=== PATIENT | female | born 1960 | race Caucasian/White ===

== ENCOUNTER 2022-03-13 06:57 | Inpatient (IN) | payer BC, OTHER, SELFPAY ==
[2022-03-13] VITALS (8 sets, daily range): BP systolic 152–208; BP diastolic 69–106; PULSE 71–84; RESP 16–18; TEMP 36.3–37.1; O2SAT 96–99; BMI 39.4
--- NOTE | 2022-03-13 | ECG_ITS ---
Test Reason : MED CLEARANCE Blood Pressure : / mmHG Vent. Rate : 079 BPM Atrial Rate : 079 BPM P-R Int : 180 ms QRS Dur : 080 ms QT Int : 392 ms P-R-T Axes : 057 017 062 degrees QTc Int : 449 ms Normal sinus rhythm Normal ECG When compared with ECG of 20-JAN-2008 07:41, No significant change was found Referred By: Bebo Livingston Electronically Signed By:NAEEM WILBURN
--- NOTE | 2022-03-13 07:19 | ED.PSYCH ---
HPI - Psych General Chief Complaint: Psychiatric Symptoms Stated Complaint: SECT 12,MANIC EPISODE Time Seen by Provider: 03/13/22 07:18 Source: patient and EMS History of Present Illness HPI Narrative: . Patient with History of bipolar disorder was seen at [facility] last week brought by EMS for having a manic episode disorganized awake all night went to [facility] last night. Per daughter patient noncompliant to medication no suicidal ideation at this time no hallucinations or delusions also patient has swelling of the lower extremity for some time and was told secondary to side effect of amlodipine Related Data Home Medications Medication Instructions Recorded Confirmed amlodipine 10 mg tablet 1 tab PO DAILY 03/13/22 03/13/22 carbamazepine 100 mg 1 tab PO BID 03/13/22 03/13/22 tablet,extended release,12 hr duloxetine 30 mg capsule,delayed 1 cap PO DAILY 03/13/22 03/13/22 release ezetimibe 10 mg tablet 1 tab PO DAILY 03/13/22 03/13/22 fenofibrate nanocrystallized 145 1 tab PO DAILY 03/13/22 03/13/22 mg tablet lorazepam 1 mg tablet 1 tab PO DAILY PRN Anxiety 03/13/22 03/13/22 olanzapine 5 mg tablet 1 tab PO BEDTIME 03/13/22 03/13/22 pantoprazole 40 mg tablet,delayed 1 tab PO BEDTIME 03/13/22 03/13/22 release Allergies Allergy/AdvReac Type Severity Reaction Status Date / Time adhesive [Adhesive] Allergy Mild SKIN Unverified 04/20/20 15:52 IRRITATION WITH BLISTERS codeine [Codeine] Allergy Mild UNKNOWN Unverified 04/20/20 15:52 methylphenidate Allergy Mild UNKNOWN Unverified 04/20/20 15:52 [From CONCERTA] simvastatin [Simvastatin] Allergy Mild UNKNOWN Unverified 04/20/20 15:52 Review of Systems Review of Systems: Yes all other systems are reviewed and are negative PMFSH Social History Social History Advance Directives: No Advance Directives Information Provided: No Guardian: No Physical Exam Vital Signs: Vital Signs: Last Vital Signs Temp 97.7 F 03/13/22 08:48 Pulse 82 03/13/22 15:26 Resp 16 03/13/22 09:32 BP 208/97 H 03/13/22 15:26 Pulse Ox 97 03/13/22 15:26 O2 Del Method 03/13/22 15:26 BMI result Body Mass Index 39.4 Appearance: Alert. Oriented X3. No acute distress. Anxious Eyes: PERRLA, No Nystagmus ENT: Pharynx normal. Oral Mucosa moist Neck: Normal inspection. Neck supple. CVS: Normal heart rate and rhythm. Pulses normal. Respiratory: No respiratory distress. Equal air entry bilateral, no wheezing/rales/rhonchi Abdomen: Soft and nontender. Bowel sounds are present, no mass palpable, no CVA tenderness Skin: Skin warm and dry. Normal skin color. Normal skin turgor. Extremities: 2 +lower extremity edema. No calf tenderness Neuro: Oriented X 3. No motor deficit. MDM - Psych Lab Data Attestation: I reviewed the patient's lab results. Result diagrams: 03/13/22 16:28 03/13/22 16:28 Labs: Lab Results 03/13/22 03/13/22 03/13/22 Range/Units 07:41 07:41 16:28 WBC 7.5 (4.8-10.8) X10*3/uL RBC 4.59 (4.20-5.50) X10*6/uL Hgb 13.5 (12.0-16.0) g/dl Hct 39.4 (37.0-47.0) % MCV 85.8 (80.0-98.0) fL MCH 29.4 (27.0-33.0) pg MCHC 34.3 (31.0-35.0) g/dl RDW 13.3 (11.0-16.0) % Plt Count 306 (160-400) X10*3/uL MPV 9.1 L (9.4-12.3) fL Immature Gran % (Auto) 0.3 (0.0-0.4) % Neut % (Auto) 66.9 (45-73) % Lymph % (Auto) 21.3 (20-40) % Barber % (Auto) 8.1 (2-11) % Eos % (Auto) 2.7 (0-4) % Baso % (Auto) 0.7 (0-2) % Lymph # (Auto) 1.6 (1.2-4.9) X10*3/uL Barber # (Auto) 0.6 (0.1-1.2) X10*3/uL Eos # (Auto) 0.2 (0.0-0.4) X10*3/uL Baso # (Auto) 0.1 (0.0-0.2) X10*3/uL Abs Immat Gran (auto) 0.02 (0.00-0.03) X10*3/uL Absolute Neuts (auto) 5.0 (2.0-8.3) x10*3/uL Absolute Nucleated RBC 0.000 (0.0-0.012) X10*3/uL Nucleated RBC % (auto) 0.0 (0.0-0.2) /100WBC Urine Opiates Screen Not Detected (Not Detect) Urine Fentanyl Screen Not Detected (Not Detect) Ur Barbiturates Screen Not Detected (Not Detect) Ur Phencyclidine Scrn Not Detected (Not Detect) Ur Amphetamines Screen Not Detected (Not Detect) U Benzodiazepines Scrn Not Detected (Not Detect) Urine Cocaine Screen Not Detected (Not Detect) U Marijuana (THC) Screen Not Detected (Not Detect) COVID-19 (JOSE) Negative (Negative) COVID-19 Clin Com See Note Discharge Plan Discharge Clinical Impression: Bipolar disorder Patient Disposition: Still a Patient Prescriptions: No Action carbamazepine 100 mg tablet extended release 12 hr 1 tab PO BID olanzapine 5 mg tablet 1 tab PO BEDTIME amlodipine 10 mg tablet 1 tab PO DAILY lorazepam 1 mg tablet 1 tab PO DAILY PRN (Reason: Anxiety) ezetimibe 10 mg tablet 1 tab PO DAILY duloxetine 30 mg capsule,delayed release(DR/EC) 1 cap PO DAILY fenofibrate nanocrystallized 145 mg tablet 1 tab PO DAILY pantoprazole 40 mg tablet,delayed release (DR/EC) 1 tab PO BEDTIME
[2022-03-13 08:09] LABS: Amphetamine Screen Urine Not Detected (Not Detect); Barbiturates, Urine Not Detected (Not Detect); Benzodiazepines Screen Urine Not Detected (Not Detect); Cannabinoid Screen Urine Not Detected (Not Detect); Cocaine Screen Urine Not Detected (Not Detect); Fentanyl, urine Not Detected (Not Detect); Opiate Screen Urine Not Detected (Not Detect); Phencyclidine Screen Urine Not Detected (Not Detect)
[2022-03-13 08:16] LABS: COVID-19 Test Negative (Negative); IDNOW Serial# 16C4AD1C
--- NOTE | 2022-03-13 14:07 | PHA.MEDREC ---
Pharmacy Consult ? Medication Reconciliation Pharmacy has completed the medication reconciliation.
[2022-03-13] MEDS: carBAMazepine ER 100 MG TAB.ER.12H PO (16:06)
[2022-03-13] MEDS: DULoxetine HCl 30 MG CAPSULE.DR PO (16:06)
[2022-03-13] MEDS: amLODIPine Besylate 10 MG TABLET PO ×2 (16:06→19:37)
[2022-03-13 16:34] LABS: MANUAL DIFF FLAG NO
[2022-03-13 16:35] LABS: Basophils Absolute Auto 0.1 X10*3/uL (0.0-0.2); Basophils Percent Auto 0.7 % (0-2); Eosinophils Absolute Auto 0.2 X10*3/uL (0.0-0.4); Eosinophils Percent Auto 2.7 % (0-4); Hematocrit 39.4 % (37.0-47.0); Hemoglobin 13.5 g/dl (12.0-16.0); Imm Gran Abs Auto 0.02 X10*3/uL (0.00-0.03); Imm Gran Pct Auto 0.3 % (0.0-0.4); Lymphocytes Absolute Auto 1.6 X10*3/uL (1.2-4.9); Lymphocytes Percent Auto 21.3 % (20-40); Mean Corpuscular HGB Conc 34.3 g/dl (31.0-35.0); Mean Corpuscular Hemoglobin 29.4 pg (27.0-33.0); Mean Corpuscular Volume 85.8 fL (80.0-98.0); Mean Platelet Volume 9.1 fL (9.4-12.3); Monocytes Absolute Auto 0.6 X10*3/uL (0.1-1.2); Monocytes Percent Auto 8.1 % (2-11); Neutrophils Percent Auto 66.9 % (45-73); Platelet Count 306 X10*3/uL (160-400); Red Blood Count 4.59 X10*6/uL (4.20-5.50); Red Cell Distribution Width 13.3 % (11.0-16.0); White Blood Count 7.5 X10*3/uL (4.8-10.8)
[2022-03-13 17:00] LABS: B Type Natriuretic Peptide 52 pg/mL (<100)
[2022-03-13 18:40] LABS: Alanine Aminotransferase 32 U/L (0-31); Albumin Level 4.5 g/dL (3.5-5.0); Alkaline Phosphatase 115 U/L (39-117); Anion Gap 19 (12-20); Aspartate Amino Transferase 34 U/L (5-31); Bilirubin Total 0.5 mg/dL (0.0-1.0); Blood Urea Nitrogen 19 mg/dL (9-16); Calcium 9.6 mg/dL (8.4-10.2); Carbon Dioxide 19 mmol/L (22-29); Chloride 103 mmol/L (96-108); Creatinine Clr Calc Pharmacy 95.4; Estimated Glomerular Filt Rate > 60; Ethanol < 10 mg/dL; Glucose Random 133 mg/dL (60-115); Magnesium 1.9 mg/dL (1.6-2.6); Potassium 4.9 mmol/L (3.3-5.1); Sodium 136 mmol/L (135-145); Total Protein 8.1 g/dL (6.5-8.0)
[2022-03-13] MEDS: LORazepam 1 MG TABLET PO (19:37)
--- NOTE | 2022-03-13 20:18 | PC.NURSE ---
PATIENT REFUSED LABS. THE PATIENT STATED YOU CANNOT FORCE ME .
--- NOTE | 2022-03-13 21:09 | PC.NURSE ---
Patient refused Tegretol lab draw, Kiara on behalf this leader writer helped communicated with Michelle MCCLOUD who ordered Tegretol order, per Michelle it is OK if patient is refusing the lab order, doesn't need any coercive measure for lab draw, Maciej Brown made aware of the situation, MHT also made aware, will continue to monitor
--- NOTE | 2022-03-13 21:40 | PC.NURSE ---
Patient's Blood pressure @ 1526 (208/97), @ 1822 (202/106), and @ 2004 (197/101), appears in hypertensive crises, Amlodipine 10 mg and Ativan 1 mg administered as ordered @ 1937, Provider and Charge nurse made aware/awaiting their decision, M3 cannot admit the patient with that high blood pressure, will continue to monitor.
[2022-03-14] MEDS: Acetaminophen 325 MG TABLET 650 MG PO ×2 (00:23→10:09)
[2022-03-14 01:13] VITALS: BMI 40.4
--- NOTE | 2022-03-14 03:44 | PC.ADMIT ---
this is one of several [facility] [place] [facility] behavioral health admissions for this 61 year old female. legal CV. signed 3 day on arrival to unit. DX bipolar d/o. nurse to nurse and collateral information obtained prior to admission. patient. patient with no drug/alcohol use. on arrival presented as sarcastic and negative with a challenging edge but this presentation lifted slightly after orientation to unit and assessment complete. patient denies mental health issues stating ''I do not have bipolar d/o I have ADHD'' states ''I am here because of my '' ''he should be here, I think he is developing dementia'' refused to sign release to speak with or daughter but did sign for her out patient providers. medications were verified when in the emergency room but would like medications verified with her providers as she does not concur with them when reviewed. medical HX HTN, RA, hyperlipidemia, and is considered a high fall risk due to medical conditions as well as requiring a cane for mobility. pt is expansive and hyperverbal and can be difficult to disengage from. treatment plan initiated, safety tool completed, oriented to unit.
[2022-03-14 07:00] VITALS: BMI 40.4
[2022-03-14 09:45] VITALS: BP 154/82; PULSE 86; RESP 18; TEMP 36.8
[2022-03-14] MEDS: DULoxetine HCl 30 MG CAPSULE.DR PO (10:00)
[2022-03-14] MEDS: carBAMazepine ER 100 MG TAB.ER.12H PO ×2 (10:02→22:42)
--- NOTE | 2022-03-14 11:04 | PC.NURSE ---
Patient declined antihypertensive medication, and medications used to treat elevated cholesterol. MD notified.
[2022-03-14] MEDS: Ibuprofen 800 MG TABLET PO ×2 (15:28→22:42)
[2022-03-14 16:15] VITALS: BP 159/75; PULSE 106; RESP 20; O2SAT 97
--- NOTE | 2022-03-14 17:17 | HO.PSYADMNOT ---
HPI Date of Service: 03/14/22 Chief Complaint: Manic Episode Sources of Information: patient interviewed, chart reviewed and crisis/core team assessment reviewed HPI Subjective Notes: Malik Warning and Conditional Voluntary Healthcare Proxy: No Guardianship: No Medical Problems Affecting Mental Status: No Narrative: Samantha is a 61 y.o. Pt who carries a dx of bipolar DO. She presented to [facility] on 03/13/2022 due to a manic episode, pt called 911 and asked to have her arrested because he hurt her, police are familiar with her, noted her to be decompensated and sent her to the hospital. Recent discharge from [facility], however family reports pt is still manic. Pt?s daughter has reported med non-adherence but pt denies this, now refusing further lab work for tegretol level. She took amlodipine in the ED due to hypertension, however she is now refusing due stating an MD told her it can contribute to bilateral LE edema. BNP wnl. Per crisis eval, pt?s family report pt has not been sleeping, has impulsive behaviors, she is circumstantial in thoughts, grandiose (i.e. told CARE team clinician she has an IQ higher than [facility]), paranoid/ persecutory delusions (i.e. believes that computer chips in [employer] and electronics made in [employer] are listening/ tracking devices, wants to send her to care home), and engaging in shopping sprees. Pt denied that she has bipolar disorder, believes she has ADHD. She is a prison pt of Aixa Ahn APRN. I evaluated the pt this evening and upon interview she says she does not want to be on her psych medications, has been working with her OP provider to taper off them as she is worried about her kidneys and liver, despite reassuring lab work. Also says a ?doctor told me I dont have bipolar disorder? and that ?I have ADHD.? During interview, pt is highly circumstantial and difficult to redirect. Pt admits to hyposomnia, says she sleeps 2.5 hours at night. Reports her family thinks she is manic because ?every august and every february i go shopping,? says this is early loan shopping. She denies A/VH. Of note, pt is articulate, educated, and offers some insight into her sx, attempts at length to provide evidence that she is not bipolar.? Past Psychiatric History: -Hx of admission to July 2007 and January 2008. Hx of IPLOC at [facility], [place], and in [place]. -Psych provider is Naty Ahn NP -Per , pt has a manic episode every 2-3 years in late summer or near Loan despite med adherence. -Hx of suicidal gesture in 2006, put a cord around her neck while depressed, did seek help. 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 Supervisors were concerned about her instability and [employer] clearance. - for 42 years to her , they have one daughter Diagnostics Vital Signs (24Hr): Vital Signs - 24 hr 03/13/22 18:22 03/13/22 20:05 03/13/22 21:58 Temperature 98.7 F Pulse Rate 84 Respiratory Rate 16 18 Blood Pressure 202/106 H 197/101 H 171/69 H Pulse Oximetry 96 Oxygen Delivery Method Room Air 03/13/22 22:11 03/13/22 23:00 03/14/22 09:45 Temperature 97.3 F 98.3 F Pulse Rate 77 86 Respiratory Rate 18 Blood Pressure 152/81 H 169/74 H 154/82 H Pulse Oximetry 98 Oxygen Delivery Method Room Air 03/14/22 16:15 Temperature Pulse Rate 106 H Respiratory Rate 20 Blood Pressure 159/75 H Pulse Oximetry 97 Oxygen Delivery Method Room Air BMI result Body Mass Index 40.4 Labs Results: 03/13/22 16:28 03/13/22 16:28 Labs: Laboratory Results - last 48 hr 03/13/22 03/13/22 03/13/22 07:41 07:41 16:28 WBC 7.5 RBC 4.59 Hgb 13.5 Hct 39.4 MCV 85.8 MCH 29.4 MCHC 34.3 RDW 13.3 Plt Count 306 MPV 9.1 L Immature Gran % (Auto) 0.3 Neut % (Auto) 66.9 Lymph % (Auto) 21.3 Zapata % (Auto) 8.1 Eos % (Auto) 2.7 Baso % (Auto) 0.7 Lymph # (Auto) 1.6 [place]ata # (Auto) 0.6 Eos # (Auto) 0.2 Baso # (Auto) 0.1 Abs Immat Gran (auto) 0.02 Absolute Neuts (auto) 5.0 Absolute Nucleated RBC 0.000 Nucleated RBC % (auto) 0.0 Sodium Potassium Chloride Carbon Dioxide Anion Gap BUN Creatinine Estim Creat Clear Calc Estimated GFR Random Glucose Calcium Magnesium Total Bilirubin AST ALT Alkaline Phosphatase B-Natriuretic Peptide Total Protein Albumin Urine Opiates Screen Not Detected Urine Fentanyl Screen Not Detected Ur Barbiturates Screen Not Detected Ur Phencyclidine Scrn Not Detected Ur Amphetamines Screen Not Detected U Benzodiazepines Scrn Not Detected Urine Cocaine Screen Not Detected U Marijuana (THC) Screen Not Detected Ethyl Alcohol COVID-19 (JOSE) Negative COVID-[employer] See Note 03/13/22 03/13/22 16:28 16:28 WBC RBC Hgb Hct MCV MCH MCHC RDW Plt Count MPV Immature Gran % (Auto) Neut % (Auto) Lymph % (Auto) Zapata % (Auto) Eos % (Auto) Baso % (Auto) Lymph # (Auto) Zapata # (Auto) Eos # (Auto) Baso # (Auto) Abs Immat Gran (auto) Absolute Neuts (auto) Absolute Nucleated RBC Nucleated RBC % (auto) Sodium 136 Potassium 4.9 Chloride 103 Carbon Dioxide 19 L Anion Gap 19 BUN 19 H Creatinine 0.71 Estim Creat Clear Calc 95.4 Estimated GFR > 60 Random Glucose 133 H Calcium 9.6 Magnesium 1.9 Total Bilirubin 0.5 AST 34 H ALT 32 H Alkaline Phosphatase 115 B-Natriuretic Peptide 52 Total Protein 8.1 H Albumin 4.5 Urine Opiates Screen Urine Fentanyl Screen Ur Barbiturates Screen Ur Phencyclidine Scrn Ur Amphetamines Screen U Benzodiazepines Scrn Urine Cocaine Screen U Marijuana (THC) Screen Ethyl Alcohol < 10 COVID-19 (JOSE) COVID-[employer] Meds/Allergies Meds Home Medications Medication Instructions Recorded Confirmed Type amlodipine 10 mg tablet 1 tab PO DAILY 03/13/22 03/13/22 History carbamazepine 100 mg 1 tab PO BID 03/13/22 03/13/22 History tablet,extended release,12 hr duloxetine 30 mg capsule,delayed 1 cap PO DAILY 03/13/22 03/13/22 History release lorazepam 1 mg tablet 1 tab PO DAILY PRN Anxiety 03/13/22 03/13/22 History olanzapine 5 mg tablet 1 tab PO BEDTIME 03/13/22 03/13/22 History pantoprazole 40 mg tablet,delayed 1 tab PO BEDTIME 03/13/22 03/13/22 History release fluticasone propionate 50 1 spray intranasal DAILY 03/14/22 03/14/22 History mcg/actuation nasal spray,suspension Allergies Allergies Allergy/AdvReac Type Severity Reaction Status Date / Time adhesive [Adhesive] Allergy Mild SKIN Unverified 04/20/20 15:52 IRRITATION WITH BLISTERS codeine [Codeine] Allergy Mild UNKNOWN Unverified 04/20/20 15:52 methylphenidate Allergy Mild UNKNOWN Unverified 04/20/20 15:52 [From CONCERTA] simvastatin [Simvastatin] Allergy Mild UNKNOWN Unverified 04/20/20 15:52 Mental Status Exam Mental Status Exam Narrative: A&O. Overweight, Bilateral LE edema (not new), otherwise well groomed and good hygiene. Good eye contact, attentive. No Tics or Tremors. No abnormal involuntary movements. Calm, somewhat guarded but overall engaged. Non-pressured speech, spontaneous with regular rate and rhythm, normal volume and prosody. No prolonged speech latency or dysarthria. Mood is ?good,? affect is constricted. Denies SI/SIB/HI upon inquiry. Denies A/VH. Presents with persecutory thought content, some paranoia. Thoughts are circumstantial. No known cognitive or memory impairment. Insight/ Judgment limited. Assessment & Plan Assessment & Plan (1) Bipolar II disorder: Status: Acute Code(s): F31.81 - Bipolar II disorder Plan Samantha is a 61 y.o. Pt who carries a dx of bipolar DO. She presented to [facility] on 03/13/2022 due to a manic episode, pt called 911 and asked to have her arrested because he hurt her, police are familiar with her, noted her to be decompensated and sent her to the hospital. Recent discharge from [facility], however family reports pt is still manic. Pt refusing further lab work for tegretol level and refusing amlodpine. Says she has a goal to wean herself off her psych meds and does not believe she is bipolar, thinks she has ADHD. Remote hx of IPLOC at [facility] in 2006, 2007. Plan: Of note, pt takes cymbalta 30 mg daily, she acknowledges that it can exacerbate manic sx, says she takes it for RA. Pt says olanzapine causes her wt gain, swelling, does not want to take this medication. She also does not want to take amlodipine. I spoke with the hospitalist, will start lisinopril 10 mg daily for essential HTN. Pt is currently refusing to start any new medications and insists on collaboration with her OP provider Aixa Ahn prior to changes being made. Overall, pt says she intends to wean herself off medication in the next two years as Aixa is retiring. Will continue assessment and engagement.? Q15 min safety checks, CV Monitor response to medications. Monitor for safety in the milieu. Discharge on stabilization. Patient seen. Chart reviewed. Discussed with team. Obtain collateral contact info?as needed Patient educated on: diagnosis, medication risk/benefits and therapeutic strategies Reason for continued inpatient stay Substantial Risk for: rapid decompensation and med/psych decompensation
[2022-03-14 22:35] VITALS: BP 150/88; PULSE 84; RESP 18; TEMP 36.3; O2SAT 99
[2022-03-14] MEDS: cloNIDine HCL 0.1 MG TABLET PO (22:43)
[2022-03-14] MEDS: Baclofen 20 MG TABLET PO (22:43)
[2022-03-15] MEDS: carBAMazepine ER 100 MG TAB.ER.12H PO (08:31)
[2022-03-15] MEDS: DULoxetine HCl 30 MG CAPSULE.DR PO (08:31)
[2022-03-15] MEDS: cloNIDine HCL 0.1 MG TABLET PO (08:32)
[2022-03-15 09:49] VITALS: BP 156/67; PULSE 89; RESP 20; TEMP 36.1; O2SAT 96
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
--- NOTE | 2022-03-15 12:06 | PC.NURSE ---
Patient alert, oriented x3. Patient denies SI, denies HI You know why? I'm Adventist. Patient denies hallucinations. Patient reports she feels ready for discharge, denies any concerns, states she is eager to leave.
--- NOTE | 2022-03-15 12:19 | PC.NURSE ---
Reviewed belongings, patient discharge instructions. Patient verbalized understanding of instructions. Reviewed belongings with patient- patient reported all is accounted for, no concerns verbalized.
--- NOTE | 2022-03-15 12:41 | PC.NURSE ---
Patient discharged to care of family.
== END 2022-03-15 12:41 | disposition home or self-care (01) | DRG 753 ==
LOC: HO.ED 22:17 → HO.PADLT16 22:24
PROVIDERS: Admitting Provider Psychiatry & Neurology Psychiatry; Emergency Provider Internal Medicine; PCP Nurse Practitioner Family; Visit Provider Registered Nurse
DX: F31.81 Bipolar II disorder (principal); Z91.14 Patient's other noncompliance with medication regimen; Z20.822 Contact with and (suspected) exposure to COVID-19; Z88.5 Allergy status to narcotic agent; Z88.8 Allergy status to other drugs, medicaments and biological substances; Z79.51 Long term (current) use of inhaled steroids; Z79.899 Other long term (current) drug therapy
CPT/HCPCS: 36415; 80053; 80307; 82077; 83735; 83880; 85025; 87635; 93005; 99285

== ENCOUNTER 2022-03-15 21:57 | Inpatient (IN) | payer BC, SELFPAY ==
--- NOTE | ~2022-03-15 | XR_ITS ---
EXAMINATION: XR CHEST CLINICAL INFORMATION: Dyspnea, orthopnea and edema COMPARISON: None TECHNIQUE: Frontal view of the chest was obtained. FINDINGS: No significant abnormality is noted involving the heart, lungs, mediastinum, or soft tissues. There are degenerative changes of the spine. XR/XR chest 1V IMPRESSION: Unremarkable examination.
--- NOTE | ~2022-03-15 | XR_ITS ---
EXAMINATION: XR KNEE, LEFT CLINICAL INFORMATION: Pain from mechanical fall COMPARISON: None TECHNIQUE: Four views of the left knee. FINDINGS: No fracture or dislocation. No suprapatellar joint effusion. Mild to moderate narrowing of the medial joint space height. Tiny tricompartmental marginal osteophytes. No focal soft tissue swelling of the anterior knee. XR/XR knee LT 4V IMPRESSION: Mild degenerative changes of the knee.
--- NOTE | ~2022-03-15 | CT_ITS ---
EXAMINATION: CT HEAD WITHOUT CONTRAST CLINICAL INFORMATION: Fall from chair, hit head COMPARISON: Head CT 07/25/2007 TECHNIQUE: Imaging was performed from the skull base to vertex without intravenous administration of contrast. This CT examination was performed using dose optimization techniques as appropriate, variously including the following: *Automated exposure control *Adjustment of mA and/or kV according to patient size (this includes techniques or standardized protocols for targeted exams where dose is matched to indication/reason for exam; i.e. extremities or head) *Use of iterative reconstruction technique Total exam dose length product: 618 mGy-cm FINDINGS: No intra or extra-axial fluid collection, hemorrhage, or mass. No ventriculomegaly. No midline shift or herniation. Basal cisterns are patent. Lemon-white matter differentiation is maintained. No territorial encephalomalacia. No significant volume loss. Small low-density focus in the inferior left lentiform nucleus consistent with a dilated perivascular space, unchanged. No calvarial fracture or soft tissue abnormality. The mastoid air cells and visualized portions of the paranasal sinuses are well aerated. CT/CT head/brain wo con IMPRESSION: 1. No acute intracranial pathology.
--- NOTE | ~2022-03-15 | CT_ITS ---
EXAMINATION: CT LUMBAR SPINE WITHOUT CONTRAST CLINICAL INFORMATION: Pain. History of disc herniation. COMPARISON: None TECHNIQUE: Multidetector helical imaging acquired in the axial plane with generation of reformatted acquisitions. This CT examination was performed using dose optimization techniques as appropriate, variously including the following: *Automated exposure control. *Adjustment of mA and/or kV according to patient size (this includes techniques or standardized protocols for targeted exams where dose is matched to indication/reason for exam; i.e. extremities or head). *Use of iterative reconstruction technique. DLP: 904 mGy-cm FINDINGS: There are no compression fractures or subluxations. No suspicious bony lesions are seen. The S1 vertebra is transitional and partially lumbarized. The paraspinal soft tissues are unremarkable. Mild sigmoid colon diverticulosis noted. There are ajio-sw-[id number] degenerative changes of the SI joints. Mild disc bulge and posterior annular calcification at the L1-L2 level. No central canal stenosis or foraminal narrowing. At the L2-L3 level, there is a very mild disc bulge and mild facet arthropathy without central canal stenosis or foraminal narrowing. At the L3-L4 level, there is a left paracentral disc protrusion with annular calcification impressing upon the ventral thecal sac with facet arthropathy resulting in mild central canal stenosis. Endplate spurring contributes to apha-zw-dphutxmp left foraminal encroachment. At the L4-L5 level, there is a generalized disc bulge and moderate facet degeneration with [id number] central canal stenosis and mild left foraminal narrowing. At the L5-S1 level, there is severe facet arthropathy and a very mild disc bulge with mild central canal stenosis or significant foraminal narrowing. Please note that evaluation for disc protrusions is limited on this noncontrast CT examination. CT/CT lumbar spine wo con IMPRESSION: Multilevel lumbar spondylosis with [id number] central canal stenosis at the L4-L5 level. Mild central canal stenosis at the L3-L4 level with a small left paracentral disc protrusion and annular calcification. Exuberant facet arthropathy at the L5-S1 level with mild central canal stenosis.
--- NOTE | ~2022-03-15 | XR_ITS ---
EXAMINATION: 1. RADIOGRAPHS RIGHT KNEE 2. RADIOGRAPHS RIGHT ANKLE CLINICAL INFORMATION: Pain after fall COMPARISON: None TECHNIQUE: 4 views of the right knee and 3 views of the right ankle were obtained FINDINGS: Right knee: No fracture or dislocation. No suprapatellar joint effusion. Mild to moderate narrowing of the medial joint space height. Small tricompartmental marginal osteophytes. No focal soft tissue swelling of the anterior knee. Right ankle: Visualized portion of the distal tibia and fibula demonstrate no fracture. Ankle mortise is intact. No focal soft tissue swelling of the right ankle. No gross ankle joint effusion. Small posterior and plantar calcaneal enthesophytes. XR/XR ankle RT min 3V IMPRESSION: -Mild degenerative changes of the right knee, particularly involving the medial compartment. -Unremarkable radiographs of the right ankle.
--- NOTE | ~2022-03-15 | XR_ITS ---
EXAMINATION: 1. RADIOGRAPHS RIGHT KNEE 2. RADIOGRAPHS RIGHT ANKLE CLINICAL INFORMATION: Pain after fall COMPARISON: None TECHNIQUE: 4 views of the right knee and 3 views of the right ankle were obtained FINDINGS: Right knee: No fracture or dislocation. No suprapatellar joint effusion. Mild to moderate narrowing of the medial joint space height. Small tricompartmental marginal osteophytes. No focal soft tissue swelling of the anterior knee. Right ankle: Visualized portion of the distal tibia and fibula demonstrate no fracture. Ankle mortise is intact. No focal soft tissue swelling of the right ankle. No gross ankle joint effusion. Small posterior and plantar calcaneal enthesophytes. XR/XR knee RT 4V IMPRESSION: -Mild degenerative changes of the right knee, particularly involving the medial compartment. -Unremarkable radiographs of the right ankle.
--- NOTE | ~2022-03-15 | US_ITS ---
EXAMINATION: US VENOUS ULTRASOUND WITH DOPPLER LOWER EXTREMITY, BILATERAL CLINICAL INFORMATION: Bilateral lower extremity edema. COMPARISON: None TECHNIQUE: Ultrasound of the deep veins is performed from the hip to the calf with compression sonography and color and pulse Doppler assessment. Spectral analysis with color-flow imaging is performed. FINDINGS: RIGHT: There is normal venous compression and respiratory variation and augmented flow. The visualized common femoral vein, superficial femoral vein, profunda femoral vein, popliteal vein, and the visualized calf veins shows no evidence of deep venous thrombosis. There is no significant popliteal fossa cyst. LEFT: There is normal venous compression and respiratory variation and augmented flow. The visualized common femoral vein, superficial femoral vein, profunda femoral vein, popliteal vein, and the visualized calf veins show no evidence of deep venous thrombosis. There is a left-sided Key's cyst measuring 4.1 x 2 x 1.6 cm. If the patient's symptoms persist, followup ultrasound in 5 days 7 days might be of value to exclude proximal propagation from a non-visualized calf vein. US/US venous duplex LE BI IMPRESSION: No DVT demonstrated in the bilateral lower extremities. Left Key's cyst.
[2022-03-15 22:08] VITALS: BMI 37.9
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
[2022-03-15 22:39] LABS: Appearance Urine CLEAR; Color Urine YELLOW; Glucose Urine UA NEG (NEG); Leukocyte Esterase Urine NEG (NEG); Nitrite Urine NEG (NEG); PH 5.5 (5.0-8.0); Specific Gravity - Urine >= 1.030 (1.005-1.025); Urine Blood NEG (NEG); Urine Ketones NEG (NEG); Urine Protein NEG (NEG-TRACE)
[2022-03-15 22:53] LABS: COVID-19 Test Negative (Negative)
[2022-03-15 22:55] LABS: Amphetamine Screen Urine Not Detected (Not Detect); Barbiturates, Urine Not Detected (Not Detect); Benzodiazepines Screen Urine Not Detected (Not Detect); Cannabinoid Screen Urine Not Detected (Not Detect); Cocaine Screen Urine Not Detected (Not Detect); Fentanyl, urine Not Detected (Not Detect); Opiate Screen Urine Not Detected (Not Detect); Phencyclidine Screen Urine Not Detected (Not Detect)
[2022-03-15 23:02] VITALS: BP 139/81; PULSE 86
[2022-03-15 23:03] VITALS: RESP 18; TEMP 37.1; O2SAT 95
--- NOTE | 2022-03-15 23:55 | PC.NURSE ---
pod calling regarding a patient laying on the floor. This RN and MD Avila to the pod to assess situation. Pt found laying prone on the floor, stating that she fell. MD requesting to review the security footage, security allowing MD Avila to view footage. Per MD Avila, pt lowered herself onto the floor and did not fall. Denis, primary RN notified.
[2022-03-16] VITALS (13 sets, daily range): BP systolic 161–188; BP diastolic 74–88; PULSE 94–115; RESP 16–20; TEMP 36.5; O2SAT 97–99
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
[2022-03-16] MEDS: OLANZapine 10 MG VIAL 5 MG IM (02:10)
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
--- NOTE | 2022-03-16 03:31 | PC.NURSE ---
Patient was extremely agitated, refuse to go to room, unsteady on gait, confused and combative, risk for self harm, provider notified/ordered Olanzapine 5 mg IM/administered as ordered at 0210 + effect, will continue to monitor.
[2022-03-16] MEDS: Ibuprofen 800 MG TABLET PO (04:46)
--- NOTE | 2022-03-16 07:16 | PC.NURSE ---
patient appears to remain at rest at present chatting with peer in group area. respirations even and unlabored patient appears in no distress.
[2022-03-16] MEDS: DULoxetine HCl 30 MG CAPSULE.DR PO (08:35)
--- NOTE | 2022-03-16 17:44 | PC.NURSE ---
clients dtr spoke to me expressed significant concerns regarding rapid dc of last inpatient discharge
[2022-03-16] MEDS: Ibuprofen 400 MG TABLET PO (18:03)
[2022-03-16] MEDS: amLODIPine Besylate 10 MG TABLET PO (20:19)
[2022-03-16] MEDS: carBAMazepine ER 100 MG TAB.ER.12H PO (20:19)
[2022-03-16] MEDS: OLANZapine 10 MG VIAL IM (21:25)
[2022-03-16] MEDS: diphenhydrAMINE HCL 50 MG/ML VIAL IM (21:25)
[2022-03-16] MEDS: Omeprazole 20 MG CAPSULE.DR PO (21:28)
[2022-03-17] VITALS (8 sets, daily range): BP systolic 129–168; BP diastolic 64–98; PULSE 79–95; RESP 18–20; TEMP 36.7; O2SAT 94–97
--- NOTE | 2022-03-17 | ECG_ITS ---
Test Reason : MEDICAL CLEARANCE Blood Pressure : / mmHG Vent. Rate : 098 BPM Atrial Rate : 098 BPM P-R Int : 186 ms QRS Dur : 082 ms QT Int : 370 ms P-R-T Axes : 052 000 039 degrees QTc Int : 472 ms Normal sinus rhythm Normal ECG When compared with ECG of 13-MAR-2022 18:18, No significant change was found Referred By: Vijay Mckeon Electronically Signed By:NAEEM WILBURN
[2022-03-17] MEDS: Ibuprofen 400 MG TABLET PO ×3 (00:36→15:57)
[2022-03-17] MEDS: Midazolam HCl/PF 2 MG/2 ML VIAL 4 MG IM (01:05)
[2022-03-17] MEDS: Haloperidol Lactate 5 MG/ML VIAL IM (01:05)
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
--- NOTE | 2022-03-17 07:04 | PC.NURSE ---
patient appears to remain at rest at present respirations are even and unlabored patient eating breakfast in milieu patient appears in no distress
[2022-03-17] MEDS: carBAMazepine ER 100 MG TAB.ER.12H PO ×2 (08:33→20:11)
--- NOTE | 2022-03-17 12:00 | PC.NURSE ---
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
--- NOTE | 2022-03-17 12:08 | PC.NURSE ---
patient singing patriotic songs in milieu, asks for complaint form.
--- NOTE | 2022-03-17 12:37 | PC.NURSE ---
gave client pen and complaint form, instructed client to return pen and not give to other clients.
--- NOTE | 2022-03-17 16:28 | PC.NURSE ---
patient seems to engage every person who passes her, making remarks about their appearance, usually positive rermarks.
[2022-03-17] MEDS: Labetalol HCL 200 MG TABLET PO (20:07)
[2022-03-17] MEDS: Omeprazole 20 MG CAPSULE.DR PO (20:08)
[2022-03-17] MEDS: OLANZapine 5 MG TABLET PO (20:08)
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
[2022-03-18] MEDS: LORazepam 1 MG TABLET PO ×2 (00:55→09:25)
[2022-03-18] MEDS: Ibuprofen 400 MG TABLET PO ×3 (00:56→18:08)
--- NOTE | 2022-03-18 06:20 | PC.NURSE ---
Patient is sitting in chair appears sleeping, patient slept intermittently, showered at 2300, behavior in good control, intrusive and argumentative at time, medication compliant, PRN Ativan 1 mg po administered at 0055 per patient's request, VSS at baseline without any concerns, disposition per care team is section 12 inpatient bed search, appetite good, alert and oriented/ 4, will continue to monitor
[2022-03-18 08:05] VITALS: BP 166/88; PULSE 93; RESP 14; TEMP 36.9; O2SAT 98
[2022-03-18] MEDS: carBAMazepine ER 100 MG TAB.ER.12H PO ×2 (09:25→22:46)
[2022-03-18] MEDS: Labetalol HCL 200 MG TABLET PO ×2 (09:25→22:45)
[2022-03-18 11:43] LABS: MANUAL DIFF FLAG NO
[2022-03-18 11:46] LABS: Basophils Percent Auto 0.7 % (0-2); Eosinophils Absolute Auto 0.2 X10*3/uL (0.0-0.4); Eosinophils Percent Auto 3.3 % (0-4); Hemoglobin 12.8 g/dl (12.0-16.0); Imm Gran Abs Auto 0.02 X10*3/uL (0.00-0.03); Imm Gran Pct Auto 0.4 % (0.0-0.4); Lymphocytes Absolute Auto 1.2 X10*3/uL (1.2-4.9); Lymphocytes Percent Auto 22.3 % (20-40); Mean Corpuscular HGB Conc 33.7 g/dl (31.0-35.0); Mean Corpuscular Hemoglobin 29.6 pg (27.0-33.0); Mean Corpuscular Volume 87.8 fL (80.0-98.0); Monocytes Absolute Auto 0.5 X10*3/uL (0.1-1.2); Monocytes Percent Auto 9.1 % (2-11); Neutrophils Absolute Auto 3.5 x10*3/uL (2.0-8.3); Neutrophils Percent Auto 64.2 % (45-73); Platelet Count 303 X10*3/uL (160-400); Red Blood Count 4.33 X10*6/uL (4.20-5.50); Red Cell Distribution Width 13.2 % (11.0-16.0); White Blood Count 5.4 X10*3/uL (4.8-10.8)
[2022-03-18 12:05] LABS: Anion Gap 17 (12-20); Blood Urea Nitrogen 21 mg/dL (9-16); Calcium 9.5 mg/dL (8.4-10.2); Carbon Dioxide 24 mmol/L (22-29); Chloride 104 mmol/L (96-108); Creatinine Clr Calc Pharmacy 98.7; Estimated Glomerular Filt Rate > 60; Glucose Random 119 mg/dL (60-115); Potassium 4.1 mmol/L (3.3-5.1); Sodium 141 mmol/L (135-145)
[2022-03-18 12:12] LABS: COVID-19 Test Negative (Negative)
--- NOTE | 2022-03-18 13:29 | PC.NURSE ---
Throughout this RN's shift, patient has been overall cooperative and redirectable with staff. Pt is frequently intrusive. Pt aware of plan to admit to M5, Bed 508-1. Prior to receiving assigned room, patient was reluctant to have bloodwork drawn without thorough explanation by this RN and the higher ups on the psych floor . This RN explained CBC/BMP for medical clearance and what each of these labs test for. Eventually, pt agreed to blood draw. Labs within normal range. Pt is paranoid. Early during this RN's shift, pt stated that she had a telehealth appointment with her PCP and this RN explained that I have a regular phone available to use, but that there wasn't an iPad/phone available at the time of request. Pt was upset about this and stated I will let them know that it's your fault that I couldn't attend to my medical emergency! Then was calm within a few minutes after this statement, and was speaking with someone from the doctor's office . Accepted meds only after phone call was finished. Pt occasionally commenting towards staff, and asked this RN why doesn't your badge have a shooting star symbol on it? But I can tell you're a good nurse, and I appreciate you, even though you're just a nurse instead of a doctor . Pt complimented this RN's ID badge photo and stated a lot of people's photos are ugly, so far yours is the best one . Speaking with hospital yarn weight and strength tester (Francisco) at this time.
[2022-03-18 15:30] VITALS: BP 171/78; PULSE 97; RESP 18; TEMP 37.1; O2SAT 97
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
[2022-03-18 18:00] VITALS: BP 138/78; PULSE 97; RESP 14; TEMP 36.7; O2SAT 98
[2022-03-18] MEDS: cloNIDine HCL 0.1 MG TABLET PO (22:45)
[2022-03-18] MEDS: OLANZapine 5 MG TABLET PO (22:45)
[2022-03-18] MEDS: Omeprazole 20 MG CAPSULE.DR PO (22:45)
[2022-03-18] MEDS: Fluticasone Propionate 100 MCG BLST.W.DEV 2 PUFF INHALE (22:52)
[2022-03-18] MEDS: Magnesium Hydrox/Alum Hydrox 30 ML ORAL.SUSP PO (23:55)
[2022-03-19 08:33] VITALS: BP 131/72; PULSE 75; RESP 16; TEMP 36.6; O2SAT 97
[2022-03-19 09:40] LABS: Estimated Average Glucose 94 mg/dL; Hemoglobin A1c % 4.9 %
[2022-03-19 09:55] LABS: Cholesterol 245 mg/dL; HDL Cholesterol 57 mg/dL; LDL Cholesterol Calculated 158 mg/dl; Triglycerides 151 mg/dL
--- NOTE | 2022-03-19 09:55 | P.PNPSI_ITS ---
Subjective Subjective Date of Service: 03/19/22 Reason For Visit: Bipolar Disorder Diagnostics Vital Signs (24Hr): Vital Signs - 24 hr 03/18/22 15:30 03/18/22 18:00 03/19/22 08:33 Temperature 98.7 F 98.1 F 97.9 F Pulse Rate 97 97 75 Respiratory Rate 18 14 16 Blood Pressure 171/78 H 138/78 131/72 Pulse Oximetry 97 98 97 Oxygen Delivery Method Room Air Room Air Room Air BMI result Body Mass Index 37.9 Labs Results: 03/18/22 11:34 03/18/22 11:34 Labs: Laboratory Results - last 48 hr 03/18/22 03/18/22 03/18/22 11:34 11:34 11:34 WBC 5.4 RBC 4.33 Hgb 12.8 Hct 38.0 MCV 87.8 MCH 29.6 MCHC 33.7 RDW 13.2 Plt Count 303 MPV 9.0 L Immature Gran % (Auto) 0.4 Neut % (Auto) 64.2 Lymph % (Auto) 22.3 [place] % (Auto) 9.1 Eos % (Auto) 3.3 Baso % (Auto) 0.7 Lymph # (Auto) 1.2 [place] # (Auto) 0.5 Eos # (Auto) 0.2 Baso # (Auto) 0.0 Abs Immat Gran (auto) 0.02 Absolute Neuts (auto) 3.5 Absolute Nucleated RBC 0.000 Nucleated RBC % (auto) 0.0 Sodium 141 Potassium 4.1 Chloride 104 Carbon Dioxide 24 Anion Gap 17 BUN 21 H Creatinine 0.72 Estim Creat Clear Calc 98.7 Estimated GFR > 60 Random Glucose 119 H Estimat Average Glucose Hemoglobin A1c % Calcium 9.5 COVID-19 (JOSE) Negative COVID-19 Clin Com See Note 03/19/22 08:32 WBC RBC Hgb Hct MCV MCH MCHC RDW Plt Count MPV Immature Gran % (Auto) Neut % (Auto) Lymph % (Auto) [place] % (Auto) Eos % (Auto) Baso % (Auto) Lymph # (Auto) [place] # (Auto) Eos # (Auto) Baso # (Auto) Abs Immat Gran (auto) Absolute Neuts (auto) Absolute Nucleated RBC Nucleated RBC % (auto) Sodium Potassium Chloride Carbon Dioxide Anion Gap BUN Creatinine Estim Creat Clear Calc Estimated GFR Random Glucose Estimat Average Glucose 94 Hemoglobin A1c % 4.9 Calcium COVID-19 (JOSE) COVID-19 Clin Com Medications Medications Current Medications Acetaminophen (Acetaminophen 325 Mg Tablet) 650 mg PO Q6H PRN PRN Reason: Headache/Pain Mild Scale (1-3) Al Hydroxide/Mg Hydroxide (Magnesium Hydrox/Alum Hydrox 30 Ml Oral.Susp) 30 ml PO Q6H PRN PRN Reason: Heartburn/Nausea Last Admin: 03/18/22 23:55 Dose: 30 ml Albuterol Sulfate (Albuterol Sulfate 90 Mcg 8 Gm Inhaler) 2 puff INHALE RQ4H PRN PRN Reason: wheezing Carbamazepine (Carbamazepine Er 100 Mg Tab.Er.12h) 100 mg PO BID [facility] Last Admin: 03/18/22 22:46 Dose: 100 mg Clonidine HCl (Clonidine Hcl 0.1 Mg Tablet) 0.1 mg PO BID [facility]; Protocol Last Admin: 03/18/22 22:45 Dose: 0.1 mg Fluticasone Propionate (Fluticasone Propionate Nasal 16 Gm [place]) 1 spray NOSTRIL-B DAILY [facility] Last Admin: 03/18/22 08:33 Dose: Not Given Fluticasone Propionate (Fluticasone Propionate 100 Mcg Blst.W.Dev) 2 puff INHALE RBID [facility] Last Admin: 03/18/22 22:52 Dose: 2 puff Hydroxyzine HCl (Hydroxyzine Hcl 25 Mg Tablet) 25 mg PO Q6H PRN PRN Reason: Anxiety Ibuprofen (Ibuprofen 400 Mg Tablet) 400 mg PO Q6H PRN PRN Reason: Pain, Mild (Pain Scale 1-3) Last Admin: 03/18/22 09:15 Dose: 400 mg Ketoconazole (Ketoconazole 2 % Shampoo 120 Ml Btl) 1 appl TOPICAL BEDTIME [facility] Last Admin: 03/18/22 22:46 Dose: Not Given Labetalol HCl (Labetalol Hcl 200 Mg Tablet) 200 mg PO BID [facility]; Protocol Last Admin: 03/18/22 22:45 Dose: 200 mg Lorazepam (Lorazepam 1 Mg Tablet) 1 mg PO DAILY PRN PRN Reason: Anxiety Last Admin: 03/18/22 09:25 Dose: 1 mg Magnesium Hydroxide (Milk Of Magnesia 30 Ml Oral.Susp) 30 ml PO DAILY PRN PRN Reason: Constipation Olanzapine (Olanzapine 5 Mg Tablet) 5 mg PO BEDTIME [facility] Last Admin: 03/18/22 22:45 Dose: 5 mg Omeprazole (Omeprazole 20 Mg Capsule.) 20 mg PO BEDTIME [facility] Last Admin: 03/18/22 22:45 Dose: 20 mg Trazodone HCl (Trazodone Hcl 50 Mg Tablet) 50 mg PO BEDTIME PRN PRN Reason: Insomnia Allergies Allergies Allergy/AdvReac Type Severity Reaction Status Date / Time adhesive [Adhesive] Allergy Mild SKIN Verified 03/18/22 08:34 IRRITATION WITH BLISTERS codeine [Codeine] Allergy Mild UNKNOWN Verified 03/18/22 08:34 methylphenidate Allergy Mild UNKNOWN Verified 03/18/22 08:34 [From [facility]] simvastatin [Simvastatin] Allergy Mild UNKNOWN Verified 03/18/22 08:34 Assessment & Plan Assessment & Plan (1) Bipolar II disorder: Status: Acute Code(s): F31.81 - Bipolar II disorder Plan Samantha is a 61 y.o. Pt who carries a dx of bipolar DO. She presented to [facility] on 03/13/2022 due to a manic episode, pt called 911 and asked to have her arrested because he hurt her, police are familiar with her, noted her to be decompensated and sent her to the hospital. Recent discharge from [facility], however family reports pt is still manic. Pt refusing further lab work for tegretol level and refusing amlodpine. Says she has a goal to wean herself off her psych meds and does not believe she is bipolar, thinks she has ADHD. Remote hx of IPLOC at [facility] in 2006, 2007. Plan: Pt says she takes cymbalta 30 mg daily for RA, she acknowledges that it can exacerbate manic sx. Pt says olanzapine causes her wt gain, exacerbates LE swelling, does not want to take this medication. Pt has been refusing medications, i.e. tegretol ER, says she intends to wean herself off medication in the next two years. Will continue assessment and engagement.?Pt would benefit from mood stabilizer, however at this time she is not insightful into her manic sx. Will start clonidine 0.1 mg BID for anxiety, agitation. 3 day notice 03/18/2022 Q15 min safety checks, CV Monitor response to medications. Monitor for safety in the milieu. Discharge on stabilization. Patient seen. Chart reviewed. Discussed with team. Obtain collateral contact info?as needed I spent minutes with the patient and/or on the patient floor today, greater than?50% of which was spent counseling/coordinating care.
[2022-03-19 10:22] LABS: Free T4 (Free Thyroxine) 0.93 ng/dL (0.71-1.85); Thyroid Stimulating Hormone 2.66 uIU/mL (0.32-4.0)
[2022-03-19] MEDS: cloNIDine HCL 0.1 MG TABLET PO ×2 (10:48→18:13)
[2022-03-19] MEDS: Labetalol HCL 200 MG TABLET PO ×2 (10:48→20:32)
[2022-03-19] MEDS: Fluticasone Propionate 100 MCG BLST.W.DEV 2 PUFF INHALE ×2 (10:49→22:16)
[2022-03-19] MEDS: carBAMazepine ER 100 MG TAB.ER.12H PO (10:49)
[2022-03-19 11:02] LABS: Folate 18.8 ng/mL (> or = 4.0); Vitamin B12 548 pg/mL (200-900)
--- NOTE | 2022-03-19 17:16 | P.PNPSI_ITS ---
Subjective Subjective Date of Service: 03/19/22 Reason For Visit: Bipolar Disorder Subjective Notes: Malik Warning, Conditional Voluntary and 3 Day Healthcare Proxy: No Interim History: I spoke with pt?s team, pt continues to present as grandiose, intrusive, difficult to redirect i.e. going into patient?s rooms. I evaluated the pt this evening, she reports poor sleep, high energy, she is giggling excessively during interview. Pt presents as labile, tearful at times.? Says she saved someone?s life on the unit, in actuality she just talked to a peer in the milieu. Mental Status Exam Mental Status Exam Narrative: A&O. Overweight, Bilateral LE edema (not new), otherwise well groomed and good hygiene. Good eye contact, attentive. No Tics or Tremors. No abnormal involuntary movements. Activated, defensive but overall engaged. Pressured speech, spontaneous with regular rate and rhythm, normal volume and prosody. No prolonged speech latency or dysarthria. Mood is [did not state], affect is labile, giggling and then tearful. Denies SI/SIB/HI upon inquiry. Denies A/VH. Presents with persecutory thought content, some paranoia, grandiose ideations. Thoughts are tangential. No known cognitive or memory impairment. Insight/ Judgment limited. Diagnostics Vital Signs (24Hr): Vital Signs - 24 hr 03/18/22 18:00 03/19/22 08:33 Temperature 98.1 F 97.9 F Pulse Rate 97 75 Respiratory Rate 14 16 Blood Pressure 138/78 131/72 Pulse Oximetry 98 97 Oxygen Delivery Method Room Air Room Air BMI result Body Mass Index 37.9 Labs Results: 03/18/22 11:34 03/18/22 11:34 Labs: Laboratory Results - last 48 hr 03/18/22 03/18/22 03/18/22 11:34 11:34 11:34 WBC 5.4 RBC 4.33 Hgb 12.8 Hct 38.0 MCV 87.8 MCH 29.6 MCHC 33.7 RDW 13.2 Plt Count 303 MPV 9.0 L Immature Gran % (Auto) 0.4 Neut % (Auto) 64.2 Lymph % (Auto) 22.3 [place] % (Auto) 9.1 Eos % (Auto) 3.3 Baso % (Auto) 0.7 Lymph # (Auto) 1.2 [place] # (Auto) 0.5 Eos # (Auto) 0.2 Baso # (Auto) 0.0 Abs Immat Gran (auto) 0.02 Absolute Neuts (auto) 3.5 Absolute Nucleated RBC 0.000 Nucleated RBC % (auto) 0.0 Sodium 141 Potassium 4.1 Chloride 104 Carbon Dioxide 24 Anion Gap 17 BUN 21 H Creatinine 0.72 Estim Creat Clear Calc 98.7 Estimated GFR > 60 Random Glucose 119 H Estimat Average Glucose Hemoglobin A1c % Calcium 9.5 Magnesium Triglycerides Cholesterol LDL Cholesterol, Calc HDL Cholesterol Vitamin B12 Folate TSH Free T4 COVID-19 (JOSE) Negative COVID-19 Clin Com See Note 03/19/22 03/19/22 03/19/22 08:32 08:32 08:32 WBC RBC Hgb Hct MCV MCH MCHC RDW Plt Count MPV Immature Gran % (Auto) Neut % (Auto) Lymph % (Auto) [place] % (Auto) Eos % (Auto) Baso % (Auto) Lymph # (Auto) [place] # (Auto) Eos # (Auto) Baso # (Auto) Abs Immat Gran (auto) Absolute Neuts (auto) Absolute Nucleated RBC Nucleated RBC % (auto) Sodium Potassium Chloride Carbon Dioxide Anion Gap BUN Creatinine Estim Creat Clear Calc Estimated GFR Random Glucose Estimat Average Glucose 94 Hemoglobin A1c % 4.9 Calcium Magnesium 2.0 Triglycerides 151 Cholesterol 245 LDL Cholesterol, Calc 158 HDL Cholesterol 57 Vitamin B12 548 Folate 18.8 TSH 2.66 Free T4 0.93 COVID-19 (JOSE) COVID-19 Clin Com Medications Medications Current Medications Acetaminophen (Acetaminophen 325 Mg Tablet) 650 mg PO Q6H PRN PRN Reason: Headache/Pain Mild Scale (1-3) Al Hydroxide/Mg Hydroxide (Magnesium Hydrox/Alum Hydrox 30 Ml Oral.Susp) 30 ml PO Q6H PRN PRN Reason: Heartburn/Nausea Last Admin: 03/18/22 23:55 Dose: 30 ml Albuterol Sulfate (Albuterol Sulfate 90 Mcg 8 Gm Inhaler) 2 puff INHALE RQ4H PRN PRN Reason: wheezing Carbamazepine (Carbamazepine Er 100 Mg Tab.Er.12h) 100 mg PO BID [facility] Last Admin: 03/19/22 10:49 Dose: 100 mg Clonidine HCl (Clonidine Hcl 0.1 Mg Tablet) 0.1 mg PO BID [facility]; Protocol Last Admin: 03/19/22 10:48 Dose: 0.1 mg Fluticasone Propionate (Fluticasone Propionate Nasal 16 Gm [place]) 1 spray NOSTRIL-B DAILY [facility] Last Admin: 03/19/22 10:49 Dose: Not Given Fluticasone Propionate (Fluticasone Propionate 100 Mcg Blst.W.Dev) 2 puff INHALE RBID [facility] Last Admin: 03/19/22 10:49 Dose: 2 puff Hydroxyzine HCl (Hydroxyzine Hcl 25 Mg Tablet) 25 mg PO Q6H PRN PRN Reason: Anxiety Ibuprofen (Ibuprofen 400 Mg Tablet) 400 mg PO Q6H PRN PRN Reason: Pain, Mild (Pain Scale 1-3) Last Admin: 03/18/22 09:15 Dose: 400 mg Ketoconazole (Ketoconazole 2 % Shampoo 120 Ml Btl) 1 appl TOPICAL BEDTIME [facility] Last Admin: 03/18/22 22:46 Dose: Not Given Labetalol HCl (Labetalol Hcl 200 Mg Tablet) 200 mg PO BID [facility]; Protocol Last Admin: 03/19/22 10:48 Dose: 200 mg Lorazepam (Lorazepam 1 Mg Tablet) 1 mg PO DAILY PRN PRN Reason: Anxiety Last Admin: 03/18/22 09:25 Dose: 1 mg Magnesium Hydroxide (Milk Of Magnesia 30 Ml Oral.Susp) 30 ml PO DAILY PRN PRN Reason: Constipation Olanzapine (Olanzapine 5 Mg Tablet) 5 mg PO BEDTIME [facility] Last Admin: 03/18/22 22:45 Dose: 5 mg Omeprazole (Omeprazole 20 Mg Capsule.Dr) 20 mg PO BEDTIME [facility] Last Admin: 03/18/22 22:45 Dose: 20 mg Trazodone HCl (Trazodone Hcl 50 Mg Tablet) 50 mg PO BEDTIME PRN PRN Reason: Insomnia Allergies Allergies Allergy/AdvReac Type Severity Reaction Status Date / Time adhesive [Adhesive] Allergy Mild SKIN Verified 03/18/22 08:34 IRRITATION WITH BLISTERS codeine [Codeine] Allergy Mild UNKNOWN Verified 03/18/22 08:34 methylphenidate Allergy Mild UNKNOWN Verified 03/18/22 08:34 [From [facility]] simvastatin [Simvastatin] Allergy Mild UNKNOWN Verified 03/18/22 08:34 Assessment & Plan Assessment & Plan (1) Bipolar II disorder: Status: Acute Code(s): F31.81 - Bipolar II disorder Plan Samantha is a 61 y.o. Pt who carries a dx of bipolar DO. She presented to [facility] on 03/13/2022 due to a manic episode, pt called 911 and asked to have her arrested because he hurt her, police are familiar with her, noted her to be decompensated and sent her to the hospital. Recent discharge from [facility], however family reports pt is still manic. Pt refusing further lab work for tegretol level and refusing amlodpine. Says she has a goal to wean herself off her psych meds and does not believe she is bipolar, thinks she has ADHD. Remote hx of IPLOC at [facility] M5 in 2006, 2007. Plan: Pt says she takes cymbalta 30 mg daily for RA, she acknowledges that it can exacerbate manic sx and this was d/c'd. Pt says olanzapine causes her wt gain, exacerbates LE swelling, does not want to take this medication. Pt has been refusing medications, i.e. tegretol ER, says she intends to wean herself off medication in the next two years. Will continue assessment and engagement.?Pt would benefit from mood stabilizer, however at this time she is not insightful into her manic sx. Will start clonidine 0.1 mg BID for anxiety, agitation. 03/19: Will discontinue tegretol and start trileptal 300 mg BID, as pt does not like lab work. Will discontinue olanzapine, as pt is concerned abt wt gain. 3 day notice 03/18/2022 Q15 min safety checks, CV Monitor response to medications. Monitor for safety in the milieu. Discharge on stabilization. Patient seen. Chart reviewed. Discussed with team. Obtain collateral contact info?as needed I spent minutes with the patient and/or on the patient floor today, greater than?50% of which was spent counseling/coordinating care. Patient educated on: diagnosis, medication risk/benefits and therapeutic strategies Reason for contiued inpatient stay Substantial Risk for: rapid decompensation and med/psych decompensation
[2022-03-19 18:00] VITALS: BP 126/78; PULSE 78; RESP 16; TEMP 36.6; O2SAT 99
[2022-03-19] MEDS: Ibuprofen 400 MG TABLET PO ×2 (18:13→23:15)
[2022-03-19] MEDS: Omeprazole 20 MG CAPSULE.DR PO (20:33)
[2022-03-19] MEDS: OXcarbazepine 300 MG TABLET PO (20:33)
[2022-03-19] MEDS: LORazepam 1 MG TABLET PO (23:15)
--- NOTE | 2022-03-20 | ECG_ITS ---
Test Reason : chest pain Blood Pressure : / mmHG Vent. Rate : 094 BPM Atrial Rate : 094 BPM P-R Int : 192 ms QRS Dur : 082 ms QT Int : 364 ms P-R-T Axes : 064 020 058 degrees QTc Int : 455 ms Normal sinus rhythm Normal ECG When compared with ECG of 17-MAR-2022 01:30, No significant change was found Referred By: Michelle Herndon Electronically Signed By:HARVINDER DOMINIQUE
[2022-03-20 06:00] VITALS: BP 137/64; PULSE 95; RESP 16; O2SAT 97
[2022-03-20] MEDS: Ibuprofen 400 MG TABLET PO ×2 (06:01→12:15)
[2022-03-20] MEDS: cloNIDine HCL 0.1 MG TABLET PO (09:56)
[2022-03-20] MEDS: Labetalol HCL 200 MG TABLET PO ×2 (09:56→22:58)
[2022-03-20] MEDS: OXcarbazepine 300 MG TABLET PO (09:56)
[2022-03-20 10:00] VITALS: BP 173/72; PULSE 89
--- NOTE | 2022-03-20 10:32 | HO.PSYCHPN ---
Subjective Subjective Date of Service: 03/20/22 Reason For Visit: Bipolar Disorder Interim History: Patient remains manic and disorganized. Met with patient and social work assistant and patient hyperverbal, going from 1 irrelevant topic to the next...difficult to interrupt. Finance Assistant tried to engage with patient about the reason she was at the hospital and treatment however patient said she does not have bipolar disorder and went on to ramble about various things saying do know you know why you are on the 5th floor? [employer]! do know what happens in buildings where there is a morgue?... Do you know the nurse Denis while in the emergency room [pt explained how he upset her...]... He is going to retirement for 10 years and has to pay a 250,000 dollar fine because I made one Phone call... She says she asked God for wisdom and he gave her a photographic memory. Talked about how this advertising writer is going to [facility] but most doctors are going to [facility]. Patient is grandiose; mostly smiling but would also get tearful. She is not willing to change her medications. Mental Status Exam Mental Status Exam Narrative: Pt is alert and oriented; behavior is manic; friendly but to hyperverbal to cooperate; Overweight, Bilateral LE edema (not new), adequately well groomed and dressed in casual attire;mood is described as good and affect expansive and labile; eye contact appropriate; Speech pressured and hyperverbal; normal volume and prosody; no psychomotor agitation/retardation present; thought process tangential and disorganized and only momentarily able to stay goal directed; Thought content is on various random unrelated topics; delusional content, paranoid ideations and grandiosity; denies any SI/HI. Patients insight and judgment are impaired Diagnostics Vital Signs (24Hr): Vital Signs - 24 hr 03/19/22 18:00 03/20/22 06:00 03/20/22 10:00 Temperature 98 F Pulse Rate 78 95 89 Respiratory Rate 16 16 Blood Pressure 126/78 137/64 173/72 H Pulse Oximetry 99 97 Oxygen Delivery Method Room Air Room Air BMI result Body Mass Index 37.9 Labs Results: 03/18/22 11:34 03/18/22 11:34 Labs: Laboratory Results - last 48 hr 03/18/22 03/18/22 03/18/22 11:34 11:34 11:34 WBC 5.4 RBC 4.33 Hgb 12.8 Hct 38.0 MCV 87.8 MCH 29.6 MCHC 33.7 RDW 13.2 Plt Count 303 MPV 9.0 L Immature Gran % (Auto) 0.4 Neut % (Auto) 64.2 Lymph % (Auto) 22.3 [place] % (Auto) 9.1 Eos % (Auto) 3.3 Baso % (Auto) 0.7 Lymph # (Auto) 1.2 [place] # (Auto) 0.5 Eos # (Auto) 0.2 Baso # (Auto) 0.0 Abs Immat Gran (auto) 0.02 Absolute Neuts (auto) 3.5 Absolute Nucleated RBC 0.000 Nucleated RBC % (auto) 0.0 Sodium 141 Potassium 4.1 Chloride 104 Carbon Dioxide 24 Anion Gap 17 BUN 21 H Creatinine 0.72 Estim Creat Clear Calc 98.7 Estimated GFR > 60 Random Glucose 119 H Estimat Average Glucose Hemoglobin A1c % Calcium 9.5 Magnesium Triglycerides Cholesterol LDL Cholesterol, Calc HDL Cholesterol Vitamin B12 Folate TSH Free T4 COVID-19 (JOSE) Negative COVID-19 Clin Com See Note 03/19/22 03/19/22 03/19/22 08:32 08:32 08:32 WBC RBC Hgb Hct MCV MCH MCHC RDW Plt Count MPV Immature Gran % (Auto) Neut % (Auto) Lymph % (Auto) [place] % (Auto) Eos % (Auto) Baso % (Auto) Lymph # (Auto) [place] # (Auto) Eos # (Auto) Baso # (Auto) Abs Immat Gran (auto) Absolute Neuts (auto) Absolute Nucleated RBC Nucleated RBC % (auto) Sodium Potassium Chloride Carbon Dioxide Anion Gap BUN Creatinine Estim Creat Clear Calc Estimated GFR Random Glucose Estimat Average Glucose 94 Hemoglobin A1c % 4.9 Calcium Magnesium 2.0 Triglycerides 151 Cholesterol 245 LDL Cholesterol, Calc 158 HDL Cholesterol 57 Vitamin B12 548 Folate 18.8 TSH 2.66 Free T4 0.93 COVID-19 (JOSE) COVID-19 Clin Com Medications Medications Current Medications Acetaminophen (Acetaminophen 325 Mg Tablet) 650 mg PO Q6H PRN PRN Reason: Headache/Pain Mild Scale (1-3) Al Hydroxide/Mg Hydroxide (Magnesium Hydrox/Alum Hydrox 30 Ml Oral.Susp) 30 ml PO Q6H PRN PRN Reason: Heartburn/Nausea Last Admin: 03/18/22 23:55 Dose: 30 ml Albuterol Sulfate (Albuterol Sulfate 90 Mcg 8 Gm Inhaler) 2 puff INHALE RQ4H PRN PRN Reason: wheezing Clonidine HCl (Clonidine Hcl 0.1 Mg Tablet) 0.1 mg PO BID [facility]; Protocol Last Admin: 03/20/22 09:56 Dose: 0.1 mg Fluticasone Propionate (Fluticasone Propionate Nasal 16 Gm [place]) 1 spray NOSTRIL-B DAILY [facility] Last Admin: 03/19/22 10:49 Dose: Not Given Fluticasone Propionate (Fluticasone Propionate 100 Mcg Blst.W.Dev) 2 puff INHALE RBID [facility] Last Admin: 03/19/22 22:16 Dose: 2 puff Hydroxyzine HCl (Hydroxyzine Hcl 25 Mg Tablet) 25 mg PO Q6H PRN PRN Reason: Anxiety Ibuprofen (Ibuprofen 400 Mg Tablet) 400 mg PO Q6H PRN PRN Reason: Pain, Mild (Pain Scale 1-3) Last Admin: 03/20/22 06:01 Dose: 400 mg Ketoconazole (Ketoconazole 2 % Shampoo 120 Ml Btl) 1 appl TOPICAL BEDTIME [facility] Last Admin: 03/19/22 22:16 Dose: Not Given Labetalol HCl (Labetalol Hcl 200 Mg Tablet) 200 mg PO BID [facility]; Protocol Last Admin: 03/20/22 09:56 Dose: 200 mg Lorazepam (Lorazepam 1 Mg Tablet) 1 mg PO DAILY PRN PRN Reason: Anxiety Last Admin: 03/19/22 23:15 Dose: 1 mg Magnesium Hydroxide (Milk Of Magnesia 30 Ml Oral.Susp) 30 ml PO DAILY PRN PRN Reason: Constipation Olanzapine (Olanzapine 5 Mg Tablet) 5 mg PO Q4H PRN PRN Reason: agitation Omeprazole (Omeprazole 20 Mg Capsule.Dr) 20 mg PO BEDTIME [facility] Last Admin: 03/19/22 20:33 Dose: 20 mg Oxcarbazepine (Oxcarbazepine 300 Mg Tablet) 300 mg PO BID [facility] Last Admin: 03/20/22 09:56 Dose: 300 mg Trazodone HCl (Trazodone Hcl 50 Mg Tablet) 50 mg PO BEDTIME PRN PRN Reason: Insomnia Allergies Allergies Allergy/AdvReac Type Severity Reaction Status Date / Time adhesive [Adhesive] Allergy Mild SKIN Verified 03/18/22 08:34 IRRITATION WITH BLISTERS codeine [Codeine] Allergy Mild UNKNOWN Verified 03/18/22 08:34 methylphenidate Allergy Mild UNKNOWN Verified 03/18/22 08:34 [From [facility]] simvastatin [Simvastatin] Allergy Mild UNKNOWN Verified 03/18/22 08:34 Assessment & Plan Assessment & Plan (1) Bipolar II disorder: Status: Acute Code(s): F31.81 - Bipolar II disorder Plan Samantha is a 61 y.o. Pt who carries a dx of bipolar DO. She presented to [facility] on 03/13/2022 due to a manic episode, pt called 911 and asked to have her arrested because he hurt her, police are familiar with her, noted her to be decompensated and sent her to the hospital. Recent discharge from [facility], however family reports pt is still manic. Pt refusing further lab work for tegretol level and refusing amlodpine. Says she has a goal to wean herself off her psych meds and does not believe she is bipolar, thinks she has ADHD. Remote hx of IPLOC at [facility] M[facility] in 2006, 2007. Plan: Pt says she takes cymbalta 30 mg daily for RA, she acknowledges that it can exacerbate manic sx and this was d/c'd. Pt says olanzapine causes her wt gain, exacerbates LE swelling, does not want to take this medication. Pt has been refusing medications, i.e. tegretol ER, says she intends to wean herself off medication in the next two years. Will continue assessment and engagement.?Pt would benefit from mood stabilizer, however at this time she is not insightful into her manic sx. Will start clonidine 0.1 mg BID for anxiety, agitation. 03/19: Will discontinue tegretol and start trileptal 300 mg BID, as pt does not like lab work. Will discontinue olanzapine, as pt is concerned abt wt gain. 03/20 disorganized; manic and difficult to interrupt, unable to engage or talk about treatment. No insight into psychiatric disorder or her behavioral disorganization or paranoid delusions. Over the past 2 weeks, the police have [place] to patient to the hospital 4 times. Patient's 3 day notice is coming due. Team discussed case and is concerned about patient's safety in the community. Plan: 3 day notice due 03/21/2022 Q15 min safety checks, Monitor response to medications. Monitor for safety in the milieu. Discharge on stabilization. Patient seen. Chart reviewed. Discussed with team. Obtain collateral contact info?as needed I spent minutes with the patient and/or on the patient floor today, greater than?50% of which was spent counseling/coordinating care. Patient educated on: diagnosis and medication risk/benefits Informed Consent: does not understand Reason for contiued inpatient stay Substantial Risk for: inability to function
[2022-03-20] MEDS: Fluticasone Propionate 100 MCG BLST.W.DEV 2 PUFF INHALE (12:14)
[2022-03-20 22:55] VITALS: BP 146/87; PULSE 88; RESP 16; TEMP 36.9; O2SAT 99
[2022-03-20] MEDS: OXcarbazepine 300 MG TABLET 600 MG PO (22:58)
[2022-03-20] MEDS: cloNIDine HCL 0.2 MG TABLET PO (22:58)
[2022-03-20] MEDS: Omeprazole 20 MG CAPSULE.DR PO (22:59)
--- NOTE | 2022-03-20 23:46 | PC.NURSE ---
Addendum entered by Nani Bui RN 03/21/22 03:26: Pt refused to get up off floor despite 2 male staff members trying to help her to do so. Security called for support. Pt finally got up with assist from security staff. Up and walking on her own. Original Note: 03/20/22 @ [id number]:Pt was placed in a wheelchair on the 3-11 shift per pt request. Pt does not have any difficulty walking. Pt requesting for staff and other patients to wheel her around.Assisted out of wheelchair by staff and patient lowered herself to floor, refusing to stand and walk.
[2022-03-21] MEDS: LORazepam 1 MG TABLET PO (01:57)
[2022-03-21] MEDS: Ibuprofen 400 MG TABLET PO ×2 (02:01→20:39)
[2022-03-21 06:00] VITALS: BP 183/70; PULSE 87; RESP 16; TEMP 37.1; O2SAT 100
[2022-03-21] MEDS: Labetalol HCL 200 MG TABLET PO ×2 (08:53→20:32)
[2022-03-21] MEDS: cloNIDine HCL 0.1 MG TABLET PO (08:53)
[2022-03-21] MEDS: OXcarbazepine 300 MG TABLET PO ×2 (08:53→20:30)
[2022-03-21] MEDS: Fluticasone Propionate Nasal 16 GM SPRAY 1 SPRAY NOSTRIL-B (08:56)
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
[2022-03-21] MEDS: cloNIDine HCL 0.2 MG TABLET PO (20:30)
[2022-03-21] MEDS: OLANZapine 5 MG TABLET PO (20:31)
[2022-03-21] MEDS: Omeprazole 20 MG CAPSULE.DR PO (20:33)
[2022-03-21] MEDS: clonazePAM 1 MG TABLET PO (20:33)
[2022-03-21] MEDS: Fluticasone Propionate 100 MCG BLST.W.DEV 2 PUFF INHALE (20:42)
[2022-03-21 20:54] VITALS: BP 145/67; PULSE 99; RESP 16; TEMP 36.6; O2SAT 98
[2022-03-22 06:00] VITALS: BP 147/65; PULSE 78; RESP 16; TEMP 36.4; O2SAT 100
[2022-03-22] MEDS: clonazePAM 1 MG TABLET PO ×2 (09:29→19:52)
[2022-03-22] MEDS: Labetalol HCL 200 MG TABLET PO ×2 (09:29→19:52)
[2022-03-22] MEDS: OXcarbazepine 300 MG TABLET PO ×2 (09:29→19:53)
[2022-03-22] MEDS: Fluticasone Propionate Nasal 16 GM SPRAY 1 SPRAY NOSTRIL-B (09:29)
[2022-03-22] MEDS: cloNIDine HCL 0.1 MG TABLET PO (09:29)
[2022-03-22] MEDS: Fluticasone Propionate 100 MCG BLST.W.DEV 2 PUFF INHALE (09:30)
[2022-03-22] MEDS: OLANZapine 5 MG TABLET PO (10:49)
[2022-03-22 18:00] VITALS: BP 122/78; PULSE 69; RESP 16; TEMP 36.6; O2SAT 99
--- NOTE | 2022-03-22 18:00 | PC.NURSE ---
Pt was walking down the hallway and heard the doctor ask another patient if they wanted to sign a 3 day notice. This patient interrupted and told the other patient to sign the 3 day notice and the Doctor redirected her to stay out of other patients care.
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
[2022-03-22] MEDS: cloNIDine HCL 0.2 MG TABLET PO (19:52)
[2022-03-22] MEDS: Omeprazole 20 MG CAPSULE.DR PO (19:52)
--- NOTE | 2022-03-23 | ECG_ITS ---
Test Reason : cp Blood Pressure : / mmHG Vent. Rate : 076 BPM Atrial Rate : 076 BPM P-R Int : 202 ms QRS Dur : 082 ms QT Int : 402 ms P-R-T Axes : 056 008 066 degrees QTc Int : 452 ms Normal sinus rhythm Normal ECG When compared with ECG of 20-MAR-2022 22:07, No significant change was found Referred By: John Gonzales Electronically Signed By:HARVINDER DOMINIQUE
[2022-03-23 03:00] VITALS: BP 157/81; PULSE 80; RESP 16; TEMP 36.3; O2SAT 99
[2022-03-23] MEDS: LORazepam 1 MG TABLET PO (03:26)
[2022-03-23] MEDS: Ibuprofen 400 MG TABLET PO (03:26)
--- NOTE | 2022-03-23 03:58 | ECG_ITS ---
Test Reason : Chest pain Blood Pressure : / mmHG Vent. Rate : 079 BPM Atrial Rate : 079 BPM P-R Int : 202 ms QRS Dur : 078 ms QT Int : 382 ms P-R-T Axes : 057 006 075 degrees QTc Int : 438 ms Normal sinus rhythm Nonspecific ST abnormality Abnormal ECG When compared with ECG of 20-MAR-2022 22:07, Nonspecific ST abnormality is now Present Referred By: John Gonzales Electronically Signed By:HARVINDER DOMINIQUE
[2022-03-23 04:09] VITALS: BP 129/59; PULSE 71; RESP 16; TEMP 36.5; O2SAT 99
--- NOTE | 2022-03-23 04:10 | PC.NURSE ---
0300 1. pt presented to the nurses station asking what the signs of a heart attack in woman are 2. when questioned further pt states that she has left sided chest pain 3. pt is anxious and offers other compliants r/t her RA stating that every joint in her body is effected 4. her skin is warm and dry 5. left anterior chest pain is reproducible with palpation of the chest wall 6. t 97.7 p 80 rr 16 sao2 99% b/p 157/71 7. pt medicated with ibuprofen 400 mg po and ativan 1 mg po 8. gram crackers and h2o given 9. midlevel chuck hanks notified of the previous documentation-plan stat 12 lead ecg
[2022-03-23 06:00] VITALS: BP 141/71; PULSE 85; RESP 18; TEMP 36.6; O2SAT 98
[2022-03-23] MEDS: OXcarbazepine 300 MG TABLET PO (08:39)
[2022-03-23] MEDS: clonazePAM 1 MG TABLET PO ×2 (08:39→22:31)
[2022-03-23] MEDS: Labetalol HCL 200 MG TABLET PO ×2 (08:39→22:31)
[2022-03-23] MEDS: Fluticasone Propionate Nasal 16 GM SPRAY 1 SPRAY NOSTRIL-B (08:40)
[2022-03-23] MEDS: cloNIDine HCL 0.1 MG TABLET PO (08:40)
[2022-03-23] MEDS: Fluticasone Propionate 100 MCG BLST.W.DEV 2 PUFF INHALE ×2 (08:40→22:44)
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
[2022-03-23] MEDS: Ibuprofen 800 MG TABLET PO ×2 (12:57→22:45)
[2022-03-23] MEDS: OLANZapine 5 MG TABLET PO ×2 (12:58→22:31)
[2022-03-23 15:36] LABS: Alanine Aminotransferase 25 U/L (0-31); Albumin Level 4.3 g/dL (3.5-5.0); Alkaline Phosphatase 116 U/L (39-117); Aspartate Amino Transferase 20 U/L (5-31); Bilirubin Direct < 0.2 mg/dL (0.0-0.5); Bilirubin Total 0.3 mg/dL (0.0-1.0); Blood Urea Nitrogen 26 mg/dL (9-16); Creatinine Clr Calc Pharmacy 98.7; Estimated Glomerular Filt Rate > 60; Total Protein 7.3 g/dL (6.5-8.0)
[2022-03-23 15:42] LABS: Troponin-I High Sensitivity 13.4 ng/L (<3.5-17.0)
[2022-03-23 16:15] VITALS: BP 146/64; PULSE 82; RESP 18; TEMP 36.9; O2SAT 100
[2022-03-23] MEDS: cloNIDine HCL 0.2 MG TABLET PO (22:30)
[2022-03-23] MEDS: Omeprazole 20 MG CAPSULE.DR PO (22:31)
[2022-03-24 06:00] VITALS: BP 132/70; PULSE 81; RESP 19; TEMP 36.9; O2SAT 99
[2022-03-24] MEDS: OLANZapine 5 MG TABLET PO ×2 (08:23→22:26)
[2022-03-24] MEDS: clonazePAM 1 MG TABLET PO ×2 (08:23→22:26)
[2022-03-24] MEDS: Fluticasone Propionate Nasal 16 GM SPRAY 1 SPRAY NOSTRIL-B (08:23)
[2022-03-24] MEDS: Fluticasone Propionate 100 MCG BLST.W.DEV 2 PUFF INHALE ×2 (08:23→22:27)
[2022-03-24] MEDS: cloNIDine HCL 0.1 MG TABLET PO (08:23)
[2022-03-24] MEDS: Labetalol HCL 200 MG TABLET PO ×2 (08:23→22:27)
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
[2022-03-24 17:40] VITALS: BP 137/82; PULSE 80; RESP 18; TEMP 36.2; O2SAT 100
[2022-03-24] MEDS: Ibuprofen 800 MG TABLET PO (17:49)
[2022-03-24 22:20] VITALS: BP 136/74; PULSE 86
[2022-03-24] MEDS: cloNIDine HCL 0.2 MG TABLET PO (22:26)
[2022-03-24] MEDS: Omeprazole 20 MG CAPSULE.DR PO (22:27)
[2022-03-25 06:00] VITALS: BP 138/78; PULSE 85; RESP 16; TEMP 36.9; O2SAT 99
[2022-03-25] MEDS: Labetalol HCL 200 MG TABLET PO ×2 (08:16→22:05)
[2022-03-25] MEDS: cloNIDine HCL 0.1 MG TABLET PO (08:16)
[2022-03-25] MEDS: OLANZapine 5 MG TABLET PO ×3 (08:17→22:07)
[2022-03-25] MEDS: clonazePAM 1 MG TABLET PO ×2 (08:17→22:05)
[2022-03-25] MEDS: Fluticasone Propionate 100 MCG BLST.W.DEV 2 PUFF INHALE ×2 (08:19→22:14)
[2022-03-25] MEDS: Fluticasone Propionate Nasal 16 GM SPRAY 1 SPRAY NOSTRIL-B (08:19)
[2022-03-25] MEDS: Ibuprofen 800 MG TABLET PO ×2 (09:23→20:29)
--- NOTE | 2022-03-25 13:17 | HO.PSYCHPN ---
Subjective Subjective Date of Service: 03/25/22 Reason For Visit: Bipolar Disorder Interim History: Remains disorganized in speech and behavior; patient not finishing sentences are thoughts, jumping from 1 idea to the next. Affect labile and transitions from happy to sad to intense/angry. Manufacturing Finance Manager discussed medication management and asked if patient would be willing to start a mood stabilizer. Patient refused and said that she does not have bipolar disorder but ADHD. Patient irritable with senior copywriter for not calling security to see the recorded video of her incident and the hallway where she lay on the floor unwilling to stand up. Mental Status Exam Mental Status Exam Narrative: Pt is alert and oriented; behavior is manic; friendly, trying to cooperate; Overweight, Bilateral LE edema (not new), adequately well groomed and dressed in casual attire;mood is described as good and affect expansive and labile; eye contact appropriate; Speech pressured and hyperverbal; normal volume and prosody; no psychomotor agitation/retardation present; thought process tangential and disorganized and only momentarily able to stay goal directed; Thought content is on various random unrelated topics; delusional content, paranoid ideations and grandiosity; denies any SI/HI. Patients insight and judgment are impaired Diagnostics Vital Signs (24Hr): Vital Signs - 24 hr 03/24/22 17:40 03/24/22 22:20 03/25/22 06:00 Temperature 97.2 F 98.4 F Pulse Rate 80 86 85 Respiratory Rate 18 16 Blood Pressure 137/82 136/74 138/78 Pulse Oximetry 100 99 Oxygen Delivery Method Room Air Room Air BMI result Body Mass Index 37.9 Labs Results: 03/18/22 11:34 03/23/22 15:09 Labs: Laboratory Results - last 48 hr 03/23/22 03/23/22 15:09 15:09 BUN 26 H Creatinine 0.72 Estim Creat Clear Calc 98.7 Estimated GFR > 60 Total Bilirubin 0.3 Direct Bilirubin < 0.2 AST 20 D ALT 25 Alkaline Phosphatase 116 Troponin I High Sens 13.4 Total Protein 7.3 Albumin 4.3 Medications Medications Current Medications Al Hydroxide/Mg Hydroxide (Magnesium Hydrox/Alum Hydrox 30 Ml Oral.Susp) 30 ml PO Q6H PRN PRN Reason: Heartburn/Nausea Last Admin: 03/18/22 23:55 Dose: 30 ml Albuterol Sulfate (Albuterol Sulfate 90 Mcg 8 Gm Inhaler) 2 puff INHALE RQ4H PRN PRN Reason: wheezing Clonazepam (Clonazepam 1 Mg Tablet) 1 mg PO BID [facility] Last Admin: 03/25/22 08:17 Dose: 1 mg Clonidine HCl (Clonidine Hcl 0.2 Mg Tablet) 0.2 mg PO BEDTIME [facility]; Protocol Last Admin: 03/24/22 22:26 Dose: 0.2 mg Clonidine HCl (Clonidine Hcl 0.1 Mg Tablet) 0.1 mg PO DAILY [facility]; Protocol Last Admin: 03/25/22 08:16 Dose: 0.1 mg Fluticasone Propionate (Fluticasone Propionate Nasal 16 Gm [place]) 1 spray NOSTRIL-B DAILY [facility] Last Admin: 03/25/22 08:19 Dose: 1 spray Fluticasone Propionate (Fluticasone Propionate 100 Mcg Blst.W.Dev) 2 puff INHALE RBID [facility] Last Admin: 03/25/22 08:19 Dose: 2 puff Hydroxyzine HCl (Hydroxyzine Hcl 25 Mg Tablet) 25 mg PO Q6H PRN PRN Reason: Anxiety Ibuprofen (Ibuprofen 800 Mg Tablet) 800 mg PO Q6H PRN PRN Reason: Pain, Mild (Pain Scale 1-3) Last Admin: 03/25/22 09:23 Dose: 800 mg Ketoconazole (Ketoconazole 2 % Shampoo 120 Ml Btl) 1 appl TOPICAL BEDTIME [facility] Last Admin: 03/24/22 22:27 Dose: Not Given Labetalol HCl (Labetalol Hcl 200 Mg Tablet) 200 mg PO BID [facility]; Protocol Last Admin: 03/25/22 08:16 Dose: 200 mg Lorazepam (Lorazepam 1 Mg Tablet) 1 mg PO TID PRN PRN Reason: Anxiety Last Admin: 03/23/22 03:26 Dose: 1 mg Magnesium Hydroxide (Milk Of Magnesia 30 Ml Oral.Susp) 30 ml PO DAILY PRN PRN Reason: Constipation Olanzapine (Olanzapine 5 Mg Tablet) 5 mg PO BEDTIME [facility] Last Admin: 03/24/22 22:26 Dose: 5 mg Olanzapine (Olanzapine 5 Mg Tablet) 5 mg PO Q4H PRN PRN Reason: agitation/manic behaviors Last Admin: 03/25/22 08:17 Dose: 5 mg Omeprazole (Omeprazole 20 Mg Capsule.Dr) 20 mg PO BEDTIME [facility] Last Admin: 03/24/22 22:27 Dose: 20 mg Oxybutynin Chloride (Oxybutynin Chloride Er 5 Mg Tab.Er.24) 10 mg PO DAILY [facility] Last Admin: 03/25/22 08:16 Dose: 10 mg Trazodone HCl (Trazodone Hcl 50 Mg Tablet) 50 mg PO BEDTIME PRN PRN Reason: Insomnia Allergies Allergies Allergy/AdvReac Type Severity Reaction Status Date / Time adhesive [Adhesive] Allergy Mild SKIN Verified 03/18/22 08:34 IRRITATION WITH BLISTERS codeine [Codeine] Allergy Mild UNKNOWN Verified 03/18/22 08:34 methylphenidate Allergy Mild UNKNOWN Verified 03/18/22 08:34 [From [facility]] simvastatin [Simvastatin] Allergy Mild UNKNOWN Verified 03/18/22 08:34 Assessment & Plan Assessment & Plan (1) Bipolar 1 disorder: Status: Acute Code(s): F31.9 - Bipolar disorder, unspecified Plan Samantha is a 61 y.o. Pt who carries a dx of bipolar DO. She presented to [facility] on 03/13/2022 due to a manic episode, pt called 911 and asked to have her arrested because he hurt her, police are familiar with her, noted her to be decompensated and sent her to the hospital. Recent discharge from [facility], however family reports pt is still manic. Pt refusing further lab work for tegretol level and refusing amlodpine. Says she has a goal to wean herself off her psych meds and does not believe she is bipolar, thinks she has ADHD. Remote hx of IPLOC at [facility] M5 in 2006, 2007. Plan: Pt says she takes cymbalta 30 mg daily for RA, she acknowledges that it can exacerbate manic sx and this was d/c'd. Pt says olanzapine causes her wt gain, exacerbates LE swelling, does not want to take this medication. Pt has been refusing medications, i.e. tegretol ER, says she intends to wean herself off medication in the next two years. Will continue assessment and engagement.?Pt would benefit from mood stabilizer, however at this time she is not insightful into her manic sx. Will start clonidine 0.1 mg BID for anxiety, agitation. 03/19: Will discontinue tegretol and start trileptal 300 mg BID, as pt does not like lab work. Will discontinue olanzapine, as pt is concerned abt wt gain. 03/20 disorganized; manic and difficult to interrupt, unable to engage or talk about treatment.? No insight into psychiatric disorder or her behavioral disorganization or paranoid delusions.? Over the past 2 weeks, the police have Section 12'd patient to the hospital 4 times. Patient's 3 day notice is coming due.? Team discussed case and is concerned about patient's safety in the community.? 03/21 patient remains disorganized in speech and behavior; she does not have insight and refuses any medication adjustments; she also denies as she has high blood pressure despite evidence to the contrary.? Patient's presentation, her self reported recent history as well as collateral indicates the patient is not currently safe to be in the community and requires inpatient admission and treatment with medications.? Team agrees and will petition the court for involuntary commitment/substituted judgment.? This was explained to patient who understood but disagreed that this was necessary.? Team has discussed this with patient's family who also agree she requires involuntary admission and treatment with medication 03/22 remains without any insight, disorganized speech behavior; senior copywriter got information from family that patient will get severely manic every few years and that Zyprexa 5 mg and Ativan 5 mg daily will help; senior copywriter added these and patient did take Zyprexa last night.? Using clonazepam instead of Ativan since it lasts longer 03/23 met with patient and then patient and her ; patient still has no insight about manic behaviors, however is more willing to take Zyprexa and Klonopin which is scheduled; discontinue Trileptal which is unhelpful Plan: Petitioned court Q15 min safety checks, Continue Zyprexa 5mg qhs Continue Clonazepam 1mg BID Added Zyprexa 5mg prn DC Trileptal Monitor response to medications. Monitor for safety in the milieu. Discharge on stabilization. Patient seen. Chart reviewed. Discussed with team. Obtain collateral contact info?as needed Obtain collateral contact info?as needed I spent minutes with the patient and/or on the patient floor today, greater than?50% of which was spent counseling/coordinating care. Patient educated on: diagnosis and medication risk/benefits Informed Consent: does not understand and further education needed Reason for contiued inpatient stay Substantial Risk for: inability to function and rapid decompensation
[2022-03-25 21:55] VITALS: BP 138/66; PULSE 97; TEMP 36.4; O2SAT 96
[2022-03-25] MEDS: Omeprazole 20 MG CAPSULE.DR PO (22:05)
[2022-03-25] MEDS: cloNIDine HCL 0.2 MG TABLET PO (22:07)
[2022-03-26 09:20] VITALS: BP 144/67; PULSE 82; RESP 18; O2SAT 100
[2022-03-26] MEDS: cloNIDine HCL 0.1 MG TABLET PO (09:46)
[2022-03-26] MEDS: clonazePAM 1 MG TABLET PO ×2 (09:46→20:03)
[2022-03-26] MEDS: Labetalol HCL 200 MG TABLET PO ×2 (09:47→20:03)
[2022-03-26] MEDS: Ibuprofen 800 MG TABLET PO (10:01)
[2022-03-26 18:00] VITALS: BP 122/78; PULSE 89; RESP 16; TEMP 36.6; O2SAT 98
--- NOTE | 2022-03-26 18:08 | HO.PSYCHPN ---
Subjective Subjective Date of Service: 03/26/22 Reason For Visit: Bipolar Disorder Interim History: Patient upset today, calling nurses to help wipe her buttocks after a bowel movement. Forester Silviculture informed that it was explained to patient that she has been wiping her own buttocks thus far and she is able to do so now. Patient then walked out of her room, naked, into the hallway, threatening to hit staff if they did not wipe her. Patient was eventually redirected Forester Silviculture met with patient and explained that security informed this magnetic tape typewriter operator that there is no videos in the hallway and that nothing is recorded. Patient said that that is not true, security is not telling magnetic tape typewriter operator the truth and that she knows there are 25 cameras hidden. Patient continued to move from topic to topic, not finishing her sentences. She says I know for a fact that I am leaving today at 13:00; she then looked at the clock and realized it was after 1pm and said that she will believing it 2:30. Forester Silviculture discussed again petition for court the need to remain on the unit for treatment. Forester Silviculture again discussed bipolar/manic behavior and the need for mood stabilizer. Patient said that she does not want to take Tegretol that it gave her a headache. She refuses to consider other mood stabilizers. Patient again brought up that she is upset she is not given a wheelchair (patient does use a walker on the unit; she has a cane at home but she has been able to ambulate without a wheelchair). She hinted that she would consider taking Tegretol since this magnetic tape typewriter operator asked her nicely and explained the reasons why; however she would not commit. Mental Status Exam Mental Status Exam Narrative: Pt is alert and oriented; behavior is manic; friendly, trying to cooperate; Overweight, Bilateral LE edema (not new), adequately well groomed and dressed in casual attire;mood is described as good and affect expansive and labile; eye contact appropriate; Speech pressured and hyperverbal; normal volume and prosody; no psychomotor agitation/retardation present; thought process tangential and disorganized and only momentarily able to stay goal directed; Thought content is on various random unrelated topics; delusional content, paranoid ideations and grandiosity; denies any SI/HI. Patients insight and judgment are impaired Diagnostics Vital Signs (24Hr): Vital Signs - 24 hr 03/25/22 21:55 03/26/22 09:20 Temperature 97.5 F Pulse Rate 97 82 Respiratory Rate 18 Blood Pressure 138/66 144/67 H Pulse Oximetry 96 100 Oxygen Delivery Method Room Air Room Air BMI result Body Mass Index 37.9 Labs Results: 03/18/22 11:34 03/23/22 15:09 Medications Medications Current Medications Al Hydroxide/Mg Hydroxide (Magnesium Hydrox/Alum Hydrox 30 Ml Oral.Susp) 30 ml PO Q6H PRN PRN Reason: Heartburn/Nausea Last Admin: 03/18/22 23:55 Dose: 30 ml Albuterol Sulfate (Albuterol Sulfate 90 Mcg 8 Gm Inhaler) 2 puff INHALE RQ4H PRN PRN Reason: wheezing Carbamazepine (Carbamazepine Er 100 Mg Tab.Er.12h) 100 mg PO BID [facility] Clonazepam (Clonazepam 1 Mg Tablet) 1 mg PO BID [facility] Last Admin: 03/26/22 09:46 Dose: 1 mg Clonidine HCl (Clonidine Hcl 0.2 Mg Tablet) 0.2 mg PO BEDTIME [facility]; Protocol Last Admin: 03/25/22 22:07 Dose: 0.2 mg Clonidine HCl (Clonidine Hcl 0.1 Mg Tablet) 0.1 mg PO DAILY [facility]; Protocol Last Admin: 03/26/22 09:46 Dose: 0.1 mg Fluticasone Propionate (Fluticasone Propionate Nasal 16 Gm [place]) 1 spray NOSTRIL-B DAILY [facility] Last Admin: 03/26/22 10:08 Dose: Not Given Fluticasone Propionate (Fluticasone Propionate 100 Mcg Blst.W.Dev) 2 puff INHALE RBID [facility] Last Admin: 03/26/22 10:08 Dose: Not Given Hydroxyzine HCl (Hydroxyzine Hcl 25 Mg Tablet) 25 mg PO Q6H PRN PRN Reason: Anxiety Ibuprofen (Ibuprofen 800 Mg Tablet) 800 mg PO Q6H PRN PRN Reason: Pain, Mild (Pain Scale 1-3) Last Admin: 03/26/22 10:01 Dose: 800 mg Ketoconazole (Ketoconazole 2 % Shampoo 120 Ml Btl) 1 appl TOPICAL BEDTIME [facility] Last Admin: 03/25/22 22:08 Dose: Not Given Labetalol HCl (Labetalol Hcl 200 Mg Tablet) 200 mg PO BID [facility]; Protocol Last Admin: 03/26/22 09:47 Dose: 200 mg Lorazepam (Lorazepam 1 Mg Tablet) 1 mg PO TID PRN PRN Reason: Anxiety Last Admin: 03/23/22 03:26 Dose: 1 mg Magnesium Hydroxide (Milk Of Magnesia 30 Ml Oral.Susp) 30 ml PO DAILY PRN PRN Reason: Constipation Olanzapine (Olanzapine 5 Mg Tablet) 5 mg PO BEDTIME [facility] Last Admin: 03/25/22 22:07 Dose: 5 mg Olanzapine (Olanzapine 5 Mg Tablet) 5 mg PO Q4H PRN PRN Reason: agitation/manic behaviors Last Admin: 03/25/22 08:17 Dose: 5 mg Omeprazole (Omeprazole 20 Mg Capsule.Dr) 20 mg PO BEDTIME [facility] Last Admin: 03/25/22 22:05 Dose: 20 mg Oxybutynin Chloride (Oxybutynin Chloride Er 5 Mg Tab.Er.24) 10 mg PO DAILY [facility] Last Admin: 03/26/22 09:46 Dose: 10 mg Trazodone HCl (Trazodone Hcl 50 Mg Tablet) 50 mg PO BEDTIME PRN PRN Reason: Insomnia Allergies Allergies Allergy/AdvReac Type Severity Reaction Status Date / Time adhesive [Adhesive] Allergy Mild SKIN Verified 03/18/22 08:34 IRRITATION WITH BLISTERS codeine [Codeine] Allergy Mild UNKNOWN Verified 03/18/22 08:34 methylphenidate Allergy Mild UNKNOWN Verified 03/18/22 08:34 [From [facility]] simvastatin [Simvastatin] Allergy Mild UNKNOWN Verified 03/18/22 08:34 Assessment & Plan Assessment & Plan (1) Bipolar 1 disorder: Status: Acute Code(s): F31.9 - Bipolar disorder, unspecified Plan Samantha is a 61 y.o. Pt who carries a dx of bipolar DO. She presented to [facility] on 03/13/2022 due to a manic episode, pt called 911 and asked to have her arrested because he hurt her, police are familiar with her, noted her to be decompensated and sent her to the hospital. Recent discharge from [facility], however family reports pt is still manic. Pt refusing further lab work for tegretol level and refusing amlodpine. Says she has a goal to wean herself off her psych meds and does not believe she is bipolar, thinks she has ADHD. Remote hx of IPL at [facility] M5 in 2006, 2007. Plan: Pt says she takes cymbalta 30 mg daily for RA, she acknowledges that it can exacerbate manic sx and this was d/c'd. Pt says olanzapine causes her wt gain, exacerbates LE swelling, does not want to take this medication. Pt has been refusing medications, i.e. tegretol ER, says she intends to wean herself off medication in the next two years. Will continue assessment and engagement.?Pt would benefit from mood stabilizer, however at this time she is not insightful into her manic sx. Will start clonidine 0.1 mg BID for anxiety, agitation. 03/19: Will discontinue tegretol and start trileptal 300 mg BID, as pt does not like lab work. Will discontinue olanzapine, as pt is concerned abt wt gain. 03/20 disorganized; manic and difficult to interrupt, unable to engage or talk about treatment.? No insight into psychiatric disorder or her behavioral disorganization or paranoid delusions.? Over the past 2 weeks, the police have Section 12'd patient to the hospital 4 times. Patient's 3 day notice is coming due.? Team discussed case and is concerned about patient's safety in the community.? 03/21 patient remains disorganized in speech and behavior; she does not have insight and refuses any medication adjustments; she also denies as she has high blood pressure despite evidence to the contrary.? Patient's presentation, her self reported recent history as well as collateral indicates the patient is not currently safe to be in the community and requires inpatient admission and treatment with medications.? Team agrees and will petition the court for involuntary commitment/substituted judgment.? This was explained to patient who understood but disagreed that this was necessary.? Team has discussed this with patient's family who also agree she requires involuntary admission and treatment with medication 03/22 remains without any insight, disorganized speech behavior; magnetic tape typewriter operator got information from family that patient will get severely manic every few years and that Zyprexa 5 mg and Ativan 5 mg daily will help; magnetic tape typewriter operator added these and patient did take Zyprexa last night.? Using clonazepam instead of Ativan since it lasts longer 03/23 met with patient and then patient and her ; patient still has no insight about manic behaviors, however is more willing to take Zyprexa and Klonopin which is scheduled; discontinue Trileptal which is unhelpful 03/26 patient remains disorganized in speech and behavior; patient also frequently asks for help in situations where she is capable. Continues with no insight into her disorganized speech and behavior. She hinted she might be willing to take Tegretol but would not commit. Forester Silviculture explained that it is still her right to refuse it but that magnetic tape typewriter operator was going to order it and hopes that she will reconsider. Plan: Petitioned court; continuance until following week Q15 min safety checks, START Tegretol ER 100mg BID (home medication on which pt was stable) Hospitalist Consult placed to asses b/l lower limb edema Continue Zyprexa 5mg qhs Continue Clonazepam 1mg BID Added Zyprexa 5mg prn DC Trileptal Otherwise: Monitor response to medications. Monitor for safety in the milieu. Discharge on stabilization. Patient seen. Chart reviewed. Discussed with team. Obtain collateral contact info?as needed I spent minutes with the patient and/or on the patient floor today, greater than?50% of which was spent counseling/coordinating care. Patient educated on: diagnosis, medication risk/benefits and medical condition Informed Consent: does not understand Reason for contiued inpatient stay Substantial Risk for: inability to function
[2022-03-26] MEDS: cloNIDine HCL 0.2 MG TABLET PO (20:03)
[2022-03-26] MEDS: Omeprazole 20 MG CAPSULE.DR PO (20:04)
[2022-03-26] MEDS: OLANZapine 5 MG TABLET PO (20:04)
[2022-03-27 04:00] VITALS: BP 147/65; PULSE 78; RESP 18; TEMP 36.4; O2SAT 100
[2022-03-27] MEDS: Ibuprofen 800 MG TABLET PO ×3 (04:03→17:46)
[2022-03-27] MEDS: LORazepam 1 MG TABLET PO (04:05)
[2022-03-27] MEDS: Labetalol HCL 200 MG TABLET PO ×2 (09:27→21:45)
[2022-03-27] MEDS: Fluticasone Propionate 100 MCG BLST.W.DEV 2 PUFF INHALE ×2 (09:27→21:48)
[2022-03-27] MEDS: cloNIDine HCL 0.1 MG TABLET PO (09:27)
[2022-03-27] MEDS: Fluticasone Propionate Nasal 16 GM SPRAY 1 SPRAY NOSTRIL-B (09:27)
[2022-03-27] MEDS: carBAMazepine ER 100 MG TAB.ER.12H PO (09:28)
[2022-03-27] MEDS: OLANZapine 5 MG TABLET PO ×2 (09:28→21:45)
[2022-03-27] MEDS: clonazePAM 1 MG TABLET PO (09:28)
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
[2022-03-27 18:00] VITALS: BP 147/64; PULSE 91; TEMP 36.8; O2SAT 97
[2022-03-27] MEDS: Omeprazole 20 MG CAPSULE.DR PO (21:44)
[2022-03-27] MEDS: cloNIDine HCL 0.2 MG TABLET PO (21:44)
[2022-03-27] MEDS: OXcarbazepine 300 MG TABLET 600 MG PO (21:45)
[2022-03-28 06:00] VITALS: BP 145/66; PULSE 80; RESP 18; TEMP 36.4; O2SAT 99
[2022-03-28 07:00] VITALS: BMI 41.5
[2022-03-28] MEDS: cloNIDine HCL 0.1 MG TABLET PO (08:36)
[2022-03-28] MEDS: OXcarbazepine 300 MG TABLET 600 MG PO ×2 (08:36→21:42)
[2022-03-28] MEDS: Labetalol HCL 200 MG TABLET PO ×2 (08:36→21:43)
[2022-03-28] MEDS: Fluticasone Propionate 100 MCG BLST.W.DEV 2 PUFF INHALE ×2 (09:11→21:39)
[2022-03-28] MEDS: Fluticasone Propionate Nasal 16 GM SPRAY 1 SPRAY NOSTRIL-B (09:11)
[2022-03-28] MEDS: Ibuprofen 800 MG TABLET PO ×2 (09:11→18:18)
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
[2022-03-28 15:46] LABS: D Dimer High Sensitivity 303 NG/ML
[2022-03-28 15:52] LABS: B Type Natriuretic Peptide 93 pg/mL (<100)
--- NOTE | 2022-03-28 17:43 | P.PNPSI_ITS ---
Subjective Subjective Date of Service: 03/28/22 Reason For Visit: Bipolar Disorder Subjective Notes: Malik Warning, Section 7 and Conditional Voluntary Interim History: I spoke with pt's team and evaluated the pt, she reports she has been on abilify in the past with SE of wt gain, also feels zyprexa has been wt gaining and has SE of headache. I spoke with pt's who visits with her daily, says she has been a lot more alert, she's good today. Pt agrees, seems to be responding well to trileptal. Reviewed lab work BNP wnl, D dimer wnl, head CT and knee XR not concerning for injury. Pt willing to trial vraylar for mood stability, paranoia, and disorganized thoughts. Medication Compliance: Yes Side effects from medications: Yes Attending Groups: Intermittent Review of Systems Acute medical concerns: No Medical Review of Systems: unchanged Mental Status Exam Mental Status Exam Narrative: Pt is alert and oriented; behavior is manic; friendly, trying to cooperate; Overweight, Bilateral LE edema (not new), adequately well groomed and dressed in casual attire;mood is described as good and affect expansive and labile; eye contact appropriate; Speech pressured and hyperverbal; normal volume and prosody; no psychomotor agitation/retardation present; thought process tangential and disorganized and only momentarily able to stay goal directed; Thought content is on various random unrelated topics; delusional content, paranoid ideations and grandiosity; denies any SI/HI. ?Patients insight and judgment are impaired Diagnostics Vital Signs (24Hr): Vital Signs - 24 hr 03/27/22 18:00 03/28/22 06:00 Temperature 98.2 F 97.6 F Pulse Rate 91 80 Respiratory Rate 18 Blood Pressure 147/64 H 145/66 H Pulse Oximetry 97 99 Oxygen Delivery Method Room Air BMI result Body Mass Index 41.5 Labs Results: 03/18/22 11:34 03/23/22 15:09 Labs: Laboratory Results - last 48 hr 03/28/22 03/28/22 15:24 15:25 D-Dimer High Sensitivty 303 B-Natriuretic Peptide 93 Imaging Radiology Impressions: ITS Impressions Knee X-Ray 03/27/22 21:34 IMPRESSION: Mild degenerative changes of the knee. Head CT 03/27/22 21:45 IMPRESSION: 1. No acute intracranial pathology. Chest X-Ray 03/28/22 14:46 IMPRESSION: Unremarkable examination. Medications Medications Current Medications Al Hydroxide/Mg Hydroxide (Magnesium Hydrox/Alum Hydrox 30 Ml Oral.Susp) 30 ml PO Q6H PRN PRN Reason: Heartburn/Nausea Last Admin: 03/18/22 23:55 Dose: 30 ml Albuterol Sulfate (Albuterol Sulfate 90 Mcg 8 Gm Inhaler) 2 puff INHALE RQ4H PRN PRN Reason: wheezing Clonidine HCl (Clonidine Hcl 0.2 Mg Tablet) 0.2 mg PO BEDTIME [facility]; Protocol Last Admin: 03/27/22 21:44 Dose: 0.2 mg Clonidine HCl (Clonidine Hcl 0.1 Mg Tablet) 0.1 mg PO DAILY [facility]; Protocol Last Admin: 03/28/22 08:36 Dose: 0.1 mg Fluticasone Propionate (Fluticasone Propionate Nasal 16 Gm [place]) 1 spray NOSTR IL-B DAILY [facility] Last Admin: 03/28/22 09:11 Dose: 1 spray Fluticasone Propionate (Fluticasone Propionate 100 Mcg Blst.W.Dev) 2 puff INHALE RBID [facility] Last Admin: 03/28/22 09:11 Dose: 2 puff Hydroxyzine HCl (Hydroxyzine Hcl 25 Mg Tablet) 25 mg PO Q6H PRN PRN Reason: Anxiety Ibuprofen (Ibuprofen 800 Mg Tablet) 800 mg PO Q6H PRN PRN Reason: Pain, Mild (Pain Scale 1-3) Last Admin: 03/28/22 09:11 Dose: 800 mg Ketoconazole (Ketoconazole 2 % Shampoo 120 Ml Btl) 1 appl TOPICAL BEDTIME [facility] Last Admin: 03/27/22 23:47 Dose: Not Given Labetalol HCl (Labetalol Hcl 200 Mg Tablet) 200 mg PO BID [facility]; Protocol Last Admin: 03/28/22 08:36 Dose: 200 mg Lorazepam (Lorazepam 1 Mg Tablet) 1 mg PO TID PRN PRN Reason: Anxiety Last Admin: 03/27/22 04:05 Dose: 1 mg Magnesium Hydroxide (Milk Of Magnesia 30 Ml Oral.Susp) 30 ml PO DAILY PRN PRN Reason: Constipation Olanzapine (Olanzapine 5 Mg Tablet) 5 mg PO BEDTIME [facility] Last Admin: 03/27/22 21:45 Dose: 5 mg Olanzapine (Olanzapine 5 Mg Tablet) 5 mg PO Q4H PRN PRN Reason: agitation/manic behaviors Last Admin: 03/27/22 09:28 Dose: 5 mg Omeprazole (Omeprazole 20 Mg Capsule.) 20 mg PO BEDTIME [facility] Last Admin: 03/27/22 21:44 Dose: 20 mg Oxcarbazepine (Oxcarbazepine 300 Mg Tablet) 600 mg PO BID [facility] Last Admin: 03/28/22 08:36 Dose: 600 mg Oxybutynin Chloride (Oxybutynin Chloride Er 5 Mg Tab.Er.24) 10 mg PO DAILY [facility] Last Admin: 03/28/22 08:34 Dose: 10 mg Trazodone HCl (Trazodone Hcl 50 Mg Tablet) 50 mg PO BEDTIME PRN PRN Reason: Insomnia Allergies Allergies Allergy/AdvReac Type Severity Reaction Status Date / Time adhesive [Adhesive] Allergy Mild SKIN Verified 03/18/22 08:34 IRRITATION WITH BLISTERS codeine [Codeine] Allergy Mild UNKNOWN Verified 03/18/22 08:34 methylphenidate Allergy Mild UNKNOWN Verified 03/18/22 08:34 [From [facility]] simvastatin [Simvastatin] Allergy Mild UNKNOWN Verified 03/18/22 08:34 Assessment & Plan Assessment & Plan (1) Bipolar 1 disorder: Status: Acute Code(s): F31.9 - Bipolar disorder, unspecified Plan Samantha is a 61 y.o. Pt who carries a dx of bipolar DO. She presented to [facility] on 03/13/2022 due to a manic episode, pt called 911 and asked to have her arrested because he hurt her, police are familiar with her, noted her to be decompensated and sent her to the hospital. Recent discharge from [facility], however family reports pt is still manic. Pt refusing further lab work for tegretol level and refusing amlodpine. Says she has a goal to wean herself off her psych meds and does not believe she is bipolar, thinks she has ADHD. Remote hx of IPLOC at [facility] M5 in 2006, 2007. Plan: Pt says she takes cymbalta 30 mg daily for RA, she acknowledges that it can exacerbate manic sx and this was d/c'd. Pt says olanzapine causes her wt gain, exacerbates LE swelling, does not want to take this medication. Pt has been refusing medications, i.e. tegretol ER, says she intends to wean herself off medication in the next two years. Will continue assessment and engagement.?Pt would benefit from mood stabilizer, however at this time she is not insightful into her manic sx. Will start clonidine 0.1 mg BID for anxiety, agitation. 03/19: Will discontinue tegretol and start trileptal 300 mg BID, as pt does not like lab work. Will discontinue olanzapine, as pt is concerned abt wt gain. 03/20 disorganized; manic and difficult to interrupt, unable to engage or talk about treatment.? No insight into psychiatric disorder or her behavioral disorganization or paranoid delusions.? Over the past 2 weeks, the police have Section 12'd patient to the hospital 4 times. Patient's 3 day notice is coming due.? Team discussed case and is concerned about patient's safety in the community.? 03/21 patient remains disorganized in speech and behavior; she does not have insight and refuses any medication adjustments; she also denies as she has high blood pressure despite evidence to the contrary.? Patient's presentation, her self reported recent history as well as collateral indicates the patient is not currently safe to be in the community and requires inpatient admission and treatment with medications.? Team agrees and will petition the court for involuntary commitment/substituted judgment.? This was explained to patient who understood but disagreed that this was necessary.? Team has discussed this with patient's family who also agree she requires involuntary admission and treatment with medication 03/22 remains without any insight, disorganized speech behavior; telegraphic typewriter installer got information from family that patient will get severely manic every few years and that Zyprexa 5 mg and Ativan 5 mg daily will help; telegraphic typewriter installer added these and p atient did take Zyprexa last night.? Using clonazepam instead of Ativan since it lasts longer 03/23 met with patient and then patient and her ; patient still has no insight about manic behaviors, however is more willing to take Zyprexa and Klonopin which is scheduled; discontinue Trileptal which is unhelpful 03/26 patient remains disorganized in speech and behavior; patient also frequently asks for help in situations where she is capable.? Continues with no insight into her disorganized speech and behavior.? She hinted she might be willing to take Tegretol but would not commit.? Executive Personal Assistant explained that it is still her right to refuse it but that telegraphic typewriter installer was going to order it and hopes that she will reconsider. 03/27 Pt has BNP, D dimer ordered, willing to retrial trileptal at 600 mg BID, d/c tegretol, and provided education on vraylar and invega to replace olanzapine as an antipsychotic for paranoia 03/28 Hospitalist consult appreciated, will order compression stockings. Will D/C olanzapine and start vraylar 1.5 mg QHS for paranoia, disorganization, and mood stability Plan: Petitioned court; continuance until following week Q15 min safety checks, START Tegretol ER 100mg BID (home medication on which pt was stable) Hospitalist Consult placed to asses b/l lower limb edema Continue Zyprexa 5mg qhs Continue Clonazepam 1mg BID Added Zyprexa 5mg prn DC Trileptal Otherwise: Monitor response to medications. Monitor for safety in the milieu. Discharge on stabilization. Patient seen. Chart reviewed. Discussed with team. Obtain collateral contact info?as needed I spent minutes with the patient and/or on the patient floor today, greater than?50% of which was spent counseling/coordinating care. Patient educated on: diagnosis, medication risk/benefits and therapeutic strategies Reason for contiued inpatient stay Substantial Risk for: inability to function, rapid decompensation and med/psych decompensation
[2022-03-28 18:00] VITALS: BP 139/64; PULSE 87; RESP 18; TEMP 37.2; O2SAT 97
[2022-03-28] MEDS: Cariprazine HCl 1.5 MG CAPSULE PO (21:41)
[2022-03-28] MEDS: Omeprazole 20 MG CAPSULE.DR PO (21:41)
[2022-03-28] MEDS: cloNIDine HCL 0.2 MG TABLET PO (21:45)
[2022-03-29] MEDS: hydrOXYzine HCL 25 MG TABLET PO (03:44)
[2022-03-29] MEDS: Ibuprofen 800 MG TABLET PO ×4 (03:45→22:33)
[2022-03-29 06:00] VITALS: BP 147/67; PULSE 84; RESP 16; TEMP 36.6; O2SAT 99
[2022-03-29] MEDS: OXcarbazepine 300 MG TABLET 600 MG PO ×2 (08:28→22:32)
[2022-03-29] MEDS: cloNIDine HCL 0.1 MG TABLET PO (08:28)
[2022-03-29] MEDS: Labetalol HCL 200 MG TABLET PO ×2 (08:28→22:32)
[2022-03-29] MEDS: Fluticasone Propionate Nasal 16 GM SPRAY 1 SPRAY NOSTRIL-B (08:29)
[2022-03-29] MEDS: Fluticasone Propionate 100 MCG BLST.W.DEV 2 PUFF INHALE ×2 (08:29→22:33)
[2022-03-29 18:00] VITALS: BP 130/76; PULSE 78; RESP 14; TEMP 37.1
[2022-03-29 22:31] VITALS: BP 130/76; PULSE 78
[2022-03-29] MEDS: cloNIDine HCL 0.2 MG TABLET PO (22:31)
[2022-03-29] MEDS: Omeprazole 20 MG CAPSULE.DR PO (22:32)
[2022-03-29] MEDS: Cariprazine HCl 1.5 MG CAPSULE PO (22:32)
--- NOTE | 2022-03-29 23:02 | P.PNPSI_ITS ---
Subjective Subjective Date of Service: 03/29/22 Reason For Visit: Bipolar Disorder Subjective Notes: Malik Warning Interim History: I spoke with pt's team and evaluated pt this evening. She reports she is doing okay, feeling some withdrawal from med changes i.e. GI distress and some constipation, asks for colace PRN. Pt continues to complain of back pain s/p mec hanical fall, will order lidocaine patch, hx of degenerative disc disease. Pt is now asking for R ankle and R knee XR, as she is now reporting she feels pain in these areas s/p mechanical fall on 03/28/22. Wants to be able to soak feet in epsom salt, says her will bring this in. Ordered compression socks per hospitalist consult, however pt says she is waiting for the XL size to be provided and these are not in stock. Medication Compliance: Yes Side effects from medications: No Attending Groups: Intermittent Review of Systems Acute medical concerns: No Medical Review of Systems: unchanged Mental Status Exam Mental Status Exam Narrative: Pt is alert and oriented; behavior is manic; friendly, trying to cooperate; Overweight, Bilateral LE edema (not new), adequately well groomed and dressed in casual attire;mood is described as good and affect is calmer, more in control; eye contact appropriate; Speech is less pressured; normal volume and prosody; no psychomotor agitation/retardation present; thought process more goal directed; Thought content is on treatment; denies delusional content; denies any SI/HI. ?Patients insight and judgment are impaired but improving. Diagnostics Vital Signs (24Hr): Vital Signs - 24 hr 03/29/22 06:00 03/29/22 18:00 03/29/22 22:31 Temperature 98 F 98.7 F Pulse Rate 84 78 78 Respiratory Rate 16 14 Blood Pressure 147/67 H 130/76 130/76 Pulse Oximetry 99 Oxygen Delivery Method Room Air BMI result Body Mass Index 41.5 Labs Results: 03/18/22 11:34 03/23/22 15:09 Labs: Laboratory Results - last 48 hr 03/28/22 03/28/22 15:24 15:25 D-Dimer High Sensitivty 303 B-Natriuretic Peptide 93 Imaging Radiology Impressions: ITS Impressions Knee X-Ray 03/27/22 21:34 IMPRESSION: Mild degenerative changes of the knee. Head CT 03/27/22 21:45 IMPRESSION: 1. No acute intracranial pathology. Chest X-Ray 03/28/22 14:46 IMPRESSION: Unremarkable examination. Venous Duplex 03/28/22 17:29 IMPRESSION: No DVT demonstrated in the bilateral lower extremities. Left Key's cyst. Medications Medications Current Medications Al Hydroxide/Mg Hydroxide (Magnesium Hydrox/Alum Hydrox 30 Ml Oral.Susp) 30 ml PO Q6H PRN PRN Reason: Heartburn/Nausea Last Admin: 03/18/22 23:55 Dose: 30 ml Albuterol Sulfate (Albuterol Sulfate 90 Mcg 8 Gm Inhaler) 2 puff INHALE RQ4H PRN PRN Reason: wheezing Cariprazine (Cariprazine Hcl 1.5 Mg Capsule) 1.5 mg PO BEDTIME [facility] Last Admin: 03/29/22 22:32 Dose: 1.5 mg Clonidine HCl (Clonidine Hcl 0.2 Mg Tablet) 0.2 mg PO BEDTIME [facility]; Protocol Last Admin: 03/29/22 22:31 Dose: 0.2 mg Clonidine HCl (Clonidine Hcl 0.1 Mg Tablet) 0.1 mg PO DAILY [facility]; Protocol Last Admin: 03/29/22 08:28 Dose: 0.1 mg Docusate Sodium (Docusate Sodium 100 Mg Capsule) 100 mg PO BID PRN PRN Reason: constipation Fluticasone Propionate (Fluticasone Propionate Nasal 16 Gm [place]) 1 spray NOSTRIL-B DAILY [facility] Last Admin: 03/29/22 08:29 Dose: 1 spray Fluticasone Propionate (Fluticasone Propionate 100 Mcg Blst.W.Dev) 2 puff INHALE RBID [facility] Last Admin: 03/29/22 22:33 Dose: 2 puff Hydroxyzine HCl (Hydroxyzine Hcl 25 Mg Tablet) 25 mg PO Q6H PRN PRN Reason: Anxiety Last Admin: 03/29/22 03:44 Dose: 25 mg Ibuprofen (Ibuprofen 800 Mg Tablet) 800 mg PO Q6H PRN PRN Reason: Pain, Mild (Pain Scale 1-3) Last Admin: 03/29/22 22:33 Dose: 800 mg Ketoconazole (Ketoconazole 2 % Shampoo 120 Ml Btl) 1 appl TOPICAL BEDTIME [facility] Last Admin: 03/29/22 22:34 Dose: Not Given Labetalol HCl (Labetalol Hcl 200 Mg Tablet) 200 mg PO BID [facility]; Protocol Last Admin: 03/29/22 22:32 Dose: 200 mg Lidocaine (Lidocaine 4 % Patch Adh..Patch) 2 patch TRANSDERMA DAILY [facility] Lorazepam (Lorazepam 1 Mg Tablet) 1 mg PO TID PRN PRN Reason: Anxiety Last Admin: 03/27/22 04:05 Dose: 1 mg Magnesium Hydroxide (Milk Of Magnesia 30 Ml Oral.Susp) 30 ml PO DAILY PRN PRN Reason: Constipation Multi-Ingred Cream/Lotion/Oil/Oint (Mineral Oil/Petrolatum,White 106 Gm Tube) 1 appl TOPICAL BID [facility]; Protocol Last Admin: 03/29/22 22:34 Dose: Not Given Olanzapine (Olanzapine 5 Mg Tablet) 5 mg PO Q4H PRN PRN Reason: agitation/manic behaviors Last Admin: 03/27/22 09:28 Dose: 5 mg Omeprazole (Omeprazole 20 Mg Capsule.Dr) 20 mg PO BEDTIME [facility] Last Admin: 03/29/22 22:32 Dose: 20 mg Oxcarbazepine (Oxcarbazepine 300 Mg Tablet) 600 mg PO BID [facility] Last Admin: 03/29/22 22:32 Dose: 600 mg Oxybutynin Chloride (Oxybutynin Chloride Er 5 Mg Tab.Er.24) 10 mg PO DAILY [facility] Last Admin: 03/29/22 08:28 Dose: 10 mg Trazodone HCl (Trazodone Hcl 50 Mg Tablet) 50 mg PO BEDTIME PRN PRN Reason: Insomnia Allergies Allergies Allergy/AdvReac Type Severity Reaction Status Date / Time adhesive [Adhesive] Allergy Mild SKIN Verified 03/18/22 08:34 IRRITATION WITH BLISTERS codeine [Codeine] Allergy Mild UNKNOWN Verified 03/18/22 08:34 methylphenidate Allergy Mild UNKNOWN Verified 03/18/22 08:34 [From [facility]] simvastatin [Simvastatin] Allergy Mild UNKNOWN Verified 03/18/22 08:34 Assessment & Plan Assessment & Plan (1) Bipolar 1 disorder: Status: Acute Code(s): F31.9 - Bipolar disorder, unspecified Plan Samantha is a 61 y.o. Pt who carries a dx of bipolar DO. She presented to [facility] on 03/13/2022 due to a manic episode, pt called 911 and asked to have her arrested because he hurt her, police are familiar with her, noted her to be decompensated and sent her to the hospital. Recent discharge from [facility], however family reports pt is still manic. Pt refusing further lab work for tegretol level and refusing amlodpine. Says she has a goal to wean herself off her psych meds and does not believe she is bipolar, thinks she has ADHD. Remote hx of IPLOC at [facility] M5 in 2006, 2007. Plan: Pt says she takes cymbalta 30 mg daily for RA, she acknowledges that it can exacerbate manic sx and this was d/c'd. Pt says olanzapine causes her wt gain, exacerbates LE swelling, does not want to take this medication. Pt has been refusing medications, i.e. tegretol ER, says she intends to wean herself off medication in the next two years. Will continue assessment and engagement.?P t would benefit from mood stabilizer, however at this time she is not insightful into her manic sx. Will start clonidine 0.1 mg BID for anxiety, agitation. 03/19: Will discontinue tegretol and start trileptal 300 mg BID, as pt does not like lab work. Will discontinue olanzapine, as pt is concerned abt wt gain. 03/20 disorganized; manic and difficult to interrupt, unable to engage or talk about treatment.? No insight into psychiatric disorder or her behavioral disorganization or paranoid delusions.? Over the past 2 weeks, the police have Section 12'd patient to the hospital 4 times. Patient's 3 day notice is coming due.? Team discussed case and is concerned about patient's safety in the [facility].? 03/21 patient remains disorganized in speech and behavior; she does not have insight and refuses any medication adjustments; she also denies as she has high blood pressure despite evidence to the contrary.? Patient's presentation, her self reported recent history as well as collateral indicates the patient is not currently safe to be in the community and requires inpatient admission and treatment with medications.? Team agrees and will petition the court for involuntary commitment/substituted judgment.? This was explained to patient who understood but disagreed that this was necessary.? Team has discussed this with patient's family who also agree she requires involuntary admission and treatment with medication 03/22 remains without any insight, disorganized speech behavior; software writer got i nformation from family that patient will get severely manic every few years and that Zyprexa 5 mg and Ativan 5 mg daily will help; software writer added these and patient did take Zyprexa last night.? Using clonazepam instead of Ativan since it lasts longer 03/23 met with patient and then patient and her ; patient still has no insight about manic behaviors, however is more willing to take Zyprexa and Klonopin which is scheduled; discontinue Trileptal which is unhelpful 03/26 patient remains disorganized in speech and behavior; patient also frequently asks for help in situations where she is capable.? Continues with no insight into her disorganized speech and behavior.? She hinted she might be wi lling to take Tegretol but would not commit.? Gluing Machine Feeder explained that it is still her right to refuse it but that software writer was going to order it and hopes that she will reconsider. 03/27 Pt has BNP, D dimer ordered, willing to retrial trileptal at 600 mg BID, d/c tegretol, and provided education on vraylar and invega to replace olanzapine as an antipsychotic for paranoia 03/28 Hospitalist consult appreciated, will order compression stockings. Will D/C olanzapine and start vraylar 1.5 mg QHS for paranoia, disorganization, and mood stability 03/29 Will continue vraylar trial, trileptal 600 mg BID, pt appears to be progressing back to baseline. Plan: Petitioned court; continuance until following week Q15 min safety checks, START Tegretol ER 100mg BID (home medication on which pt was stable) Hospitalist Consult placed to asses b/l lower limb edema Continue Zyprexa 5mg qhs Continue Clonazepam 1mg BID Added Zyprexa 5mg prn DC Trileptal Otherwise: Monitor response to medications. Monitor for safety in the milieu. Discharge on stabilization. Patient seen. Chart reviewed. Discussed with team. Obtain collateral contact info?as needed I spent minutes with the patient and/or on the patient floor today, greater than?50% of which was spent counseling/coordinating care. Patient educated on: diagnosis, medication risk/benefits and therapeutic strategies Reason for contiued inpatient stay Substantial Risk for: rapid decompensation and med/psych decompensation
[2022-03-30] MEDS: Ibuprofen 800 MG TABLET PO ×3 (04:37→21:42)
[2022-03-30 08:05] VITALS: BP 135/58; PULSE 85; TEMP 36.1
[2022-03-30] MEDS: Fluticasone Propionate Nasal 16 GM SPRAY 1 SPRAY NOSTRIL-B (08:42)
[2022-03-30] MEDS: Mineral Oil/Petrolatum,White 106 GM Tube 1 APPL TOPICAL ×2 (08:43→21:26)
[2022-03-30] MEDS: Fluticasone Propionate 100 MCG BLST.W.DEV 2 PUFF INHALE ×2 (08:44→21:28)
[2022-03-30] MEDS: OXcarbazepine 300 MG TABLET 600 MG PO ×2 (08:48→21:19)
[2022-03-30] MEDS: cloNIDine HCL 0.1 MG TABLET PO (08:49)
[2022-03-30] MEDS: Labetalol HCL 200 MG TABLET PO ×2 (08:50→21:19)
[2022-03-30] MEDS: Lidocaine 4 % Patch ADH..PATCH 2 PATCH TRANSDERMA (10:04)
[2022-03-30] MEDS: Furosemide 20 MG TABLET PO (16:38)
[2022-03-30 18:00] VITALS: BP 119/78; PULSE 101; RESP 16; TEMP 36.6; O2SAT 99
--- NOTE | 2022-03-30 20:31 | P.PNPSI_ITS ---
Subjective Subjective Date of Service: 03/30/22 Reason For Visit: Bipolar Disorder Interim History: Met with pt who reviewed her concerns-BLE edema-we have incorrect sized TEDS. Pt working on elevating her legs. Decided to begin a diuretic-discussed with Dr. Fenton who suggested lasix 20 mg daily which was started. Pt would like to discharge on 04/01. will visit on 03/31. Pt expressed several concerns about her ability to receive medical care in psychiatry. Medication Compliance: Yes Side effects from medications: No Attending Groups: Yes Review of Systems Acute medical concerns: No Medical Review of Systems: unchanged Mental Status Exam Mental Status Exam Narrative: Pt is alert and oriented; behavior is manic; friendly, trying to cooperate; Overweight, Bilateral LE edema (not new), adequately well groomed and dressed in casual attire;mood is described as good and affect is calmer, more in control; eye contact appropriate; Speech is less pressured; normal volume and prosody; no psychomotor agitation/retardation present; thought process more goal directed; Thought content is on treatment; denies delusional content; denies any SI/HI. ?Patients insight and judgment are impaired but improving. Diagnostics Vital Signs (24Hr): Vital Signs - 24 hr 03/29/22 22:31 03/30/22 08:05 Temperature 97 F Pulse Rate 78 85 Blood Pressure 130/76 135/58 L BMI result Body Mass Index 41.5 Labs Results: 03/18/22 11:34 03/23/22 15:09 Imaging Radiology Impressions: ITS Impressions Knee X-Ray 03/27/22 21:34 IMPRESSION: Mild degenerative changes of the knee. Head CT 03/27/22 21:45 IMPRESSION: 1. No acute intracranial pathology. Chest X-Ray 03/28/22 14:46 IMPRESSION: Unremarkable examination. Venous Duplex 03/28/22 17:29 IMPRESSION: No DVT demonstrated in the bilateral lower extremities. Left Key's cyst. Ankle X-Ray 03/29/22 21:20 IMPRESSION: -Mild degenerative changes of the right knee, particularly involving the medial compartment. -Unremarkable radiographs of the right ankle. Knee X-Ray 03/29/22 21:20 IMPRESSION: -Mild degenerative changes of the right knee, particularly involving the medial compartment. -Unremarkable radiographs of the right ankle. Medications Medications Current Medications Al Hydroxide/Mg Hydroxide (Magnesium Hydrox/Alum Hydrox 30 Ml Oral.Susp) 30 ml PO Q6H PRN PRN Reason: Heartburn/Nausea Last Admin: 03/18/22 23:55 Dose: 30 ml Albuterol Sulfate (Albuterol Sulfate 90 Mcg 8 Gm Inhaler) 2 puff INHALE RQ4H PRN PRN Reason: wheezing Cariprazine (Cariprazine Hcl 1.5 Mg Capsule) 1.5 mg PO BEDTIME [facility] Last Admin: 03/29/22 22:32 Dose: 1.5 mg Clonidine HCl (Clonidine Hcl 0.2 Mg Tablet) 0.2 mg PO BEDTIME [facility]; Protocol Last Admin: 03/29/22 22:31 Dose: 0.2 mg Clonidine HCl (Clonidine Hcl 0.1 Mg Tablet) 0.1 mg PO DAILY [facility]; Protocol Last Admin: 03/30/22 08:49 Dose: 0.1 mg Docusate Sodium (Docusate Sodium 100 Mg Capsule) 100 mg PO BID PRN PRN Reason: constipation Fluticasone Propionate (Fluticasone Propionate Nasal 16 Gm [place]) 1 spray NOSTRIL-B DAILY [facility] Last Admin: 03/30/22 08:42 Dose: 1 spray Fluticasone Propionate (Fluticasone Propionate 100 Mcg Blst.W.Dev) 2 puff INHALE RBID [facility] Last Admin: 03/30/22 08:44 Dose: 2 puff Furosemide (Furosemide 20 Mg Tablet) 20 mg PO DAILY [facility]; Protocol Last Admin: 03/30/22 16:38 Dose: 20 mg Hydroxyzine HCl (Hydroxyzine Hcl 25 Mg Tablet) 25 mg PO Q6H PRN PRN Reason: Anxiety Last Admin: 03/29/22 03:44 Dose: 25 mg Ibuprofen (Ibuprofen 800 Mg Tablet) 800 mg PO Q6H PRN PRN Reason: Pain, Mild (Pain Scale 1-3) Last Admin: 03/30/22 16:17 Dose: 800 mg Ketoconazole (Ketoconazole 2 % Shampoo 120 Ml Btl) 1 appl TOPICAL BEDTIME [facility] Last Admin: 03/29/22 22:34 Dose: Not Given Labetalol HCl (Labetalol Hcl 200 Mg Tablet) 200 mg PO BID [facility]; Protocol Last Admin: 03/30/22 08:50 Dose: 200 mg Lidocaine (Lidocaine 4 % Patch Adh..Patch) 2 patch TRANSDERMA DAILY [facility] Last Admin: 03/30/22 10:04 Dose: 2 patch Lorazepam (Lorazepam 1 Mg Tablet) 1 mg PO TID PRN PRN Reason: Anxiety Last Admin: 03/27/22 04:05 Dose: 1 mg Magnesium Hydroxide (Milk Of Magnesia 30 Ml Oral.Susp) 30 ml PO DAILY PRN PRN Reason: Constipation Multi-Ingred Cream/Lotion/Oil/Oint (Mineral Oil/Petrolatum,White 106 Gm Tube) 1 appl TOPICAL BID [facility]; Protocol Last Admin: 03/30/22 08:43 Dose: 1 appl Olanzapine (Olanzapine 5 Mg Tablet) 5 mg PO Q4H PRN PRN Reason: agitation/manic behaviors Last Admin: 03/27/22 09:28 Dose: 5 mg Omeprazole (Omeprazole 20 Mg Capsule.Dr) 20 mg PO BEDTIME [facility] Last Admin: 03/29/22 22:32 Dose: 20 mg Oxcarbazepine (Oxcarbazepine 300 Mg Tablet) 600 mg PO BID [facility] Last Admin: 03/30/22 08:48 Dose: 600 mg Oxybutynin Chloride (Oxybutynin Chloride Er 5 Mg Tab.Er.24) 10 mg PO DAILY [facility] Last Admin: 03/30/22 08:49 Dose: 10 mg Trazodone HCl (Trazodone Hcl 50 Mg Tablet) 50 mg PO BEDTIME PRN PRN Reason: Insomnia Allergies Allergies Allergy/AdvReac Type Severity Reaction Status Date / Time adhesive [Adhesive] Allergy Mild SKIN Verified 03/18/22 08:34 IRRITATION WITH BLISTERS codeine [Codeine] Allergy Mild UNKNOWN Verified 03/18/22 08:34 methylphenidate Allergy Mild UNKNOWN Verified 03/18/22 08:34 [From [facility]] simvastatin [Simvastatin] Allergy Mild UNKNOWN Verified 03/18/22 08:34 Assessment & Plan Assessment & Plan (1) Bipolar 1 disorder: Status: Acute Code(s): F31.9 - Bipolar disorder, unspecified Plan Samantha is a 61 y.o. Pt who carries a dx of bipolar DO. She presented to [facility] on 03/13/2022 due to a manic episode, pt called 911 and asked to have her arrested because he hurt her, police are familiar with her, noted her to be decompensated and sent her to the hospital. Recent discharge [facility], however family reports pt is still manic. Pt refusing further lab work for tegretol level and refusing amlodpine. Says she has a goal to wean herself off her psych meds and does not believe she is bipolar, thinks she has ADHD. Remote hx of IPLOC at [facility] in 2006, 2007. Plan: Pt says she takes cymbalta 30 mg daily for RA, she acknowledges that it can exacerbate manic sx and this was d/c'd. Pt says olanzapine causes her wt gain, exacerbates LE swelling, does not want to take this medication. Pt has been refusing medications, i.e. tegretol ER, says she intends to wean herself off medication in the next two years. Will continue assessment and engagement.?Pt would benefit from mood stabilizer, however at this time she is not insightful into her manic sx. Will start clonidine 0.1 mg BID for anxiety, agitation. 03/19: Will discontinue tegretol and start trileptal 300 mg BID, as pt does not like lab work. Will discontinue olanzapine, as pt is concerned abt wt gain. 03/20 disorganized; manic and difficult to interrupt, unable to engage or talk about treatment.? No insight into psychiatric disorder or her behavioral disorganization or paranoid delusions.? Over the past 2 weeks, the police have Section 12'd patient to the hospital 4 times. Patient's 3 day notice is coming due.? Team discussed case and is concerned about patient's safety in the community.? 03/21 patient remains disorganized in speech and behavior; she does not have insight and refuses any medication adjustments; she also denies as she has high blood pressure despite evidence to the contrary.? Patient's presentation, her self reported recent history as well as collateral indicates the patient is not currently safe to be in the community and requires inpatient admission and treatment with medications.? Team agrees and will petition the court for involuntary commitment/substituted judgment.? This was explained to patient who understood but disagreed that this was necessary.? Team has discussed this with patient's family who also agree she requires involuntary admission and treatment with medication 03/22 remains without any insight, disorganized speech behavior; writer technical publications got information from family that patient will get severely manic every few years and that Zyprexa 5 mg and Ativan 5 mg daily will help; writer technical publications added these and patient did take Zyprexa last night.? Using clonazepam instead of Ativan since it lasts longer 03/23 met with patient and then patient and her ; patient still has no insight about manic behaviors, however is more willing to take Zyprexa and Klonopin which is scheduled; discontinue Trileptal which is unhelpful 03/26 patient remains disorganized in speech and behavior; patient also frequently asks for help in situations where she is capable.? Continues with no insight into her disorganized speech and behavior.? She hinted she might be willing to take Tegretol but would not commit.? Cloth Printer explained that it is still her right to refuse it but that writer technical publications was going to order it and hopes that she will reconsider. 03/27 Pt has BNP, D dimer ordered, willing to retrial trileptal at 600 mg BID, d/c tegretol, and provided education on vraylar and invega to replace olanzapine as an antipsychotic for paranoia 03/28 Hospitalist consult appreciated, will order compression stockings. Will D/C olanzapine and start vraylar 1.5 mg QHS for paranoia, disorganization, and mood stability 03/30/22: Continue plan of care Plan: Petitioned court; continuance until following week Q15 min safety checks, START Tegretol ER 100mg BID (home medication on which pt was stable) Hospitalist Consult placed to asses b/l lower limb edema Continue Zyprexa 5mg qhs Continue Clonazepam 1mg BID Added Zyprexa 5mg prn DC Trileptal Otherwise: Monitor response to medications. Monitor for safety in the milieu. Discharge on stabilization. Patient seen. Chart reviewed. Discussed with team. Obtain collateral contact info?as needed I spent minutes with the patient and/or on the patient floor today, greater than?50% of which was spent counseling/coordinating care. Patient educated on: therapeutic strategies Informed Consent: further education needed Reason for contiued inpatient stay Substantial Risk for: med/psych decompensation
[2022-03-30] MEDS: cloNIDine HCL 0.2 MG TABLET PO (21:19)
[2022-03-30] MEDS: Omeprazole 20 MG CAPSULE.DR PO (21:19)
[2022-03-30] MEDS: Cariprazine HCl 1.5 MG CAPSULE PO (21:19)
[2022-03-30] MEDS: Ketoconazole 2 % Shampoo 120 ML BTL 1 APPL TOPICAL (21:26)
[2022-03-31] MEDS: Ibuprofen 800 MG TABLET PO ×4 (03:12→21:53)
[2022-03-31 08:13] VITALS: BP 146/64; PULSE 80; TEMP 36.3
[2022-03-31] MEDS: Fluticasone Propionate Nasal 16 GM SPRAY 1 SPRAY NOSTRIL-B (09:02)
[2022-03-31] MEDS: Mineral Oil/Petrolatum,White 106 GM Tube 1 APPL TOPICAL ×2 (09:02→21:56)
[2022-03-31] MEDS: cloNIDine HCL 0.1 MG TABLET PO (09:03)
[2022-03-31] MEDS: Labetalol HCL 200 MG TABLET PO ×2 (09:04→19:45)
[2022-03-31] MEDS: OXcarbazepine 300 MG TABLET 600 MG PO ×2 (09:05→19:44)
[2022-03-31] MEDS: Furosemide 20 MG TABLET PO (09:05)
[2022-03-31 18:00] VITALS: BP 122/79; PULSE 101; RESP 18; TEMP 36.6; O2SAT 99
[2022-03-31] MEDS: Cariprazine HCl 1.5 MG CAPSULE PO (19:44)
[2022-03-31] MEDS: cloNIDine HCL 0.2 MG TABLET PO (19:45)
[2022-03-31] MEDS: Omeprazole 20 MG CAPSULE.DR PO (19:45)
--- NOTE | 2022-03-31 19:56 | HO.PSYCHPN ---
Subjective Subjective Date of Service: 03/31/22 Reason For Visit: Bipolar Disorder Interim History: Pt asking for CAT of lumbar area-hx of disc herniations with pain. Ordered and completed today. Family is visiting. Pt is wanting to discharge 04/01. BLE with some redness-?developing cellulitis-will continue to monitor. Medication Compliance: Yes Side effects from medications: No Attending Groups: No Review of Systems Acute medical concerns: No Medical Review of Systems: unchanged Mental Status Exam Mental Status Exam Narrative: Pt is alert and oriented; behavior is manic; friendly, trying to cooperate; Overweight, Bilateral LE edema (not new), adequately well groomed and dressed in casual attire;mood is described as good and affect is calmer, more in control; eye contact appropriate; Speech is less pressured; normal volume and prosody; no psychomotor agitation/retardation present; thought process more goal directed; Thought content is on treatment; denies delusional content; denies any SI/HI. ?Patients insight and judgment are impaired but improving. Diagnostics Vital Signs (24Hr): Vital Signs - 24 hr 03/31/22 08:13 Temperature 97.3 F Pulse Rate 80 Blood Pressure 146/64 H BMI result Body Mass Index 41.5 Labs Results: 03/18/22 11:34 03/23/22 15:09 Imaging Radiology Impressions: ITS Impressions Knee X-Ray 03/27/22 21:34 IMPRESSION: Mild degenerative changes of the knee. Head CT 03/27/22 21:45 IMPRESSION: 1. No acute intracranial pathology. Chest X-Ray 03/28/22 14:46 IMPRESSION: Unremarkable examination. Venous Duplex 03/28/22 17:29 IMPRESSION: No DVT demonstrated in the bilateral lower extremities. Left Key's cyst. Ankle X-Ray 03/29/22 21:20 IMPRESSION: -Mild degenerative changes of the right knee, particularly involving the medial compartment. -Unremarkable radiographs of the right ankle. Knee X-Ray 03/29/22 21:20 IMPRESSION: -Mild degenerative changes of the right knee, particularly involving the medial compartment. -Unremarkable radiographs of the right ankle. Lumbar Spine CT 03/31/22 14:56 IMPRESSION: Multilevel lumbar spondylosis with [id number] central canal stenosis at the L4-L5 level. Mild central canal stenosis at the L3-L4 level with a small left paracentral disc protrusion and annular calcification. Exuberant facet arthropathy at the L5-S1 level with mild central canal stenosis. Medications Medications Current Medications Al Hydroxide/Mg Hydroxide (Magnesium Hydrox/Alum Hydrox 30 Ml Oral.Susp) 30 ml PO Q6H PRN PRN Reason: Heartburn/Nausea Last Admin: 03/18/22 23:55 Dose: 30 ml Albuterol Sulfate (Albuterol Sulfate 90 Mcg 8 Gm Inhaler) 2 puff INHALE RQ4H PRN PRN Reason: wheezing Cariprazine (Cariprazine Hcl 1.5 Mg Capsule) 1.5 mg PO BEDTIME [facility] Last Admin: 03/31/22 19:44 Dose: 1.5 mg Clonidine HCl (Clonidine Hcl 0.2 Mg Tablet) 0.2 mg PO BEDTIME [facility]; Protocol Last Admin: 03/31/22 19:45 Dose: 0.2 mg Clonidine HCl (Clonidine Hcl 0.1 Mg Tablet) 0.1 mg PO DAILY [facility]; Protocol Last Admin: 03/31/22 09:03 Dose: 0.1 mg Docusate Sodium (Docusate Sodium 100 Mg Capsule) 100 mg PO BID PRN PRN Reason: constipation Fluticasone Propionate (Fluticasone Propionate Nasal 16 Gm [place]) 1 spray NOSTRIL-B DAILY [facility] Last Admin: 03/31/22 09:02 Dose: 1 spray Fluticasone Propionate (Fluticasone Propionate 100 Mcg Blst.W.Dev) 2 puff INHALE RBID PRN PRN Reason: wheeze Furosemide (Furosemide 20 Mg Tablet) 20 mg PO DAILY [facility]; Protocol Last Admin: 03/31/22 09:05 Dose: 20 mg Hydroxyzine HCl (Hydroxyzine Hcl 25 Mg Tablet) 25 mg PO Q6H PRN PRN Reason: Anxiety Last Admin: 03/29/22 03:44 Dose: 25 mg Ibuprofen (Ibuprofen 800 Mg Tablet) 800 mg PO Q6H PRN PRN Reason: Pain, Mild (Pain Scale 1-3) Last Admin: 03/31/22 16:48 Dose: 800 mg Ketoconazole (Ketoconazole 2 % Shampoo 120 Ml Btl) 1 appl TOPICAL BEDTIME [facility] Last Admin: 03/30/22 21:26 Dose: 1 appl Labetalol HCl (Labetalol Hcl 200 Mg Tablet) 200 mg PO BID [facility]; Protocol Last Admin: 03/31/22 19:45 Dose: 200 mg Lidocaine (Lidocaine 4 % Patch Adh..Patch) 2 patch TRANSDERMA DAILY [facility] Last Admin: 03/31/22 09:40 Dose: Not Given Magnesium Hydroxide (Milk Of Magnesia 30 Ml Oral.Susp) 30 ml PO DAILY PRN PRN Reason: Constipation Multi-Ingred Cream/Lotion/Oil/Oint (Mineral Oil/Petrolatum,White 106 Gm Tube) 1 appl TOPICAL BID [facility]; Protocol Last Admin: 03/31/22 09:02 Dose: 1 appl Olanzapine (Olanzapine 5 Mg Tablet) 5 mg PO Q4H PRN PRN Reason: agitation/manic behaviors Last Admin: 03/27/22 09:28 Dose: 5 mg Omeprazole (Omeprazole 20 Mg Capsule.Dr) 20 mg PO BEDTIME [facility] Last Admin: 03/31/22 19:45 Dose: 20 mg Oxcarbazepine (Oxcarbazepine 300 Mg Tablet) 600 mg PO BID [facility] Last Admin: 03/31/22 19:44 Dose: 600 mg Oxybutynin Chloride (Oxybutynin Chloride Er 5 Mg Tab.Er.24) 10 mg PO DAILY [facility] Last Admin: 03/31/22 09:04 Dose: 10 mg Trazodone HCl (Trazodone Hcl 50 Mg Tablet) 50 mg PO BEDTIME PRN PRN Reason: Insomnia Allergies Allergies Allergy/AdvReac Type Severity Reaction Status Date / Time adhesive [Adhesive] Allergy Mild SKIN Verified 03/18/22 08:34 IRRITATION WITH BLISTERS codeine [Codeine] Allergy Mild UNKNOWN Verified 03/18/22 08:34 methylphenidate Allergy Mild UNKNOWN Verified 03/18/22 08:34 [From [facility]] simvastatin [Simvastatin] Allergy Mild UNKNOWN Verified 03/18/22 08:34 Assessment & Plan Assessment & Plan (1) Bipolar 1 disorder: Status: Acute Code(s): F31.9 - Bipolar disorder, unspecified Plan Samantha is a 61 y.o. Pt who carries a dx of bipolar DO. She presented to [facility] on 03/13/2022 due to a manic episode, pt called 911 and asked to have her arrested because he hurt her, police are familiar with her, noted her to be decompensated and sent her to the hospital. Recent discharge from [facility], however family reports pt is still manic. Pt refusing further lab work for tegretol level and refusing amlodpine. Says she has a goal to wean herself off her psych meds and does not believe she is bipolar, thinks she has ADHD. Remote hx of IPLOC at [facility] M5 in 2006, 2007. Plan: Pt says she takes cymbalta 30 mg daily for RA, she acknowledges that it can exacerbate manic sx and this was d/c'd. Pt says olanzapine causes her wt gain, exacerbates LE swelling, does not want to take this medication. Pt has been refusing medications, i.e. tegretol ER, says she intends to wean herself off medication in the next two years. Will continue assessment and engagement.?Pt would benefit from mood stabilizer, however at this time she is not insightful into her manic sx. Will start clonidine 0.1 mg BID for anxiety, agitation. 03/19: Will discontinue tegretol and start trileptal 300 mg BID, as pt does not like lab work. Will discontinue olanzapine, as pt is concerned abt wt gain. 03/20 disorganized; manic and difficult to interrupt, unable to engage or talk about treatment.? No insight into psychiatric disorder or her behavioral disorganization or paranoid delusions.? Over the past 2 weeks, the police have Section 12'd patient to the hospital 4 times. Patient's 3 day notice is coming due.? Team discussed case and is concerned about patient's safety in the community.? 03/21 patient remains disorganized in speech and behavior; she does not have insight and refuses any medication adjustments; she also denies as she has high blood pressure despite evidence to the contrary.? Patient's presentation, her self reported recent history as well as collateral indicates the patient is not currently safe to be in the community and requires inpatient admission and treatment with medications.? Team agrees and will petition the court for involuntary commitment/substituted judgment.? This was explained to patient who understood but disagreed that this was necessary.? Team has discussed this with patient's family who also agree she requires involuntary admission and treatment with medication 03/22 remains without any insight, disorganized speech behavior; press writer got information from family that patient will get severely manic every few years and that Zyprexa 5 mg and Ativan 5 mg daily will help; press writer added these and patient did take Zyprexa last night.? Using clonazepam instead of Ativan since it lasts longer 03/23 met with patient and then patient and her ; patient still has no insight about manic behaviors, however is more willing to take Zyprexa and Klonopin which is scheduled; discontinue Trileptal which is unhelpful 03/26 patient remains disorganized in speech and behavior; patient also frequently asks for help in situations where she is capable.? Continues with no insight into her disorganized speech and behavior.? She hinted she might be willing to take Tegretol but would not commit.? Sap Payroll Consultant explained that it is still her right to refuse it but that press writer was going to order it and hopes that she will reconsider. 03/27 Pt has BNP, D dimer ordered, willing to retrial trileptal at 600 mg BID, d/c tegretol, and provided education on vraylar and invega to replace olanzapine as an antipsychotic for paranoia 03/28 Hospitalist consult appreciated, will order compression stockings. Will D/C olanzapine and start vraylar 1.5 mg QHS for paranoia, disorganization, and mood stability 03/31/22- CAT Lumbar area, continue plan of care. Plan: Petitioned court; continuance until following week Q15 min safety checks, START Tegretol ER 100mg BID (home medication on which pt was stable) Hospitalist Consult placed to asses b/l lower limb edema Continue Zyprexa 5mg qhs Continue Clonazepam 1mg BID Added Zyprexa 5mg prn DC Trileptal Otherwise: Monitor response to medications. Monitor for safety in the milieu. Discharge on stabilization. Patient seen. Chart reviewed. Discussed with team. Obtain collateral contact info?as needed I spent minutes with the patient and/or on the patient floor today, greater than?50% of which was spent counseling/coordinating care. Patient educated on: therapeutic strategies Informed Consent: further education needed Reason for contiued inpatient stay Substantial Risk for: med/psych decompensation
[2022-03-31] MEDS: Ketoconazole 2 % Shampoo 120 ML BTL 1 APPL TOPICAL (21:56)
[2022-03-31] MEDS: Fluticasone Propionate 100 MCG BLST.W.DEV 2 PUFF INHALE (21:56)
[2022-04-01 06:00] VITALS: BP 144/65; PULSE 87; RESP 18; TEMP 36.7; O2SAT 96
[2022-04-01] MEDS: Furosemide 20 MG TABLET PO (08:25)
[2022-04-01] MEDS: Labetalol HCL 200 MG TABLET PO ×2 (08:26→21:36)
[2022-04-01] MEDS: Fluticasone Propionate Nasal 16 GM SPRAY 1 SPRAY NOSTRIL-B (08:26)
[2022-04-01] MEDS: cloNIDine HCL 0.1 MG TABLET PO (08:26)
[2022-04-01] MEDS: OXcarbazepine 300 MG TABLET 600 MG PO (08:26)
[2022-04-01 08:58] LABS: Anion Gap 17 (12-20); Blood Urea Nitrogen 31 mg/dL (9-16); Calcium 9.2 mg/dL (8.4-10.2); Carbon Dioxide 23 mmol/L (22-29); Chloride 101 mmol/L (96-108); Creatinine Clr Calc Pharmacy 94.6; Estimated Glomerular Filt Rate > 60; Glucose Random 99 mg/dL (60-115); Potassium 4.4 mmol/L (3.3-5.1); Sodium 137 mmol/L (135-145)
[2022-04-01] MEDS: Mineral Oil/Petrolatum,White 106 GM Tube 1 APPL TOPICAL ×2 (08:58→21:41)
[2022-04-01] MEDS: Ibuprofen 800 MG TABLET PO ×3 (08:59→23:38)
[2022-04-01] MEDS: Lidocaine 4 % Patch ADH..PATCH 2 PATCH TRANSDERMA (08:59)
--- NOTE | 2022-04-01 10:37 | HO.PSYCHPN ---
Subjective Subjective Date of Service: 04/01/22 Reason For Visit: Bipolar Disorder Interim History: Met with patient and mental health social worker. Staff reports that patient did not sleep overnight and that she was talking nonsensically. Over the weekend covering provider reported patient was manic and her main disorganized. On meeting with patient she remains with mildly pressured speech though she is easier to interrupt. She does not think she has bipolar disorder and continues to assert that she only has ADD. She also perseverates on her irritation with her outpt provider Aixa Ahn who will no longer be working whom she reports told patient she would be tapered off Tegretol. Patient also told television writer that the last psychiatrist that diagnosed her with bipolar disorder no longer owns anything. Patient also again referred to PTSD from the upsetting experiences she had on the unit and in emergency room. The other day, patient referred to 1 of the nurses as part of the Mafia; television writer asked why she thought the nurse was a part of the Mafia to which she replied why not? She eventually said that this nurse was mean to her so she thinks she might be part of the Mafia. User Interface Developer again discussed medications with patient and that family and staff thought patient was doing better last week when she was on the Zyprexa and that having come off it, that she seems to have regressed. Patient again does not think she has bipolar disorder, however did agree to go back on the Tegretol and back on the Zyprexa. Also will ask coming for family meeting on Friday User Interface Developer discussed case with covering providers. Michelle Herndon who saw patient last week agrees it is possible that patient was doing better since she had been consistently taking Zyprexa and 1 dose of Tegretol which possibly had built up enough for her to have improved; and that after discontinuing both it makes sense that over the weekend she started again to decompensate (medications were changed at patient's insistence). Nursing indicates that patient was sleeping through the night on 03/24, 03/25, 03/26 but then starting on 03/27 started having more trouble sleeping. Mental Status Exam Mental Status Exam Narrative: Pt is alert and oriented; behavior is manic; friendly, trying to cooperate; Overweight, Bilateral LE edema (not new), adequately well groomed and dressed in casual attire;mood is described as good and affect is calmer, more in control but still prone to lability; eye contact appropriate; Speech is pressured; normal volume and prosody; no psychomotor agitation/retardation present; thought process more goal directed but still tangential; Thought content is on treatment; continues to perseverate on other unrelated topics; denies delusional content; denies any SI/HI. ?Patients insight and judgment are impaired but improving. Diagnostics Vital Signs (24Hr): Vital Signs - 24 hr 03/31/22 18:00 04/01/22 06:00 Temperature 97.8 F 98.1 F Pulse Rate 101 H 87 Respiratory Rate 18 18 Blood Pressure 122/79 144/65 H Pulse Oximetry 99 96 Oxygen Delivery Method Room Air Room Air BMI result Body Mass Index 41.5 Labs Results: 03/18/22 11:34 04/01/22 08:17 Labs: Laboratory Results - last 48 hr 04/01/22 08:17 Sodium 137 Potassium 4.4 Chloride 101 Carbon Dioxide 23 Anion Gap 17 BUN 31 H Creatinine 0.79 Estim Creat Clear Calc 94.6 Estimated GFR > 60 Random Glucose 99 Calcium 9.2 Imaging Radiology Impressions: ITS Impressions Knee X-Ray 03/27/22 21:34 IMPRESSION: Mild degenerative changes of the knee. Head CT 03/27/22 21:45 IMPRESSION: 1. No acute intracranial pathology. Chest X-Ray 03/28/22 14:46 IMPRESSION: Unremarkable examination. Venous Duplex 03/28/22 17:29 IMPRESSION: No DVT demonstrated in the bilateral lower extremities. Left Key's cyst. Ankle X-Ray 03/29/22 21:20 IMPRESSION: -Mild degenerative changes of the right knee, particularly involving the medial compartment. -Unremarkable radiographs of the right ankle. Knee X-Ray 03/29/22 21:20 IMPRESSION: -Mild degenerative changes of the right knee, particularly involving the medial compartment. -Unremarkable radiographs of the right ankle. Lumbar Spine CT 03/31/22 14:56 IMPRESSION: Multilevel lumbar spondylosis with [id number] central canal stenosis at the L4-L5 level. Mild central canal stenosis at the L3-L4 level with a small left paracentral disc protrusion and annular calcification. Exuberant facet arthropathy at the L5-S1 level with mild central canal stenosis. Medications Medications Current Medications Al Hydroxide/Mg Hydroxide (Magnesium Hydrox/Alum Hydrox 30 Ml Oral.Susp) 30 ml PO Q6H PRN PRN Reason: Heartburn/Nausea Last Admin: 03/18/22 23:55 Dose: 30 ml Albuterol Sulfate (Albuterol Sulfate 90 Mcg 8 Gm Inhaler) 2 puff INHALE RQ4H PRN PRN Reason: wheezing Cariprazine (Cariprazine Hcl 1.5 Mg Capsule) 1.5 mg PO BEDTIME [facility] Last Admin: 03/31/22 19:44 Dose: 1.5 mg Clonidine HCl (Clonidine Hcl 0.2 Mg Tablet) 0.2 mg PO BEDTIME [facility]; Protocol Last Admin: 03/31/22 19:45 Dose: 0.2 mg Clonidine HCl (Clonidine Hcl 0.1 Mg Tablet) 0.1 mg PO DAILY [facility]; Protocol Last Admin: 04/01/22 08:26 Dose: 0.1 mg Docusate Sodium (Docusate Sodium 100 Mg Capsule) 100 mg PO BID PRN PRN Reason: constipation Fluticasone Propionate (Fluticasone Propionate Nasal 16 Gm [place]) 1 spray NOSTRIL-B DAILY [facility] Last Admin: 04/01/22 08:26 Dose: 1 spray Fluticasone Propionate (Fluticasone Propionate 100 Mcg Blst.W.Dev) 2 puff INHALE RBID PRN PRN Reason: wheeze Last Admin: 03/31/22 21:56 Dose: 2 puff Furosemide (Furosemide 20 Mg Tablet) 20 mg PO DAILY [facility]; Protocol Last Admin: 04/01/22 08:25 Dose: 20 mg Hydroxyzine HCl (Hydroxyzine Hcl 25 Mg Tablet) 25 mg PO Q6H PRN PRN Reason: Anxiety Last Admin: 03/29/22 03:44 Dose: 25 mg Ibuprofen (Ibuprofen 800 Mg Tablet) 800 mg PO Q6H PRN PRN Reason: Pain, Mild (Pain Scale 1-3) Last Admin: 04/01/22 08:59 Dose: 800 mg Ketoconazole (Ketoconazole 2 % Shampoo 120 Ml Btl) 1 appl TOPICAL BEDTIME [facility] Last Admin: 03/31/22 21:56 Dose: 1 appl Labetalol HCl (Labetalol Hcl 200 Mg Tablet) 200 mg PO BID [facility]; Protocol Last Admin: 04/01/22 08:26 Dose: 200 mg Lidocaine (Lidocaine 4 % Patch Adh..Patch) 2 patch TRANSDERMA DAILY [facility] Last Admin: 08/29/22 08:59 Dose: 2 patch Magnesium Hydroxide (Milk Of Magnesia 30 Ml Oral.Susp) 30 ml PO DAILY PRN PRN Reason: Constipation Multi-Ingred Cream/Lotion/Oil/Oint (Mineral Oil/Petrolatum,White 106 Gm Tube) 1 appl TOPICAL BID [facility]; Protocol Last Admin: 04/01/22 08:58 Dose: 1 appl Olanzapine (Olanzapine 5 Mg Tablet) 5 mg PO Q4H PRN PRN Reason: agitation/manic behaviors Last Admin: 03/27/22 09:28 Dose: 5 mg Omeprazole (Omeprazole 20 Mg Capsule.Dr) 20 mg PO BEDTIME [facility] Last Admin: 03/31/22 19:45 Dose: 20 mg Oxcarbazepine (Oxcarbazepine 300 Mg Tablet) 600 mg PO BID [facility] Last Admin: 04/01/22 08:26 Dose: 600 mg Oxybutynin Chloride (Oxybutynin Chloride Er 5 Mg Tab.Er.24) 10 mg PO DAILY [facility] Last Admin: 04/01/22 08:25 Dose: 10 mg Trazodone HCl (Trazodone Hcl 50 Mg Tablet) 50 mg PO BEDTIME PRN PRN Reason: Insomnia Allergies Allergies Allergy/AdvReac Type Severity Reaction Status Date / Time adhesive [Adhesive] Allergy Mild SKIN Verified 03/18/22 08:34 IRRITATION WITH BLISTERS codeine [Codeine] Allergy Mild UNKNOWN Verified 03/18/22 08:34 methylphenidate Allergy Mild UNKNOWN Verified 03/18/22 08:34 [From [facility]] simvastatin [Simvastatin] Allergy Mild UNKNOWN Verified 03/18/22 08:34 Assessment & Plan Assessment & Plan (1) Bipolar 1 disorder: Status: Acute Code(s): F31.9 - Bipolar disorder, unspecified Plan Samantha is a 61 y.o. Pt who carries a dx of bipolar DO. She presented to [facility] on 03/13/2022 due to a manic episode, pt called 911 and asked to have her arrested because he hurt her, police are familiar with her, noted her to be decompensated and sent her to the hospital. Recent discharge [place] [facility], however family reports pt is still manic. Pt refusing further lab work for tegretol level and refusing amlodpine. Says she has a goal to wean herself off her psych meds and does not believe she is bipolar, thinks she has ADHD. Remote hx of IPLOC at [facility] in 2006, 2007. Plan: Pt says she takes cymbalta 30 mg daily for RA, she acknowledges that it can exacerbate manic sx and this was d/c'd. Pt says olanzapine causes her wt gain, exacerbates LE swelling, does not want to take this medication. Pt has been refusing medications, i.e. tegretol ER, says she intends to wean herself off medication in the next two years. Will continue assessment and engagement.?Pt would benefit from mood stabilizer, however at this time she is not insightful into her manic sx. Will start clonidine 0.1 mg BID for anxiety, agitation. 03/19: Will discontinue tegretol and start trileptal 300 mg BID, as pt does not like lab work. Will discontinue olanzapine, as pt is concerned abt wt gain. 03/20 disorganized; manic and difficult to interrupt, unable to engage or talk about treatment.? No insight into psychiatric disorder or her behavioral disorganization or paranoid delusions.? Over the past 2 weeks, the police have Section 12'd patient to the hospital 4 times. Patient's 3 day notice is coming due.? Team discussed case and is concerned about patient's safety in the community.? 03/21 patient remains disorganized in speech and behavior; she does not have insight and refuses any medication adjustments; she also denies as she has high blood pressure despite evidence to the contrary.? Patient's presentation, her self reported recent history as well as collateral indicates the patient is not currently safe to be in the community and requires inpatient admission and treatment with medications.? Team agrees and will petition the court for involuntary commitment/substituted judgment.? This was explained to patient who understood but disagreed that this was necessary.? Team has discussed this with patient's family who also agree she requires involuntary admission and treatment with medication 03/22 remains without any insight, disorganized speech behavior; television writer got information from family that patient will get severely manic every few years and that Zyprexa 5 mg and Ativan 5 mg daily will help; television writer added these and patient did take Zyprexa last night.? Using clonazepam instead of Ativan since it lasts longer 03/23 met with patient and then patient and her ; patient still has no insight about manic behaviors, however is more willing to take Zyprexa and Klonopin which is scheduled; discontinue Trileptal which is unhelpful 03/26 patient remains disorganized in speech and behavior; patient also frequently asks for help in situations where she is capable.? Continues with no insight into her disorganized speech and behavior.? She hinted she might be willing to take Tegretol but would not commit.? User Interface Developer explained that it is still her right to refuse it but that television writer was going to order it and hopes that she will reconsider. 03/27 Pt has BNP, D dimer ordered, willing to retrial trileptal at 600 mg BID, d/c tegretol, and provided education on vraylar and invega to replace olanzapine as an antipsychotic for paranoia 03/28 Hospitalist consult appreciated, will order compression stockings. Will D/C olanzapine and start vraylar 1.5 mg QHS for paranoia, disorganization, and mood stability 03/31/22- CAT Lumbar area, continue plan of care. 04/01 -Staff reports that patient did not sleep overnight and that she was talking nonsensically. Over the weekend covering provider reported patient was manic and her main disorganized. Patient's daughter thought patient was doing better last week but over the weekend again decompensated -User Interface Developer again discussed medications with patient and that family and staff thought patient was doing better last week when she was on the Zyprexa and that having come off it, that she seems to have regressed. Patient again does not think she has bipolar disorder, however did agree to go back on the Tegretol and back on the Zyprexa. Also will ask coming for family meeting on Friday User Interface Developer discussed case with covering providers. Michelle Herndon who saw patient last week agrees it is possible that patient was doing better since she had been consistently taking Zyprexa and 1 dose of Tegretol which possibly had built up enough for her to have improved; and that after discontinuing both it makes sense that over the weekend she started again to decompensate (medications were changed at patient's insistence). Nursing indicates that patient was sleeping through the night on 03/24, 03/25, 03/26 but then starting on 03/27 started having more trouble sleeping. -Extra-large compression stockings were found -scheduling family meeting with Plan: Petitioned court; continuance until following week Q15 min safety checks, Restart Tegretol ER 100mg BID (home medication on which pt was stable) Restart Zyprexa 5mg qhs DC [facility] Hospitalist started patient on Lasix for bilateral lower limb edema Extra-large compression stockings to be applied Patient has been off clonazepam; currently does not want it (patient normally takes Ativan 2.5 mg at home) Zyprexa 5mg prn Otherwise: Monitor response to medications. Monitor for safety in the milieu. Discharge on stabilization. Patient seen. Chart reviewed. Discussed with team. Obtain collateral contact info?as needed I spent minutes with the patient and/or on the patient floor today, greater than?50% of which was spent counseling/coordinating care. Patient educated on: diagnosis and medication risk/benefits Informed Consent: understands Reason for contiued inpatient stay Substantial Risk for: rapid decompensation
[2022-04-01] MEDS: carBAMazepine ER 100 MG TAB.ER.12H PO ×2 (17:05→21:35)
[2022-04-01 21:15] VITALS: BP 141/63; PULSE 99; TEMP 36.3
[2022-04-01] MEDS: Omeprazole 20 MG CAPSULE.DR PO (21:35)
[2022-04-01] MEDS: OLANZapine 5 MG TABLET PO (21:35)
[2022-04-01] MEDS: cloNIDine HCL 0.2 MG TABLET PO (21:36)
[2022-04-02] MEDS: Ibuprofen 800 MG TABLET PO ×3 (05:50→21:42)
[2022-04-02 08:17] VITALS: BP 138/65; PULSE 77; TEMP 36.4; O2SAT 99
[2022-04-02] MEDS: Fluticasone Propionate Nasal 16 GM SPRAY 1 SPRAY NOSTRIL-B (08:56)
[2022-04-02] MEDS: Labetalol HCL 200 MG TABLET PO ×2 (08:59→20:04)
[2022-04-02] MEDS: carBAMazepine ER 100 MG TAB.ER.12H PO ×2 (09:00→20:04)
[2022-04-02] MEDS: cloNIDine HCL 0.1 MG TABLET PO (09:00)
[2022-04-02] MEDS: Furosemide 20 MG TABLET PO (09:01)
[2022-04-02] MEDS: Lidocaine 4 % Patch ADH..PATCH 2 PATCH TRANSDERMA (09:01)
--- NOTE | 2022-04-02 09:28 | P.PNPSI_ITS ---
Subjective Subjective Date of Service: 04/02/22 Reason For Visit: Bipolar Disorder Interim History: pt slept much better last night Patient is still a little hypomanic, but little more calm. She tried the for XL compression stockings last night and said she would try that again today. Patient taking both Zyprexa and Tegretol Mental Status Exam Mental Status Exam Narrative: Pt is alert and oriented; behavior is Hypomanic; friendly, trying to cooperate; less intrusive to others; Overweight, Bilateral LE edema (not new), adequately well groomed and dressed in casual attire;mood is described as good and affect is calmer, more in control but still prone to lability; eye contact appropriate; Speech is mild to moderately pressured but patient is more interruptable; normal volume and prosody; no psychomotor agitation/retardation present; thought process more goal directed but still tangential; Thought content is on treatment; continues to perseverate on other unrelated topics; denies delusional content; denies any SI/HI. ?Patients insight and judgment are impaired but improving. Diagnostics Vital Signs (24Hr): Vital Signs - 24 hr 04/01/22 21:15 04/02/22 08:17 Temperature 97.4 F 97.6 F Pulse Rate 99 77 Blood Pressure 141/63 H 138/65 Pulse Oximetry 99 Oxygen Delivery Method Room Air BMI result Body Mass Index 41.5 Labs Results: 03/18/22 11:34 04/01/22 08:17 Labs: Laboratory Results - last 48 hr 04/01/22 08:17 Sodium 137 Potassium 4.4 Chloride 101 Carbon Dioxide 23 Anion Gap 17 BUN 31 H Creatinine 0.79 Estim Creat Clear Calc 94.6 Estimated GFR > 60 Random Glucose 99 Calcium 9.2 Imaging Radiology Impressions: ITS Impressions Knee X-Ray 03/27/22 21:34 IMPRESSION: Mild degenerative changes of the knee. Head CT 03/27/22 21:45 IMPRESSION: 1. No acute intracranial pathology. Chest X-Ray 03/28/22 14:46 IMPRESSION: Unremarkable examination. Venous Duplex 03/28/22 17:29 IMPRESSION: No DVT demonstrated in the bilateral lower extremities. Left Key's cyst. Ankle X-Ray 03/29/22 21:20 IMPRESSION: -Mild degenerative changes of the right knee, particularly involving the medial compartment. -Unremarkable radiographs of the right ankle. Knee X-Ray 03/29/22 21:20 IMPRESSION: -Mild degenerative changes of the right knee, particularly involving the medial compartment. -Unremarkable radiographs of the right ankle. Lumbar Spine CT 03/31/22 14:56 IMPRESSION: Multilevel lumbar spondylosis with [id number] central canal stenosis at the L4-L5 level. Mild central canal stenosis at the L3-L4 level with a small left paracentral disc protrusion and annular calcification. Exuberant facet arthropathy at the L5-S1 level with mild central canal stenosis. Medications Medications Current Medications Al Hydroxide/Mg Hydroxide (Magnesium Hydrox/Alum Hydrox 30 Ml Oral.Susp) 30 ml PO Q6H PRN PRN Reason: Heartburn/Nausea Last Admin: 03/18/22 23:55 Dose: 30 ml Albuterol Sulfate (Albuterol Sulfate 90 Mcg 8 Gm Inhaler) 2 puff INHALE RQ4H PRN PRN Reason: wheezing Carbamazepine (Carbamazepine Er 100 Mg Tab.Er.12h) 100 mg PO BID VALENTÍN Last Admin: 04/02/22 09:00 Dose: 100 mg Clonidine HCl (Clonidine Hcl 0.2 Mg Tablet) 0.2 mg PO BEDTIME VALENTÍN; Protocol Last Admin: 04/01/22 21:36 Dose: 0.2 mg Clonidine HCl (Clonidine Hcl 0.1 Mg Tablet) 0.1 mg PO DAILY VALENTÍN; Protocol Last Admin: 04/02/22 09:00 Dose: 0.1 mg Docusate Sodium (Docusate Sodium 100 Mg Capsule) 100 mg PO BID PRN PRN Reason: constipation Fluticasone Propionate (Fluticasone Propionate Nasal 16 Gm [place]) 1 spray NOSTRIL-B DAILY VALENTÍN Last Admin: 04/02/22 08:56 Dose: 1 spray Fluticasone Propionate (Fluticasone Propionate 100 Mcg Blst.W.Dev) 2 puff INHALE RBID PRN PRN Reason: wheeze Last Admin: 03/31/22 21:56 Dose: 2 puff Furosemide (Furosemide 20 Mg Tablet) 20 mg PO DAILY VALENTÍN; Protocol Last Admin: 04/02/22 09:01 Dose: 20 mg Hydroxyzine HCl (Hydroxyzine Hcl 25 Mg Tablet) 25 mg PO Q6H PRN PRN Reason: Anxiety Last Admin: 03/29/22 03:44 Dose: 25 mg Ibuprofen (Ibuprofen 800 Mg Tablet) 800 mg PO Q6H PRN PRN Reason: Pain, Mild (Pain Scale 1-3) Last Admin: 04/02/22 05:50 Dose: 800 mg Ketoconazole (Ketoconazole 2 % Shampoo 120 Ml Btl) 1 appl TOPICAL BEDTIME VALENTÍN Last Admin: 04/01/22 23:38 Dose: Not Given Labetalol HCl (Labetalol Hcl 200 Mg Tablet) 200 mg PO BID VALENTÍN; Protocol Last Admin: 04/02/22 08:59 Dose: 200 mg Lidocaine (Lidocaine 4 % Patch Adh..Patch) 2 patch TRANSDERMA DAILY VALENTÍN Last Admin: 04/02/22 09:01 Dose: 2 patch Magnesium Hydroxide (Milk Of Magnesia 30 Ml Oral.Susp) 30 ml PO DAILY PRN PRN Reason: Constipation Multi-Ingred Cream/Lotion/Oil/Oint (Mineral Oil/Petrolatum,White 106 Gm Tube) 1 appl TOPICAL BID VALENTÍN; Protocol Last Admin: 04/01/22 21:41 Dose: 1 appl Olanzapine (Olanzapine 5 Mg Tablet) 5 mg PO Q4H PRN PRN Reason: agitation/manic behaviors Last Admin: 03/27/22 09:28 Dose: 5 mg Olanzapine (Olanzapine 5 Mg Tablet) 5 mg PO BEDTIME VALENT[facility]N Last Admin: 04/01/22 21:35 Dose: 5 mg Omeprazole (Omeprazole 20 Mg Capsule.Dr) 20 mg PO BEDTIME VALENTÍN Last Admin: 04/01/22 21:35 Dose: 20 mg Oxybutynin Chloride (Oxybutynin Chloride Er 5 Mg Tab.Er.24) 10 mg PO DAILY [facility] Last Admin: 04/02/22 08:59 Dose: 10 mg Trazodone HCl (Trazodone Hcl 50 Mg Tablet) 50 mg PO BEDTIME PRN PRN Reason: Insomnia Allergies Allergies Allergy/AdvReac Type Severity Reaction Status Date / Time adhesive [Adhesive] Allergy Mild SKIN Verified 03/18/22 08:34 IRRITATION WITH BLISTERS codeine [Codeine] Allergy Mild UNKNOWN Verified 03/18/22 08:34 methylphenidate Allergy Mild UNKNOWN Verified 03/18/22 08:34 [From CONCERTA] simvastatin [Simvastatin] Allergy Mild UNKNOWN Verified 03/18/22 08:34 Assessment & Plan Assessment & Plan (1) Bipolar 1 disorder: Status: Acute Code(s): F31.9 - Bipolar disorder, unspecified Plan Samantha is a 61 y.o. Pt who carries a dx of bipolar DO. She presented to [facility] on 03/13/2022 due to a manic episode, pt called 911 and asked to have her arrested because he hurt her, police are familiar with her, noted her to be decompensated and sent her to the hospital. Recent discharge from [facility], however family reports pt is still manic. Pt refusing further lab work for tegretol level and refusing amlodpine. Says she has a goal to wean herself off her psych meds and does not believe she is bipolar, thinks she has ADHD. Remote hx of IPLOC at [facility] M[facility] in 2006, 2007. Plan: Pt says she takes cymbalta 30 mg daily for RA, she acknowledges that it can exacerbate manic sx and this was d/c'd. Pt says olanzapine causes her wt gain, exacerbates LE swelling, does not want to take this medication. Pt has been refusing medications, i.e. tegretol ER, says she intends to wean herself off medication in the next two years. Will continue assessment and engagement.?Pt would benefit from mood stabilizer, however at this time she is not insightful into her manic sx. Will start clonidine 0.1 mg BID for anxiety, agitation. 03/19: Will discontinue tegretol and start trileptal 300 mg BID, as pt does not like lab work. Will discontinue olanzapine, as pt is concerned abt wt gain. 03/20 disorganized; manic and difficult to interrupt, unable to engage or talk about treatment.? No insight into psychiatric disorder or her behavioral disorganization or paranoid delusions.? Over the past 2 weeks, the police have Section 12'd patient to the hospital 4 times. Patient's 3 day notice is coming due.? Team discussed case and is concerned about patient's safety in the community.? 03/21 patient remains disorganized in speech and behavior; she does not have insight and refuses any medication adjustments; she also denies as she has high blood pressure despite evidence to the contrary.? Patient's presentation, her self reported recent history as well as collateral indicates the patient is not currently safe to be in the community and requires inpatient admission and treatment with medications.? Team agrees and will petition the court for involuntary commitment/substituted judgment.? This was explained to patient who understood but disagreed that this was necessary.? Team has discussed this with patient's family who also agree she requires involuntary admission and treatment with medication 03/22 remains without any insight, disorganized speech behavior; bond underwriter got information from family that patient will get severely manic every few years and that Zyprexa 5 mg and Ativan 5 mg daily will help; bond underwriter added these and patient did take Zyprexa last night.? Using clonazepam instead of Ativan since it lasts longer 03/23 met with patient and then patient and her ; patient still has no insight about manic behaviors, however is more willing to take Zyprexa and Klonopin which is scheduled; discontinue Trileptal which is unhelpful 03/26 patient remains disorganized in speech and behavior; patient also frequently asks for help in situations where she is capable.? Continues with no insight into her disorganized speech and behavior.? She hinted she might be willing to take Tegretol but would not commit.? Horticultural Farmworker explained that it is still her right to refuse it but that bond underwriter was going to order it and hopes t hat she will reconsider. 03/27 Pt has BNP, D dimer ordered, willing to retrial trileptal at 600 mg BID, d/c tegretol, and provided education on vraylar and invega to replace olanzapine as an antipsychotic for paranoia 03/28 Hospitalist consult appreciated, will order compression stockings. Will D/C olanzapine and start vraylar 1.5 mg QHS for paranoia, disorganization, and mood stability 03/31/22- CAT Lumbar area, continue plan of care. 04/01 -Staff reports that patient did not sleep overnight and that she was talking nonsensically. Over the weekend covering provider reported patient was manic a nd her main disorganized. Patient's daughter thought patient was doing better last week but over the weekend again decompensated -Horticultural Farmworker again discussed medications with patient and that family and staff thought patient was doing better last week when she was on the Zyprexa and that having come off it, that she seems to have regressed. Patient again does not think she has bipolar disorder, however did agree to go back on the Tegretol and back on the Zyprexa. Also will ask coming for family meeting on Friday Horticultural Farmworker discussed case with covering providers. Michelle Herndon who saw patient last week agrees it is possible that patient was doing better since she had been consistently taking Zyprexa and 1 dose of Tegretol which possibly had built up enough for her to have improved; and that after discontinuing both it makes sense that over the weekend she started again to decompensate (medications were changed at patient's insistence). Nursing indicates that patient was sleeping t hrough the night on 03/24, 03/25, 03/26 but then starting on 03/27 started having more trouble sleeping. -Extra-large compression stockings were found -scheduling family meeting with 04/02 slept much better last night; still hypomanic but behaviors less intrusive, more appropriate; still lacks insight; Taking both Zyprexa and Tegretol Plan: Petitioned court; again continuance until following week Q15 min safety checks, Restart Tegretol ER 100mg BID (home medication on which pt was stable) Restart Zyprexa 5mg qhs (used in past when patient became manic) HILARIA [facility] started patient on Lasix 20mg daily for bilateral lower limb edema Extra-large compression stockings daily Patient has been off clonazepam; currently does not want it (patient normally takes Ativan 2.5 mg at home) Zyprexa 5mg prn START Lantaprost 0.005% both eyes at bedtime (home medication) START Ezetimbie 10 mg q.h.s. for high cholesterol (home medication) START Fenofibrate 154 mg daily for high cholesterol (home medication 145 mg, Currently not available in this dose) Otherwise: Monitor response to medications. Monitor for safety in the milieu. Discharge on stabilization. Patient seen. Chart reviewed. Discussed with team. Obtain collateral contact info?as needed I spent minutes with the patient and/or on the patient floor today, greater than?50% of which was spent counseling/coordinating care. Patient educated on: medication risk/benefits and medical condition Informed Consent: understands Reason for contiued inpatient stay Substantial Risk for: rapid decompensation
[2022-04-02 18:00] VITALS: BP 150/96; PULSE 99; TEMP 37.2; O2SAT 95
[2022-04-02] MEDS: cloNIDine HCL 0.2 MG TABLET PO (20:03)
[2022-04-02] MEDS: OLANZapine 5 MG TABLET PO (20:04)
[2022-04-02] MEDS: Ezetimibe 10 MG TABLET PO (20:04)
[2022-04-02] MEDS: Omeprazole 20 MG CAPSULE.DR PO (20:04)
[2022-04-02] MEDS: Mineral Oil/Petrolatum,White 106 GM Tube 1 APPL TOPICAL (20:06)
[2022-04-02] MEDS: Ketoconazole 2 % Shampoo 120 ML BTL 1 APPL TOPICAL (20:07)
[2022-04-02] MEDS: Fluticasone Propionate 100 MCG BLST.W.DEV 2 PUFF INHALE (20:07)
[2022-04-02] MEDS: Latanoprost 0.005 % Ophth Sol 2.5 ML DROPS 1 DROP EYE-BOTH (20:09)
[2022-04-03] MEDS: hydrOXYzine HCL 25 MG TABLET PO (03:26)
[2022-04-03 06:00] VITALS: BP 146/77; PULSE 84; RESP 18
[2022-04-03] MEDS: cloNIDine HCL 0.1 MG TABLET PO ×2 (09:19→22:35)
[2022-04-03] MEDS: Labetalol HCL 200 MG TABLET PO ×2 (09:19→20:49)
[2022-04-03] MEDS: Furosemide 20 MG TABLET PO ×2 (09:19→13:13)
[2022-04-03] MEDS: carBAMazepine ER 100 MG TAB.ER.12H PO ×3 (09:19→21:51)
[2022-04-03] MEDS: Fenofibrate 160 MG TABLET PO (09:20)
[2022-04-03] MEDS: Fluticasone Propionate Nasal 16 GM SPRAY 1 SPRAY NOSTRIL-B (09:23)
[2022-04-03] MEDS: Lidocaine 4 % Patch ADH..PATCH 2 PATCH TRANSDERMA (09:24)
[2022-04-03] MEDS: Ibuprofen 800 MG TABLET PO ×2 (09:47→22:35)
--- NOTE | 2022-04-03 10:50 | HO.PSYCHPN ---
Subjective Subjective Date of Service: 04/03/22 Reason For Visit: Bipolar Disorder Interim History: family meeting with Gatito, daughter Domi, SW Both thought that patient was doing a little better towards the end of last week (after she had been on both Tegretol and Zyprexa) but that decompensated over the weekend (after she was taking off Tegretol and Zyprexa), confirming advertising copy writer's perspective that patient needs to remain on Tegretol and Zyprexa to his achieve stability Pt remains disorganized in speech, tangential and excessively talking about irrelvant topics. Patient continues to bring up topics and questions that have been discussed many times, but patient not remember. She said however she would increase Tegretol to 3 times a day which was her outpatient schedule. She is on the fence about benzodiazepines which she normally takes at home. Patient remains without insight, saying she does not have bipolar disorder. Patient's family says that at baseline, patient know she has bipolar disorder. Patient's daughter Domi reminded her mother that she is on disability from the government specifically due to bipolar disorder and that she had to have an early [place] Patient however not dissuaded. Family shared more information. Last hospitalization was 2017. At home she normally takes Tegretol t.i.d., Zyprexa and Ativan. Although mostly stable, family explains that patient has intermittent hypomanic episodes and some mild depressive episodes each lasting for a few weeks but resolving on their own. They also say that money is a trigger and that whenever she comes into money, she gets manic and goes on a spending spree. Both and daughter agree that patient needs to remain in the hospital and continue treatment; they agree if she comes home now she will quickly decompensate. Regarding lower leg edema, family said that this started at the end of February after she was briefly at [facility] and they took her off Ativan and put her on to something else. They said her legs typically only swell when she is hospitalized. Patient asks if Lasix can be increased to which advertising copy writer agrees as patient's legs remain edematous Mental Status Exam Mental Status Exam Narrative: Pt is alert and oriented; behavior is Hypomanic; friendly, trying to cooperate but talking excessively about unrelated things, sometimes very intense and angry; less intrusive to others; Overweight, Bilateral LE edema (not new), adequately well groomed and dressed in casual attire;mood is described as good and affect is labile and during almost every interaction patient will have tears, laughter and anger; eye contact appropriate, though sometimes glaring; Speech is mild to moderately pressured but patient is more interruptable; normal volume and prosody; no psychomotor agitation/retardation present; thought process more goal directed but still tangential and disorganized; Thought content is on discharge, anger at being in hospital, past wrongs experienced in hospital, treatment; continues to perseverate on other unrelated topics; denies delusional content; denies any SI/HI. ?Patients insight and judgment are impaired but improved some. Diagnostics Vital Signs (24Hr): Vital Signs - 24 hr 04/02/22 18:00 04/03/22 06:00 Temperature 98.9 F Pulse Rate 99 84 Respiratory Rate 18 Blood Pressure 150/96 H 146/77 H Pulse Oximetry 95 BMI result Body Mass Index 41.5 Labs Results: 03/18/22 11:34 04/01/22 08:17 Imaging Radiology Impressions: ITS Impressions Knee X-Ray 03/27/22 21:34 IMPRESSION: Mild degenerative changes of the knee. Head CT 03/27/22 21:45 IMPRESSION: 1. No acute intracranial pathology. Chest X-Ray 03/28/22 14:46 IMPRESSION: Unremarkable examination. Venous Duplex 03/28/22 17:29 IMPRESSION: No DVT demonstrated in the bilateral lower extremities. Left Key's cyst. Ankle X-Ray 03/29/22 21:20 IMPRESSION: -Mild degenerative changes of the right knee, particularly involving the medial compartment. -Unremarkable radiographs of the right ankle. Knee X-Ray 03/29/22 21:20 IMPRESSION: -Mild degenerative changes of the right knee, particularly involving the medial compartment. -Unremarkable radiographs of the right ankle. Lumbar Spine CT 03/31/22 14:56 IMPRESSION: Multilevel lumbar spondylosis with [id number] central canal stenosis at the L4-L5 level. Mild central canal stenosis at the L3-L4 level with a small left paracentral disc protrusion and annular calcification. Exuberant facet arthropathy at the L5-S1 level with mild central canal stenosis. Medications Medications Current Medications Al Hydroxide/Mg Hydroxide (Magnesium Hydrox/Alum Hydrox 30 Ml Oral.Susp) 30 ml PO Q6H PRN PRN Reason: Heartburn/Nausea Last Admin: 03/18/22 23:55 Dose: 30 ml Albuterol Sulfate (Albuterol Sulfate 90 Mcg 8 Gm Inhaler) 2 puff INHALE RQ4H PRN PRN Reason: wheezing Carbamazepine (Carbamazepine Er 100 Mg Tab.Er.12h) 100 mg PO BID [facility]ENT[facility]N Last Admin: 04/03/22 09:19 Dose: 100 mg Clonidine HCl (Clonidine Hcl 0.2 Mg Tablet) 0.2 mg PO BEDTIME VALENT[facility]N; Protocol Last Admin: 04/02/22 20:03 Dose: 0.2 mg Clonidine HCl (Clonidine Hcl 0.1 Mg Tablet) 0.1 mg PO DAILY VALENT[facility]N; Protocol Last Admin: 04/03/22 09:19 Dose: 0.1 mg Docusate Sodium (Docusate Sodium 100 Mg Capsule) 100 mg PO BID PRN PRN Reason: constipation Ezetimibe (Ezetimibe 10 Mg Tablet) 10 mg PO BEDTIME VALENT[facility]N Last Admin: 04/02/22 20:04 Dose: 10 mg Fenofibrate (Fenofibrate 160 Mg Tablet) 160 mg PO DAILY [facility]ENT[facility]N Last Admin: 04/03/22 09:20 Dose: 160 mg Fluticasone Propionate (Fluticasone Propionate Nasal 16 Gm [place]) 1 spray NOSTRIL-B DAILY [facility]N Last Admin: 04/03/22 09:23 Dose: 1 spray Fluticasone Propionate (Fluticasone Propionate 100 Mcg Blst.W.Dev) 2 puff INHALE RBID PRN PRN Reason: wheeze Last Admin: 04/02/22 20:07 Dose: 2 puff Furosemide (Furosemide 20 Mg Tablet) 20 mg PO DAILY VAL[facility]N; Protocol Last Admin: 04/03/22 09:19 Dose: 20 mg Hydroxyzine HCl (Hydroxyzine Hcl 25 Mg Tablet) 25 mg PO Q6H PRN PRN Reason: Anxiety Last Admin: 04/03/22 03:26 Dose: 25 mg Ibuprofen (Ibuprofen 800 Mg Tablet) 800 mg PO Q6H PRN PRN Reason: Pain, Mild (Pain Scale 1-3) Last Admin: 04/03/22 09:47 Dose: 800 mg Ketoconazole (Ketoconazole 2 % Shampoo 120 Ml Btl) 1 appl TOPICAL BEDTIME [facility]N Last Admin: 04/02/22 20:07 Dose: 1 appl Labetalol HCl (Labetalol Hcl 200 Mg Tablet) 200 mg PO BID [facility]; Protocol Last Admin: 04/03/22 09:19 Dose: 200 mg Latanoprost (Latanoprost 0.005 % Ophth Noni 2.5 Ml Drops) 1 drop EYE-BOTH BEDTIME [facility]N Last Admin: 04/02/22 20:09 Dose: 1 drop Lidocaine (Lidocaine 4 % Patch Adh..Patch) 2 patch TRANSDERMA DAILY [facility] Last Admin: 04/03/22 09:24 Dose: 2 patch Magnesium Hydroxide (Milk Of Magnesia 30 Ml Oral.Susp) 30 ml PO DAILY PRN PRN Reason: Constipation Multi-Ingred Cream/Lotion/Oil/Oint (Mineral Oil/Petrolatum,White 106 Gm Tube) 1 appl TOPICAL BID [facility]; Protocol Last Admin: 04/03/22 09:26 Dose: Not Given Olanzapine (Olanzapine 5 Mg Tablet) 5 mg PO Q4H PRN PRN Reason: agitation/manic behaviors Last Admin: 03/27/22 09:28 Dose: 5 mg Olanzapine (Olanzapine 5 Mg Tablet) 5 mg PO BEDTIME [facility] Last Admin: 04/02/22 20:04 Dose: 5 mg Omeprazole (Omeprazole 20 Mg Capsule.Dr) 20 mg PO BEDTIME [facility]N Last Admin: 04/02/22 20:04 Dose: 20 mg Oxybutynin Chloride (Oxybutynin Chloride Er 5 Mg Tab.Er.24) 10 mg PO DAILY [facility] Last Admin: 04/03/22 09:20 Dose: 10 mg Saliva Substitute (Dry Mouth [place] 60 Ml [place]) 1 spray MUCOUS MEM Q2H PRN PRN Reason: dry mouth Trazodone HCl (Trazodone Hcl 50 Mg Tablet) 50 mg PO BEDTIME PRN PRN Reason: Insomnia Allergies Allergies Allergy/AdvReac Type Severity Reaction Status Date / Time adhesive [Adhesive] Allergy Mild SKIN Verified 03/18/22 08:34 IRRITATION WITH BLISTERS codeine [Codeine] Allergy Mild UNKNOWN Verified 03/18/22 08:34 methylphenidate Allergy Mild UNKNOWN Verified 03/18/22 08:34 [From [facility]] simvastatin [Simvastatin] Allergy Mild UNKNOWN Verified 03/18/22 08:34 Assessment & Plan Assessment & Plan (1) Bipolar 1 disorder: Status: Acute Code(s): F31.9 - Bipolar disorder, unspecified Plan Samantha is a 61 y.o. Pt who carries a dx of bipolar DO. She presented to [facility] on 03/13/2022 due to a manic episode, pt called 911 and asked to have her arrested because he hurt her, police are familiar with her, noted her to be decompensated and sent her to the hospital. Recent discharge from [facility], however family reports pt is still manic. Pt refusing further lab work for tegretol level and refusing amlodpine. Says she has a goal to wean herself off her psych meds and does not believe she is bipolar, thinks she has ADHD. Remote hx of IPLOC at [facility] in 2006, 2007. Plan: Pt says she takes cymbalta 30 mg daily for RA, she acknowledges that it can exacerbate manic sx and this was d/c'd. Pt says olanzapine causes her wt gain, exacerbates LE swelling, does not want to take this medication. Pt has been refusing medications, i.e. tegretol ER, says she intends to wean herself off medication in the next two years. Will continue assessment and engagement.?Pt would benefit from mood stabilizer, however at this time she is not insightful into her manic sx. Will start clonidine 0.1 mg BID for anxiety, agitation. 03/19: Will discontinue tegretol and start trileptal 300 mg BID, as pt does not like lab work. Will discontinue olanzapine, as pt is concerned abt wt gain. 03/20 disorganized; manic and difficult to interrupt, unable to engage or talk about treatment.? No insight into psychiatric disorder or her behavioral disorganization or paranoid delusions.? Over the past 2 weeks, the police have Section 12'd patient to the hospital 4 times. Patient's 3 day notice is coming due.? Team discussed case and is concerned about patient's safety in the community.? 03/21 patient remains disorganized in speech and behavior; she does not have insight and refuses any medication adjustments; she also denies as she has high blood pressure despite evidence to the contrary.? Patient's presentation, her self reported recent history as well as collateral indicates the patient is not currently safe to be in the community and requires inpatient admission and treatment with medications.? Team agrees and will petition the court for involuntary commitment/substituted judgment.? This was explained to patient who understood but disagreed that this was necessary.? Team has discussed this with patient's family who also agree she requires involuntary admission and treatment with medication 03/22 remains without any insight, disorganized speech behavior; advertising copy writer got information from family that patient will get severely manic every few years and that Zyprexa 5 mg and Ativan 5 mg daily will help; advertising copy writer added these and patient did take Zyprexa last night.? Using clonazepam instead of Ativan since it lasts longer 03/23 met with patient and then patient and her ; patient still has no insight about manic behaviors, however is more willing to take Zyprexa and Klonopin which is scheduled; discontinue Trileptal which is unhelpful 03/26 patient remains disorganized in speech and behavior; patient also frequently asks for help in situations where she is capable.? Continues with no insight into her disorganized speech and behavior.? She hinted she might be willing to take Tegretol but would not commit.? Canvas Marker explained that it is still her right to refuse it but that advertising copy writer was going to order it and hopes that she will reconsider. 03/27 Pt has BNP, D dimer ordered, willing to retrial trileptal at 600 mg BID, d/c tegretol, and provided education on vraylar and invega to replace olanzapine as an antipsychotic for paranoia 03/28 Hospitalist consult appreciated, will order compression stockings. Will D/C olanzapine and start vraylar 1.5 mg QHS for paranoia, disorganization, and mood stability 03/31/22- CAT Lumbar area, continue plan of care. 04/01 -Staff reports that patient did not sleep overnight and that she was talking nonsensically. Over the weekend covering provider reported patient was manic and her main disorganized. Patient's daughter thought patient was doing better last week but over the weekend again decompensated -Canvas Marker again discussed medications with patient and that family and staff thought patient was doing better last week when she was on the Zyprexa and that having come off it, that she seems to have regressed. Patient again does not think she has bipolar disorder, however did agree to go back on the Tegretol and back on the Zyprexa. Also will ask coming for family meeting on Friday Canvas Marker discussed case with covering providers. Michelle Herndon who saw patient last week agrees it is possible that patient was doing better since she had been consistently taking Zyprexa and 1 dose of Tegretol which possibly had built up enough for her to have improved; and that after discontinuing both it makes sense that over the weekend she started again to decompensate (medications were changed at patient's insistence). Nursing indicates that patient was sleeping through the night on 03/24, 03/25, 03/26 but then starting on 03/27 started having more trouble sleeping. -Extra-large compression stockings were found -scheduling family meeting with 04/02 slept much better last night; still hypomanic but behaviors less intrusive, more appropriate; still lacks insight; Taking both Zyprexa and Tegretol 04/03 family meeting; patient remains hypomanic, disorganized. and daughter both think patient would quickly decompensate if she were to come home now and should remain for treatment. Patient agrees to increasing Tegretol to t.i.d. which is outpatient regimen Plan: Petitioned court; again continuance until following week Q15 min safety checks, Increased to Tegretol ER 100mg t.i.d. (outpatient regimen) Continue Zyprexa 5mg qhs (outpatient regimen) Zyprexa 5mg prn Increased to Lasix 40mg daily for bilateral lower limb edema Continue Lantaprost 0.005% both eyes at bedtime (home medication) Continue Ezetimbie 10 mg q.h.s. for high cholesterol (home medication) Continue Fenofibrate 154 mg daily for high cholesterol (home medication 145 mg, Currently not available in this dose) Extra-large compression stockings daily (they fit and are tolerable but patient often refuses) Patient has been off clonazepam; currently does not want it (patient normally takes Ativan 2.5 mg at home) DC Trileptal (not effective) DC Vralar (could be effective but too short trial; patient decompensated and thus put back on Zyprexa) Otherwise: Monitor response to medications. Monitor for safety in the milieu. Discharge on stabilization. Patient seen. Chart reviewed. Discussed with team. Obtain collateral contact info?as needed I spent minutes with the patient and/or on the patient floor today, greater than?50% of which was spent counseling/coordinating care. Patient educated on: diagnosis, medication risk/benefits and medical condition Informed Consent: understands, does not understand and further education needed Reason for contiued inpatient stay Substantial Risk for: inability to function and rapid decompensation
[2022-04-03 18:00] VITALS: BP 152/86; PULSE 76; RESP 16; TEMP 36.6; O2SAT 99
[2022-04-03] MEDS: Ezetimibe 10 MG TABLET PO (20:49)
[2022-04-03] MEDS: Omeprazole 20 MG CAPSULE.DR PO (20:49)
[2022-04-03] MEDS: OLANZapine 5 MG TABLET PO (20:49)
[2022-04-03] MEDS: Ketoconazole 2 % Shampoo 120 ML BTL 1 APPL TOPICAL (21:55)
[2022-04-03] MEDS: Latanoprost 0.005 % Ophth Sol 2.5 ML DROPS 1 DROP EYE-BOTH (21:55)
[2022-04-04] MEDS: hydrOXYzine HCL 25 MG TABLET PO (01:32)
[2022-04-04] MEDS: traZODone HCL 50 MG TABLET PO ×2 (01:32→19:28)
[2022-04-04 06:00] VITALS: BP 214/80; PULSE 88; RESP 16; TEMP 36.9; O2SAT 96
[2022-04-04] MEDS: Fenofibrate 160 MG TABLET PO (08:52)
[2022-04-04] MEDS: Furosemide 40 MG TABLET PO (08:52)
[2022-04-04] MEDS: Albuterol Sulfate 90 MCG 8 GM INHALER 2 PUFF INHALE (08:53)
[2022-04-04] MEDS: Labetalol HCL 200 MG TABLET PO ×2 (08:53→19:29)
[2022-04-04] MEDS: Lidocaine 4 % Patch ADH..PATCH 2 PATCH TRANSDERMA (10:08)
[2022-04-04] MEDS: carBAMazepine ER 100 MG TAB.ER.12H PO ×3 (10:08→19:32)
[2022-04-04] MEDS: Fluticasone Propionate Nasal 16 GM SPRAY 1 SPRAY NOSTRIL-B (10:08)
[2022-04-04 17:27] VITALS: BP 145/84; PULSE 84; RESP 16; TEMP 37.1; O2SAT 99
--- NOTE | 2022-04-04 17:45 | P.PNPSI_ITS ---
Subjective Subjective Date of Service: 04/04/22 Reason For Visit: Bipolar Disorder Interim History: Patient very angry today. She said she thought she was going home today although this was never said and it was clearly explained she is going to remain on the unit. Again denies she has bipolar disorder and that her symptoms are only ADHD. Patient emotional and says she has a family event this weekend that she is going to miss and that the following weekend there is a dinner that is going to be given in her on her that she does not want to miss. Patient continues to bring up irrelevant topics, is hyperverbal and labile. Staff reports that she was up most of the night again, accusing other patients of stealing from her and labile. Insomnia was discussed and patient agrees to re-consider clonidine at bedtime (wanted off it scheduled the day before). Regarding lower limb edema, patient's legs do look better. Patient also said there much better and showed business writer that she is wearing her shoes which she said she could not fit into until today. Agrees to continue Lasix 40 mg Mental Status Exam Mental Status Exam Narrative: Pt is alert and oriented; behavior is Hypomanic; friendly, trying to cooperate but talking excessively about unrelated things, sometimes very intense and angry; less intrusive to others; Overweight, Bilateral LE edema (not new), adequately well groomed and dressed in casual attire;mood is described as good and affect is labile and during almost every interaction patient will have tears, laughter and anger; eye contact appropriate, though sometimes glaring; Speech is mild to moderately pressured but patient is more interruptable; normal volume and prosody; no psychomotor agitation/retardation present; thought process more goal directed but still tangential and disorganized; Thought content is on discharge, anger at being in hospital, past wrongs experienced in hospital, treatment; continues to perseverate on other unrelated topics; denies delusional content; denies any SI/HI. ?Patients insight and judgment are impaired but improved some. Diagnostics Vital Signs (24Hr): Vital Signs - 24 hr 04/03/22 18:00 04/04/22 06:00 04/04/22 17:27 Temperature 97.8 F 98.4 F 98.7 F Pulse Rate 76 88 84 Respiratory Rate 16 16 16 Blood Pressure 152/86 H 214/80 H 145/84 H Pulse Oximetry 99 96 99 Oxygen Delivery Method Room Air Room Air Room Air BMI result Body Mass Index 41.5 Labs Results: 03/18/22 11:34 04/01/22 08:17 Imaging Radiology Impressions: ITS Impressions Knee X-Ray 03/27/22 21:34 IMPRESSION: Mild degenerative changes of the knee. Head CT 03/27/22 21:45 IMPRESSION: 1. No acute intracranial pathology. Chest X-Ray 03/28/22 14:46 IMPRESSION: Unremarkable examination. Venous Duplex 03/28/22 17:29 IMPRESSION: No DVT demonstrated in the bilateral lower extremities. Left Key's cyst. Ankle X-Ray 03/29/22 21:20 IMPRESSION: -Mild degenerative changes of the right knee, particularly involving the medial compartment. -Unremarkable radiographs of the right ankle. Knee X-Ray 03/29/22 21:20 IMPRESSION: -Mild degenerative changes of the right knee, particularly involving the medial compartment. -Unremarkable radiographs of the right ankle. Lumbar Spine CT 03/31/22 14:56 IMPRESSION: Multilevel lumbar spondylosis with [id number] central canal stenosis at the L4-L5 level. Mild central canal stenosis at the L3-L4 level with a small left paracentral disc protrusion and annular calcification. Exuberant facet arthropathy at the L5-S1 level with mild central canal stenosis. Medications Medications Current Medications Al Hydroxide/Mg Hydroxide (Magnesium Hydrox/Alum Hydrox 30 Ml Oral.Susp) 30 ml PO Q6H PRN PRN Reason: Heartburn/Nausea Last Admin: 03/18/22 23:55 Dose: 30 ml Albuterol Sulfate (Albuterol Sulfate 90 Mcg 8 Gm Inhaler) 2 puff INHALE RQ4H PRN PRN Reason: wheezing Last Admin: 04/04/22 08:53 Dose: 2 puff Carbamazepine (Carbamazepine Er 100 Mg Tab.Er.12h) 100 mg PO TID@0900,1400,2100 VALENTÍN Last Admin: 04/04/22 14:11 Dose: 100 mg Clonidine HCl (Clonidine Hcl 0.1 Mg Tablet) 0.1 mg PO BEDTIME PRN; Protocol PRN Reason: insomnia Last Admin: 04/03/22 22:35 Dose: 0.1 mg Clonidine HCl (Clonidine Hcl 0.1 Mg Tablet) 0.1 mg PO DAILY PRN; Protocol PRN Reason: anxiety Docusate Sodium (Docusate Sodium 100 Mg Capsule) 100 mg PO BID PRN PRN Reason: constipation Ezetimibe (Ezetimibe 10 Mg Tablet) 10 mg PO BEDTIME VALENTÍN Last Admin: 04/03/22 20:49 Dose: 10 mg Fenofibrate (Fenofibrate 160 Mg Tablet) 160 mg PO DAILY VALENTÍN Last Admin: 04/04/22 08:52 Dose: 160 mg Fluticasone Propionate (Fluticasone Propionate Nasal 16 Gm Mcleod) 1 spray NOSTRIL-B DAILY VALENTÍN Last Admin: 04/04/22 10:08 Dose: 1 spray Fluticasone Propionate (Fluticasone Propionate 100 Mcg Blst.W.Dev) 2 puff INHALE RBID PRN PRN Reason: wheeze Last Admin: 04/02/22 20:07 Dose: 2 puff Furosemide (Furosemide 40 Mg Tablet) 40 mg PO DAILY [facility]; Protocol Last Admin: 04/04/22 08:52 Dose: 40 mg Hydroxyzine HCl (Hydroxyzine Hcl 25 Mg Tablet) 25 mg PO Q6H PRN PRN Reason: Anxiety Last Admin: 04/04/22 01:32 Dose: 25 mg Ibuprofen (Ibuprofen 800 Mg Tablet) 800 mg PO Q6H PRN PRN Reason: Pain, Mild (Pain Scale 1-3) Last Admin: 04/03/22 22:35 Dose: 800 mg Ketoconazole (Ketoconazole 2 % Shampoo 120 Ml Btl) 1 appl TOPICAL BEDTIME [facility] Last Admin: 04/03/22 21:55 Dose: 1 appl Labetalol HCl (Labetalol Hcl 200 Mg Tablet) 200 mg PO BID [facility]; Protocol Last Admin: 04/04/22 08:53 Dose: 200 mg Latanoprost (Latanoprost 0.005 % Ophth Noni 2.5 Ml Drops) 1 drop EYE-BOTH BED TIME VALENTÍN Last Admin: 04/03/22 21:55 Dose: 1 drop Lidocaine (Lidocaine 4 % Patch Adh..Patch) 2 patch TRANSDERMA DAILY [facility] Last Admin: 04/04/22 10:08 Dose: 2 patch Magnesium Hydroxide (Milk Of Magnesia 30 Ml Oral.Susp) 30 ml PO DAILY PRN PRN Reason: Constipation Multi-Ingred Cream/Lotion/Oil/Oint (Mineral Oil/Petrolatum,White 106 Gm Tube) 1 appl TOPICAL BID [facility]; Protocol Last Admin: 04/04/22 10:09 Dose: Not Given Olanzapine (Olanzapine 5 Mg Tablet) 5 mg PO Q4H PRN PRN Reason: agitation/manic behaviors Last Admin: 03/27/22 09:28 Dose: 5 mg Olanzapine (Olanzapine 5 Mg Tablet) 5 mg PO BEDTIME VALENTÍN Last Admin: 04/03/22 20:49 Dose: 5 mg Omeprazole (Omeprazole 20 Mg Capsule.Dr) 20 mg PO BEDTIME VALENTÍN Last Admin: 04/03/22 20:49 Dose: 20 mg Oxybutynin Chloride (Oxybutynin Chloride Er 5 Mg Tab.Er.24) 10 mg PO DAILY VALENTÍN Last Admin: 04/04/22 08:52 Dose: 10 mg Saliva Substitute (Dry Mouth Mcleod 60 Ml Mcleod) 1 spray MUCOUS MEM Q2H PRN PRN Reason: dry mouth Trazodone HCl (Trazodone Hcl 50 Mg Tablet) 50 mg PO BEDTIME PRN PRN Reason: Insomnia Last Admin: 04/04/22 01:32 Dose: 50 mg Trazodone HCl (Trazodone Hcl 50 Mg Tablet) 50 mg PO BEDTIME VALENTÍN Allergies Allergies Allergy/AdvReac Type Severity Reaction Status Date / Time adhesive [Adhesive] Allergy Mild SKIN Verified 03/18/22 08:34 IRRITATION WITH BLISTERS codeine [Codeine] Allergy Mild UNKNOWN Verified 03/18/22 08:34 methylphenidate Allergy Mild UNKNOWN Verified 03/18/22 08:34 [From [facility]] simvastatin [Simvastatin] Allergy Mild UNKNOWN Verified 03/18/22 08:34 Assessment & Plan Assessment & Plan (1) Bipolar 1 disorder: Status: Acute Code(s): F31.9 - Bipolar disorder, unspecified Plan Samantha is a 61 y.o. Pt who carries a dx of bipolar DO. She presented to [facility] ED on 03/13/2022 due to a manic episode, pt called 911 and asked to have her arrested because he hurt her, police are familiar with her, noted her to be decompensated and sent her to the hospital. Recent discharge from [facility], however family reports pt is still manic. Pt refusing further lab work for tegretol level and refusing amlodpine. Says she has a goal to wean herself off her psych meds and does not believe she is bipolar, thinks she has ADHD. Remote hx of [facility] at [facility] M5 in 2006, 2007. Plan: Pt says she takes cymbalta 30 mg daily for RA, she acknowledges that it can exacerbate manic sx and this was d/c'd. Pt says olanzapine causes her wt gain, exacerbates LE swelling, does not want to take this medication. Pt has been refusing medications, i.e. tegretol ER, says she intends to wean herself off medication in the next two years. Will continue assessment and engagement.?Pt would benefit from mood stabilizer, however at this time she is not insightful into her manic sx. Will start clonidine 0.1 mg BID for anxiety, agitation. 03/19: Will discontinue tegretol and start trileptal 300 mg BID, as pt does not l adam lab work. Will discontinue olanzapine, as pt is concerned abt wt gain. 03/20 disorganized; manic and difficult to interrupt, unable to engage or talk about treatment.? No insight into psychiatric disorder or her behavioral disorganization or paranoid delusions.? Over the past 2 weeks, the police have Section 12'd patient to the hospital 4 times. Patient's 3 day notice is coming due.? Team discussed case and is concerned about patient's safety in the community.? 03/21 patient remains disorganized in speech and behavior; she does not have insight and refuses any medication adjustments; she also denies as she has high blood pressure despite evidence to the contrary.? Patient's presentation, her self reported recent history as well as collateral indicates the patient is not currently safe to be in the community and requires inpatient admission and treatment with medications.? Team agrees and will petition the court for involuntary commitment/substituted judgment.? This was explained to patient who understood but disagreed that this was necessary.? Team has discussed this with patient's family who also agree she requires involuntary admission and treatment with medication 03/22 remains without any insight, disorganized speech behavior; business writer got information from family that patient will get severely manic every few years and that Zyprexa 5 mg and Ativan 5 mg daily will help; business writer added these and patient did take Zyprexa last night.? Using clonazepam instead of Ativan since it lasts longer 03/23 met with patient and then patient and her ; patient still has no insight about manic behaviors, however is more willing to take Zyprexa and Klonopin which is scheduled; discontinue Trileptal which is unhelpful 03/26 patient remains disorganized in speech and behavior; patient also frequently asks for help in situations where she is capable.? Continues with no insight into her disorganized speech and behavior.? She hinted she might be willing to take Tegretol but would not commit.? Commissary Officer explained that it is still her right to refuse it but that business writer was going to order it and hopes that she will reconsider. 03/27 Pt has BNP, D dimer ordered, willing to retrial trileptal at 600 mg BID, d/c tegretol, and provided education on vraylar and invega to replace olanzapine as an antipsychotic for paranoia 03/28 Hospitalist consult appreciated, will order compression stockings. Will D/C olanzapine and start vraylar 1.5 mg QHS for paranoia, disorganization, and mood stability 03/31/22- CAT Lumbar area, continue plan of care. 04/01 -Staff reports that patient did not sleep overnight and that she was talking nonsensically. Over the weekend covering provider reported patient was manic and her main disorganized. Patient's daughter thought patient was doing better last week but over the weekend again decompensated -Commissary Officer again discussed medications with patient and that family and staff thought patient was doing better last week when she was on the Zyprexa and that having come off it, that she seems to have regressed. Patient again does not think she has bipolar disorder, however did agree to go back on the Tegretol and back on the Zyprexa. Also will ask coming for family meeting on Friday Commissary Officer discussed case with covering providers. Michelle Herndon who saw patient last week agrees it is possible that patient was doing better since she had been consistently taking Zyprexa and 1 dose of Tegretol which possibly had built up enough for her to have improved; and that after discontinuing both it makes sense that over the weekend she started again to decompensate (medications were changed at patient's insistence). Nursing indicates that patient was sleeping through the night on 03/24, 03/25, 03/26 but then starting on 03/27 started having more trouble sleeping. -Extra-large compression stockings were found -scheduling family meeting with 04/02 slept much better last night; still hypomanic but behaviors less intrusive, more appropriate; still lacks insight; Taking both Zyprexa and Tegretol 04/03 family meeting; patient remains hypomanic, disorganized. and daughter both think patient would quickly decompensate if she were to come home now and should remain for treatment. Patient agrees to increasing Tegretol to t.i.d. which is outpatient regimen Plan: Petitioned court; again continuance until following week Q15 min safety checks, Increased to Tegretol ER 100mg t.i.d. (outpatient regimen) Continue Zyprexa 5mg qhs (outpatient regimen) Zyprexa 5mg prn clonidine prn at bedtime Increased to Lasix 40mg daily for bilateral lower limb edema Continue Lantaprost 0.005% both eyes at bedtime (home medication) Continue Ezetimbie 10 mg q.h.s. for high cholesterol (home medication) Continue Fenofibrate 154 mg daily for high cholesterol (home medication 145 mg, Currently not available in this dose) Extra-large compression stockings daily (they fit and are tolerable but patient often refuses) Patient has been off clonazepam; currently does not want it (patient normally takes Ativan 2.5 mg at home) DC Trileptal (not effective) DC Vralar (could be effective but too short trial; patient decompensated and thus put back on Zyprexa) Otherwise: Monitor response to medications. Monitor for safety in the milieu. Discharge on stabilization. Patient seen. Chart reviewed. Discussed with team. Obtain collateral contact info?as needed I spent minutes with the patient and/or on the patient floor today, greater than?50% of which was spent counseling/coordinating care. Patient educated on: diagnosis, medication risk/benefits and medical condition Informed Consent: understands, does not understand and further education needed Reason for contiued inpatient stay Substantial Risk for: inability to function and rapid decompensation
[2022-04-04] MEDS: Omeprazole 20 MG CAPSULE.DR PO (19:29)
[2022-04-04] MEDS: Ezetimibe 10 MG TABLET PO (19:29)
[2022-04-04] MEDS: OLANZapine 5 MG TABLET PO (19:29)
[2022-04-04] MEDS: Ibuprofen 800 MG TABLET PO (20:24)
[2022-04-04] MEDS: Mineral Oil/Petrolatum,White 106 GM Tube 1 APPL TOPICAL (20:56)
[2022-04-04] MEDS: Latanoprost 0.005 % Ophth Sol 2.5 ML DROPS 1 DROP EYE-BOTH (20:56)
[2022-04-04] MEDS: Hydrocortisone 1 % Cream 28.35 GM TUBE 1 APPL TOPICAL (23:21)
[2022-04-05] MEDS: Gabapentin 100 MG CAPSULE PO (00:08)
[2022-04-05] MEDS: Ibuprofen 800 MG TABLET PO ×2 (06:14→17:04)
[2022-04-05 06:22] VITALS: BP 149/72; PULSE 97; RESP 17; TEMP 36.7; O2SAT 95
[2022-04-05] MEDS: Labetalol HCL 200 MG TABLET PO ×2 (09:19→22:16)
[2022-04-05] MEDS: Fenofibrate 160 MG TABLET PO (09:19)
[2022-04-05] MEDS: Lidocaine 4 % Patch ADH..PATCH 2 PATCH TRANSDERMA (09:20)
[2022-04-05] MEDS: Furosemide 40 MG TABLET PO (09:20)
[2022-04-05] MEDS: Fluticasone Propionate Nasal 16 GM SPRAY 1 SPRAY NOSTRIL-B (09:21)
--- NOTE | 2022-04-05 15:51 | HO.PSYCHPN ---
Subjective Subjective Date of Service: 04/05/22 Reason For Visit: Bipolar Disorder Interim History: Patient remains disorganized, does not think she has bipolar disorder and is upset about various things. Earlier in the morning, patient threatened to kick someone in the balls over some irritation. When junior underwriter 1st saw patient's he said she did not Wanna talk to this junior underwriter and wanted a different doctor. Later however she was amenable to talking though still angry at junior underwriter and says that she is now getting a divorce and that it is this junior underwriter's fault. She is not really willing to discuss the details of why. Patient was able however to share some more for history and how she felt intimidated by her mother, sometimes controlled by her 's demands, intimidated by commanding officers and that for most of her life she has had to do what she has been told intake on the bulk of responsibilities. This history is part of the reason why she feels resistant now to treatment. She also was able to understand that resentment and anxiety towards the psychiatrist who diagnosed her with bipolar disorder, 14 years ago has made her leery in general of psychiatrists and though she says she mostly trusts this junior underwriter, cannot help being influenced by her past anxieties. Patient continues to lack insight however into her illness. Client Consultant mentioned that her daughter said she is on disability from the , with forced early half-way due to her diagnosis of bipolar disorder. Patient says this is not true but does not give details. That said, patient does agree to continue taking medications including Tegretol and even increasing Zyprexa to 10 mg at bedtime. She also said she would be willing to consider restarting benzodiazepines the junior underwriter understands or hesitancy as this is addicting and she is finally off them. Mental Status Exam Mental Status Exam Narrative: Pt is alert and oriented; behavior is Hypomanic; friendly, trying to cooperate but talking excessively about unrelated things, sometimes very intense and angry; less intrusive to others; Overweight, Bilateral LE edema (not new), adequately well groomed and dressed in casual attire;mood is described as good and affect is labile and during almost every interaction patient will have tears, laughter and anger; eye contact appropriate, though sometimes glaring; Speech is mild to moderately pressured but patient is more interruptable; normal volume and prosody; no psychomotor agitation/retardation present; thought process more goal directed but still tangential and disorganized; Thought content is on discharge, anger at being in hospital, past wrongs experienced in hospital, treatment; continues to perseverate on other unrelated topics; denies delusional content; denies any SI/HI. ?Patients insight and judgment are impaired but improved some. Diagnostics Vital Signs (24Hr): Vital Signs - 24 hr 04/04/22 17:27 04/05/22 06:22 Temperature 98.7 F 98.1 F Pulse Rate 84 97 Respiratory Rate 16 17 Blood Pressure 145/84 H 149/72 H Pulse Oximetry 99 95 Oxygen Delivery Method Room Air Room Air BMI result Body Mass Index 41.5 Labs Results: 03/18/22 11:34 04/01/22 08:17 Imaging Radiology Impressions: ITS Impressions Knee X-Ray 03/27/22 21:34 IMPRESSION: Mild degenerative changes of the knee. Head CT 03/27/22 21:45 IMPRESSION: 1. No acute intracranial pathology. Chest X-Ray 03/28/22 14:46 IMPRESSION: Unremarkable examination. Venous Duplex 03/28/22 17:29 IMPRESSION: No DVT demonstrated in the bilateral lower extremities. Left Key's cyst. Ankle X-Ray 03/29/22 21:20 IMPRESSION: -Mild degenerative changes of the right knee, particularly involving the medial compartment. -Unremarkable radiographs of the right ankle. Knee X-Ray 03/29/22 21:20 IMPRESSION: -Mild degenerative changes of the right knee, particularly involving the medial compartment. -Unremarkable radiographs of the right ankle. Lumbar Spine CT 03/31/22 14:56 IMPRESSION: Multilevel lumbar spondylosis with [id number] central canal stenosis at the L4-L5 level. Mild central canal stenosis at the L3-L4 level with a small left paracentral disc protrusion and annular calcification. Exuberant facet arthropathy at the L5-S1 level with mild central canal stenosis. Medications Medications Current Medications Al Hydroxide/Mg Hydroxide (Magnesium Hydrox/Alum Hydrox 30 Ml Oral.Susp) 30 ml PO Q6H PRN PRN Reason: Heartburn/Nausea Last Admin: 03/18/22 23:55 Dose: 30 ml Albuterol Sulfate (Albuterol Sulfate 90 Mcg 8 Gm Inhaler) 2 puff INHALE RQ4H PRN PRN Reason: wheezing Last Admin: 04/04/22 08:53 Dose: 2 puff Carbamazepine (Carbamazepine Er 100 Mg Tab.Er.12h) 100 mg PO TID@0900,1399,1999 [facility] Clonidine HCl (Clonidine Hcl 0.1 Mg Tablet) 0.1 mg PO BEDTIME PRN; Protocol PRN Reason: insomnia Last Admin: 04/03/22 22:35 Dose: 0.1 mg Clonidine HCl (Clonidine Hcl 0.1 Mg Tablet) 0.1 mg PO DAILY PRN; Protocol PRN Reason: anxiety Docusate Sodium (Docusate Sodium 100 Mg Capsule) 100 mg PO BID PRN PRN Reason: constipation Ezetimibe (Ezetimibe 10 Mg Tablet) 10 mg PO BEDTIME@1999 [facility] Fenofibrate (Fenofibrate 160 Mg Tablet) 160 mg PO DAILY [facility] Last Admin: 04/05/22 09:19 Dose: 160 mg Fluticasone Propionate (Fluticasone Propionate Nasal 16 Gm Brunson) 1 spray NOSTRIL-B DAILY [facility] Last Admin: 04/05/22 09:21 Dose: 1 spray Fluticasone Propionate (Fluticasone Propionate 100 Mcg Blst.W.Dev) 2 puff INHALE RBID PRN PRN Reason: wheeze Last Admin: 04/02/22 20:07 Dose: 2 puff Furosemide (Furosemide 40 Mg Tablet) 40 mg PO DAILY [facility]; Protocol Last Admin: 04/05/22 09:20 Dose: 40 mg Gabapentin (Gabapentin 100 Mg Capsule) 100 mg PO DAILY PRN PRN Reason: nerve pain Last Admin: 04/05/22 00:08 Dose: 100 mg Hydrocortisone (Hydrocortisone 1 % Cream 28.35 Gm Tube) 1 appl TOPICAL BID PRN PRN Reason: pruritis Last Admin: 04/04/22 23:21 Dose: 1 appl Hydroxyzine HCl (Hydroxyzine Hcl 25 Mg Tablet) 25 mg PO Q6H PRN PRN Reason: Anxiety Last Admin: 04/04/22 01:32 Dose: 25 mg Ibuprofen (Ibuprofen 800 Mg Tablet) 800 mg PO Q6H PRN PRN Reason: Pain, Mild (Pain Scale 1-3) Last Admin: 04/05/22 06:14 Dose: 800 mg Ketoconazole (Ketoconazole 2 % Shampoo 120 Ml Btl) 1 appl TOPICAL BEDTIME@1999 [facility] Labetalol HCl (Labetalol Hcl 200 Mg Tablet) 200 mg PO BID@ [facility]; Protocol Latanoprost (Latanoprost 0.005 % Ophth Noni 2.5 Ml Drops) 1 drop EYE-BOTH BEDTIME@1999 [facility] Lidocaine (Lidocaine 4 % Patch Adh..Patch) 2 patch TRANSDERMA DAILY [facility] Last Admin: 04/05/22 09:20 Dose: 2 patch Magnesium Hydroxide (Milk Of Magnesia 30 Ml Oral.Susp) 30 ml PO DAILY PRN PRN Reason: Constipation Multi-Ingred Cream/Lotion/Oil/Oint (Mineral Oil/Petrolatum,White 106 Gm Tube) 1 appl TOPICAL BID [facility]; Protocol Last Admin: 04/04/22 20:56 Dose: 1 appl Olanzapine (Olanzapine 5 Mg Tablet) 5 mg PO Q4H PRN PRN Reason: agitation/manic behaviors Last Admin: 03/27/22 09:28 Dose: 5 mg Olanzapine (Olanzapine 10 Mg Tablet) 10 mg PO BEDTIME@1999 [facility] Omeprazole (Omeprazole 20 Mg Capsule.Dr) 20 mg PO BEDTIME@1999 [facility] Oxybutynin Chloride (Oxybutynin Chloride Er 5 Mg Tab.Er.24) 10 mg PO DAILY [facility] Last Admin: 04/05/22 09:19 Dose: 10 mg Saliva Substitute (Dry Mouth Brunson 60 Ml Brunson) 1 spray MUCOUS MEM Q2H PRN PRN Reason: dry mouth Trazodone HCl (Trazodone Hcl 50 Mg Tablet) 50 mg PO BEDTIME PRN PRN Reason: Insomnia Last Admin: 04/04/22 01:32 Dose: 50 mg Trazodone HCl (Trazodone Hcl 100 Mg Tablet) 100 mg PO BEDTIME@1999 [facility] Trolamine Salicylate (Trolamine Salicylate 10 % Cream 85 Gm Tube) 1 appl TOPICAL BID PRN PRN Reason: sciatic pain Allergies Allergies Allergy/AdvReac Type Severity Reaction Status Date / Time adhesive [Adhesive] Allergy Mild SKIN Verified 03/18/22 08:34 IRRITATION WITH BLISTERS codeine [Codeine] Allergy Mild UNKNOWN Verified 03/18/22 08:34 methylphenidate Allergy Mild UNKNOWN Verified 03/18/22 08:34 [From [facility]] simvastatin [Simvastatin] Allergy Mild UNKNOWN Verified 03/18/22 08:34 Assessment & Plan Assessment & Plan (1) Bipolar 1 disorder: Status: Acute Code(s): F31.9 - Bipolar disorder, unspecified Plan Samantha is a 61 y.o. Pt who carries a dx of bipolar DO. She presented to [facility] on 03/13/2022 due to a manic episode, pt called 911 and asked to have her arrested because he hurt her, police are familiar with her, noted her to be decompensated and sent her to the hospital. Recent discharge from [facility], however family reports pt is still manic. Pt refusing further lab work for tegretol level and refusing amlodpine. Says she has a goal to wean herself off her psych meds and does not believe she is bipolar, thinks she has ADHD. Remote hx of IPLOC at [facility] in 2006, 2007. Plan: Pt says she takes cymbalta 30 mg daily for RA, she acknowledges that it can exacerbate manic sx and this was d/c'd. Pt says olanzapine causes her wt gain, exacerbates LE swelling, does not want to take this medication. Pt has been refusing medications, i.e. tegretol ER, says she intends to wean herself off medication in the next two years. Will continue assessment and engagement.?Pt would benefit from mood stabilizer, however at this time she is not insightful into her manic sx. Will start clonidine 0.1 mg BID for anxiety, agitation. 03/19: Will discontinue tegretol and start trileptal 300 mg BID, as pt does not like lab work. Will discontinue olanzapine, as pt is concerned abt wt gain. 03/20 disorganized; manic and difficult to interrupt, unable to engage or talk about treatment.? No insight into psychiatric disorder or her behavioral disorganization or paranoid delusions.? Over the past 2 weeks, the police have Section 12'd patient to the hospital 4 times. Patient's 3 day notice is coming due.? Team discussed case and is concerned about patient's safety in the community.? 03/21 patient remains disorganized in speech and behavior; she does not have insight and refuses any medication adjustments; she also denies as she has high blood pressure despite evidence to the contrary.? Patient's presentation, her self reported recent history as well as collateral indicates the patient is not currently safe to be in the community and requires inpatient admission and treatment with medications.? Team agrees and will petition the court for involuntary commitment/substituted judgment.? This was explained to patient who understood but disagreed that this was necessary.? Team has discussed this with patient's family who also agree she requires involuntary admission and treatment with medication 03/22 remains without any insight, disorganized speech behavior; junior underwriter got information from family that patient will get severely manic every few years and that Zyprexa 5 mg and Ativan 5 mg daily will help; junior underwriter added these and patient did take Zyprexa last night.? Using clonazepam instead of Ativan since it lasts longer 03/23 met with patient and then patient and her ; patient still has no insight about manic behaviors, however is more willing to take Zyprexa and Klonopin which is scheduled; discontinue Trileptal which is unhelpful 03/26 patient remains disorganized in speech and behavior; patient also frequently asks for help in situations where she is capable.? Continues with no insight into her disorganized speech and behavior.? She hinted she might be willing to take Tegretol but would not commit.? Client Consultant explained that it is still her right to refuse it but that junior underwriter was going to order it and hopes that she will reconsider. 03/27 Pt has BNP, D dimer ordered, willing to retrial trileptal at 600 mg BID, d/c tegretol, and provided education on vraylar and invega to replace olanzapine as an antipsychotic for paranoia 03/28 Hospitalist consult appreciated, will order compression stockings. Will D/C olanzapine and start vraylar 1.5 mg QHS for paranoia, disorganization, and mood stability 03/31/22- CAT Lumbar area, continue plan of care. 04/01 -Staff reports that patient did not sleep overnight and that she was talking nonsensically. Over the weekend covering provider reported patient was manic and her main disorganized. Patient's daughter thought patient was doing better last week but over the weekend again decompensated -Client Consultant again discussed medications with patient and that family and staff thought patient was doing better last week when she was on the Zyprexa and that having come off it, that she seems to have regressed. Patient again does not think she has bipolar disorder, however did agree to go back on the Tegretol and back on the Zyprexa. Also will ask coming for family meeting on Friday Client Consultant discussed case with covering providers. Michelle Herndon who saw patient last week agrees it is possible that patient was doing better since she had been consistently taking Zyprexa and 1 dose of Tegretol which possibly had built up enough for her to have improved; and that after discontinuing both it makes sense that over the weekend she started again to decompensate (medications were changed at patient's insistence). Nursing indicates that patient was sleeping through the night on 03/24, 03/25, 03/26 but then starting on 03/27 started having more trouble sleeping. -Extra-large compression stockings were found -scheduling family meeting with 04/02 slept much better last night; still hypomanic but behaviors less intrusive, more appropriate; still lacks insight; Taking both Zyprexa and Tegretol 04/03 family meeting; patient remains hypomanic, disorganized. and daughter both think patient would quickly decompensate if she were to come home now and should remain for treatment. Patient agrees to increasing Tegretol to t.i.d. which is outpatient regimen 04/05 still do insight, still disorganized, rambling in speech, difficult to interrupt, however also able to make some past connections to feeling controlled over her life time and how that makes her want to resist treatment now. Patient does agree to increasing Zyprexa at bedtime to continue Tegretol Plan: Petitioned court; again continuance until following week Q15 min safety checks, Increased to Tegretol ER 100mg t.i.d. (outpatient regimen) INCREASED to Zyprexa 10mg qhs (outpatient regimen) Zyprexa 5mg prn clonidine prn at bedtime Increased to Lasix 40mg daily for bilateral lower limb edema Continue Lantaprost 0.005% both eyes at bedtime (home medication) Continue Ezetimbie 10 mg q.h.s. for high cholesterol (home medication) Continue Fenofibrate 154 mg daily for high cholesterol (home medication 145 mg, Currently not available in this dose) Extra-large compression stockings daily (they fit and are tolerable but patient often refuses) Patient has been off clonazepam; currently does not want it (patient normally takes Ativan 2.5 mg at home) DC Trileptal (not effective) DC Vralar (could be effective but too short trial; patient decompensated and thus put back on Zyprexa) Otherwise: Monitor response to medications. Monitor for safety in the milieu. Discharge on stabilization. Patient seen. Chart reviewed. Discussed with team. Obtain collateral contact info?as needed I spent minutes with the patient and/or on the patient floor today, greater than?50% of which was spent counseling/coordinating care. Patient educated on: diagnosis, medication risk/benefits and therapeutic strategies Informed Consent: understands, does not understand and further education needed Reason for contiued inpatient stay Substantial Risk for: inability to function and rapid decompensation
[2022-04-05 16:34] VITALS: BP 124/67; PULSE 88; RESP 18; TEMP 37.1; O2SAT 98
[2022-04-05] MEDS: Ezetimibe 10 MG TABLET PO (22:02)
[2022-04-05] MEDS: traZODone HCL 100 MG TABLET PO (22:02)
[2022-04-05] MEDS: OLANZapine 10 MG TABLET PO (22:03)
[2022-04-05] MEDS: Omeprazole 20 MG CAPSULE.DR PO (22:04)
[2022-04-05] MEDS: Mineral Oil/Petrolatum,White 106 GM Tube 1 APPL TOPICAL (22:06)
[2022-04-05] MEDS: carBAMazepine ER 100 MG TAB.ER.12H PO (22:15)
[2022-04-05] MEDS: Latanoprost 0.005 % Ophth Sol 2.5 ML DROPS 1 DROP EYE-BOTH (22:19)
[2022-04-06] MEDS: Ibuprofen 800 MG TABLET PO ×3 (03:09→21:37)
[2022-04-06] MEDS: traZODone HCL 50 MG TABLET PO (03:11)
[2022-04-06 06:00] VITALS: BP 146/68; PULSE 93; RESP 16; TEMP 36.1; O2SAT 97
[2022-04-06] MEDS: Fenofibrate 160 MG TABLET PO (09:11)
[2022-04-06] MEDS: Butalb/Acetamin/Caff 50/325/40 TABLET 1 TAB PO (09:11)
[2022-04-06] MEDS: Furosemide 40 MG TABLET PO (09:11)
[2022-04-06] MEDS: Fluticasone Propionate Nasal 16 GM SPRAY 1 SPRAY NOSTRIL-B (09:12)
[2022-04-06] MEDS: Lidocaine 4 % Patch ADH..PATCH 2 PATCH TRANSDERMA (09:12)
[2022-04-06] MEDS: Nystatin Cream 15 GM TUBE 1 APPL TOPICAL ×2 (10:13→23:04)
[2022-04-06] MEDS: Labetalol HCL 200 MG TABLET PO ×2 (11:03→23:03)
[2022-04-06] MEDS: Trolamine Salicylate 10 % Cream 85 GM TUBE 1 APPL TOPICAL (15:06)
[2022-04-06 16:24] VITALS: BP 153/69; PULSE 80; TEMP 36.8; O2SAT 97
[2022-04-06] MEDS: Gabapentin 100 MG CAPSULE PO (17:15)
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
[2022-04-06] MEDS: Ezetimibe 10 MG TABLET PO (23:02)
[2022-04-06] MEDS: traZODone HCL 100 MG TABLET PO (23:03)
[2022-04-06] MEDS: OLANZapine 10 MG TABLET PO (23:03)
[2022-04-06] MEDS: Omeprazole 20 MG CAPSULE.DR PO (23:03)
[2022-04-06] MEDS: Latanoprost 0.005 % Ophth Sol 2.5 ML DROPS 1 DROP EYE-BOTH (23:04)
[2022-04-07 06:00] VITALS: BP 143/67; PULSE 90; RESP 18; TEMP 36.6; O2SAT 96
[2022-04-07] MEDS: Ibuprofen 800 MG TABLET PO ×2 (09:07→17:51)
[2022-04-07] MEDS: Furosemide 40 MG TABLET PO (09:08)
[2022-04-07] MEDS: Butalb/Acetamin/Caff 50/325/40 TABLET 1 TAB PO (09:08)
[2022-04-07] MEDS: Fluticasone Propionate Nasal 16 GM SPRAY 1 SPRAY NOSTRIL-B (09:18)
[2022-04-07] MEDS: Labetalol HCL 200 MG TABLET PO ×2 (10:53→23:20)
--- NOTE | 2022-04-07 16:44 | P.PNPSI_ITS ---
Subjective Subjective Date of Service: 04/07/22 Reason For Visit: Bipolar Disorder Interim History: hyperverbal. talk for 45 minutes trying to convince her of her Dx and to get her to try another mood stabilizer. c/o pedal edema, itching, erythema. refusing lithium or VPA. per staff, irritable, labile. slept well. Mental Status Exam Mental Status Exam Narrative: Pt is alert and oriented; behavior is Hypomanic; friendly, trying to cooperate but talking excessively about unrelated things, sometimes very intense and angry; less intrusive to others; Overweight, Bilateral LE edema (not new), adequately well groomed and dressed in casual attire;mood is described as good and affect is labile and during almost every interaction patient will have tears, laughter and anger; eye contact appropriate, though sometimes glaring; Speech is moderately pressured; normal volume and prosody; no psychomotor agitation/retardation present; thought process more goal directed but still tangential and disorganized; Thought content is on discharge, anger at being in hospital, past wrongs experienced in hospital, treatment; continues to perseverate on other unrelated topics; denies delusional content; denies any SI/HI. ?Patients insight and judgment are impaired but improved some. Diagnostics Vital Signs (24Hr): Vital Signs - 24 hr 04/07/22 06:00 Temperature 97.9 F Pulse Rate 90 Respiratory Rate 18 Blood Pressure 143/67 H Pulse Oximetry 96 Oxygen Delivery Method Room Air BMI result Body Mass Index 41.5 Labs Results: 03/18/22 11:34 04/01/22 08:17 Imaging Radiology Impressions: ITS Impressions Knee X-Ray 03/27/22 21:34 IMPRESSION: Mild degenerative changes of the knee. Head CT 03/27/22 21:45 IMPRESSION: 1. No acute intracranial pathology. Chest X-Ray 03/28/22 14:46 IMPRESSION: Unremarkable examination. Venous Duplex 03/28/22 17:29 IMPRESSION: No DVT demonstrated in the bilateral lower extremities. Left Key's cyst. Ankle X-Ray 03/29/22 21:20 IMPRESSION: -Mild degenerative changes of the right knee, particularly involving the medial compartment. -Unremarkable radiographs of the right ankle. Knee X-Ray 03/29/22 21:20 IMPRESSION: -Mild degenerative changes of the right knee, particularly involving the medial compartment. -Unremarkable radiographs of the right ankle. Lumbar Spine CT 03/31/22 14:56 IMPRESSION: Multilevel lumbar spondylosis with [id number] central canal stenosis at the L4-L5 level. Mild central canal stenosis at the L3-L4 level with a small left paracentral disc protrusion and annular calcification. Exuberant facet arthropathy at the L5-S1 level with mild central canal stenosis. Medications Medications Current Medications Acetaminophen/Butalbital/Caffeine (Butalb/Acetamin/Caff 50/325/40 Tablet) 1 tab PO Q4H PRN PRN Reason: Migraine Headache Last Admin: 04/07/22 09:08 Dose: 1 tab Al Hydroxide/Mg Hydroxide (Magnesium Hydrox/Alum Hydrox 30 Ml Oral.Susp) 30 ml PO Q6H PRN PRN Reason: Heartburn/Nausea Last Admin: 03/18/22 23:55 Dose: 30 ml Albuterol Sulfate (Albuterol Sulfate 90 Mcg 8 Gm Inhaler) 2 puff INHALE RQ4H PRN PRN Reason: wheezing Last Admin: 04/04/22 08:53 Dose: 2 puff Clonidine HCl (Clonidine Hcl 0.1 Mg Tablet) 0.1 mg PO BEDTIME PRN; Protocol PRN Reason: insomnia Last Admin: 04/03/22 22:35 Dose: 0.1 mg Clonidine HCl (Clonidine Hcl 0.1 Mg Tablet) 0.1 mg PO DAILY PRN; Protocol PRN Reason: anxiety Docusate Sodium (Docusate Sodium 100 Mg Capsule) 100 mg PO BID PRN PRN Reason: constipation Ezetimibe (Ezetimibe 10 Mg Tablet) 10 mg PO BEDTIME@1999 [facility] Last Admin: 04/06/22 23:02 Dose: 10 mg Fenofibrate (Fenofibrate 160 Mg Tablet) 160 mg PO DAILY [facility] Last Admin: 04/07/22 09:10 Dose: Not Given Fluticasone Propionate (Fluticasone Propionate 100 Mcg Blst.W.Dev) 2 puff INHALE RBID PRN PRN Reason: wheeze Last Admin: 04/02/22 20:07 Dose: 2 puff Fluticasone Propionate (Fluticasone Propionate Nasal 16 Gm Alfred) 1 spray NOSTRIL-B BID [facility] Furosemide (Furosemide 40 Mg Tablet) 40 mg PO DAILY [facility]; Protocol Last Admin: 04/07/22 09:08 Dose: 40 mg Gabapentin (Gabapentin 100 Mg Capsule) 100 mg PO DAILY PRN PRN Reason: nerve pain Last Admin: 04/06/22 17:15 Dose: 100 mg Hydrocortisone (Hydrocortisone 1 % Cream 28.35 Gm Tube) 1 appl TOPICAL BID PRN PRN Reason: pruritis Last Admin: 04/04/22 23:21 Dose: 1 appl Hydroxyzine HCl (Hydroxyzine Hcl 50 Mg Tablet) 50 mg PO Q6H PRN PRN Reason: Anxiety or itch Ibuprofen (Ibuprofen 800 Mg Tablet) 800 mg PO Q6H PRN PRN Reason: Pain, Mild (Pain Scale 1-3) Last Admin: 04/07/22 09:07 Dose: 800 mg Ketoconazole (Ketoconazole 2 % Shampoo 120 Ml Btl) 1 appl TOPICAL BEDTIME@1999 [facility] Last Admin: 04/06/22 21:11 Dose: Not Given Labetalol HCl (Labetalol Hcl 200 Mg Tablet) 200 mg PO BID@ [facility]; Protocol Last Admin: 04/07/22 10:53 Dose: 200 mg Latanoprost (Latanoprost 0.005 % Ophth Noni 2.5 Ml Drops) 1 drop EYE-BOTH BEDTIME@1999 [facility] Last Admin: 04/06/22 23:04 Dose: 1 drop Lidocaine (Lidocaine 4 % Patch Adh..Patch) 2 patch TRANSDERMA DAILY [facility] Last Admin: 04/07/22 09:19 Dose: Not Given Magnesium Hydroxide (Milk Of Magnesia 30 Ml Oral.Susp) 30 ml PO DAILY PRN PRN Reason: Constipation Multi-Ingred Cream/Lotion/Oil/Oint (Mineral Oil/Petrolatum,White 106 Gm Tube) 1 appl TOPICAL BID [facility]; Protocol Last Admin: 04/07/22 09:19 Dose: Not Given Nystatin (Nystatin Cream 15 Gm Tube) 1 appl TOPICAL BID [facility] Last Admin: 04/07/22 09:19 Dose: Not Given Olanzapine (Olanzapine 5 Mg Tablet) 5 mg PO Q4H PRN PRN Reason: agitation/manic behaviors Last Admin: 03/27/22 09:28 Dose: 5 mg Olanzapine (Olanzapine 10 Mg Tablet) 10 mg PO BEDTIME@1999 [facility] Last Admin: 04/06/22 23:03 Dose: 10 mg Omeprazole (Omeprazole 20 Mg Capsule.Dr) 20 mg PO BEDTIME@1999 [facility] Last Admin: 04/06/22 23:03 Dose: 20 mg Oxybutynin Chloride (Oxybutynin Chloride Er 5 Mg Tab.Er.24) 10 mg PO DAILY [facility] Last Admin: 04/07/22 09:08 Dose: 10 mg Saliva Substitute (Dry Mouth Alfred 60 Ml Alfred) 1 spray MUCOUS MEM Q2H PRN PRN Reason: dry mouth Trazodone HCl (Trazodone Hcl 50 Mg Tablet) 50 mg PO BEDTIME PRN PRN Reason: Insomnia Last Admin: 04/06/22 03:11 Dose: 50 mg Trazodone HCl (Trazodone Hcl 100 Mg Tablet) 100 mg PO BEDTIME@1999 [facility] Last Admin: 04/06/22 23:03 Dose: 100 mg Trolamine Salicylate (Trolamine Salicylate 10 % Cream 85 Gm Tube) 1 appl TOPICAL BID PRN PRN Reason: sciatic pain Last Admin: 04/06/22 15:06 Dose: 1 appl Allergies Allergies Allergy/AdvReac Type Severity Reaction Status Date / Time adhesive [Adhesive] Allergy Mild SKIN Verified 03/18/22 08:34 IRRITATION WITH BLISTERS codeine [Codeine] Allergy Mild UNKNOWN Verified 03/18/22 08:34 methylphenidate Allergy Mild UNKNOWN Verified 03/18/22 08:34 [From [facility]] simvastatin [Simvastatin] Allergy Mild UNKNOWN Verified 03/18/22 08:34 Assessment & Plan Assessment & Plan (1) Bipolar 1 disorder: Status: Acute Code(s): F31.9 - Bipolar disorder, unspecified Plan Samantha is a 61 y.o. Pt who carries a dx of bipolar DO. She presented to [facility] on 03/13/2022 due to a manic episode, pt called 911 and asked to have her arrested because he hurt her, police are familiar with her, noted her to be decompensated and sent her to the hospital. Recent discharge from [facility], however family reports pt is still manic. Pt refusing further lab work for tegretol level and refusing amlodpine. Says she has a goal to wean herself off her psych meds and does not believe she is bipolar, thinks she has ADHD. Remote hx of IPLOC at [facility] in 2006, 2007. Plan: Pt says she takes cymbalta 30 mg daily for RA, she acknowledges that it can exacerbate manic sx and this was d/c'd. Pt says olanzapine causes her wt gain, exacerbates LE swelling, does not want to take this medication. Pt has been refusing medications, i.e. tegretol ER, says she intends to wean herself off medication in the next two years. Will continue assessment and engagement.?Pt would benefit from mood stabilizer, however at this time she is not insightful into her manic sx. Will start clonidine 0.1 mg BID for anxiety, agitation. 03/19: Will discontinue tegretol and start trileptal 300 mg BID, as pt does not like lab work. Will discontinue olanzapine, as pt is concerned abt wt gain. 03/20 disorganized; manic and difficult to interrupt, unable to engage or talk about treatment.? No insight into psychiatric disorder or her behavioral disorganization or paranoid delusions.? Over the past 2 weeks, the police have Section 12'd patient to the hospital 4 times. Patient's 3 day notice is coming due.? Team discussed case and is concerned about patient's safety in the community.? 03/21 patient remains disorganized in speech and behavior; she does not have insight and refuses any medication adjustments; she also denies as she has high blood pressure despite evidence to the contrary.? Patient's presentation, her self reported recent history as well as collateral indicates the patient is not currently safe to be in the community and requires inpatient admission and treatment with medications.? Team agrees and will petition the court for involuntary commitment/substituted judgment.? This was explained to patient who understood but disagreed that this was necessary.? Team has discussed this with patient's family who also agree she requires involuntary admission and treatment with medication 03/22 remains without any insight, disorganized speech behavior; inspector automatic typewriter got information from family that patient will get severely manic every few years and that Zyprexa 5 mg and Ativan 5 mg daily will help; inspector automatic typewriter added these and patient did take Zyprexa last night.? Using clonazepam instead of Ativan since it lasts longer 03/23 met with patient and then patient and her ; patient still has no insight about manic behaviors, however is more willing to take Zyprexa and Klonopin which is scheduled; discontinue Trileptal which is unhelpful 03/26 patient remains disorganized in speech and behavior; patient also frequently asks for help in situations where she is capable.? Continues with no insight into her disorganized speech and behavior.? She hinted she might be willing to take Tegretol but would not commit.? Machine Splitter explained that it is still her right to refuse it but that inspector automatic typewriter was going to order it and hopes that she will reconsider. 03/27 Pt has BNP, D dimer ordered, willing to retrial trileptal at 600 mg BID, d/c tegretol, and provided education on vraylar and invega to replace olanzapine as an antipsychotic for paranoia 03/28 Hospitalist consult appreciated, will order compression stockings. Will D/C olanzapine and start vraylar 1.5 mg QHS for paranoia, disorganization, and mood stability 03/31/22- CAT Lumbar area, continue plan of care. 04/01 -Staff reports that patient did not sleep overnight and that she was talking nonsensically. Over the weekend covering provider reported patient was manic and her main disorganized. Patient's daughter thought patient was doing better last week but over the weekend again decompensated -Machine Splitter again discussed medications with patient and that family and staff thought patient was doing better last week when she was on the Zyprexa and that having come off it, that she seems to have regressed. Patient again does not think she has bipolar disorder, however did agree to go back on the Tegretol and back on the Zyprexa. Also will ask coming for family meeting on Friday Machine Splitter discussed case with covering providers. Michelle Herndon who saw patient last week agrees it is possible that patient was doing better since she had been consistently taking Zyprexa and 1 dose of Tegretol which possibly had built up enough for her to have improved; and that after discontinuing both it makes sense that over the weekend she started again to decompensate (medications were changed at patient's insistence). Nursing indicates that patient was sleeping through the night on 03/24, 03/25, 03/26 but then starting on 03/27 started having more trouble sleeping. -Extra-large compression stockings were found -scheduling family meeting with 04/02 slept much better last night; still hypomanic but behaviors less intrusive, more appropriate; still lacks insight; Taking both Zyprexa and Tegretol 04/03 family meeting; patient remains hypomanic, disorganized. and daughter both think patient would quickly decompensate if she were to come home now and should remain for treatment. Patient agrees to increasing Tegretol to t.i.d. which is outpatient regimen 04/06: awaiting hospitalist consult for cellulitis R/O. DC tegretol as pt is refusing it anyway. plan to try alternate mood stabilizer GILBERTO. 04/07: hospitalist contacted for eval/Tx of LE edema/erythema. pt not wiling to try VPA or lithium. will get med ed on lithium to pt. Plan: Petitioned court; again continuance until following week Q15 min safety checks, Increased to Tegretol ER 100mg t.i.d. (outpatient regimen) Continue Zyprexa 5mg qhs (outpatient regimen) Zyprexa 5mg prn clonidine prn at bedtime Increased to Lasix 40mg daily for bilateral lower limb edema Continue Lantaprost 0.005% both eyes at bedtime (home medication) Continue Ezetimbie 10 mg q.h.s. for high cholesterol (home medication) Continue Fenofibrate 154 mg daily for high cholesterol (home medication 145 mg, Currently not available in this dose) Extra-large compression stockings daily (they fit and are tolerable but patient often refuses) Patient has been off clonazepam; currently does not want it (patient normally takes Ativan 2.5 mg at home) DC Trileptal (not effective) DC Vralar (could be effective but too short trial; patient decompensated and thus put back on Zyprexa) Otherwise: Monitor response to medications. Monitor for safety in the milieu. Discharge on stabilization. Patient seen. Chart reviewed. Discussed with team. Obtain collateral contact info?as needed I spent __45____ minutes with the patient and/or on the patient floor today, greater than?50% of which was spent counseling/coordinating care. Reason for contiued inpatient stay Substantial Risk for: harm to others, inability to function and rapid decompensation
[2022-04-07] MEDS: Gabapentin 100 MG CAPSULE PO (21:03)
--- NOTE | 2022-04-07 22:07 | PC.NURSE ---
Gave pt med ed handout on [place]. PT says she refuses to take that, she does not have bipolar disorder nor betty despite an extensive conversation about her symptoms.
--- NOTE | 2022-04-07 22:09 | PC.NURSE ---
Photo of bilateral LE sent to hospitalist Adan Lomeli per his request. Recommended compression stockings and elevation of feet when able. PT states compression stocking do not fit but has been elevating feed when able.
[2022-04-07] MEDS: traZODone HCL 100 MG TABLET PO (23:12)
[2022-04-07] MEDS: Omeprazole 20 MG CAPSULE.DR PO (23:12)
[2022-04-07 23:20] VITALS: BP 146/77; RESP 16
[2022-04-07] MEDS: Mineral Oil/Petrolatum,White 106 GM Tube 1 APPL TOPICAL (23:24)
[2022-04-07] MEDS: Nystatin Cream 15 GM TUBE 1 APPL TOPICAL (23:24)
[2022-04-07] MEDS: Latanoprost 0.005 % Ophth Sol 2.5 ML DROPS 1 DROP EYE-BOTH (23:26)
[2022-04-08] MEDS: Ibuprofen 800 MG TABLET PO ×3 (04:30→22:21)
[2022-04-08 06:00] VITALS: BP 132/59; PULSE 87; RESP 18; TEMP 36.3; O2SAT 98
[2022-04-08] MEDS: Furosemide 40 MG TABLET PO (09:47)
[2022-04-08] MEDS: Lidocaine 4 % Patch ADH..PATCH 2 PATCH TRANSDERMA (09:48)
[2022-04-08] MEDS: Fluticasone Propionate Nasal 16 GM SPRAY 1 SPRAY NOSTRIL-B ×2 (09:48→22:24)
[2022-04-08] MEDS: Labetalol HCL 200 MG TABLET PO ×2 (09:49→22:22)
--- NOTE | 2022-04-08 15:02 | HO.PSYCHPN ---
Subjective Subjective Date of Service: 04/08/22 Reason For Visit: Bipolar Disorder Interim History: hyperverbal, tangential, irritable. states she reviewed lithium med ed and was not happy with side effects and so will not take it. suggests VPA, she says go ahead and prescribe it, but she doesn't need a mood stabilizer and does not have bipolar disorder. organizing her things to send some home with her today. per staff refusing to wear TEDs. more agreeable than earlier in her stay. asking for help with a great many tasks. Mental Status Exam Mental Status Exam Narrative: Pt is alert and oriented; behavior is Hypomanic; friendly, trying to cooperate but talking excessively about unrelated things, sometimes very intense and angry; less intrusive to others; Overweight, Bilateral LE edema (not new), adequately well groomed and dressed in casual attire;mood is described as good and affect is labile and during almost every interaction patient will have tears, laughter and anger; eye contact appropriate, though sometimes glaring; Speech is moderately pressured; normal volume and prosody; no psychomotor agitation/retardation present; thought process more goal directed but still tangential and disorganized; Thought content is on discharge, anger at being in hospital, past wrongs experienced in hospital, treatment; continues to perseverate on other unrelated topics; denies delusional content; denies any SI/HI. ?Patients insight and judgment are impaired but improved some. Diagnostics Vital Signs (24Hr): Vital Signs - 24 hr 04/07/22 23:20 04/08/22 06:00 Temperature 97.4 F Pulse Rate 87 Respiratory Rate 16 18 Blood Pressure 146/77 H 132/59 L Pulse Oximetry 98 BMI result Body Mass Index 41.5 Labs Results: 03/18/22 11:34 04/01/22 08:17 Imaging Radiology Impressions: ITS Impressions Knee X-Ray 03/27/22 21:34 IMPRESSION: Mild degenerative changes of the knee. Head CT 03/27/22 21:45 IMPRESSION: 1. No acute intracranial pathology. Chest X-Ray 03/28/22 14:46 IMPRESSION: Unremarkable examination. Venous Duplex 03/28/22 17:29 IMPRESSION: No DVT demonstrated in the bilateral lower extremities. Left Key's cyst. Ankle X-Ray 03/29/22 21:20 IMPRESSION: -Mild degenerative changes of the right knee, particularly involving the medial compartment. -Unremarkable radiographs of the right ankle. Knee X-Ray 03/29/22 21:20 IMPRESSION: -Mild degenerative changes of the right knee, particularly involving the medial compartment. -Unremarkable radiographs of the right ankle. Lumbar Spine CT 03/31/22 14:56 IMPRESSION: Multilevel lumbar spondylosis with [id number] central canal stenosis at the L4-L5 level. Mild central canal stenosis at the L3-L4 level with a small left paracentral disc protrusion and annular calcification. Exuberant facet arthropathy at the L5-S1 level with mild central canal stenosis. Medications Medications Current Medications Acetaminophen/Butalbital/Caffeine (Butalb/Acetamin/Caff 50/325/40 Tablet) 1 tab PO Q4H PRN PRN Reason: Migraine Headache Last Admin: 04/07/22 09:08 Dose: 1 tab Al Hydroxide/Mg Hydroxide (Magnesium Hydrox/Alum Hydrox 30 Ml Oral.Susp) 30 ml PO Q6H PRN PRN Reason: Heartburn/Nausea Last Admin: 03/18/22 23:55 Dose: 30 ml Albuterol Sulfate (Albuterol Sulfate 90 Mcg 8 Gm Inhaler) 2 puff INHALE RQ4H PRN PRN Reason: wheezing Last Admin: 04/04/22 08:53 Dose: 2 puff Clonidine HCl (Clonidine Hcl 0.1 Mg Tablet) 0.1 mg PO BEDTIME PRN; Protocol PRN Reason: insomnia Last Admin: 04/03/22 22:35 Dose: 0.1 mg Clonidine HCl (Clonidine Hcl 0.1 Mg Tablet) 0.1 mg PO DAILY PRN; Protocol PRN Reason: anxiety Docusate Sodium (Docusate Sodium 100 Mg Capsule) 100 mg PO BID PRN PRN Reason: constipation Ezetimibe (Ezetimibe 10 Mg Tablet) 10 mg PO BEDTIME@1999 [facility] Last Admin: 04/07/22 23:20 Dose: Not Given Fenofibrate (Fenofibrate 160 Mg Tablet) 160 mg PO DAILY [facility] Last Admin: 04/08/22 09:57 Dose: Not Given Fluticasone Propionate (Fluticasone Propionate 100 Mcg Blst.W.Dev) 2 puff INHALE RBID PRN PRN Reason: wheeze Last Admin: 04/02/22 20:07 Dose: 2 puff Fluticasone Propionate (Fluticasone Propionate Nasal 16 Gm [place]) 1 spray NOSTRIL-B BID [facility] Last Admin: 04/08/22 09:48 Dose: 1 spray Furosemide (Furosemide 40 Mg Tablet) 40 mg PO DAILY [facility]; Protocol Last Admin: 04/08/22 09:47 Dose: 40 mg Gabapentin (Gabapentin 100 Mg Capsule) 100 mg PO DAILY PRN PRN Reason: nerve pain Last Admin: 04/07/22 21:03 Dose: 100 mg Hydrocortisone (Hydrocortisone 1 % Cream 28.35 Gm Tube) 1 appl TOPICAL BID PRN PRN Reason: pruritis Last Admin: 04/04/22 23:21 Dose: 1 appl Hydroxyzine HCl (Hydroxyzine Hcl 50 Mg Tablet) 50 mg PO Q6H PRN PRN Reason: Anxiety or itch Ibuprofen (Ibuprofen 800 Mg Tablet) 800 mg PO Q6H PRN PRN Reason: Pain, Mild (Pain Scale 1-3) Last Admin: 04/08/22 12:57 Dose: 800 mg Ketoconazole (Ketoconazole 2 % Shampoo 120 Ml Btl) 1 appl TOPICAL BEDTIME@1999 [facility] Last Admin: 04/07/22 23:11 Dose: Not Given Labetalol HCl (Labetalol Hcl 200 Mg Tablet) 200 mg PO BID@ [facility]; Protocol Last Admin: 04/08/22 09:49 Dose: 200 mg Latanoprost (Latanoprost 0.005 % Ophth Noni 2.5 Ml Drops) 1 drop EYE-BOTH BEDTIME@1999 [facility] Last Admin: 04/07/22 23:26 Dose: 1 drop Lidocaine (Lidocaine 4 % Patch Adh..Patch) 2 patch TRANSDERMA DAILY [facility] Last Admin: 04/08/22 09:48 Dose: 2 patch Magnesium Hydroxide (Milk Of Magnesia 30 Ml Oral.Susp) 30 ml PO DAILY PRN PRN Reason: Constipation Multi-Ingred Cream/Lotion/Oil/Oint (Mineral Oil/Petrolatum,White 106 Gm Tube) 1 appl TOPICAL BID [facility]; Protocol Last Admin: 04/08/22 09:49 Dose: Not Given Nystatin (Nystatin Cream 15 Gm Tube) 1 appl TOPICAL BID [facility] Last Admin: 04/08/22 09:49 Dose: Not Given Olanzapine (Olanzapine 5 Mg Tablet) 5 mg PO Q4H PRN PRN Reason: agitation/manic behaviors Last Admin: 03/27/22 09:28 Dose: 5 mg Olanzapine (Olanzapine 10 Mg Tablet) 10 mg PO BEDTIME@1999 [facility] Last Admin: 04/07/22 23:21 Dose: Not Given Omeprazole (Omeprazole 20 Mg Capsule.) 20 mg PO BEDTIME@1999 [facility] Last Admin: 04/07/22 23:12 Dose: 20 mg Oxybutynin Chloride (Oxybutynin Chloride Er 5 Mg Tab.Er.24) 10 mg PO DAILY [facility] Last Admin: 04/08/22 09:47 Dose: 10 mg Saliva Substitute (Dry Mouth [place] 60 Ml [place]) 1 spray MUCOUS MEM Q2H PRN PRN Reason: dry mouth Trazodone HCl (Trazodone Hcl 50 Mg Tablet) 50 mg PO BEDTIME PRN PRN Reason: Insomnia Last Admin: 04/06/22 03:11 Dose: 50 mg Trazodone HCl (Trazodone Hcl 100 Mg Tablet) 100 mg PO BEDTIME@1999 [facility] Last Admin: 04/07/22 23:12 Dose: 100 mg Trolamine Salicylate (Trolamine Salicylate 10 % Cream 85 Gm Tube) 1 appl TOPICAL BID PRN PRN Reason: sciatic pain Last Admin: 04/06/22 15:06 Dose: 1 appl Allergies Allergies Allergy/AdvReac Type Severity Reaction Status Date / Time adhesive [Adhesive] Allergy Mild SKIN Verified 03/18/22 08:34 IRRITATION WITH BLISTERS codeine [Codeine] Allergy Mild UNKNOWN Verified 03/18/22 08:34 methylphenidate Allergy Mild UNKNOWN Verified 03/18/22 08:34 [From [facility]] simvastatin [Simvastatin] Allergy Mild UNKNOWN Verified 03/18/22 08:34 Assessment & Plan Assessment & Plan (1) Bipolar 1 disorder: Status: Acute Code(s): F31.9 - Bipolar disorder, unspecified Plan Samantha is a 61 y.o. Pt who carries a dx of bipolar DO. She presented to [facility] on 03/13/2022 due to a manic episode, pt called 911 and asked to have her arrested because he hurt her, police are familiar with her, noted her to be decompensated and sent her to the hospital. Recent discharge from [facility], however family reports pt is still manic. Pt refusing further lab work for tegretol level and refusing amlodpine. Says she has a goal to wean herself off her psych meds and does not believe she is bipolar, thinks she has ADHD. Remote hx of IPLOC at [facility] in 2006, 2007. Plan: Pt says she takes cymbalta 30 mg daily for RA, she acknowledges that it can exacerbate manic sx and this was d/c'd. Pt says olanzapine causes her wt gain, exacerbates LE swelling, does not want to take this medication. Pt has been refusing medications, i.e. tegretol ER, says she intends to wean herself off medication in the next two years. Will continue assessment and engagement.?Pt would benefit from mood stabilizer, however at this time she is not insightful into her manic sx. Will start clonidine 0.1 mg BID for anxiety, agitation. 03/19: Will discontinue tegretol and start trileptal 300 mg BID, as pt does not like lab work. Will discontinue olanzapine, as pt is concerned abt wt gain. 03/20 disorganized; manic and difficult to interrupt, unable to engage or talk about treatment.? No insight into psychiatric disorder or her behavioral disorganization or paranoid delusions.? Over the past 2 weeks, the police have Section 12'd patient to the hospital 4 times. Patient's 3 day notice is coming due.? Team discussed case and is concerned about patient's safety in the community.? 03/21 patient remains disorganized in speech and behavior; she does not have insight and refuses any medication adjustments; she also denies as she has high blood pressure despite evidence to the contrary.? Patient's presentation, her self reported recent history as well as collateral indicates the patient is not currently safe to be in the community and requires inpatient admission and treatment with medications.? Team agrees and will petition the court for involuntary commitment/substituted judgment.? This was explained to patient who understood but disagreed that this was necessary.? Team has discussed this with patient's family who also agree she requires involuntary admission and treatment with medication 03/22 remains without any insight, disorganized speech behavior; commercial loan underwriter got information from family that patient will get severely manic every few years and that Zyprexa 5 mg and Ativan 5 mg daily will help; commercial loan underwriter added these and patient did take Zyprexa last night.? Using clonazepam instead of Ativan since it lasts longer 03/23 met with patient and then patient and her ; patient still has no insight about manic behaviors, however is more willing to take Zyprexa and Klonopin which is scheduled; discontinue Trileptal which is unhelpful 03/26 patient remains disorganized in speech and behavior; patient also frequently asks for help in situations where she is capable.? Continues with no insight into her disorganized speech and behavior.? She hinted she might be willing to take Tegretol but would not commit.? Agricultural Extension Educator explained that it is still her right to refuse it but that commercial loan underwriter was going to order it and hopes that she will reconsider. 03/27 Pt has BNP, D dimer ordered, willing to retrial trileptal at 600 mg BID, d/c tegretol, and provided education on vraylar and invega to replace olanzapine as an antipsychotic for paranoia 03/28 Hospitalist consult appreciated, will order compression stockings. Will D/C olanzapine and start vraylar 1.5 mg QHS for paranoia, disorganization, and mood stability 03/31/22- CAT Lumbar area, continue plan of care. 04/01 -Staff reports that patient did not sleep overnight and that she was talking nonsensically. Over the weekend covering provider reported patient was manic and her main disorganized. Patient's daughter thought patient was doing better last week but over the weekend again decompensated -Agricultural Extension Educator again discussed medications with patient and that family and staff thought patient was doing better last week when she was on the Zyprexa and that having come off it, that she seems to have regressed. Patient again does not think she has bipolar disorder, however did agree to go back on the Tegretol and back on the Zyprexa. Also will ask coming for family meeting on Friday Agricultural Extension Educator discussed case with covering providers. Michelle Herndon who saw patient last week agrees it is possible that patient was doing better since she had been consistently taking Zyprexa and 1 dose of Tegretol which possibly had built up enough for her to have improved; and that after discontinuing both it makes sense that over the weekend she started again to decompensate (medications were changed at patient's insistence). Nursing indicates that patient was sleeping through the night on 03/24, 03/25, 03/26 but then starting on 03/27 started having more trouble sleeping. -Extra-large compression stockings were found -scheduling family meeting with 04/02 slept much better last night; still hypomanic but behaviors less intrusive, more appropriate; still lacks insight; Taking both Zyprexa and Tegretol 04/03 family meeting; patient remains hypomanic, disorganized. and daughter both think patient would quickly decompensate if she were to come home now and should remain for treatment. Patient agrees to increasing Tegretol to t.i.d. which is outpatient regimen 04/06: awaiting hospitalist consult for cellulitis R/O. DC tegretol as pt is refusing it anyway. plan to try alternate mood stabilizer GILBERTO. 04/07: hospitalist contacted for eval/Tx of LE edema/erythema. pt not wiling to try VPA or lithium. will get med ed on lithium to pt. 04/08: added VPA to regimen today, although pt is not likely to take it. denies bipolar Dx or need for mood stabilizer. remains tangential, grandiose, disorganized, irritable/labile. won't take lithium due to side effects she read about in med ed. Plan: Petitioned court; again continuance until following week Q15 min safety checks, Increased to Tegretol ER 100mg t.i.d. (outpatient regimen) Continue Zyprexa 5mg qhs (outpatient regimen) Zyprexa 5mg prn clonidine prn at bedtime Increased to Lasix 40mg daily for bilateral lower limb edema Continue Lantaprost 0.005% both eyes at bedtime (home medication) Continue Ezetimbie 10 mg q.h.s. for high cholesterol (home medication) Continue Fenofibrate 154 mg daily for high cholesterol (home medication 145 mg, Currently not available in this dose) Extra-large compression stockings daily (they fit and are tolerable but patient often refuses) Patient has been off clonazepam; currently does not want it (patient normally takes Ativan 2.5 mg at home) DC Trileptal (not effective) DC Vralar (could be effective but too short trial; patient decompensated and thus put back on Zyprexa) Otherwise: Monitor response to medications. Monitor for safety in the milieu. Discharge on stabilization. Patient seen. Chart reviewed. Discussed with team. Obtain collateral contact info?as needed I spent __35____ minutes with the patient and/or on the patient floor today, greater than?50% of which was spent counseling/coordinating care. Reason for contiued inpatient stay Substantial Risk for: harm to self, harm to others, inability to function and rapid decompensation
[2022-04-08] MEDS: Nystatin Cream 15 GM TUBE 1 APPL TOPICAL (20:59)
[2022-04-08] MEDS: Mineral Oil/Petrolatum,White 106 GM Tube 1 APPL TOPICAL (20:59)
[2022-04-08 21:20] VITALS: BP 154/65; PULSE 94; TEMP 36.6
[2022-04-08] MEDS: Omeprazole 20 MG CAPSULE.DR PO (22:03)
[2022-04-08] MEDS: traZODone HCL 100 MG TABLET PO (22:04)
[2022-04-08] MEDS: Latanoprost 0.005 % Ophth Sol 2.5 ML DROPS 1 DROP EYE-BOTH (22:07)
[2022-04-08] MEDS: Trolamine Salicylate 10 % Cream 85 GM TUBE 1 APPL TOPICAL (22:23)
[2022-04-09] MEDS: Dry Mouth Spray 60 ML SPRAY 1 SPRAY MUCOUS MEM (00:57)
[2022-04-09] MEDS: cloNIDine HCL 0.1 MG TABLET PO (01:05)
[2022-04-09 01:08] VITALS: BP 142/67
[2022-04-09] MEDS: Ibuprofen 800 MG TABLET PO ×2 (05:25→12:04)
[2022-04-09 09:30] VITALS: BP 141/63; PULSE 87; RESP 16; TEMP 36.6; O2SAT 99
[2022-04-09] MEDS: Furosemide 40 MG TABLET PO (09:38)
[2022-04-09] MEDS: Labetalol HCL 200 MG TABLET PO ×2 (09:38→20:26)
[2022-04-09] MEDS: Fluticasone Propionate Nasal 16 GM SPRAY 1 SPRAY NOSTRIL-B ×2 (09:38→21:47)
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
[2022-04-09 18:00] VITALS: BP 174/74; PULSE 80; RESP 20; TEMP 36.3; O2SAT 100
[2022-04-09] MEDS: Omeprazole 20 MG CAPSULE.DR PO (20:26)
[2022-04-09] MEDS: traZODone HCL 100 MG TABLET PO (20:31)
[2022-04-09] MEDS: Nystatin Cream 15 GM TUBE 1 APPL TOPICAL ×2 (21:47→22:09)
[2022-04-09] MEDS: Latanoprost 0.005 % Ophth Sol 2.5 ML DROPS 1 DROP EYE-BOTH (21:47)
[2022-04-09] MEDS: Mineral Oil/Petrolatum,White 106 GM Tube 1 APPL TOPICAL (21:47)
[2022-04-10] MEDS: Ibuprofen 800 MG TABLET PO ×2 (05:06→20:54)
[2022-04-10] MEDS: Gabapentin 100 MG CAPSULE PO (05:10)
[2022-04-10 09:00] VITALS: BP 186/90; PULSE 79; RESP 18; TEMP 36.8; O2SAT 98
[2022-04-10] MEDS: Furosemide 40 MG TABLET PO (09:10)
[2022-04-10] MEDS: Labetalol HCL 200 MG TABLET PO ×2 (09:11→20:28)
[2022-04-10] MEDS: Nystatin Cream 15 GM TUBE 1 APPL TOPICAL ×2 (09:25→21:01)
--- NOTE | 2022-04-10 17:19 | PC.NURSE ---
This morning pt was talking with another pt about taking a shower and tried to force the patient to ask for a shower in that moment. A staff member overheard that conversation and told pt that the other pt stated she did not want to take a shower until later. Pt rolled her eyes and said Well then.
--- NOTE | 2022-04-10 17:20 | PC.NURSE ---
Pt was walking in front of the nursing station and saw a man who was unfamiliar and asked if he was here to visit someone. Then, pt asked the visitor who they were here to see. Staff redirected the patient to leave the visitor alone and pt stated that she did not say anything and that she was walking by.
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
--- NOTE | 2022-04-10 17:34 | PC.NURSE ---
This afternoon, patient approached a staff member asking personal questions about another staff member's job title and education level. Pt continued to make assumptions about their personal life. Pt then started to compare two staff member's badges and continued to ask personal questions regarding education and role of jobs.
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
[2022-04-10 20:20] VITALS: BP 187/77; PULSE 92; TEMP 36.6; O2SAT 92
[2022-04-10] MEDS: traZODone HCL 100 MG TABLET PO (20:30)
[2022-04-10] MEDS: Omeprazole 20 MG CAPSULE.DR PO (20:31)
[2022-04-10] MEDS: Latanoprost 0.005 % Ophth Sol 2.5 ML DROPS 1 DROP EYE-BOTH (20:56)
[2022-04-10] MEDS: Fluticasone Propionate Nasal 16 GM SPRAY 1 SPRAY NOSTRIL-B (20:58)
[2022-04-11] MEDS: Gabapentin 100 MG CAPSULE PO (00:44)
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
[2022-04-11 08:32] VITALS: BP 137/99; PULSE 94; TEMP 36.9
[2022-04-11] MEDS: Lidocaine 4 % Patch ADH..PATCH 2 PATCH TRANSDERMA (09:05)
[2022-04-11] MEDS: Furosemide 40 MG TABLET PO (09:05)
[2022-04-11] MEDS: Labetalol HCL 200 MG TABLET PO ×2 (09:06→21:31)
[2022-04-11] MEDS: Ibuprofen 800 MG TABLET PO ×2 (11:40→18:29)
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
[2022-04-11 21:20] VITALS: BP 187/81; PULSE 97; TEMP 36.6
[2022-04-11] MEDS: Omeprazole 20 MG CAPSULE.DR PO (21:30)
[2022-04-11] MEDS: Latanoprost 0.005 % Ophth Sol 2.5 ML DROPS 1 DROP EYE-BOTH (21:33)
[2022-04-12] MEDS: Ibuprofen 800 MG TABLET PO (01:55)
[2022-04-12] MEDS: Gabapentin 100 MG CAPSULE PO (01:55)
[2022-04-12] MEDS: Labetalol HCL 200 MG TABLET PO (09:20)
[2022-04-12] MEDS: Fluticasone Propionate Nasal 16 GM SPRAY 1 SPRAY NOSTRIL-B (09:21)
[2022-04-12] MEDS: Mineral Oil/Petrolatum,White 106 GM Tube 1 APPL TOPICAL (10:31)
[2022-04-12] MEDS: Nystatin Cream 15 GM TUBE 1 APPL TOPICAL (10:31)
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
--- NOTE | 2022-04-29 01:59 | PC.NURSE ---
During change of shift report at approximately 2315, MHA came to report room stating patient had spiked a temp of 102.9. On assessment, patient was lethargic and diaphoretic; she stated she was experiencing chest pain. O2 saturation was down to 90%. A rapid response was called at 2325. At ER doctor's request, this RN called Dr Sol to discharge patient GILBERTO to facilitate medical floor admission. Patient was transported to ER CT scan and transferred to [facility] from there.
== END 2022-04-12 15:58 | disposition home or self-care (01) | DRG 753 ==
LOC: HO.ED 22:52 → HO.PM5 03-18 14:40
PROVIDERS: Clinical Nurse Specialist Psychiatric/Mental Health, Adult; Emergency Medicine; Physician Assistant; Admitting Provider Psychiatry & Neurology Psychiatry; Emergency Provider Emergency Medicine; Visit Provider Psychiatry & Neurology Psychiatry
DX: F31.10 Bipolar disorder, current episode manic without psychotic features, unspecified (principal); I10 Essential (primary) hypertension; M06.9 Rheumatoid arthritis, unspecified; Z20.822 Contact with and (suspected) exposure to COVID-19; Z88.5 Allergy status to narcotic agent; Z88.8 Allergy status to other drugs, medicaments and biological substances; Z79.51 Long term (current) use of inhaled steroids; Z79.899 Other long term (current) drug therapy
CPT/HCPCS: 36415; 70450; 71045; 72131; 73564; 73610; 80048; 80061; 80076; 80307; 81003; 82565; 82607; 82746; 83036; 83735; 83880; 84439; 84443; 84484; 84520; 85025; 85379; 87635; 93005; 93970; 99285; J1200; J2250

== ENCOUNTER 2022-04-12 21:59 | Inpatient (IN) | payer BC, OTHER, SELFPAY ==
--- NOTE | ~2022-04-12 | CT_ITS ---
EXAMINATION: CT ABDOMEN AND PELVIS WITHOUT CONTRAST CLINICAL INFORMATION: Flank pain COMPARISON: None TECHNIQUE: Multidetector volumetric imaging was performed from the superior aspect of the liver through the pubic symphysis. Sagittal and coronal reformatted images were obtained on the technologist's workstation. This CT examination was performed using dose optimization techniques as appropriate, variously including the following: *Automated exposure control *Adjustment of mA and/or kV according to patient size (this includes techniques or standardized protocols for targeted exams where dose is matched to indication/reason for exam; i.e. extremities or head) *Use of iterative reconstruction technique DLP: 1352 mGy-cm FINDINGS: LUNG BASES: The visualized lung bases are unremarkable. LIVER, GALLBLADDER, AND BILIARY TREE: The liver is normal in size, shape, and attenuation. No focal hepatic lesion or biliary ductal dilatation is present. The gallbladder is unremarkable with no evidence of radiopaque gallstones, gallbladder wall thickening, or obvious pericholecystic inflammatory changes. PANCREAS: Unremarkable. SPLEEN: Unremarkable. ADRENAL GLANDS: Unremarkable. KIDNEYS AND URETERS: The kidneys are normal in size, shape, and attenuation. No hydronephrosis, hydroureter, or calculi seen. There is left greater than right perinephric stranding.. BLADDER: Unremarkable. GASTROINTESTINAL TRACT: The stomach is unremarkable. Normal caliber small bowel. No obstruction. Scattered colonic diverticulosis without diverticulitis. No wall thickening or adjacent inflammation. ABDOMINAL WALL: No significant hernia is appreciated. LYMPH NODES: Normal. VASCULAR: Normal caliber aorta with mild atherosclerotic calcification. PELVIC VISCERA: Uterus not seen. No adnexal mass. OSSEOUS STRUCTURES: No acute or suspicious osseous abnormality. Vacuum disc phenomenon at L5-S1. Mild degenerative changes in the hips. CT/CT abdomen pelvis wo IV con IMPRESSION: There is left greater than right perinephric stranding. No hydronephrosis or nephrolithiasis. This could be associated with infection. Recently passed stone is also possible. Fleischner guidelines were followed.
[2022-04-12 22:02] VITALS: BP 202/106; PULSE 100; RESP 18; TEMP 36.6; O2SAT 98; BMI 37.8
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
[2022-04-12 22:25] LABS: Appearance Urine Clear; Color Urine Yellow; Glucose Urine UA Negative (Negative); Leukocyte Esterase Urine Negative (Negative); Nitrite Urine Negative (Negative); PH 6.5 (5.0-9.0); Specific Gravity - Urine <= 1.005 (1.005-1.025); Urine Blood Negative (Negative); Urine Ketones Negative (Negative); Urine Protein Negative (Neg-Trace)
[2022-04-12 22:44] LABS: COVID-19 Test Negative (Negative)
[2022-04-12 22:54] LABS: Amphetamine Screen Urine Not Detected (Not Detect); Barbiturates, Urine Not Detected (Not Detect); Benzodiazepines Screen Urine Not Detected (Not Detect); Cannabinoid Screen Urine Not Detected (Not Detect); Cocaine Screen Urine Not Detected (Not Detect); Fentanyl, urine Not Detected (Not Detect); Opiate Screen Urine Not Detected (Not Detect); Phencyclidine Screen Urine Not Detected (Not Detect)
--- NOTE | 2022-04-13 00:20 | MHC.CARE ---
Pt was evaluated by the CARE Team and is a bedsearch at this time.
[2022-04-13 00:46] VITALS: BP 150/64; PULSE 95; RESP 17; TEMP 36.3; O2SAT 95
[2022-04-13] MEDS: diphenhydrAMINE HCL 25 MG TABLET 50 MG PO (00:46)
--- NOTE | 2022-04-13 06:06 | PC.NURSE ---
Patient slept intermittently, requested Benadryl/administered Benadryl 50 mg as ordered with little effect, patient was assessed by care team, disposition is section 12 inpatient bed search, med rec completed/pending provider's approval, VSS, will continue to monitor.
--- NOTE | 2022-04-13 07:01 | PC.NURSE ---
patient periodically resting, at present chastising other nurse about his speed at which he is obtaining her tea. maintains safe behavior but ordering staff around verbally with disrespectful tone.
--- NOTE | 2022-04-13 11:23 | PC.NURSE ---
patient often appears hyper-aware of behavior of persons she interacts with and makes comments on their behavior, drawing unusual correlations, you write with your left hand, do you know what that means? it means youre using more of the right hand side of your brain, and are artistic... .
[2022-04-13 12:10] VITALS: BP 165/80; PULSE 86; RESP 18; O2SAT 100
--- NOTE | 2022-04-13 12:10 | PHA.MEDREC ---
Pharmacy Consult ? Medication Reconciliation Pharmacy has completed the medication reconciliation. Spoke with patient about extensive medical history. Some medications were ordered before med red completed by pharmacy. Patient stated that she was allergic to olanzapine and not taking anymore and Dr Amezcua notified. Olanzapine 6xd and once at bedtime was ordered and Dr lozoya continued based on benefit. PAtient said they arent taking fenofibrate, amlodipine, lorazepam anymore.
[2022-04-13] MEDS: Labetalol HCL 200 MG TABLET PO (12:55)
[2022-04-13] MEDS: carBAMazepine ER 100 MG TAB.ER.12H PO (12:55)
[2022-04-13] MEDS: Furosemide 40 MG TABLET PO (12:55)
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
[2022-04-13] MEDS: hydrOXYzine HCL 25 MG TABLET PO (16:25)
[2022-04-13] MEDS: Fluticasone Propionate Nasal 16 GM SPRAY 1 SPRAY NOSTRIL-B (16:26)
[2022-04-13] MEDS: Ibuprofen 800 MG TABLET PO (17:18)
[2022-04-13 21:05] VITALS: BP 126/59; PULSE 85; RESP 16; TEMP 36.3; O2SAT 98
--- NOTE | 2022-04-13 21:55 | PC.NURSE ---
Addendum entered by Silvana Castillo RN 04/14/22 02:49: Pt c/o anxiety r-t readmission to unit and rejection of CV. Verbalized frustration and anger. Labile, at times laughing then belligerent and perseverative over CV, demanded to see providers who were not on duty, wanted nurses to agree with her incorrect interpretation of the form stating reason for rejection of the CV. Pt refused her medication numerous times throughout the night, then requested them after midnight. At that time she refused her olanzapine reporting she is allergic to it, saying it causes migraines ?immediately after taking it.? Pt is verbally demanding, no verbal threats. Original Note: Pt c/o anxiety r-t readmission to unit and rejection of CV. Verbal expression of frustration and anger, demanding to see provider who is not on duty today. No verbal threats. Labile, at times laughing then belligerent and perseverative over CV.
--- NOTE | 2022-04-14 00:20 | PC.NURSE ---
Pt submitted a 3 day notice today, 3 day up on 04/18/22. MD Notified.
[2022-04-14] MEDS: carBAMazepine ER 100 MG TAB.ER.12H PO (00:24)
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
[2022-04-14] MEDS: Labetalol HCL 200 MG TABLET PO ×2 (00:25→21:16)
[2022-04-14] MEDS: Omeprazole 20 MG CAPSULE.DR PO ×2 (00:25→21:16)
[2022-04-14] MEDS: Ibuprofen 800 MG TABLET PO ×2 (06:50→18:52)
[2022-04-14] MEDS: Acetaminophen 325 MG TABLET 650 MG PO ×2 (06:56→18:53)
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
[2022-04-14] MEDS: Fluticasone Propionate Nasal 16 GM SPRAY 1 SPRAY NOSTRIL-B (09:34)
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
[2022-04-14 19:11] VITALS: BP 161/101; PULSE 103; RESP 18; TEMP 36.7; O2SAT 98
[2022-04-14 21:00] VITALS: BP 145/86; PULSE 73; RESP 18
[2022-04-15] MEDS: Ibuprofen 800 MG TABLET PO ×2 (01:27→15:27)
[2022-04-15] MEDS: Latanoprost 0.005 % Ophth Sol 2.5 ML DROPS 1 DROP EYE-BOTH (01:27)
[2022-04-15] MEDS: Acetaminophen 325 MG TABLET 650 MG PO ×2 (01:28→09:10)
[2022-04-15] MEDS: Labetalol HCL 200 MG TABLET PO (08:53)
[2022-04-15 09:00] VITALS: BP 168/78; PULSE 90
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
[2022-04-15] MEDS: Albuterol Sulfate 90 MCG 8 GM INHALER 2 PUFF INHALE (09:10)
[2022-04-15] MEDS: Fluticasone Propionate Nasal 16 GM SPRAY 1 SPRAY NOSTRIL-B (09:10)
[2022-04-15 18:00] VITALS: BP 158/90; PULSE 88; RESP 16
[2022-04-16] MEDS: Acetaminophen 325 MG TABLET 650 MG PO ×2 (03:39→20:27)
[2022-04-16] MEDS: Ibuprofen 800 MG TABLET PO ×2 (03:40→16:33)
[2022-04-16 08:00] VITALS: BP 145/78; PULSE 89; RESP 16; TEMP 36.9; O2SAT 97
[2022-04-16] MEDS: Labetalol HCL 200 MG TABLET PO ×2 (08:44→20:28)
[2022-04-16] MEDS: Fluticasone Propionate Nasal 16 GM SPRAY 1 SPRAY NOSTRIL-B (08:44)
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
[2022-04-16] MEDS: hydrOXYzine HCL 25 MG TABLET PO (16:34)
[2022-04-16 20:25] VITALS: BP 156/69; PULSE 81; TEMP 35.9
[2022-04-16] MEDS: Omeprazole 20 MG CAPSULE.DR PO (20:29)
[2022-04-16] MEDS: OLANZapine 5 MG TABLET PO (20:29)
[2022-04-16] MEDS: traZODone HCL 50 MG TABLET PO (20:30)
[2022-04-16] MEDS: Latanoprost 0.005 % Ophth Sol 2.5 ML DROPS 1 DROP EYE-BOTH (20:32)
[2022-04-17 06:00] VITALS: BP 138/70; PULSE 80; RESP 20; TEMP 36.6; O2SAT 98
[2022-04-17] MEDS: Acetaminophen 325 MG TABLET 650 MG PO ×2 (06:02→16:40)
[2022-04-17] MEDS: Ibuprofen 800 MG TABLET PO ×2 (06:04→16:41)
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
[2022-04-17] MEDS: Labetalol HCL 200 MG TABLET PO ×2 (09:15→21:56)
[2022-04-17] MEDS: Furosemide 40 MG TABLET PO (09:16)
[2022-04-17] MEDS: carBAMazepine ER 100 MG TAB.ER.12H PO ×2 (09:17→21:56)
[2022-04-17] MEDS: Albuterol Sulfate 90 MCG 8 GM INHALER 2 PUFF INHALE (09:18)
[2022-04-17 18:00] VITALS: BP 189/70; PULSE 85; RESP 20; TEMP 36.8; O2SAT 98
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
[2022-04-17] MEDS: Omeprazole 20 MG CAPSULE.DR PO (21:56)
[2022-04-17] MEDS: hydrOXYzine HCL 25 MG TABLET PO (21:56)
[2022-04-17] MEDS: traZODone HCL 50 MG TABLET PO (21:56)
[2022-04-18] MEDS: OLANZapine ODT 10 MG TAB.RAPDIS 5 MG TRANSLINGU (05:41)
[2022-04-18] MEDS: hydrOXYzine HCL 25 MG TABLET PO (05:41)
[2022-04-18] MEDS: Acetaminophen 325 MG TABLET 650 MG PO ×2 (05:43→13:36)
[2022-04-18] MEDS: Ibuprofen 800 MG TABLET PO ×2 (05:43→13:36)
[2022-04-18 06:00] VITALS: RESP 20
[2022-04-18 07:00] VITALS: BMI 41.9
[2022-04-18] MEDS: Furosemide 40 MG TABLET PO (09:47)
[2022-04-18] MEDS: carBAMazepine ER 100 MG TAB.ER.12H PO ×2 (09:48→22:49)
[2022-04-18] MEDS: Labetalol HCL 200 MG TABLET PO ×2 (09:48→22:50)
[2022-04-18] MEDS: Fluticasone Propionate Nasal 16 GM SPRAY 1 SPRAY NOSTRIL-B (09:57)
[2022-04-18] MEDS: Albuterol Sulfate 90 MCG 8 GM INHALER 2 PUFF INHALE (09:57)
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
[2022-04-18] MEDS: OLANZapine 10 MG VIAL IM (17:10)
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
[2022-04-18] MEDS: Omeprazole 20 MG CAPSULE.DR PO (22:49)
[2022-04-18] MEDS: Latanoprost 0.005 % Ophth Sol 2.5 ML DROPS 1 DROP EYE-BOTH (22:50)
[2022-04-18] MEDS: Ezetimibe 10 MG TABLET PO (22:50)
[2022-04-18 23:15] VITALS: BP 138/60; PULSE 85; RESP 16; TEMP 36.5; O2SAT 99
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
--- NOTE | 2022-04-19 | ECG_ITS ---
Test Reason : check qtc Blood Pressure : / mmHG Vent. Rate : 076 BPM Atrial Rate : 076 BPM P-R Int : 180 ms QRS Dur : 080 ms QT Int : 370 ms P-R-T Axes : 059 012 070 degrees QTc Int : 416 ms Normal sinus rhythm Normal ECG When compared with ECG of 23-MAR-2022 16:06, Nonspecific ST abnormality is no longer Present QT has shortened Referred By: John Gonzales Electronically Signed By:HARVINDER DOMINIQUE
[2022-04-19 06:00] VITALS: BP 146/67; PULSE 76; RESP 16; TEMP 36.6; O2SAT 96
[2022-04-19] MEDS: Labetalol HCL 200 MG TABLET PO ×2 (09:21→19:56)
[2022-04-19] MEDS: carBAMazepine ER 100 MG TAB.ER.12H PO ×2 (09:21→19:56)
[2022-04-19] MEDS: Furosemide 40 MG TABLET PO (09:22)
[2022-04-19] MEDS: Fluticasone Propionate Nasal 16 GM SPRAY 1 SPRAY NOSTRIL-B (09:23)
[2022-04-19] MEDS: Ibuprofen 800 MG TABLET PO ×2 (09:43→20:22)
[2022-04-19] MEDS: OLANZapine ODT 10 MG TAB.RAPDIS 5 MG TRANSLINGU ×2 (09:43→12:39)
[2022-04-19] MEDS: Acetaminophen 325 MG TABLET 650 MG PO (09:43)
[2022-04-19] MEDS: hydrOXYzine HCL 25 MG TABLET PO (12:30)
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
[2022-04-19] MEDS: Ziprasidone 20 MG CAPSULE PO (16:06)
[2022-04-19 17:03] VITALS: BP 156/74; PULSE 79; RESP 16; TEMP 36.7; O2SAT 98
[2022-04-19] MEDS: Omeprazole 20 MG CAPSULE.DR PO (19:55)
[2022-04-19] MEDS: Ezetimibe 10 MG TABLET PO (19:55)
[2022-04-19] MEDS: OLANZapine 5 MG TABLET PO (19:56)
[2022-04-19] MEDS: Latanoprost 0.005 % Ophth Sol 2.5 ML DROPS 1 DROP EYE-BOTH (19:57)
[2022-04-19] MEDS: Albuterol Sulfate 90 MCG 8 GM INHALER 2 PUFF INHALE (20:23)
[2022-04-20] MEDS: Ibuprofen 800 MG TABLET PO ×3 (04:47→22:12)
[2022-04-20] MEDS: traZODone HCL 50 MG TABLET PO (04:47)
[2022-04-20] MEDS: OLANZapine ODT 10 MG TAB.RAPDIS TRANSLINGU ×2 (04:47→14:17)
[2022-04-20] MEDS: Albuterol Sulfate 90 MCG 8 GM INHALER 2 PUFF INHALE (04:48)
[2022-04-20 06:00] VITALS: BP 129/60; PULSE 65; RESP 16; TEMP 36.1; O2SAT 98
[2022-04-20] MEDS: Ziprasidone 20 MG CAPSULE PO ×2 (08:25→18:02)
[2022-04-20] MEDS: Fluticasone Propionate Nasal 16 GM SPRAY 1 SPRAY NOSTRIL-B (08:25)
[2022-04-20] MEDS: carBAMazepine ER 100 MG TAB.ER.12H PO ×2 (08:26→22:16)
[2022-04-20] MEDS: Furosemide 40 MG TABLET PO (08:26)
[2022-04-20] MEDS: Labetalol HCL 200 MG TABLET PO ×2 (08:26→22:09)
--- NOTE | 2022-04-20 14:25 | PC.NURSE ---
while pt was at [facility] room door, pt was writing down numbers to staff offices and extensions. she was told she could not do that and she stated tell me where it says i cant do that . she quickly stopped. numbers were moved from area where patients can read them.
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
[2022-04-20 22:00] VITALS: BP 164/94; PULSE 79; TEMP 36.1
[2022-04-20] MEDS: Ezetimibe 10 MG TABLET PO (22:14)
[2022-04-20] MEDS: OLANZapine 5 MG TABLET PO (22:15)
[2022-04-20] MEDS: Omeprazole 20 MG CAPSULE.DR PO (22:16)
[2022-04-20] MEDS: Latanoprost 0.005 % Ophth Sol 2.5 ML DROPS 1 DROP EYE-BOTH (22:17)
[2022-04-21] MEDS: Acetaminophen 325 MG TABLET 650 MG PO ×2 (04:07→21:52)
[2022-04-21] MEDS: hydrOXYzine HCL 25 MG TABLET PO (04:08)
[2022-04-21] MEDS: Ibuprofen 800 MG TABLET PO ×2 (04:08→17:12)
[2022-04-21] MEDS: OLANZapine ODT 10 MG TAB.RAPDIS TRANSLINGU (04:08)
[2022-04-21 06:00] VITALS: BP 143/66; PULSE 88; RESP 16; TEMP 36.3; O2SAT 96
[2022-04-21] MEDS: Labetalol HCL 200 MG TABLET PO ×2 (10:11→21:56)
[2022-04-21] MEDS: Furosemide 40 MG TABLET PO (10:12)
[2022-04-21] MEDS: Ziprasidone 20 MG CAPSULE PO ×2 (10:12→16:56)
[2022-04-21] MEDS: Fluticasone Propionate Nasal 16 GM SPRAY 1 SPRAY NOSTRIL-B (10:13)
[2022-04-21] MEDS: Albuterol Sulfate 90 MCG 8 GM INHALER 2 PUFF INHALE (10:14)
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
[2022-04-21] MEDS: Cholecalciferol (Vitamin D3) 25 MCG TABLET PO (16:58)
[2022-04-21 18:00] VITALS: BP 168/72; PULSE 80; TEMP 35.9
[2022-04-21] MEDS: Latanoprost 0.005 % Ophth Sol 2.5 ML DROPS 1 DROP EYE-BOTH (21:52)
[2022-04-21] MEDS: Melatonin 3 MG TABLET 6 MG PO (21:54)
[2022-04-21] MEDS: OLANZapine 5 MG TABLET PO (21:54)
[2022-04-21] MEDS: carBAMazepine ER 100 MG TAB.ER.12H PO (21:55)
[2022-04-21] MEDS: Ezetimibe 10 MG TABLET PO (21:56)
[2022-04-21] MEDS: Omeprazole 20 MG CAPSULE.DR PO (22:45)
[2022-04-22] MEDS: OLANZapine ODT 10 MG TAB.RAPDIS TRANSLINGU (02:42)
[2022-04-22] MEDS: hydrOXYzine HCL 25 MG TABLET PO (02:42)
[2022-04-22] MEDS: traZODone HCL 50 MG TABLET PO (02:42)
[2022-04-22] MEDS: Ibuprofen 800 MG TABLET PO ×3 (02:44→21:09)
[2022-04-22] MEDS: Albuterol Sulfate 90 MCG 8 GM INHALER 2 PUFF INHALE (02:52)
[2022-04-22 06:00] VITALS: BP 134/63; PULSE 74; RESP 18; TEMP 36.3; O2SAT 97
[2022-04-22] MEDS: Furosemide 40 MG TABLET PO (09:15)
[2022-04-22] MEDS: Cholecalciferol (Vitamin D3) 25 MCG TABLET PO (09:16)
[2022-04-22] MEDS: carBAMazepine ER 100 MG TAB.ER.12H PO (09:16)
[2022-04-22] MEDS: Ziprasidone 20 MG CAPSULE PO ×3 (09:17→18:00)
[2022-04-22] MEDS: Fluticasone Propionate Nasal 16 GM SPRAY 1 SPRAY NOSTRIL-B (09:22)
[2022-04-22] MEDS: Labetalol HCL 200 MG TABLET PO ×2 (09:56→21:11)
[2022-04-22] MEDS: Acetaminophen 325 MG TABLET 650 MG PO ×2 (14:32→21:08)
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
[2022-04-22 21:05] VITALS: BP 142/67; PULSE 83; TEMP 35.9
[2022-04-22] MEDS: Melatonin 3 MG TABLET 6 MG PO (21:10)
[2022-04-22] MEDS: Omeprazole 20 MG CAPSULE.DR PO (21:10)
[2022-04-22] MEDS: OLANZapine 5 MG TABLET PO (21:13)
[2022-04-22] MEDS: Latanoprost 0.005 % Ophth Sol 2.5 ML DROPS 1 DROP EYE-BOTH (21:14)
[2022-04-22] MEDS: Nystatin Powder 15 GM BOTTLE 1 APPL TOPICAL (21:14)
[2022-04-23] MEDS: Ibuprofen 800 MG TABLET PO ×2 (05:35→22:42)
[2022-04-23 05:49] VITALS: BP 148/66; PULSE 76; RESP 16; TEMP 35.8; O2SAT 100
[2022-04-23] MEDS: Ziprasidone 40 MG CAPSULE PO ×2 (07:26→16:20)
[2022-04-23] MEDS: Fluticasone Propionate Nasal 16 GM SPRAY 1 SPRAY NOSTRIL-B (09:00)
[2022-04-23] MEDS: Albuterol Sulfate 90 MCG 8 GM INHALER 2 PUFF INHALE (09:01)
[2022-04-23] MEDS: Cholecalciferol (Vitamin D3) 25 MCG TABLET PO (09:01)
[2022-04-23] MEDS: Labetalol HCL 200 MG TABLET PO ×2 (09:01→22:40)
[2022-04-23] MEDS: Furosemide 40 MG TABLET PO (09:01)
[2022-04-23] MEDS: Acetaminophen 325 MG TABLET 650 MG PO (16:20)
[2022-04-23 16:29] VITALS: BP 157/76; PULSE 89; RESP 20; TEMP 36.6; O2SAT 97
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
[2022-04-23] MEDS: Ondansetron ODT 4 MG TAB.RAPDIS TRANSLINGU (22:37)
[2022-04-23] MEDS: Ezetimibe 10 MG TABLET PO (22:39)
[2022-04-23] MEDS: carBAMazepine ER 100 MG TAB.ER.12H PO (22:39)
[2022-04-23] MEDS: Melatonin 3 MG TABLET 6 MG PO (22:40)
[2022-04-23] MEDS: traZODone HCL 50 MG TABLET PO (22:40)
[2022-04-23] MEDS: Omeprazole 20 MG CAPSULE.DR PO (22:43)
[2022-04-23] MEDS: Latanoprost 0.005 % Ophth Sol 2.5 ML DROPS 1 DROP EYE-BOTH (22:47)
[2022-04-23] MEDS: Milk of Magnesia 30 ML ORAL.SUSP PO (22:48)
[2022-04-24] MEDS: Acetaminophen 325 MG TABLET 650 MG PO ×3 (05:19→23:05)
[2022-04-24] MEDS: Ibuprofen 800 MG TABLET PO ×3 (05:19→20:51)
[2022-04-24] MEDS: Ziprasidone 40 MG CAPSULE PO ×2 (08:37→16:36)
[2022-04-24] MEDS: Labetalol HCL 200 MG TABLET PO ×2 (08:37→23:02)
[2022-04-24] MEDS: carBAMazepine ER 100 MG TAB.ER.12H PO ×2 (08:38→23:02)
[2022-04-24] MEDS: Cholecalciferol (Vitamin D3) 25 MCG TABLET PO (08:38)
[2022-04-24] MEDS: Furosemide 40 MG TABLET PO (08:38)
[2022-04-24] MEDS: Nystatin Powder 15 GM BOTTLE 1 APPL TOPICAL (08:43)
[2022-04-24] MEDS: Fluticasone Propionate Nasal 16 GM SPRAY 1 SPRAY NOSTRIL-B (08:43)
[2022-04-24] MEDS: Albuterol Sulfate 90 MCG 8 GM INHALER 2 PUFF INHALE (08:43)
[2022-04-24 09:33] VITALS: BP 126/60; PULSE 81; TEMP 36.1; O2SAT 97
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
[2022-04-24 18:00] VITALS: BP 163/70; PULSE 77; RESP 20; TEMP 36; O2SAT 97
[2022-04-24] MEDS: Ezetimibe 10 MG TABLET PO (23:02)
[2022-04-24] MEDS: traZODone HCL 50 MG TABLET PO (23:02)
[2022-04-24] MEDS: Omeprazole 20 MG CAPSULE.DR PO (23:02)
[2022-04-24] MEDS: Melatonin 3 MG TABLET 6 MG PO (23:02)
[2022-04-24] MEDS: Latanoprost 0.005 % Ophth Sol 2.5 ML DROPS 1 DROP EYE-BOTH (23:04)
[2022-04-25] MEDS: hydrOXYzine HCL 25 MG TABLET PO (04:08)
[2022-04-25] MEDS: Ibuprofen 800 MG TABLET PO ×3 (04:08→21:01)
[2022-04-25] MEDS: Ketoconazole 2 % Shampoo 120 ML BTL 1 APPL TOPICAL (04:14)
--- NOTE | 2022-04-25 06:02 | PC.NURSE ---
Patient came out to nurses' desk at 0330 and requested to take a shower, due to all over body pain. Patient was given assist but was able to shower independently. Requested and received at 0408 Ibuprofen 800 mg p.o as a prn for c/o body pain 10/10 on a scale of 1-10 with 10 being the worst.
[2022-04-25] MEDS: Labetalol HCL 200 MG TABLET PO ×2 (08:10→20:40)
[2022-04-25] MEDS: Furosemide 40 MG TABLET PO (08:10)
[2022-04-25] MEDS: Cholecalciferol (Vitamin D3) 25 MCG TABLET PO (08:12)
[2022-04-25] MEDS: Ziprasidone 40 MG CAPSULE PO ×2 (08:12→17:15)
[2022-04-25] MEDS: Fluticasone Propionate Nasal 16 GM SPRAY 1 SPRAY NOSTRIL-B (08:13)
[2022-04-25] MEDS: Albuterol Sulfate 90 MCG 8 GM INHALER 2 PUFF INHALE (08:13)
[2022-04-25 08:21] VITALS: BP 137/60; PULSE 91; TEMP 36.6; O2SAT 97
[2022-04-25] MEDS: carBAMazepine ER 100 MG TAB.ER.12H PO (08:35)
[2022-04-25] MEDS: Acetaminophen 325 MG TABLET 650 MG PO ×3 (09:22→21:00)
[2022-04-25 12:44] VITALS: BMI 41.8
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
[2022-04-25 18:00] VITALS: BP 133/63; PULSE 87; TEMP 36.8; O2SAT 97
[2022-04-25] MEDS: Melatonin 3 MG TABLET 6 MG PO (20:39)
[2022-04-25] MEDS: Omeprazole 20 MG CAPSULE.DR PO (20:40)
[2022-04-25] MEDS: Latanoprost 0.005 % Ophth Sol 2.5 ML DROPS 1 DROP EYE-BOTH (20:58)
[2022-04-25] MEDS: Nystatin Powder 15 GM BOTTLE 1 APPL TOPICAL (20:59)
[2022-04-26] MEDS: Acetaminophen 325 MG TABLET 650 MG PO ×4 (02:19→22:51)
[2022-04-26] MEDS: Ibuprofen 800 MG TABLET PO ×4 (02:20→22:51)
[2022-04-26] MEDS: OLANZapine ODT 10 MG TAB.RAPDIS TRANSLINGU (02:21)
[2022-04-26] MEDS: carBAMazepine ER 100 MG TAB.ER.12H PO (08:28)
[2022-04-26] MEDS: Ziprasidone 40 MG CAPSULE PO ×2 (08:28→15:59)
[2022-04-26] MEDS: Cholecalciferol (Vitamin D3) 25 MCG TABLET PO (08:29)
[2022-04-26] MEDS: Labetalol HCL 200 MG TABLET PO ×2 (08:29→19:25)
[2022-04-26] MEDS: Albuterol Sulfate 90 MCG 8 GM INHALER 2 PUFF INHALE (08:31)
[2022-04-26] MEDS: Fluticasone Propionate Nasal 16 GM SPRAY 1 SPRAY NOSTRIL-B (08:31)
[2022-04-26 08:46] VITALS: BP 162/74; PULSE 80; RESP 18; TEMP 37.1; O2SAT 98
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
[2022-04-26] MEDS: Lidocaine 4 % Patch ADH..PATCH 1 PATCH TRANSDERMA (14:11)
[2022-04-26] MEDS: Multivitamin TABLET 1 TAB PO (14:11)
[2022-04-26] MEDS: Omeprazole 20 MG CAPSULE.DR PO (19:25)
[2022-04-26] MEDS: Ezetimibe 10 MG TABLET PO (19:25)
[2022-04-26] MEDS: Melatonin 3 MG TABLET 6 MG PO (19:26)
[2022-04-26] MEDS: Ziprasidone 20 MG CAPSULE PO (19:26)
[2022-04-26] MEDS: Latanoprost 0.005 % Ophth Sol 2.5 ML DROPS 1 DROP EYE-BOTH (21:01)
[2022-04-27] MEDS: Ketoconazole 2 % Shampoo 120 ML BTL 1 APPL TOPICAL (05:54)
[2022-04-27 06:00] VITALS: BP 121/80; PULSE 84; TEMP 36.3; O2SAT 97
[2022-04-27] MEDS: OLANZapine ODT 10 MG TAB.RAPDIS TRANSLINGU (06:32)
[2022-04-27] MEDS: hydrOXYzine HCL 25 MG TABLET PO (06:32)
[2022-04-27] MEDS: Ibuprofen 800 MG TABLET PO ×2 (06:32→14:52)
[2022-04-27] MEDS: Acetaminophen 325 MG TABLET 650 MG PO ×2 (06:32→14:52)
[2022-04-27] MEDS: Fluticasone Propionate Nasal 16 GM SPRAY 1 SPRAY NOSTRIL-B (09:28)
[2022-04-27] MEDS: Albuterol Sulfate 90 MCG 8 GM INHALER 2 PUFF INHALE (09:28)
[2022-04-27] MEDS: Multivitamin TABLET 1 TAB PO (09:29)
[2022-04-27] MEDS: Labetalol HCL 200 MG TABLET PO ×2 (09:30→20:52)
[2022-04-27] MEDS: Cholecalciferol (Vitamin D3) 25 MCG TABLET PO (09:30)
[2022-04-27] MEDS: Ziprasidone 40 MG CAPSULE PO (09:30)
[2022-04-27] MEDS: Lidocaine 4 % Patch ADH..PATCH 2 PATCH TRANSDERMA (09:56)
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
[2022-04-27] MEDS: Furosemide 40 MG TABLET PO (11:34)
[2022-04-27] MEDS: carBAMazepine ER 100 MG TAB.ER.12H PO ×2 (11:34→20:53)
[2022-04-27] MEDS: Ziprasidone 60 MG CAPSULE PO (17:15)
[2022-04-27] MEDS: Omeprazole 20 MG CAPSULE.DR PO (20:52)
[2022-04-27] MEDS: Ezetimibe 10 MG TABLET PO (20:53)
[2022-04-27] MEDS: Latanoprost 0.005 % Ophth Sol 2.5 ML DROPS 1 DROP EYE-BOTH (20:53)
[2022-04-27 21:15] VITALS: BP 153/69; PULSE 92; TEMP 36.7; O2SAT 100
[2022-04-28] VITALS (7 sets, daily range): BP systolic 109–154; BP diastolic 51–95; PULSE 83–106; RESP 16–20; TEMP 36.7–39.4; O2SAT 90–97
[2022-04-28] MEDS: Furosemide 40 MG TABLET PO (08:24)
[2022-04-28] MEDS: Ziprasidone 40 MG CAPSULE PO (08:25)
[2022-04-28] MEDS: Cholecalciferol (Vitamin D3) 25 MCG TABLET PO (08:25)
[2022-04-28] MEDS: carBAMazepine ER 100 MG TAB.ER.12H PO ×2 (08:25→21:18)
[2022-04-28] MEDS: Labetalol HCL 200 MG TABLET PO ×2 (08:25→21:39)
[2022-04-28] MEDS: Multivitamin TABLET 1 TAB PO (08:25)
[2022-04-28] MEDS: Ibuprofen 800 MG TABLET PO ×2 (08:26→16:48)
[2022-04-28] MEDS: Lidocaine 4 % Patch ADH..PATCH 2 PATCH TRANSDERMA (08:35)
[2022-04-28] MEDS: Albuterol Sulfate 90 MCG 8 GM INHALER 2 PUFF INHALE (09:06)
[2022-04-28] MEDS: Fluticasone Propionate Nasal 16 GM SPRAY 1 SPRAY NOSTRIL-B (09:06)
[2022-04-28] MEDS: Nystatin Powder 15 GM BOTTLE 1 APPL TOPICAL (09:06)
[2022-04-28] MEDS: Acetaminophen 325 MG TABLET 650 MG PO ×2 (10:17→16:39)
[2022-04-28 11:24] LABS: MANUAL DIFF FLAG NO
[2022-04-28 11:27] LABS: Basophils Percent Auto 0.4 % (0-2); Eosinophils Percent Auto 0.2 % (0-4); Hematocrit 36.1 % (37.0-47.0); Hemoglobin 11.6 g/dl (12.0-16.0); Imm Gran Abs Auto 0.04 X10*3/uL (0.00-0.03); Imm Gran Pct Auto 0.4 % (0.0-0.4); Lymphocytes Absolute Auto 1.2 X10*3/uL (1.2-4.9); Lymphocytes Percent Auto 11.2 % (20-40); Mean Corpuscular HGB Conc 32.1 g/dl (31.0-35.0); Mean Corpuscular Hemoglobin 28.4 pg (27.0-33.0); Mean Corpuscular Volume 88.5 fL (80.0-98.0); Mean Platelet Volume 8.9 fL (9.4-12.3); Monocytes Absolute Auto 0.9 X10*3/uL (0.1-1.2); Monocytes Percent Auto 8.3 % (2-11); Neutrophils Absolute Auto 8.6 x10*3/uL (2.0-8.3); Neutrophils Percent Auto 79.5 % (45-73); Platelet Count 266 X10*3/uL (160-400); Red Blood Count 4.08 X10*6/uL (4.20-5.50); Red Cell Distribution Width 12.6 % (11.0-16.0); White Blood Count 10.8 X10*3/uL (4.8-10.8)
[2022-04-28 11:44] LABS: Alanine Aminotransferase 27 U/L (0-31); Albumin Level 4.3 g/dL (3.5-5.0); Alkaline Phosphatase 105 U/L (39-117); Anion Gap 19 (12-20); Aspartate Amino Transferase 24 U/L (5-31); Bilirubin Direct 0.3 mg/dL (0.0-0.5); Bilirubin Total 0.5 mg/dL (0.0-1.0); Blood Urea Nitrogen 25 mg/dL (9-16); Carbon Dioxide 24 mmol/L (22-29); Chloride 101 mmol/L (96-108); Estimated Glomerular Filt Rate 56; Potassium 3.9 mmol/L (3.3-5.1); Sodium 140 mmol/L (135-145); Total Protein 7.3 g/dL (6.5-8.0)
[2022-04-28 12:10] LABS: Influenza A PCR NEGATIVE (Negative); Influenza B PCR NEGATIVE (Negative); Resp Syncy Virus RNA Qual PCR NEGATIVE (Negative); SARS COV2 PCR INHOUSE NEGATIVE (Negative)
[2022-04-28 12:42] LABS: Appearance Urine Turbid; Color Urine Yellow; Glucose Urine UA Negative (Negative); Leukocyte Esterase Urine Large (3+) (Negative); Nitrite Urine Negative (Negative); PH 5.5 (5.0-9.0); UMIC TRIGGER UACC YES; Urine Blood Moderate (2+) (Negative); Urine Ketones Negative (Negative); Urine Protein 100 (2+) mg/dL (Neg-Trace)
[2022-04-28 13:02] LABS: Bacteria Urine 4+ (None Seen); UACC Culture Trigger YES; WBC Urine >50 /HPF (0-5)
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
[2022-04-28] MEDS: Ziprasidone 60 MG CAPSULE PO (16:29)
[2022-04-28] MEDS: Melatonin 3 MG TABLET 6 MG PO (21:18)
[2022-04-28] MEDS: Omeprazole 20 MG CAPSULE.DR PO (21:18)
[2022-04-28] MEDS: Ezetimibe 10 MG TABLET PO (21:18)
[2022-04-28] MEDS: Latanoprost 0.005 % Ophth Sol 2.5 ML DROPS 1 DROP EYE-BOTH (21:40)
--- NOTE | 2022-04-28 23:49 | PC.NURSE ---
Patient was noted to have a fever at 1650 of 100.7 orally. Patient was given Tylenol 650 mg po and Ibuprofen at 1610. She rested in bed until dinner and then was noted to be falling asleep sitting on the end of her bed. Patient said she was tired. Patient was up sitting in the kitchen around 2029 and fell asleep sitting on a chair. She was assisted to her room by staff. Vital signs were rechecked at 2044: oral temp. was 98.1 BP 109/51 HR 91 rr 20 and O2 sats on room air 89-90%. Dr. Sol was notified via [employer] text. Dr. Sol asked any further Geodon be held until reviewed tomorrow. Third shift made aware of patient's status.
--- NOTE | 2022-04-29 | ECG_ITS ---
Test Reason : stat Blood Pressure : / mmHG Vent. Rate : 098 BPM Atrial Rate : 098 BPM P-R Int : 182 ms QRS Dur : 072 ms QT Int : 338 ms P-R-T Axes : 056 020 071 degrees QTc Int : 431 ms Normal sinus rhythm Normal ECG When compared with ECG of 19-APR-2022 13:53, No significant change was found Referred By: Yanni Clemente Electronically Signed By:HARVINDER DOMNIIQUE
--- NOTE | 2022-04-29 00:39 | PM.EVENT ---
Event Note Date of Service: 04/29/22 Event Note: patient was having a low grade fever which spiked to 102 afternoon of 04/28.Had been treated for UTI. O2 Sat was 89-90 0n room air. She was not respoding much tonight. Rapid response was called and the patient was transferred to medicine
[2022-04-29 01:20] LABS: Lactic Acid 0.9 mmol/L (0.5-2.0)
[2022-04-29 01:30] LABS: B Type Natriuretic Peptide 108 pg/mL (<100)
[2022-04-29 02:10] VITALS: BP 139/71; PULSE 101; RESP 18; TEMP 36.4; O2SAT 96
[2022-04-29 02:20] VITALS: BMI 42.4
--- NOTE | 2022-04-29 04:03 | P.HPHOSP_ITS ---
History of Present Illness Date of Service: 04/29/22 Chief Complaint: fever, chills this is a 61-year-old female with past medical history of bipolar disorder, hypertension, and chronic lower extremity edema who was admitted to [facility] for management of bipolar disorder. A rapid response code was called on this bobbi ent due to worsening fever, tachycardia, and the tachypnea. On her arrival patient reported that she had a mild fever of 99 few days ago, psychiatrist had ordered urine but today finally she gave a sample, which was positive therefore she was started on of oral antibiotics. But she continued to feel overall unwell feels that she was feeling a little slower Than her usual. She also complained that she had lower extremity edema with no shortness of breath, orthopnea or PND. She reports urinary urgency with no frequency or dysuria. Patient reports that she feels dehydrated as she has not been peeing enough, she has chills, she feels febrile, any abdominal pain nausea or vomiting, no radha rrhea constipation. she is also complaining of left flank pain radiating to the groin. on arrival patient's temp was 102.9 degrees, satting 93% on room air, heart rate of 106, blood pressure 147/68 Labs were obtained from the patient showed a WBC count of 10.8, wave left shift, BUN of 25, BNP of 108, troponin of 14 UA positive for large leukocyte Estrace and WBC Abdomen pelvic CT shows left greater than right perinephric stranding. No hydronephrosis or nephrolithiasis. Patient being discharged from the medical center and will be deferred to the floor for further management Review of Systems Review of Systems: Yes all other systems are reviewed and are negative [facility] Medical History Bipolar disorder with severe betty HTN (hypertension) Lower extremity edema Family History Mother CHF (congestive heart failure) Social History Household Members: Spouse Housing: House Do you presently have visiting nurse or other home services: No Patient Tobacco Use Status: Never used Tobacco e-Cigarette/Vaping Use: Never Used Second Hand Smoke Exposure: No service: Yes ([employer] (3 years); [employer] (27 years)) Sexual orientation: Straight/Heterosexual Meds Allergies Allergy/AdvReac Type Severity Reaction Status Date / Time adhesive [Adhesive] Allergy Mild SKIN Verified 03/18/22 08:34 IRRITATION WITH BLISTERS codeine [Codeine] Allergy Mild UNKNOWN Verified 03/18/22 08:34 methylphenidate Allergy Mild UNKNOWN Verified 03/18/22 08:34 [From [facility]] simvastatin [Simvastatin] Allergy Mild UNKNOWN Verified 03/18/22 08:34 Active Medications: Current Medications Acetaminophen (Acetaminophen 325 Mg Tablet) 650 mg PO Q6H PRN PRN Reason: Headache/Pain Mild Scale (1-3) Last Admin: 04/28/22 16:39 Dose: 650 mg Al Hydroxide/Mg Hydroxide (Magnesium Hydrox/Alum Hydrox 30 Ml Oral.Susp) 30 ml PO Q6H PRN PRN Reason: Heartburn/Nausea Albuterol Sulfate (Albuterol Sulfate 90 Mcg 8 Gm Inhaler) 2 puff INHALE RQ4H PRN PRN Reason: wheezing Last Admin: 04/28/22 09:06 Dose: 2 puff Carbamazepine (Carbamazepine Er 100 Mg Tab.Er.12h) 100 mg PO BID [facility] Last Admin: 04/28/22 21:18 Dose: 100 mg Cefuroxime Axetil (Cefuroxime Axetil 250 Mg Tablet) 250 mg PO BID [facility] Stop: 05/02/22 23:50 Last Admin: 04/28/22 21:18 Dose: 250 mg Docusate Sodium (Docusate Sodium 100 Mg Capsule) 100 mg PO DAILY PRN PRN Reason: Constipation Duloxetine HCl (Duloxetine Hcl 30 Mg Capsule.Dr) 90 mg PO DAILY [facility] Ezetimibe (Ezetimibe 10 Mg Tablet) 10 mg PO BEDTIME@1999 [facility] Last Admin: 04/28/22 21:18 Dose: 10 mg Enoxaparin Sodium (Enoxaparin Sodium 40 Mg/0.4 Ml Syringe) 40 mg SUBCUT Q24H [facility] Fluticasone Propionate (Fluticasone Propionate Nasal 16 Gm [place]) 1 spray NOSTRIL-B DAILY [facility] Last Admin: 04/28/22 09:06 Dose: 1 spray Furosemide (Furosemide 40 Mg Tablet) 40 mg PO DAILY [facility]; Protocol Last Admin: 04/28/22 08:24 Dose: 40 mg Hydroxyzine HCl (Hydroxyzine Hcl 25 Mg Tablet) 25 mg PO Q6H PRN PRN Reason: Anxiety Last Admin: 04/27/22 06:32 Dose: 25 mg Ceftriaxone Sodium 1 gm/ (Sodium Chloride) 50 mls @ 100 mls/hr IV Q24H [facility] Lactated Ringer's (Lr) 1,000 mls @ 100 mls/hr IVCONT .Q10H [facility] Ibuprofen (Ibuprofen 800 Mg Tablet) 800 mg PO Q6H PRN PRN Reason: RA and back pain Last Admin: 04/28/22 16:48 Dose: 800 mg Ketoconazole (Ketoconazole 2 % Shampoo 120 Ml Btl) 1 appl TOPICAL DAILY [facility]; Protocol Last Admin: 04/28/22 13:01 Dose: Not Given Labetalol HCl (Labetalol Hcl 200 Mg Tablet) 200 mg PO BID [facility]; Protocol Last Admin: 04/28/22 21:39 Dose: 200 mg Latanoprost (Latanoprost 0.005 % Ophth Noni 2.5 Ml Drops) 1 drop EYE-BOTH BEDTI ME@1999 [facility] Last Admin: 04/28/22 21:40 Dose: 1 drop Lidocaine (Lidocaine 4 % Patch Adh..Patch) 2 patch TRANSDERMA DAILY [facility]; Protocol Last Admin: 04/28/22 08:35 Dose: 2 patch Magnesium Hydroxide (Milk Of Magnesia 30 Ml Oral.Susp) 30 ml PO DAILY PRN PRN Reason: Constipation Last Admin: 04/23/22 22:48 Dose: 30 ml Melatonin (Melatonin 3 Mg Tablet) 6 mg PO BEDTIME [facility] Last Admin: 04/28/22 21:18 Dose: 6 mg Multivitamins/Vitamin C (Multivitamin Tablet) 1 tab PO DAILY [facility] Last Admin: 04/28/22 08:25 Dose: 1 tab Nystatin (Nystatin Powder 15 Gm Bottle) 1 appl TOPICAL BID [facility]; Protocol Last Admin: 04/28/22 21:50 Dose: Not Given Olanzapine (Olanzapine Odt 10 Mg Tab.Rapdis) 10 mg TRANSLINGU Q6H PRN PRN Reason: agitation Last Admin: 04/27/22 06:32 Dose: 10 mg Olanzapine (Olanzapine 10 Mg Vial) 5 mg IM QID PRN PRN Reason: if refuse PO Tegretol/Geodon Omeprazole (Omeprazole 20 Mg Capsule.Dr) 20 mg PO BEDTIME [facility] Last Admin: 04/28/22 21:18 Dose: 20 mg Omeprazole (Omeprazole 20 Mg Capsule.Dr) 20 mg PO DAILY PRN PRN Reason: Acid Reflux Ondansetron HCl (Ondansetron Odt 4 Mg Tab.Rapdis) 4 mg TRANSLINGU Q8H PRN PRN Reason: nausea Last Admin: 04/23/22 22:37 Dose: 4 mg Ondansetron HCl (Ondansetron Hcl 4 Mg/2 Ml Vial) 4 mg IVPUSH Q8H PRN PRN Reason: Nausea and Vomiting Oxybutynin Chloride (Oxybutynin Chloride Er 5 Mg Tab.Er.24) 10 mg PO DAILY [facility] Last Admin: 04/28/22 08:25 Dose: 10 mg Oxycodone HCl (Oxycodone Hcl Immed Release 5 Mg Tablet) 5 mg PO Q6H PRN PRN Reason: Pain, Severe (Pain Scale 7-10) Sodium Chloride (0.9 % Sodium Chloride Flush 3 Ml Syringe) [facility] Trazodone HCl (Trazodone Hcl 50 Mg Tablet) 50 mg PO BEDTIME PRN PRN Reason: Insomnia Last Admin: 04/24/22 23:02 Dose: 50 mg Vitamin D (Cholecalciferol (Vitamin D3) 25 Mcg Tablet) 25 mcg PO DAILY [facility] Last Admin: 04/28/22 08:25 Dose: 25 mcg Ziprasidone (Ziprasidone 40 Mg Capsule) 40 mg PO DAILY [facility] Last Admin: 04/28/22 08:25 Dose: 40 mg Ziprasidone (Ziprasidone 60 Mg Capsule) 60 mg PO DAILY@1700 [facility] Last Admin: 04/28/22 16:29 Dose: 60 mg Home Medications Medication Instructions Recorded Confirmed Last Taken Type carbamazepine 100 mg 1 tab PO BID 03/13/22 04/12/22 03/12/22 19:00 History tablet,extended release,12 hr pantoprazole 40 mg tablet,delayed 1 tab PO BEDTIME 03/13/22 04/12/22 Unknown History release fluticasone propionate 50 1 spray intranasal DAILY 03/14/22 04/12/22 Unknown History mcg/actuation nasal spray,suspension labetalol 200 mg tablet 1 tab PO BID 03/17/22 04/12/22 Unknown History ketoconazole 2 % shampoo 1 ea topical DAILY 03/18/22 04/12/22 Unknown History oxybutynin chloride 10 mg 1 tab PO DAILY 03/24/22 04/12/22 Unknown History tablet,extended release 24 hr duloxetine 30 mg capsule,delayed 3 cap PO DAILY 04/13/22 04/13/22 Unknown History release ibuprofen 600 mg tablet 600 mg PO Q6H 04/13/22 04/13/22 Unknown History pantoprazole 40 mg tablet,delayed 1 tab PO DAILY PRN Acid Reflux 04/13/22 04/13/22 Unknown History release Physical Exam Vital Signs and Narrative: Vital Signs: Last Vital Signs Temp 97.5 F 04/29/22 02:10 Pulse 101 H 04/29/22 02:10 Resp 18 04/29/22 02:10 BP 139/71 04/29/22 02:10 Pulse Ox 96 04/29/22 02:10 O2 Del Method 04/29/22 02:10 BMI result Body Mass Index 42.4 Const: General: cooperative and no acute distress Orientation/consciousness: patient oriented x3 Eyes: General: appearance normal, both eyes and all related structures Resp: Effort & Inspection: normal respiratory effort Auscultation: clear to auscultation bilaterally Cardio: Rate: regular rate Rhythm: regular rhythm GI: Palpation (GI): Soft to palpation Auscultation: normal bowel sounds : Other: left CVA tenderness Skin: General skin exam: no rashes or lesions noted Neuro: General: patient oriented x3 Cognition (Neuro): normal cognition Extrem: General: Yes normal to inspection and Yes no pedal edema Results Labs CBC and Chem 7: 04/29/22 05:46 04/29/22 05:46 Labs: Laboratory Results - last 24 hr 04/28/22 04/28/22 04/28/22 10:45 11:00 11:14 MCV 88.5 MCH 28.4 MCHC 32.1 RDW 12.6 Plt Count 266 MPV 8.9 L Immature Gran % (Auto) 0.4 Neut % (Auto) 79.5 H Lymph % (Auto) 11.2 L [place] % (Auto) 8.3 Eos % (Auto) 0.2 Baso % (Auto) 0.4 Lymph # (Auto) 1.2 [place] # (Auto) 0.9 Eos # (Auto) 0.0 Baso # (Auto) 0.0 Abs Immat Gran (auto) 0.04 H Absolute Neuts (auto) 8.6 H Absolute Nucleated RBC 0.000 Nucleated RBC % (auto) 0.0 Anion Gap 19 Estim Creat Clear Calc 70.0 Estimated GFR 56 Lactic Acid Total Bilirubin 0.5 Direct Bilirubin 0.3 AST 24 ALT 27 Alkaline Phosphatase 105 B-Natriuretic Peptide Total Protein 7.3 Albumin 4.3 Urine Color Urine Appearance Urine pH Ur Specific [place] Urine Protein Urine Glucose (UA) Urine Ketones Urine Blood Urine Nitrite Ur Leukocyte Esterase Urine RBC Urine WBC Ur Squamous Epith Cells Urine Bacteria Hyaline Casts Influenza Type A (PCR) NEGATIVE Influenza Type B (PCR) NEGATIVE RSV RNA Qual (PCR) NEGATIVE SARS-CoV-2 RNA (RT-PCR) NEGATIVE 04/28/22 04/29/22 04/29/22 12:15 01:04 01:05 MCV MCH MCHC RDW Plt Count MPV Immature Gran % (Auto) Neut % (Auto) Lymph % (Auto) [place] % (Auto) Eos % (Auto) Baso % (Auto) Lymph # (Auto) [place] # (Auto) Eos # (Auto) Baso # (Auto) Abs Immat Gran (auto) Absolute Neuts (auto) Absolute Nucleated RBC Nucleated RBC % (auto) Anion Gap Estim Creat Clear Calc Estimated GFR Lactic Acid 0.9 Total Bilirubin Direct Bilirubin AST ALT Alkaline Phosphatase B-Natriuretic Peptide 108 H Total Protein Albumin Urine Color Yellow Urine Appearance Turbid Urine pH 5.5 Ur Specific [place] 1.010 Urine Protein 100 (2+) H Urine Glucose (UA) Negative Urine Ketones Negative Urine Blood Moderate (2+) H Urine Nitrite Negative Ur Leukocyte Esterase Large (3+) H Urine RBC 3-5 H Urine WBC >50 H Ur Squamous Epith Cells 3-5 Urine Bacteria 4+ Hyaline Casts 3-5 Influenza Type A (PCR) Influenza Type B (PCR) RSV RNA Qual (PCR) SARS-CoV-2 RNA (RT-PCR) Imaging Radiologist's Impressions: Impressions Abdomen/Pelvis CT 04/29/22 01:20 IMPRESSION: There is left greater than right perinephric stranding. No hydronephrosis or nephrolithiasis. This could be associated with infection. Recently passed stone is also possible. Fleischner guidelines were followed. Assessment and Plan (1) Sepsis: Qualifiers: Sepsis type: sepsis due to unspecified organism Sepsis acute organ dysfunction status: with acute organ dysfunction Severe sepsis shock status: without septic shock Status: Acute (2) UTI (urinary tract infection): Qualifiers: Urinary tract infection type: acute cystitis Hematuria presence: wit hout hematuria Qualified Code(s): N30.00 - Acute cystitis without hematuria Status: Acute (3) Pyelonephritis: Status: Acute Plan 61-year-old female who is admitted to [facility] for bipolar disorder found to have sepsis secondary to UTI # sepsis - tachycardia, tachypnea, febrile - lactic acid normal - likely source is UTI - will treat with IV antibiotics, IV fluids, follow cultures # UTI - secondary to acute cystitis with no hematuria - will treat with IV antibiotics - follow cultures # pyelonephritis - clinical evidence as well as CT imaging showing pyelonephritis - will treat with IV antibiotics - will cultures # bipolar disorder - continue mood mood stabilizers DVT prophylaxis: Lovenox Pt will require a minimum 2 night hospital stay for IV antibiotics Quality Stroke Does the patient have a stroke diagnosis?: No VTE Prior VTE?: No VTE Risk Level:: Medical - moderate - high VTE Device Contraindication: Treatment Not Indicated VTE Drug Contraindication: N/A - Med Ordered
[2022-04-29 05:53] LABS: MANUAL DIFF FLAG NO
[2022-04-29 05:55] LABS: Basophils Percent Auto 0.3 % (0-2); Eosinophils Percent Auto 0.1 % (0-4); Hematocrit 35.6 % (37.0-47.0); Hemoglobin 11.5 g/dl (12.0-16.0); Imm Gran Abs Auto 0.05 X10*3/uL (0.00-0.03); Imm Gran Pct Auto 0.4 % (0.0-0.4); Lymphocytes Absolute Auto 0.9 X10*3/uL (1.2-4.9); Lymphocytes Percent Auto 8.4 % (20-40); Mean Corpuscular HGB Conc 32.3 g/dl (31.0-35.0); Mean Corpuscular Hemoglobin 28.2 pg (27.0-33.0); Mean Corpuscular Volume 87.3 fL (80.0-98.0); Mean Platelet Volume 8.6 fL (9.4-12.3); Monocytes Absolute Auto 1.1 X10*3/uL (0.1-1.2); Monocytes Percent Auto 9.8 % (2-11); Platelet Count 255 X10*3/uL (160-400); Red Blood Count 4.08 X10*6/uL (4.20-5.50); Red Cell Distribution Width 12.4 % (11.0-16.0); White Blood Count 11.2 X10*3/uL (4.8-10.8)
[2022-04-29] MEDS: Lactated Ringers 1,000 ML 100 ML IVCONT (06:09)
[2022-04-29] MEDS: cefTRIAXone sodium 1 GM in 0.9 % Sodium Chloride 50 ML IV (06:09)
[2022-04-29] MEDS: Enoxaparin Sodium 40 MG/0.4 ML SYRINGE SUBCUT (06:09)
[2022-04-29 06:20] LABS: Anion Gap 19 (12-20); Blood Urea Nitrogen 22 mg/dL (9-16); Calcium 9.1 mg/dL (8.4-10.2); Carbon Dioxide 21 mmol/L (22-29); Chloride 102 mmol/L (96-108); Creatinine Clr Calc Pharmacy 75.9; Estimated Glomerular Filt Rate > 60; Glucose Random 144 mg/dL (60-115); Potassium 3.9 mmol/L (3.3-5.1); Sodium 138 mmol/L (135-145)
[2022-04-29 07:29] VITALS: BP 161/68; PULSE 101; RESP 20; TEMP 38.8; O2SAT 92
[2022-04-29] MEDS: DULoxetine HCl 30 MG CAPSULE.DR 90 MG PO (08:55)
[2022-04-29] MEDS: Multivitamin TABLET 1 TAB PO (08:55)
[2022-04-29] MEDS: Labetalol HCL 200 MG TABLET PO (08:56)
[2022-04-29] MEDS: Furosemide 40 MG TABLET PO (08:57)
[2022-04-29] MEDS: carBAMazepine ER 100 MG TAB.ER.12H PO (08:57)
[2022-04-29] MEDS: Ziprasidone 40 MG CAPSULE PO (08:57)
[2022-04-29] MEDS: Cholecalciferol (Vitamin D3) 25 MCG TABLET PO (08:57)
[2022-04-29] MEDS: Lidocaine 4 % Patch ADH..PATCH 2 PATCH TRANSDERMA (09:01)
[2022-04-29] MEDS: Acetaminophen 325 MG TABLET 650 MG PO (09:08)
[2022-04-29] MEDS: Ibuprofen 800 MG TABLET PO (09:09)
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
== END 2022-04-29 00:32 | disposition hospice, inpatient (51) | DRG 753 ==
LOC: HO.ED 04-13 01:08 → HO.PM5 04-13 11:16 → HO.IMC 04-29 07:05
PROVIDERS: Internal Medicine; Admitting Provider Psychiatry & Neurology Psychiatry; Emergency Provider Emergency Medicine; PCP Nurse Practitioner Family; Visit Provider Psychiatry & Neurology Psychiatry
DX: F31.2 Bipolar disorder, current episode manic severe with psychotic features (principal); I10 Essential (primary) hypertension; N39.0 Urinary tract infection, site not specified; Z20.822 Contact with and (suspected) exposure to COVID-19; Z88.5 Allergy status to narcotic agent; Z88.8 Allergy status to other drugs, medicaments and biological substances; Z79.51 Long term (current) use of inhaled steroids; Z79.899 Other long term (current) drug therapy
CPT/HCPCS: 0241U; 36415; 74176; 80048; 80051; 80076; 80307; 81001; 81003; 82565; 83605; 83880; 84484; 84520; 85025; 87040; 87077; 87086; 87088; 87186; 87205; 87635; 93005; 99285; J0696; J1650; Q0163

== ENCOUNTER → 2022-04-13 11:08 | Outpatient (BNV) | payer BC, OTHER, SELFPAY | PROVIDERS: Admitting Provider Psychiatry & Neurology Psychiatry; Emergency Provider Emergency Medicine; PCP Nurse Practitioner Family; Visit Provider Psychiatry & Neurology Psychiatry | DX: F31.13 Bipolar disorder, current episode manic without psychotic features, severe (principal); A41.9 Sepsis, unspecified organism; N30.00 Acute cystitis without hematuria; N12 Tubulo-interstitial nephritis, not specified as acute or chronic | CPT/HCPCS: 99499 ==

== ENCOUNTER 2022-04-29 10:58 | Inpatient (IN) | payer BC, OTHER, SELFPAY ==
--- NOTE | 2022-04-29 10:57 | PM.EVENT ---
Event Note Date of Service: 04/29/22 Event Note: 61-year-old female who is admitted admitted to for psychiatric care, transferred to medical floor for treatment of sepsis secondary to pyelonephritis Sepsis secondary to pyelonephritis, Gram-negative rods Fever, tachycardia, normal lactic acid Abdominal CT showing pyelonephritis Tachycardia, tachypnea, fever IV Rocephin Urine culture showing preliminary Gram-negative rods Bipolar disorder Continue home medications Consult Psychiatric Team once medically cleared Hypertension Continue previous medications DVT prophylaxis:? Lovenox Attending Dr. Gonzalez Full code
--- NOTE | 2022-04-29 11:20 | PHA.MEDREC ---
Pharmacy Consult ? Medication Reconciliation Pharmacy has completed the medication reconciliation.
[2022-04-29 12:00] VITALS: BP 121/52; PULSE 73; RESP 16; TEMP 36.5; O2SAT 93
--- NOTE | 2022-04-29 12:14 | MHC.CM.PN ---
pt from [facility]her[facility] she will return when medically stable
[2022-04-29 15:20] VITALS: BP 131/60; PULSE 67; RESP 18; TEMP 36.6; O2SAT 97
[2022-04-29] MEDS: Enoxaparin Sodium 40 MG/0.4 ML SYRINGE SUBCUT (16:40)
[2022-04-29] MEDS: 0.9 % Sodium Chloride Flush 3 ML SYRINGE IVFLUSH (16:40)
[2022-04-29] MEDS: Acetaminophen 325 MG TABLET 650 MG PO (16:44)
[2022-04-29 19:25] VITALS: BP 120/53; PULSE 81; RESP 18; TEMP 36.9; O2SAT 94
[2022-04-29] MEDS: Lactated Ringers 1,000 ML 100 ML IVCONT (19:27)
[2022-04-29] MEDS: Latanoprost 0.005 % Ophth Sol 2.5 ML DROPS 1 DROP EYE-BOTH (20:38)
[2022-04-29] MEDS: Omeprazole 20 MG CAPSULE.DR PO (20:38)
[2022-04-29] MEDS: Labetalol HCL 200 MG TABLET PO (20:38)
[2022-04-29] MEDS: carBAMazepine ER 100 MG TAB.ER.12H PO (20:38)
[2022-04-29] MEDS: Ezetimibe 10 MG TABLET PO (20:38)
[2022-04-29 23:12] VITALS: BP 154/74; PULSE 74; RESP 18; TEMP 37.9; O2SAT 96
[2022-04-30 03:00] VITALS: BP 129/56; PULSE 81; RESP 20; TEMP 37.7; O2SAT 93
[2022-04-30] MEDS: Acetaminophen 325 MG TABLET 650 MG PO ×2 (04:53→15:46)
[2022-04-30] MEDS: cefTRIAXone sodium 1 GM in 0.9 % Sodium Chloride 50 ML IV (04:55)
[2022-04-30] MEDS: Lactated Ringers 1,000 ML 100 ML IVCONT ×2 (04:55→21:00)
[2022-04-30 06:11] LABS: MANUAL DIFF FLAG NO
[2022-04-30 06:20] LABS: Basophils Percent Auto 0.2 % (0-2); Eosinophils Percent Auto 0.4 % (0-4); Hematocrit 29.7 % (37.0-47.0); Hemoglobin 9.6 g/dl (12.0-16.0); Imm Gran Abs Auto 0.03 X10*3/uL (0.00-0.03); Imm Gran Pct Auto 0.4 % (0.0-0.4); Lymphocytes Absolute Auto 1.2 X10*3/uL (1.2-4.9); Lymphocytes Percent Auto 14.9 % (20-40); Mean Corpuscular HGB Conc 32.3 g/dl (31.0-35.0); Mean Corpuscular Hemoglobin 28.2 pg (27.0-33.0); Mean Corpuscular Volume 87.4 fL (80.0-98.0); Mean Platelet Volume 9.2 fL (9.4-12.3); Monocytes Absolute Auto 0.8 X10*3/uL (0.1-1.2); Monocytes Percent Auto 10.5 % (2-11); Neutrophils Absolute Auto 5.9 x10*3/uL (2.0-8.3); Neutrophils Percent Auto 73.6 % (45-73); Platelet Count 205 X10*3/uL (160-400); Red Cell Distribution Width 12.5 % (11.0-16.0)
[2022-04-30 06:37] LABS: Anion Gap 15 (12-20); Blood Urea Nitrogen 17 mg/dL (9-16); Calcium 8.1 mg/dL (8.4-10.2); Carbon Dioxide 24 mmol/L (22-29); Chloride 99 mmol/L (96-108); Estimated Glomerular Filt Rate > 60; Glucose Random 117 mg/dL (60-115); Potassium 3.7 mmol/L (3.3-5.1); Sodium 134 mmol/L (135-145)
[2022-04-30 07:14] VITALS: BP 125/59; PULSE 77; RESP 16; TEMP 37.2
[2022-04-30] MEDS: Fenofibrate 160 MG TABLET PO (08:02)
[2022-04-30] MEDS: Furosemide 40 MG TABLET PO (08:02)
[2022-04-30] MEDS: Labetalol HCL 200 MG TABLET PO ×2 (08:02→21:00)
--- NOTE | 2022-04-30 08:10 | PC.NURSE ---
Patient resting in NAD, interacting well. Rapid pressure speech. Crackles at the bases. Denies shortness of breath. Patient refusing tegretol.
[2022-04-30 10:52] VITALS: BP 134/61; PULSE 74; RESP 16; TEMP 37.2; O2SAT 94
[2022-04-30 15:40] VITALS: BP 182/79; PULSE 70; RESP 14; TEMP 36.8; O2SAT 94
[2022-04-30] MEDS: 0.9 % Sodium Chloride Flush 3 ML SYRINGE IVFLUSH (15:43)
[2022-04-30] MEDS: Enoxaparin Sodium 40 MG/0.4 ML SYRINGE SUBCUT (15:43)
--- NOTE | 2022-04-30 15:55 | HO.PM.IMPN ---
Subjective Subjective Date of Service: 04/30/22 Review of Systems Follow-up sepsis secondary to UTI, E coli bacteremia Feeling better today, out of bed to the chair Denies chest pain, shortness breath, nausea, vomiting, diarrhea Physical Exam Vital Signs: Vital Signs: Last Vital Signs Temp 98.3 F 04/30/22 15:40 Pulse 70 04/30/22 15:40 Resp 14 04/30/22 15:40 BP 182/79 H 04/30/22 15:40 Pulse Ox 94 04/30/22 15:40 O2 Del Method 04/30/22 15:40 Appearing in no acute distress lung sounds are clear to auscultation heart regular rate rhythm, clear S1, S2 positive bowel sounds, abdomen is soft, nontender neuro patient is alert x3, no focal deficits Objective Data Active Medications Acetaminophen (Acetaminophen 325 Mg Tablet) 650 mg PO Q6H PRN PRN Reason: Pain, Mild (Pain Scale 1-3) Last Admin: 04/30/22 15:46 Dose: 650 mg Documented By: MITA Albuterol Sulfate (Albuterol Sulfate 90 Mcg 8 Gm Inhaler) 2 puff INHALE RQ4H PRN PRN Reason: wheezing Carbamazepine (Carbamazepine Er 100 Mg Tab.Er.12h) 100 mg PO BID [facility] Last Admin: 04/30/22 08:12 Dose: Not Given Documented By: MITA Non-Admin Reason: Patient Refused Ezetimibe (Ezetimibe 10 Mg Tablet) 10 mg PO BEDTIME@1999 [facility] Last Admin: 04/29/22 20:38 Dose: 10 mg Documented By: ANDRZEJ Enoxaparin Sodium (Enoxaparin Sodium 40 Mg/0.4 Ml Syringe) 40 mg SUBCUT Q24H [facility] Last Admin: 04/30/22 15:43 Dose: 40 mg Documented By: MITA Fenofibrate (Fenofibrate 160 Mg Tablet) 160 mg PO DAILY [facility] Last Admin: 04/30/22 08:02 Dose: 160 mg Documented By: MITA Fluticasone Propionate (Fluticasone Propionate Nasal 16 Gm [place]) 1 spray NOSTRIL-B DAILY [facility] Furosemide (Furosemide 40 Mg Tablet) 40 mg PO DAILY [facility]; Protocol Last Admin: 04/30/22 08:02 Dose: 40 mg Documented By: MITA Ceftriaxone Sodium 1 gm/ (Sodium Chloride) 50 mls @ 100 mls/hr IV Q24H [facility] Last Infusion: 04/30/22 06:26 Dose: 0 mls/hr Documented By: ANDRZEJ Lactated Ringer's (Lr) 1,000 mls @ 100 mls/hr IVCONT .Q10H [facility] Last Admin: 04/30/22 14:34 Dose: Not Given Documented By: MITA Non-Admin Reason: IV Running Ibuprofen (Ibuprofen 400 Mg Tablet) 400 mg PO Q6H PRN PRN Reason: Pain, Mild (Pain Scale 1-3) Labetalol HCl (Labetalol Hcl 200 Mg Tablet) 200 mg PO BID [facility]; Protocol Last Admin: 04/30/22 08:02 Dose: 200 mg Documented By: MITA Latanoprost (Latanoprost 0.005 % Ophth Noni 2.5 Ml Drops) 1 drop EYE-BOTH BEDTIME@1999 [facility] Last Admin: 04/29/22 20:38 Dose: 1 drop Documented By: ANDRZEJ Olanzapine (Olanzapine 5 Mg Tablet) 5 mg PO BEDTIME PRN PRN Reason: Insomnia Omeprazole (Omeprazole 20 Mg Capsule.Dr) 20 mg PO BEDTIME [facility] Last Admin: 04/29/22 20:38 Dose: 20 mg Documented By: ANDRZEJ Ondansetron HCl (Ondansetron Hcl 4 Mg/2 Ml Vial) 4 mg IVPUSH Q8H PRN PRN Reason: Nausea and Vomiting Oxybutynin Chloride (Oxybutynin Chloride Er 5 Mg Tab.Er.24) 10 mg PO DAILY [facility] Last Admin: 04/30/22 08:02 Dose: 10 mg Documented By: MITA Pharmacy Consult (Consult Rx Perform Med Rec) 1 each MISCELLANE ONCE PRN PRN Reason: Consult order Sodium Chloride (0.9 % Sodium Chloride Flush 3 Ml Syringe) 3 ml IVFLUSH QSHIFT [facility] Last Admin: 04/30/22 15:43 Dose: 3 ml Documented By: MITA Labs CBC & Chem 7: 04/30/22 05:35 04/30/22 05:35 Labs: Laboratory Results - last 24 hr 04/30/22 04/30/22 05:35 05:35 MCV 87.4 MCH 28.2 MCHC 32.3 RDW 12.5 Plt Count 205 MPV 9.2 L Immature Gran % (Auto) 0.4 Neut % (Auto) 73.6 H Lymph % (Auto) 14.9 L [place] % (Auto) 10.5 Eos % (Auto) 0.4 Baso % (Auto) 0.2 Lymph # (Auto) 1.2 [place] # (Auto) 0.8 Eos # (Auto) 0.0 Baso # (Auto) 0.0 Abs Immat Gran (auto) 0.03 Absolute Neuts (auto) 5.9 Absolute Nucleated RBC 0.000 Nucleated RBC % (auto) 0.0 Anion Gap 15 Estim Creat Clear Calc TNP Estimated GFR > 60 Random Glucose 117 H Calcium 8.1 L D Assessment and Plan (1) Severe bipolar I disorder, recurrent manic episode, with psychotic behavior: Status: Acute Plan 61-year-old female who is admitted admitted to for psychiatric care, transferred to medical floor for treatment of sepsis secondary to pyelonephritis Sepsis secondary to acute pyelonephritis, Gram-negative rods Fever, tachycardia, normal lactic acid Abdominal CT showing pyelonephritis Tachycardia, tachypnea, fever IV Rocephin Urine culture showing ecoli Bipolar disorder Continue home medications Consult Psychiatric Team once medically cleared Hypertension Continue previous medications DVT prophylaxis:? Lovenox Attending Dr. Gonzalez Full code Continue hospitalization for treatment of sepsis secondary to acute pyelonephritis Quality Stroke Does the patient have a stroke diagnosis?: No VTE Prior VTE?: No VTE Risk Level:: Medical - moderate - high VTE Device Contraindication: Treatment Not Indicated VTE Drug Contraindication: N/A - Med Ordered
[2022-04-30] MEDS: Ibuprofen 400 MG TABLET PO (16:37)
[2022-04-30] MEDS: Fluticasone Propionate Nasal 16 GM SPRAY 1 SPRAY NOSTRIL-B (16:41)
[2022-04-30 20:00] VITALS: BP 145/69; PULSE 73; RESP 18; TEMP 36.6; O2SAT 96
[2022-04-30] MEDS: Latanoprost 0.005 % Ophth Sol 2.5 ML DROPS 1 DROP EYE-BOTH (20:59)
[2022-04-30] MEDS: Omeprazole 20 MG CAPSULE.DR PO (21:00)
[2022-04-30] MEDS: Ezetimibe 10 MG TABLET PO (21:00)
[2022-05-01] VITALS: BP 154/68; PULSE 75; RESP 20; TEMP 36.9; O2SAT 96
[2022-05-01] MEDS: Acetaminophen 325 MG TABLET 650 MG PO ×2 (01:31→07:30)
[2022-05-01] MEDS: Ibuprofen 400 MG TABLET PO ×2 (01:32→07:31)
[2022-05-01 04:00] VITALS: BP 138/68; PULSE 67; RESP 20; TEMP 36.8; O2SAT 97
[2022-05-01] MEDS: cefTRIAXone sodium 1 GM in 0.9 % Sodium Chloride 50 ML IV (05:55)
[2022-05-01 07:12] VITALS: BP 147/66; PULSE 57; RESP 12; TEMP 36.9; O2SAT 98
[2022-05-01] MEDS: Labetalol HCL 200 MG TABLET PO (07:30)
[2022-05-01] MEDS: Fenofibrate 160 MG TABLET PO (07:31)
[2022-05-01] MEDS: Furosemide 40 MG TABLET PO (07:31)
[2022-05-01] MEDS: carBAMazepine ER 100 MG TAB.ER.12H PO (07:32)
[2022-05-01] MEDS: Fluticasone Propionate Nasal 16 GM SPRAY 1 SPRAY NOSTRIL-B (07:32)
[2022-05-01 08:09] LABS: Anion Gap 15 (12-20); Blood Urea Nitrogen 14 mg/dL (9-16); Calcium 8.4 mg/dL (8.4-10.2); Carbon Dioxide 25 mmol/L (22-29); Chloride 101 mmol/L (96-108); Estimated Glomerular Filt Rate > 60; Glucose Random 113 mg/dL (60-115); Potassium 3.4 mmol/L (3.3-5.1); Sodium 138 mmol/L (135-145)
[2022-05-01 11:57] VITALS: BP 137/67; PULSE 62; RESP 16; TEMP 36.8; O2SAT 98
--- NOTE | 2022-05-01 13:35 | PC.NURSE ---
Patient requesting Soma medication, patient aware this is PRN 3 times/day, patient given this early. Repositioned for comfort.
--- NOTE | 2023-01-13 11:10 | PM.EVENT ---
Event Note Date of Service: 01/13/23 Event Note: Discharge diagnosis: Sepsis secondary to acute pyelonephritis E coli bacteremia Time Spent With Patient Time: Total time managing care of this patient today ____ minutes.
== END 2022-05-01 14:55 | DRG 720 ==
PROVIDERS: Admitting Provider Nurse Practitioner Acute Care; Visit Provider Nurse Practitioner Acute Care
DX: A41.9 Sepsis, unspecified organism (principal); F31.2 Bipolar disorder, current episode manic severe with psychotic features; N10 Acute pyelonephritis; I10 Essential (primary) hypertension; Z88.5 Allergy status to narcotic agent; Z88.8 Allergy status to other drugs, medicaments and biological substances; Z79.51 Long term (current) use of inhaled steroids; Z79.899 Other long term (current) drug therapy
CPT/HCPCS: 36415; 80048; 85025; 85027; J0696; J1650

== ENCOUNTER 2022-05-01 15:10 | Inpatient (IN) | payer BC, OTHER, SELFPAY ==
--- NOTE | ~2022-05-01 | US_ITS ---
EXAMINATION: ULTRASOUND EXTREMITY NONVASCULAR CLINICAL INFORMATION: Groin pain. Rule out cyst or abscess. COMPARISON: Previous CT of the abdomen and pelvis April 2022 TECHNIQUE: Grayscale and color imaging of the soft tissues of the bilateral inguinal regions FINDINGS: No cyst or abscess is seen. There is bilateral inguinal lymphadenopathy. 2 right inguinal lymph nodes are seen. These measure 2.1 x 0.7 x 1.8 cm and 0.9 x 0.7 x 0.8 cm. There are 4 left inguinal lymph nodes identified. These measure 1.9 x 0.7 x 1.4 cm, 3 x 0.8 x 1.4 cm, 1.6 x 0.8 x 0.8 cm and 2.2 x 0.9 x 0.9 cm. Some lymph nodes demonstrate areas of cortical thickening. Lymph nodes demonstrate normal hilar flow. Management should be determined on a clinical basis. US/US extremity nonvascular IMPRESSION: No cyst or abscess. Bilateral inguinal lymphadenopathy, left greater than right. Some lymph nodes demonstrate areas of cortical thickening. Management should be determined on a clinical basis. Lymph nodes would be amenable to ultrasound-guided fine-needle aspiration/biopsy if clinically indicated.
[2022-05-01 16:32] VITALS: BP 131/62; PULSE 77; RESP 16; TEMP 36.7; O2SAT 98
[2022-05-01] MEDS: Ibuprofen 600 MG TABLET PO ×2 (16:56→21:10)
[2022-05-01] MEDS: Acetaminophen 325 MG TABLET 650 MG PO (17:00)
--- NOTE | 2022-05-01 17:46 | PC.ADMIT ---
Patient arrived at the unit at approximately 1600. Patient is being transferred from [facility] after being medically treated and cleared. Patient has a legal status of section 8. Upon arrival the patient is alert and oriented x3, with limited insight into the situation. Mood is labile. Judgment and impulse control appear impaired. nSpeech is clear and within normal limits?I am not a section 8, they lost that court case. I have my papers to prove it?. Patients become agitated quickly when educated on the fact that her legal status is still a section 8 and that she could not sign a 3 day notice. Patient presents grandiose and religiously preoccupied during the admission assessment, making comments such as ?I bet that you did not know that, but I did?. Patient reports ?I am so thankful to be alive. I almost . I heard the doctors say Kidney then septic and I knew what that meant. I started praying and I started healing. Then I started drinking. God Healed me. God is my healer. Praise the god?. 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 Patient is hyperverbal throughout. Upon assessment No chest pain reported. +2 pitting edema BLE. Pulses in BLE palpated at +2. Vital signs upon admission were a blood pressure of 131/62 and HR of 77. Temperature of 98.0. Patient denies anxiety/depression. Denies SI/HI/AH/VH. Reports feeling safe on the unit. No acute complaint reported.?
[2022-05-01 18:00] VITALS: BP 183/78; PULSE 73; TEMP 36.2; O2SAT 95
[2022-05-01] MEDS: Labetalol HCL 200 MG TABLET PO (21:10)
[2022-05-01] MEDS: carBAMazepine ER 100 MG TAB.ER.12H PO (21:10)
[2022-05-01] MEDS: Ezetimibe 10 MG TABLET PO (21:10)
[2022-05-01] MEDS: Omeprazole 20 MG CAPSULE.DR PO (21:11)
[2022-05-01] MEDS: Latanoprost 0.005 % Ophth Sol 2.5 ML DROPS 1 DROP EYE-BOTH (21:42)
[2022-05-02] MEDS: Acetaminophen 325 MG TABLET 650 MG PO (05:00)
[2022-05-02] MEDS: Ibuprofen 400 MG TABLET PO (05:00)
[2022-05-02] MEDS: Ketoconazole 2 % Shampoo 120 ML BTL 1 APPL TOPICAL (06:53)
[2022-05-02] MEDS: Furosemide 40 MG TABLET PO (09:04)
[2022-05-02] MEDS: Albuterol Sulfate 90 MCG 8 GM INHALER 2 PUFF INHALE (09:05)
[2022-05-02] MEDS: carBAMazepine ER 100 MG TAB.ER.12H PO (09:05)
[2022-05-02] MEDS: Fenofibrate 160 MG TABLET PO (09:06)
[2022-05-02] MEDS: Labetalol HCL 200 MG TABLET PO ×2 (09:06→22:15)
[2022-05-02] MEDS: Fluticasone Propionate Nasal 16 GM SPRAY 1 SPRAY NOSTRIL-B (09:07)
[2022-05-02 09:14] VITALS: BP 173/74; PULSE 74; RESP 14; TEMP 36.2; O2SAT 96
--- NOTE | 2022-05-02 10:24 | HO.PSYADMNOT ---
HPI Date of Service: 05/02/22 Chief Complaint: Betty Sources of Information: patient interviewed, chart reviewed and crisis/core team assessment reviewed HPI Subjective Notes: Malik Warning (Patient currently involuntarily committed) and Section 8 Narrative: Patient is a 61-year-old female with history of bipolar disorder who was involuntarily committed to inpatient psychiatric hospitalization for betty. Patient remains manic however was transferred to hospital floor for treatment for urosepsis. Patient has been medically cleared and returns to for continued treatment. Patient is very angry and hostile towards display card writer. She is angry she is not being discharged tomorrow says she has legal documents saying that her discharges post to be several days ago. She shows display card writer these legal documents which clearly say that patient is committed for no more than 6 months. Patient remains manic, without any insight, delusional and intrusive to others. One of her peers said she is scared of this patient since the patient was coming into her room and verbally accosting her. With display card writer, she makes threatening postures, bearing her teeth with wide, intense glaring eyes as she yells. Commercial Loan Manager reviewed medications that are court ordered and patient agreed to increasing Tegretol. Past Psychiatric History: Discharged from 03/18/22 - 04/12/2022: released from commitment hearing. -Hx of admission to July 2007 and January 2008. Hx of IPLOC at [facility], [place], and in [place]. -Psych provider is Naty Ahn NP -Per , pt has a manic episode every 2-3 years in late summer or near Loan despite med adherence. -Hx of suicidal gesture in 2006, put a cord around her neck while depressed, did seek help. 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 Supervisors were concerned about her instability and [employer] clearance. - for 42 years to her , they have one daughter Substance History: none Trauma History: verbal from mother; not sure if other Diagnostics Vital Signs (24Hr): Vital Signs - 24 hr 05/01/22 16:32 05/01/22 18:00 05/02/22 09:14 Temperature 98.0 F 97.1 F 97.2 F Pulse Rate 77 73 74 Respiratory Rate 16 14 Blood Pressure 131/62 183/78 H 173/74 H Pulse Oximetry 98 95 96 Oxygen Delivery Method Room Air Room Air Room Air Meds/Allergies Meds Home Medications Medication Instructions Recorded Confirmed Type carbamazepine 100 mg 1 tab PO BID 03/13/22 04/29/22 History tablet,extended release,12 hr pantoprazole 40 mg tablet,delayed 1 tab PO BEDTIME 03/13/22 04/29/22 History release fluticasone propionate 50 1 spray intranasal DAILY 03/14/22 04/29/22 History mcg/actuation nasal spray,suspension labetalol 200 mg tablet 1 tab PO BID 03/17/22 04/29/22 History ketoconazole 2 % shampoo 1 ea topical DAILY 03/18/22 04/29/22 History oxybutynin chloride 10 mg 1 tab PO DAILY 03/24/22 04/29/22 History tablet,extended release 24 hr ibuprofen 600 mg tablet 600 mg PO Q6H 04/13/22 04/29/22 History fenofibrate 160 mg tablet 160 mg PO DAILY 04/29/22 04/29/22 History olanzapine 5 mg tablet 5 mg PO BEDTIME PRN Insomnia 04/29/22 04/29/22 History Allergies Allergies Allergy/AdvReac Type Severity Reaction Status Date / Time adhesive [Adhesive] Allergy Mild SKIN Verified 03/18/22 08:34 IRRITATION WITH BLISTERS codeine [Codeine] Allergy Mild UNKNOWN Verified 03/18/22 08:34 methylphenidate Allergy Mild UNKNOWN Verified 03/18/22 08:34 [From CONCERTA] simvastatin [Simvastatin] Allergy Mild UNKNOWN Verified 03/18/22 08:34 Mental Status Exam Mental Status Exam Narrative: Pt is alert and oriented; behavior remains manic, irritable, intrusive, disorganized; Overweight, Bilateral LE edema (improved); adequately groomed and dressed in casual attire;mood is described as good but affect remains labile and angry, expansive; eye contact is good; Speech is pressured and hyperverbal;; normal volume and prosody; psychomotor agitation present; thought process can be goal directed for a moment but still quickly becomes tangential, talking excessively about unrelated topics; Thought content is on discharge, angered at being in hospital; delusional thinking present; denies any SI/HI. ?Patients insight and judgment are impaired. She does not think she has bipolar. Assessment & Plan Assessment & Plan (1) Severe bipolar I disorder, recurrent manic episode, with psychotic behavior: Status: Acute Code(s): F31.2 - Bipolar disorder, current episode manic severe with psychotic features (2) UTI (urinary tract infection): Status: Acute Qualifiers: Urinary tract infection type: acute cystitis Hematuria presence: without hematuria Qualified Code(s): N30.00 - Acute cystitis without hematuria Code(s): N39.0 - Urinary tract infection, site not specified Plan Patient is a 61-year-old female with history of bipolar disorder who was involuntarily committed to inpatient psychiatric hospitalization for betty. Patient remains manic however was transferred to hospital floor for treatment for urosepsis. Patient has been medically cleared and returns to for continued treatment. Patient is very angry and hostile towards display card writer. She is angry she is not being discharged tomorrow says she has legal documents saying that her discharges post to be several days ago. She shows display card writer these legal documents which clearly say that patient is committed for no more than 6 months. Patient remains manic, without any insight, delusional and intrusive to others. One of her peers said she is scared of this patient since the patient was coming into her room and verbally accosting her. Commercial Loan Manager reviewed medications that are court ordered and patient agreed to increasing Tegretol. PLAN: sectinion 8 Court ruled for involuntary commitment and substituted judgment Q15 UTI: ceftin 500mg BID for 8 days (per PA hosptialist Vlad Medications: continue Geodon 40mg AM (COURT ORDERED) *give IM zyprexa 5mg if refuses dose Increase to geodon 60mg qhs (COURT ORDERED) *give IM zyprexa 5mg if refuses dose Increase to Tegretol ER 200 mg b.i.d. (COURT ORDERED) *give IM zyprexa 5mg if refuses dose Will discontinue Zyprexa 5 mg q.h.s. for now to see if patient can be stabilized on only 1 antipsychotic; the 1 with the more favorable side effect profile Patient intermittently taking Lasix; display card writer discussed case with hospitalist who said that patient should remain on current dose for now and that this is appropriate dose and frequency. no script for Flovent other than one on 11/2021 (only one other script for this back in 03/2021) Substituted judgment medications include the following: Ziprasidone Zyprexa Tegretol Abilify/Maintena Risperidone/Consta Ativan Patient educated on: diagnosis and medication risk/benefits Informed Consent: does not understand and further education needed Reason for continued inpatient stay Substantial Risk for: inability to function and rapid decompensation
[2022-05-02] MEDS: Ibuprofen 600 MG TABLET PO ×3 (13:13→20:08)
--- NOTE | 2022-05-02 14:10 | MHC.CLN ---
RE: CONSULT: PT REPORTS 10# WT LOSS HT 64 WT 112.2KG (04/29/22) IBW 120#+/-10% PT IS 206% IBW INDICATES MORBIDLY OBESE; BMI 40.4 PREVIOUS WT HX: CURRENT 112.2KG 116.6KG (03/28/22) 3% NON-SIGNIFICANT WT LOSS X 30 DAYS ADMIT WT 104KG (03/13/22) 8% SIGNIFICANT WT GAIN SINCE ADMISSION PT CURRENTLY S/P MEDICAL ADMISSION FOR UTI/SEPSIS PO INTAKE WHILE ON MEDICAL FLOOR WAS 75/100% (04/30-05/02) DIET RX: 2GM NA-CAN LIBERALIZE TO REGULAR IF NEEDED MONITOR PO INTAKE CLOSELY NO NEW ORDERS AT THIS TIME
[2022-05-02 16:32] VITALS: BP 167/73; PULSE 72
[2022-05-02] MEDS: Ziprasidone 20 MG CAPSULE PO (18:42)
[2022-05-02] MEDS: Ezetimibe 10 MG TABLET PO (18:43)
[2022-05-02] MEDS: carBAMazepine ER 200 MG TAB.ER.12H PO (20:08)
[2022-05-02] MEDS: Omeprazole 20 MG CAPSULE.DR PO (20:08)
[2022-05-02] MEDS: Ziprasidone 60 MG CAPSULE PO (20:08)
[2022-05-02] MEDS: Latanoprost 0.005 % Ophth Sol 2.5 ML DROPS 1 DROP EYE-BOTH (22:15)
[2022-05-03 06:00] VITALS: BP 186/79; PULSE 78; RESP 16; TEMP 36.3; O2SAT 97
[2022-05-03] MEDS: Acetaminophen 325 MG TABLET 650 MG PO (06:14)
[2022-05-03] MEDS: Labetalol HCL 200 MG TABLET PO ×2 (08:16→19:08)
[2022-05-03] MEDS: carBAMazepine ER 200 MG TAB.ER.12H PO ×2 (08:16→19:08)
[2022-05-03] MEDS: Furosemide 40 MG TABLET PO (08:17)
[2022-05-03] MEDS: Ibuprofen 600 MG TABLET PO ×4 (08:17→19:08)
[2022-05-03] MEDS: Fenofibrate 160 MG TABLET PO (08:18)
[2022-05-03] MEDS: Fluticasone Propionate Nasal 16 GM SPRAY 1 SPRAY NOSTRIL-B (08:24)
[2022-05-03] MEDS: Ziprasidone 40 MG CAPSULE PO (08:25)
[2022-05-03] MEDS: Albuterol Sulfate 90 MCG 8 GM INHALER 2 PUFF INHALE (08:25)
--- NOTE | 2022-05-03 14:52 | P.PNIM_ITS ---
Subjective Subjective Date of Service: 05/03/22 Interval History: re-consult due to high blood pressure and persisting leg edema as per patient her bilateral lower extremity edema is gradually improving since she has been placed on Lasix 40 mg daily, she denies headache lightheadedness or dizziness initially she said her high blood pressures likely being in the hospital and usually has normal blood pressures, after informing that her blood pressure has been elevated in last several days she admitted that previously she was on 2 antihypertensive medications amlodipine 10 mg daily and labetalol 200 b.i.d. by her amlodipine was discontinued due to leg edema, therefore likely she has elevated blood pressures, patient offers no complaints of chest pain, no palpitations, no lightheadedness, no dizziness, denies nausea vomiting abdominal discomfort Review of Systems CONFERENCE CONCIERGE no headache no dizziness CVS no chest pain respiratory no cough, no shortness of breath Review of Systems: Yes all other systems are reviewed and are negative Physical Exam Vital Signs: Vital Signs: Last Vital Signs Temp 97.3 F 05/03/22 06:00 Pulse 78 05/03/22 06:00 Resp 16 05/03/22 06:00 BP 186/79 H 05/03/22 06:00 Pulse Ox 97 05/03/22 06:00 O2 Del Method 05/03/22 06:00 Const: Other: General awake alert properly dressed ,no acute distress. Neck no JVD. CVS regular rate rhythm, Respiratory lungs clear to auscultation, no respiratory distress, no wheeze, no rhonchi. Gastrointestinal abdomen soft, nontender, bowel sounds audible, no guarding , no rigidity. Extremities bilateral pitting edema both lower extremities Neuro nonfocal Skin no rash Objective Data Active Medications Acetaminophen (Acetaminophen 325 Mg Tablet) 650 mg PO Q6H PRN PRN Reason: Pain, Mild (Pain Scale 1-3) Last Admin: 05/03/22 06:14 Dose: 650 mg Documented By: SABIHA Albuterol Sulfate (Albuterol Sulfate 90 Mcg 8 Gm Inhaler) 2 puff INHALE Q4H PRN PRN Reason: wheezing Last Admin: 05/03/22 08:25 Dose: 2 puff Documented By: AMMON Carbamazepine (Carbamazepine Er 200 Mg Tab.Er.12h) 200 mg PO BID [facility] Last Admin: 05/03/22 08:16 Dose: 200 mg Documented By: AMMON Cefuroxime Axetil (Cefuroxime Axetil 500 Mg Tablet) 500 mg PO BID [facility] Stop: 05/09/22 23:50 Last Admin: 05/03/22 08:18 Dose: 500 mg Documented By: AMMON Ezetimibe (Ezetimibe 10 Mg Tablet) 10 mg PO BEDTIME@1999 [facility] Last Admin: 05/02/22 18:43 Dose: 10 mg Documented By: CATARINO Fenofibrate (Fenofibrate 160 Mg Tablet) 160 mg PO DAILY [facility] Last Admin: 05/03/22 08:18 Dose: 160 mg Documented By: AMMON Fluticasone Propionate (Fluticasone Propionate Nasal 16 Gm [place]) 1 spray NOSTRIL-B DAILY [facility] Last Admin: 05/03/22 08:24 Dose: 1 spray Documented By: AMMON Furosemide (Furosemide 40 Mg Tablet) 40 mg PO DAILY [facility]; Protocol Last Admin: 05/03/22 08:17 Dose: 40 mg Documented By: AMMON Ibuprofen (Ibuprofen 400 Mg Tablet) 400 mg PO Q6H PRN PRN Reason: Pain, Mild (Pain Scale 1-3) Last Admin: 05/02/22 05:00 Dose: 400 mg Documented By: NIELS Ibuprofen (Ibuprofen 600 Mg Tablet) 600 mg PO QID [facility] Last Admin: 05/03/22 12:12 Dose: 600 mg Documented By: AMMON Ketoconazole (Ketoconazole 2 % Shampoo 120 Ml Btl) 1 appl TOPICAL DAILY [facility]; Protocol Last Admin: 05/03/22 08:24 Dose: Not Given Documented By: AMMON Non-Admin Reason: Patient Refused Labetalol HCl (Labetalol Hcl 200 Mg Tablet) 200 mg PO BID [facility]; Protocol Last Admin: 05/03/22 08:16 Dose: 200 mg Documented By: AMMON Latanoprost (Latanoprost 0.005 % Ophth Noni 2.5 Ml Drops) 1 drop EYE-BOTH BEDTIME@1999 [facility] Last Admin: 05/02/22 22:15 Dose: 1 drop Documented By: CATARINO Olanzapine (Olanzapine 5 Mg Tablet) 5 mg PO BEDTIME PRN PRN Reason: Insomnia Olanzapine (Olanzapine 10 Mg Vial) 5 mg IM QID PRN PRN Reason: if refuse po Tegretol/geodon Omeprazole (Omeprazole 20 Mg Capsule.) 20 mg PO BEDTIME [facility] Last Admin: 05/02/22 20:08 Dose: 20 mg Documented By: CATARINO Oxybutynin Chloride (Oxybutynin Chloride Er 5 Mg Tab.Er.24) 10 mg PO DAILY [facility] Last Admin: 05/03/22 08:17 Dose: 10 mg Documented By: AMMON Ziprasidone (Ziprasidone 40 Mg Capsule) 40 mg PO DAILY [facility] Last Admin: 05/03/22 08:25 Dose: 40 mg Documented By: AMMON Ziprasidone (Ziprasidone 60 Mg Capsule) 60 mg PO BEDTIME [facility] Last Admin: 05/02/22 20:08 Dose: 60 mg Documented By: CATARINO Assessment and Plan (1) HTN (hypertension): Status: Acute Plan Hypertension: continue labetalol, Lasix will add lisinopril 10mg and follow BP bilateral lower extremity edema likely due to venous stasis, mild anemia has normal albumin level, normal kidney and liver function, recommend to continue Lasix, advised use Dexter stockings and keep leg elevated patient tried Dexter stockings but they were too tight on her therefore recommend Simón wrap thank you for allowing us to participate in this patient will sign off please call with any questions. Quality Stroke Does the patient have a stroke diagnosis?: No VTE Prior VTE?: No VTE Risk Level:: Medical - low VTE Device Contraindication: Treatment Not Indicated VTE Drug Contraindication: Treatment Not Indicated
--- NOTE | 2022-05-03 15:09 | HO.PSYCHPN ---
Subjective Subjective Date of Service: 05/03/22 Reason For Visit: Prema Subjective Notes: Section 8 Interim History: pt readmitted after urinary infection from med floor now on geodon with IM to be given olanzapine seems to be tolerating geodon tegretol Medication Compliance: Yes Attending Groups: Intermittent Mental Status Exam Mental Status Exam Patient Appearance: Well Grooomed Level of Consciousness: Awake Patient Behavior: Talkative and Impulsive Mood Description: Anxious and Expansive Affect Description: Angry and Apprehensive Memory Description: Intact Thought Content: positive for Flight of Ideas, positive for Perseveration and positive for Tangential Depressive Symptoms: Increased Anxiety and Insomnia Judgement and Insight: does not accept she has biplar dx Diagnostics Vital Signs (24Hr): Vital Signs - 24 hr 05/02/22 16:32 05/03/22 06:00 Temperature 97.3 F Pulse Rate 72 78 Respiratory Rate 16 Blood Pressure 167/73 H 186/79 H Pulse Oximetry 97 Oxygen Delivery Method Room Air Medications Medications Current Medications Acetaminophen (Acetaminophen 325 Mg Tablet) 650 mg PO Q6H PRN PRN Reason: Pain, Mild (Pain Scale 1-3) Last Admin: 05/03/22 06:14 Dose: 650 mg Albuterol Sulfate (Albuterol Sulfate 90 Mcg 8 Gm Inhaler) 2 puff INHALE Q4H PRN PRN Reason: wheezing Last Admin: 05/03/22 08:25 Dose: 2 puff Carbamazepine (Carbamazepine Er 200 Mg Tab.Er.12h) 200 mg PO BID [facility] Last Admin: 05/03/22 08:16 Dose: 200 mg Cefuroxime Axetil (Cefuroxime Axetil 500 Mg Tablet) 500 mg PO BID [facility] Stop: 05/09/22 23:50 Last Admin: 05/03/22 08:18 Dose: 500 mg Ezetimibe (Ezetimibe 10 Mg Tablet) 10 mg PO BEDTIME@1999 [facility] Last Admin: 05/02/22 18:43 Dose: 10 mg Fenofibrate (Fenofibrate 160 Mg Tablet) 160 mg PO DAILY [facility] Last Admin: 05/03/22 08:18 Dose: 160 mg Fluticasone Propionate (Fluticasone Propionate Nasal 16 Gm [place]) 1 spray NOSTRIL-B DAILY [facility] Last Admin: 05/03/22 08:24 Dose: 1 spray Furosemide (Furosemide 40 Mg Tablet) 40 mg PO DAILY [facility]; Protocol Last Admin: 05/03/22 08:17 Dose: 40 mg Ibuprofen (Ibuprofen 400 Mg Tablet) 400 mg PO Q6H PRN PRN Reason: Pain, Mild (Pain Scale 1-3) Last Admin: 05/02/22 05:00 Dose: 400 mg Ibuprofen (Ibuprofen 600 Mg Tablet) 600 mg PO QID [facility] Last Admin: 05/03/22 12:12 Dose: 600 mg Ketoconazole (Ketoconazole 2 % Shampoo 120 Ml Btl) 1 appl TOPICAL DAILY [facility]; Protocol Last Admin: 05/03/22 08:24 Dose: Not Given Labetalol HCl (Labetalol Hcl 200 Mg Tablet) 200 mg PO BID [facility]; Protocol Last Admin: 05/03/22 08:16 Dose: 200 mg Latanoprost (Latanoprost 0.005 % Ophth Noni 2.5 Ml Drops) 1 drop EYE-BOTH BEDTIME@1999 [facility] Last Admin: 05/02/22 22:15 Dose: 1 drop Lisinopril (Lisinopril 10 Mg Tablet) 10 mg PO DAILY [facility]; Protocol Olanzapine (Olanzapine 5 Mg Tablet) 5 mg PO BEDTIME PRN PRN Reason: Insomnia Olanzapine (Olanzapine 10 Mg Vial) 5 mg IM QID PRN PRN Reason: if refuse po Tegretol/geodon Omeprazole (Omeprazole 20 Mg Capsule.Dr) 20 mg PO BEDTIME [facility] Last Admin: 05/02/22 20:08 Dose: 20 mg Oxybutynin Chloride (Oxybutynin Chloride Er 5 Mg Tab.Er.24) 10 mg PO DAILY [facility] Last Admin: 05/03/22 08:17 Dose: 10 mg Ziprasidone (Ziprasidone 40 Mg Capsule) 40 mg PO DAILY [facility] Last Admin: 05/03/22 08:25 Dose: 40 mg Ziprasidone (Ziprasidone 60 Mg Capsule) 60 mg PO BEDTIME [facility] Last Admin: 05/02/22 20:08 Dose: 60 mg Allergies Allergies Allergy/AdvReac Type Severity Reaction Status Date / Time adhesive [Adhesive] Allergy Mild SKIN Verified 03/18/22 08:34 IRRITATION WITH BLISTERS codeine [Codeine] Allergy Mild UNKNOWN Verified 03/18/22 08:34 methylphenidate Allergy Mild UNKNOWN Verified 03/18/22 08:34 [From [facility]] simvastatin [Simvastatin] Allergy Mild UNKNOWN Verified 03/18/22 08:34 Assessment & Plan Assessment & Plan (1) HTN (hypertension): Status: Acute Code(s): I10 - Essential (primary) hypertension (2) Severe bipolar I disorder, recurrent manic episode, with psychotic behavior: Status: Acute Code(s): F31.2 - Bipolar disorder, current episode manic severe with psychotic features Plan Patient started on lisinopril for hypertension continue Geodon and Tegretol patient with limited insight accepting medication feel she is going to be discharged shortly has been in behavioral control Pressured over elaborate recent urosepsis much improved I spent minutes with the patient and/or on the patient floor today, greater than?50% of which was spent counseling/coordinating care. Reason for contiued inpatient stay Substantial Risk for: harm to others, inability to function and med/psych decompensation
[2022-05-03] MEDS: lisinopriL 10 MG TABLET PO (16:17)
[2022-05-03 17:40] VITALS: BP 179/70; PULSE 73
[2022-05-03] MEDS: Ezetimibe 10 MG TABLET PO (19:08)
[2022-05-03] MEDS: Ziprasidone 60 MG CAPSULE PO (19:08)
[2022-05-03] MEDS: Omeprazole 20 MG CAPSULE.DR PO (19:08)
[2022-05-04 06:00] VITALS: BP 209/92; PULSE 77; RESP 16; O2SAT 99
[2022-05-04] MEDS: Ibuprofen 400 MG TABLET PO (06:16)
[2022-05-04] MEDS: Acetaminophen 325 MG TABLET 650 MG PO (06:16)
[2022-05-04] MEDS: Furosemide 40 MG TABLET PO (08:24)
[2022-05-04] MEDS: Labetalol HCL 200 MG TABLET PO ×2 (08:24→18:50)
[2022-05-04] MEDS: Ibuprofen 600 MG TABLET PO ×4 (08:24→18:50)
[2022-05-04] MEDS: Fenofibrate 160 MG TABLET PO (08:24)
[2022-05-04] MEDS: Ziprasidone 40 MG CAPSULE PO (08:24)
[2022-05-04] MEDS: lisinopriL 10 MG TABLET PO (08:24)
[2022-05-04] MEDS: carBAMazepine ER 200 MG TAB.ER.12H PO ×2 (08:24→18:51)
[2022-05-04] MEDS: Fluticasone Propionate Nasal 16 GM SPRAY 1 SPRAY NOSTRIL-B (08:34)
--- NOTE | 2022-05-04 15:46 | P.PNPSI_ITS ---
Subjective Subjective Date of Service: 05/04/22 Reason For Visit: Prema Subjective Notes: Section 8 Healthcare Proxy: No Guardianship: No Medical Problems Affecting Mental Status: No Interim History: Pt not sleeping well - continues intrussive and demanding- , labile , hyperverbal Medication Compliance: Yes Side effects from medications: No Attending Groups: Intermittent (sometimes too intrussive to be in groups) Review of Systems Acute medical concerns: No Mental Status Exam Mental Status Exam Narrative: patient intruding on other patient interviews with provider, Patient Appearance: Unkempt Patient Orientation: Person, Place and Time Level of Consciousness: Awake Patient Behavior: Talkative, Hyperactive, Distractible and Impulsive Mood Description: Happy and Elated Affect Description: Expansive Patient Cognition Impaired: No Ability to Follow Directions: Fair Speech Pattern: Clear, Excessive and Loud Hallucinations: None Delusions: Grandiose Thought Process: Racing (rapid) and Illogical (at times) Thought Content: positive for Tangential Depressive Symptoms: Insomnia and Difficulty Concentrating Abnormal Motor Activity Signs and Symptoms: Hyperactivity Judgement: Poor Diagnostics Vital Signs (24Hr): Vital Signs - 24 hr 05/03/22 17:40 05/04/22 06:00 Pulse Rate 73 77 Respiratory Rate 16 Blood Pressure 179/70 H 209/92 H Pulse Oximetry 99 Oxygen Delivery Method Room Air Medications Medications Current Medications Acetaminophen (Acetaminophen 325 Mg Tablet) 650 mg PO Q6H PRN PRN Reason: Pain, Mild (Pain Scale 1-3) Last Admin: 05/04/22 06:16 Dose: 650 mg Albuterol Sulfate (Albuterol Sulfate 90 Mcg 8 Gm Inhaler) 2 puff INHALE Q4H PRN PRN Reason: wheezing Last Admin: 05/03/22 08:25 Dose: 2 puff Carbamazepine (Carbamazepine Er 200 Mg Tab.Er.12h) 200 mg PO BID [facility] Last Admin: 05/04/22 08:24 Dose: 200 mg Cefuroxime Axetil (Cefuroxime Axetil 500 Mg Tablet) 500 mg PO BID [facility] Stop: 05/09/22 23:50 Last Admin: 05/04/22 08:24 Dose: 500 mg Ezetimibe (Ezetimibe 10 Mg Tablet) 10 mg PO BEDTIME@1999 [facility] Last Admin: 05/03/22 19:08 Dose: 10 mg Fenofibrate (Fenofibrate 160 Mg Tablet) 160 mg PO DAILY [facility] Last Admin: 05/04/22 08:24 Dose: 160 mg Fluticasone Propionate (Fluticasone Propionate Nasal 16 Gm [place]) 1 spray NOSTRIL-B DAILY [facility] Last Admin: 05/04/22 08:34 Dose: 1 spray Furosemide (Furosemide 40 Mg Tablet) 40 mg PO DAILY [facility]; Protocol Last Admin: 05/04/22 08:24 Dose: 40 mg Ibuprofen (Ibuprofen 400 Mg Tablet) 400 mg PO Q6H PRN PRN Reason: Pain, Mild (Pain Scale 1-3) Last Admin: 05/04/22 06:16 Dose: 400 mg Ibuprofen (Ibuprofen 600 Mg Tablet) 600 mg PO QID [facility] Last Admin: 05/04/22 15:41 Dose: 600 mg Ketoconazole (Ketoconazole 2 % Shampoo 120 Ml Btl) 1 appl TOPICAL DAILY [facility]; Protocol Last Admin: 05/04/22 08:33 Dose: Not Given Labetalol HCl (Labetalol Hcl 200 Mg Tablet) 200 mg PO BID [facility]; Protocol Last Admin: 05/04/22 08:24 Dose: 200 mg Latanoprost (Latanoprost 0.005 % Ophth Noni 2.5 Ml Drops) 1 drop EYE-BOTH BEDTIME@1999 [facility] Last Admin: 05/03/22 19:24 Dose: Not Given Lisinopril (Lisinopril 10 Mg Tablet) 10 mg PO DAILY [facility]; Protocol Last Admin: 05/04/22 08:24 Dose: 10 mg Olanzapine (Olanzapine 5 Mg Tablet) 5 mg PO BEDTIME PRN PRN Reason: Insomnia Olanzapine (Olanzapine 10 Mg Vial) 5 mg IM QID PRN PRN Reason: if refuse po Tegretol/geodon Omeprazole (Omeprazole 20 Mg Capsule.Dr) 20 mg PO BEDTIME [facility] Last Admin: 05/03/22 19:08 Dose: 20 mg Oxybutynin Chloride (Oxybutynin Chloride Er 5 Mg Tab.Er.24) 10 mg PO DAILY [facility] Last Admin: 05/04/22 08:24 Dose: 10 mg Ziprasidone (Ziprasidone 40 Mg Capsule) 40 mg PO DAILY [facility] Last Admin: 05/04/22 08:24 Dose: 40 mg Ziprasidone (Ziprasidone 60 Mg Capsule) 60 mg PO BEDTIME [facility] Last Admin: 05/03/22 19:08 Dose: 60 mg Allergies Allergies Allergy/AdvReac Type Severity Reaction Status Date / Time adhesive [Adhesive] Allergy Mild SKIN Verified 03/18/22 08:34 IRRITATION WITH BLISTERS codeine [Codeine] Allergy Mild UNKNOWN Verified 03/18/22 08:34 methylphenidate Allergy Mild UNKNOWN Verified 03/18/22 08:34 [From [facility]] simvastatin [Simvastatin] Allergy Mild UNKNOWN Verified 03/18/22 08:34 Assessment & Plan Assessment & Plan (1) HTN (hypertension): Status: Acute Code(s): I10 - Essential (primary) hypertension Assessment and Plan: continue to monitor and continue current treatment (2) Severe bipolar I disorder, recurrent manic episode, with psychotic behavior: Status: Acute Code(s): F31.2 - Bipolar disorder, current episode manic severe with psychotic features Assessment and Plan: address sleep with medication- needs better sleep to help stabilize mood Plan Patient started on lisinopril for hypertension continue Geodon and Tegretol patient with limited insight accepting medication feel she is going to be discharged shortly has been in behavioral control Pressured over elaborate recent urosepsis much improved I spent minutes with the patient and/or on the patient floor today, greater than?50% of which was spent counseling/coordinating care. Patient educated on: medication risk/benefits Informed Consent: further education needed Reason for contiued inpatient stay Substantial Risk for: rapid decompensation and med/psych decompensation
[2022-05-04] MEDS: Ezetimibe 10 MG TABLET PO (18:50)
[2022-05-04] MEDS: Ziprasidone 60 MG CAPSULE PO (18:50)
[2022-05-04] MEDS: Omeprazole 20 MG CAPSULE.DR PO (18:50)
[2022-05-04 19:00] VITALS: BP 138/78; PULSE 80
[2022-05-05] MEDS: Ibuprofen 400 MG TABLET PO (05:58)
[2022-05-05] MEDS: Acetaminophen 325 MG TABLET 650 MG PO (05:59)
[2022-05-05 06:00] VITALS: BP 173/72; PULSE 80; RESP 16; TEMP 36.3; O2SAT 99
[2022-05-05] MEDS: lisinopriL 10 MG TABLET PO (08:24)
[2022-05-05] MEDS: Fenofibrate 160 MG TABLET PO (08:25)
[2022-05-05] MEDS: Furosemide 40 MG TABLET PO (08:25)
[2022-05-05] MEDS: Labetalol HCL 200 MG TABLET PO ×2 (08:25→20:58)
[2022-05-05] MEDS: Ziprasidone 40 MG CAPSULE PO (08:25)
[2022-05-05] MEDS: Ibuprofen 600 MG TABLET PO ×4 (08:25→20:57)
[2022-05-05] MEDS: Fluticasone Propionate Nasal 16 GM SPRAY 1 SPRAY NOSTRIL-B (08:36)
[2022-05-05] MEDS: carBAMazepine ER 200 MG TAB.ER.12H PO ×2 (08:36→20:56)
--- NOTE | 2022-05-05 12:08 | P.PNPSI_ITS ---
Subjective Subjective Date of Service: 05/05/22 Reason For Visit: Prema Subjective Notes: Section 8 Interim History: Slept 5 hrs last pm, at stretch , pt reports 8-9 hours! However discussed feeling irritable this am with all going on on unit and other patients being intrussive! ( no insight into her own) Telling me about her adhd and ptsd today and how her antenna are outstretched- 15 feet in either direction- how she is using group room as her room even though she knows she has to share with others on unit - PT discussed managing upset with another patient walked away and took hot shower, by time she came back that pt was medicated and they made up Medication Compliance: Yes Side effects from medications: No Attending Groups: Intermittent Review of Systems Acute medical concerns: No Mental Status Exam Mental Status Exam Patient Appearance: Appropriate Patient Orientation: Person, Place, Time and Situation Level of Consciousness: Awake and Alert Patient Behavior: Talkative and Hyperactive Mood Description: Labile (irritable to fine to grandiose) Patient Cognition Impaired: No Ability to Follow Directions: Fair Speech Pattern: Clear and Rambling Delusions: Grandiose Thought Process: Distracted Thought Content: positive for Circumstantial Depressive Symptoms: Increased Irritability Abnormal Motor Activity Signs and Symptoms: Hyperactivity Judgement: Fair Diagnostics Vital Signs (24Hr): Vital Signs - 24 hr 05/04/22 19:00 05/05/22 06:00 Temperature 97.3 F Pulse Rate 80 80 Respiratory Rate 16 Blood Pressure 138/78 173/72 H Pulse Oximetry 99 Oxygen Delivery Method Room Air Medications Medications Current Medications Acetaminophen (Acetaminophen 325 Mg Tablet) 650 mg PO Q6H PRN PRN Reason: Pain, Mild (Pain Scale 1-3) Last Admin: 05/05/22 05:59 Dose: 650 mg Albuterol Sulfate (Albuterol Sulfate 90 Mcg 8 Gm Inhaler) 2 puff INHALE Q4H PRN PRN Reason: wheezing Last Admin: 05/03/22 08:25 Dose: 2 puff Carbamazepine (Carbamazepine Er 200 Mg Tab.Er.12h) 200 mg PO BID [facility] Last Admin: 05/05/22 08:36 Dose: 200 mg Cefuroxime Axetil (Cefuroxime Axetil 500 Mg Tablet) 500 mg PO BID [facility] Stop: 05/09/22 23:50 Last Admin: 05/05/22 08:25 Dose: 500 mg Ezetimibe (Ezetimibe 10 Mg Tablet) 10 mg PO BEDTIME@1999 [facility] Last Admin: 05/04/22 18:50 Dose: 10 mg Fenofibrate (Fenofibrate 160 Mg Tablet) 160 mg PO DAILY [facility] Last Admin: 05/05/22 08:25 Dose: 160 mg Fluticasone Propionate (Fluticasone Propionate Nasal 16 Gm [place]) 1 spray NOSTRIL-B DAILY [facility] Last Admin: 05/05/22 08:36 Dose: 1 spray Furosemide (Furosemide 40 Mg Tablet) 40 mg PO DAILY [facility]; Protocol Last Admin: 05/05/22 08:25 Dose: 40 mg Ibuprofen (Ibuprofen 400 Mg Tablet) 400 mg PO Q6H PRN PRN Reason: Pain, Mild (Pain Scale 1-3) Last Admin: 05/05/22 05:58 Dose: 400 mg Ibuprofen (Ibuprofen 600 Mg Tablet) 600 mg PO QID [facility] Last Admin: 05/05/22 08:25 Dose: 600 mg Ketoconazole (Ketoconazole 2 % Shampoo 120 Ml Btl) 1 appl TOPICAL DAILY [facility]; Protocol Last Admin: 05/05/22 08:36 Dose: Not Given Labetalol HCl (Labetalol Hcl 200 Mg Tablet) 200 mg PO BID [facility]; Protocol Last Admin: 05/05/22 08:25 Dose: 200 mg Latanoprost (Latanoprost 0.005 % Ophth Noni 2.5 Ml Drops) 1 drop EYE-BOTH BEDTIME@1999 [facility] Last Admin: 05/04/22 18:51 Dose: Not Given Lisinopril (Lisinopril 10 Mg Tablet) 10 mg PO DAILY [facility]; Protocol Last Admin: 05/05/22 08:24 Dose: 10 mg Lorazepam (Lorazepam 1 Mg Tablet) 1 mg PO BEDTIME MRX1 [facility] Last Admin: 05/04/22 18:52 Dose: Not Given Olanzapine (Olanzapine 5 Mg Tablet) 5 mg PO BEDTIME PRN PRN Reason: Insomnia Olanzapine (Olanzapine 10 Mg Vial) 5 mg IM QID PRN PRN Reason: if refuse po Tegretol/geodon Omeprazole (Omeprazole 20 Mg Capsule.Dr) 20 mg PO BEDTIME [facility] Last Admin: 05/04/22 18:50 Dose: 20 mg Oxybutynin Chloride (Oxybutynin Chloride Er 5 Mg Tab.Er.24) 10 mg PO DAILY [facility] Last Admin: 05/05/22 08:24 Dose: 10 mg Ziprasidone (Ziprasidone 40 Mg Capsule) 40 mg PO DAILY [facility] Last Admin: 05/05/22 08:25 Dose: 40 mg Ziprasidone (Ziprasidone 60 Mg Capsule) 60 mg PO BEDTIME [facility] Last Admin: 05/04/22 18:50 Dose: 60 mg Allergies Allergies Allergy/AdvReac Type Severity Reaction Status Date / Time adhesive [Adhesive] Allergy Mild SKIN Verified 03/18/22 08:34 IRRITATION WITH BLISTERS codeine [Codeine] Allergy Mild UNKNOWN Verified 03/18/22 08:34 methylphenidate Allergy Mild UNKNOWN Verified 03/18/22 08:34 [From [facility]] simvastatin [Simvastatin] Allergy Mild UNKNOWN Verified 03/18/22 08:34 Assessment & Plan Assessment & Plan (1) HTN (hypertension): Status: Acute Code(s): I10 - Essential (primary) hypertension Assessment and Plan: continue to monitor and continue current treatment (2) Severe bipolar I disorder, recurrent manic episode, with psychotic behavior: Status: Acute Code(s): F31.2 - Bipolar disorder, current episode manic severe with psychotic features Assessment and Plan: address sleep with medication- needs better sleep to help stabilize mood Plan Patient started on lisinopril for hypertension continue Geodon and Tegretol patient with limited insight accepting medication feel she is going to be discharged shortly has been in behavioral control Pressured over elaborate recent urosepsis much improved I spent minutes with the patient and/or on the patient floor today, greater than?50% of which was spent counseling/coordinating care. Patient educated on: medication risk/benefits and therapeutic strategies Informed Consent: understands Reason for contiued inpatient stay Substantial Risk for: inability to function and rapid decompensation
[2022-05-05 20:50] VITALS: BP 165/76; PULSE 80; TEMP 36.2
[2022-05-05] MEDS: Ziprasidone 60 MG CAPSULE PO (20:57)
[2022-05-05] MEDS: Omeprazole 20 MG CAPSULE.DR PO (20:58)
[2022-05-05] MEDS: LORazepam 1 MG TABLET PO (20:58)
[2022-05-05] MEDS: Ezetimibe 10 MG TABLET PO (20:58)
[2022-05-05] MEDS: Latanoprost 0.005 % Ophth Sol 2.5 ML DROPS 1 DROP EYE-BOTH (21:05)
--- NOTE | 2022-05-06 05:48 | PC.NURSE ---
[id number] PT REPORTED AN UNWITNESSED FALL IN HER BATHROOM AND HIT HER HEAD ON THE WALL. PT WAS ASSESSED BY RN. NO CHANGE IN MENTAL STATUS. NO PAIN REPORTED. VITAL SIGNS STABLE, BLOOD PRESSURE ELEVATED. MD NOTIFIED. CONTINUING TO MONITOR PER MD. NURSING GENERAL PRACTITIONER AWARE. INCIDENT REPORT FILED.
[2022-05-06 06:00] VITALS: BP 180/88; PULSE 98; RESP 16; O2SAT 99
[2022-05-06] MEDS: Acetaminophen 325 MG TABLET 650 MG PO (07:05)
[2022-05-06] MEDS: Ibuprofen 400 MG TABLET PO (07:06)
[2022-05-06] MEDS: Labetalol HCL 200 MG TABLET PO ×2 (08:57→18:34)
[2022-05-06] MEDS: Ziprasidone 40 MG CAPSULE PO (08:57)
[2022-05-06] MEDS: Furosemide 40 MG TABLET PO (08:58)
[2022-05-06] MEDS: Fenofibrate 160 MG TABLET PO (08:58)
[2022-05-06] MEDS: Ibuprofen 600 MG TABLET PO ×4 (08:58→18:34)
[2022-05-06] MEDS: lisinopriL 10 MG TABLET PO ×2 (08:58→11:23)
[2022-05-06] MEDS: carBAMazepine ER 200 MG TAB.ER.12H PO (08:58)
--- NOTE | 2022-05-06 10:37 | HO.PSYCHPN ---
Subjective Subjective Date of Service: 05/06/22 Reason For Visit: Betty Interim History: Met with patient and social media manager Patient remains manic, intrusive, without insight. She is angry, delusional. Patient said that her lower will be on the unit this afternoon with paperwork that says she is to be discharged today, immediately. Patient does not respond well to reality testing. continues to abscond with people's belongings and supplies. Pinched a male staff person is buttox and dismissed redirection. Patient remains hypertensive; freelance copywriter discussed with hospitalist who recommended increasing lisinopril to 20 mg; patient agrees with this. Patient was sitting on the toilet, when getting up, patient leaned forward and hit her head on the wall; does not want a head CT and it does not seem warranted. Mental Status Exam Mental Status Exam Narrative: Pt is alert and oriented; behavior remains manic, irritable, intrusive, disorganized; Overweight, Bilateral LE edema (improved); adequately groomed and dressed in casual attire;mood is described as good but affect remains labile and angry, expansive; eye contact is good; Speech is pressured and hyperverbal;; normal volume and prosody; psychomotor agitation present; thought process can be goal directed for a moment but still quickly becomes tangential, talking excessively about unrelated topics; Thought content is on discharge, angered at being in hospital; delusional thinking present; denies any SI/HI. ?Patients insight and judgment are impaired. She does not think she has bipolar. Diagnostics Vital Signs (24Hr): Vital Signs - 24 hr 05/05/22 20:50 05/06/22 06:00 Temperature 97.1 F Pulse Rate 80 98 Respiratory Rate 16 Blood Pressure 165/76 H 180/88 H Pulse Oximetry 99 Oxygen Delivery Method Room Air Medications Medications Current Medications Acetaminophen (Acetaminophen 325 Mg Tablet) 650 mg PO Q6H PRN PRN Reason: Pain, Mild (Pain Scale 1-3) Last Admin: 05/06/22 07:05 Dose: 650 mg Albuterol Sulfate (Albuterol Sulfate 90 Mcg 8 Gm Inhaler) 2 puff INHALE Q4H PRN PRN Reason: wheezing Last Admin: 05/03/22 08:25 Dose: 2 puff Carbamazepine (Carbamazepine Er 200 Mg Tab.Er.12h) 200 mg PO BID [facility] Last Admin: 05/06/22 08:58 Dose: 200 mg Cefuroxime Axetil (Cefuroxime Axetil 500 Mg Tablet) 500 mg PO BID [facility] Stop: 05/09/22 23:50 Last Admin: 05/06/22 08:58 Dose: 500 mg Ezetimibe (Ezetimibe 10 Mg Tablet) 10 mg PO BEDTIME@1999 [facility] Last Admin: 05/05/22 20:58 Dose: 10 mg Fenofibrate (Fenofibrate 160 Mg Tablet) 160 mg PO DAILY [facility] Last Admin: 05/06/22 08:58 Dose: 160 mg Fluticasone Propionate (Fluticasone Propionate Nasal 16 Gm [place]) 1 spray NOSTRIL-B DAILY [facility] Last Admin: 05/05/22 08:36 Dose: 1 spray Furosemide (Furosemide 40 Mg Tablet) 40 mg PO DAILY [facility]; Protocol Last Admin: 05/06/22 08:58 Dose: 40 mg Ibuprofen (Ibuprofen 400 Mg Tablet) 400 mg PO Q6H PRN PRN Reason: Pain, Mild (Pain Scale 1-3) Last Admin: 05/06/22 07:06 Dose: 400 mg Ibuprofen (Ibuprofen 600 Mg Tablet) 600 mg PO QID [facility] Last Admin: 05/06/22 08:58 Dose: 600 mg Ketoconazole (Ketoconazole 2 % Shampoo 120 Ml Btl) 1 appl TOPICAL DAILY [facility]; Protocol Last Admin: 05/05/22 08:36 Dose: Not Given Labetalol HCl (Labetalol Hcl 200 Mg Tablet) 200 mg PO BID [facility]; Protocol Last Admin: 05/06/22 08:57 Dose: 200 mg Latanoprost (Latanoprost 0.005 % Ophth Noni 2.5 Ml Drops) 1 drop EYE-BOTH BEDTIME@1999 [facility] Last Admin: 05/05/22 21:05 Dose: 1 drop Lisinopril (Lisinopril 10 Mg Tablet) 10 mg PO DAILY [facility]; Protocol Last Admin: 05/06/22 08:58 Dose: 10 mg Lorazepam (Lorazepam 1 Mg Tablet) 1 mg PO BEDTIME MRX1 [facility] Last Admin: 05/06/22 03:23 Dose: Not Given Olanzapine (Olanzapine 5 Mg Tablet) 5 mg PO BEDTIME PRN PRN Reason: Insomnia Olanzapine (Olanzapine 10 Mg Vial) 5 mg IM QID PRN PRN Reason: if refuse po Tegretol/geodon Omeprazole (Omeprazole 20 Mg Capsule.) 20 mg PO BEDTIME [facility] Last Admin: 05/05/22 20:58 Dose: 20 mg Oxybutynin Chloride (Oxybutynin Chloride Er 5 Mg Tab.Er.24) 10 mg PO DAILY [facility] Last Admin: 05/06/22 08:58 Dose: 10 mg Ziprasidone (Ziprasidone 40 Mg Capsule) 40 mg PO DAILY [facility] Last Admin: 05/06/22 08:57 Dose: 40 mg Ziprasidone (Ziprasidone 60 Mg Capsule) 60 mg PO BEDTIME [facility] Last Admin: 05/05/22 20:57 Dose: 60 mg Allergies Allergies Allergy/AdvReac Type Severity Reaction Status Date / Time adhesive [Adhesive] Allergy Mild SKIN Verified 03/18/22 08:34 IRRITATION WITH BLISTERS codeine [Codeine] Allergy Mild UNKNOWN Verified 03/18/22 08:34 methylphenidate Allergy Mild UNKNOWN Verified 03/18/22 08:34 [From [facility]] simvastatin [Simvastatin] Allergy Mild UNKNOWN Verified 03/18/22 08:34 Assessment & Plan Assessment & Plan (1) Severe bipolar I disorder, recurrent manic episode, with psychotic behavior: Status: Acute Code(s): F31.2 - Bipolar disorder, current episode manic severe with psychotic features Assessment and Plan: address sleep with medication- needs better sleep to help stabilize mood (2) HTN (hypertension): Status: Acute Code(s): I10 - Essential (primary) hypertension Assessment and Plan: continue to monitor and continue current treatment Plan Patient is a 61-year-old female with history of bipolar disorder who was involuntarily committed to inpatient psychiatric hospitalization for betty.? Patient remains manic however was transferred to hospital floor for treatment for urosepsis.? Patient has been medically cleared and returns to for continued treatment.? Patient is very angry and hostile towards freelance copywriter.? She is angry she is not being discharged tomorrow says she has legal documents saying that her discharges post to be several days ago.? She shows freelance copywriter these legal documents which clearly say that patient is committed for no more than 6 months.? Patient remains manic, without any insight, delusional and intrusive to others.? One of her peers said she is scared of this patient since the patient was coming into her room and verbally accosting her.? Web Retailer reviewed medications that are court ordered and patient agreed to increasing Tegretol. 05/06 patient remains delusional, manic, intrusive and no insight; continues to abscond with people's belongings and supplies, touching people without permission, sexually inappropriate, touching male staff's buttocks. -will increase Tegretol; will give Geodon some more time and increased dose, however if not effective will go back to Zyprexa. PLAN: sectinion 8 Court ruled for involuntary commitment and substituted judgment Q15 UTI: ceftin 500mg BID for 8 days (per [facility] hosptialist Vlad Medications: continue Geodon 40mg AM (COURT ORDERED) *give IM zyprexa 5mg if refuses dose Increase to geodon 60mg qhs (COURT ORDERED) *give IM zyprexa 5mg if refuses dose Continue Tegretol ER 200 mg in the morning (COURT ORDERED) *give IM zyprexa 5mg if refuses dose Increase Tegretol ER to 300 mg q.h.s. Over the weekend patient started on Ativan q.h.s. for insomnia Will discontinue Zyprexa 5 mg q.h.s. for now to see if patient can be stabilized on only 1 antipsychotic; the 1 with the more favorable side effect profile Patient intermittently taking Lasix; freelance copywriter discussed case with hospitalist who said that patient should remain on current dose for now and that this is appropriate dose and frequency. no script for Flovent other than one on 11/2021 (only one other script for this back in 03/2021) Substituted judgment medications include the following: Ziprasidone Zyprexa Tegretol Abilify/Maintena Risperidone/Consta Ativan I spent minutes with the patient and/or on the patient floor today, greater than?50% of which was spent counseling/coordinating care. Patient educated on: diagnosis and medication risk/benefits Informed Consent: does not understand and further education needed Reason for contiued inpatient stay Substantial Risk for: inability to function and rapid decompensation
[2022-05-06] MEDS: Fluticasone Propionate Nasal 16 GM SPRAY 1 SPRAY NOSTRIL-B (11:21)
[2022-05-06] MEDS: carBAMazepine ER 100 MG TAB.ER.12H 300 MG PO (18:33)
[2022-05-06] MEDS: Ziprasidone 60 MG CAPSULE PO (18:34)
[2022-05-06] MEDS: Ezetimibe 10 MG TABLET PO (18:34)
[2022-05-06] MEDS: LORazepam 1 MG TABLET PO (18:34)
[2022-05-06] MEDS: Omeprazole 20 MG CAPSULE.DR PO (18:34)
[2022-05-06 18:53] VITALS: BP 147/61; PULSE 91
--- NOTE | 2022-05-07 | ECG_ITS ---
Test Reason : med monitoring Blood Pressure : / mmHG Vent. Rate : 083 BPM Atrial Rate : 083 BPM P-R Int : 184 ms QRS Dur : 084 ms QT Int : 370 ms P-R-T Axes : 049 006 051 degrees QTc Int : 434 ms Normal sinus rhythm Normal ECG When compared with ECG of 29-APR-2022 02:11, No significant change was found Referred By: John Gonzales Electronically Signed By:HARVINDER DOMINIQUE
[2022-05-07] MEDS: Acetaminophen 325 MG TABLET 650 MG PO ×2 (04:38→21:43)
[2022-05-07] MEDS: Ibuprofen 400 MG TABLET PO (04:39)
[2022-05-07 06:00] VITALS: BP 167/74; PULSE 95; RESP 16; TEMP 36.7; O2SAT 98
[2022-05-07 08:10] VITALS: BP 167/74; PULSE 95; RESP 20; O2SAT 98
[2022-05-07] MEDS: Ziprasidone 40 MG CAPSULE PO (08:12)
[2022-05-07] MEDS: Ibuprofen 600 MG TABLET PO ×3 (08:12→21:52)
[2022-05-07] MEDS: lisinopriL 20 MG TABLET PO (08:12)
[2022-05-07] MEDS: Fenofibrate 160 MG TABLET PO (08:13)
[2022-05-07] MEDS: Labetalol HCL 200 MG TABLET PO ×2 (08:13→21:42)
[2022-05-07] MEDS: Furosemide 40 MG TABLET PO (08:13)
[2022-05-07] MEDS: carBAMazepine ER 200 MG TAB.ER.12H PO (08:13)
--- NOTE | 2022-05-07 10:33 | P.PNPSI_ITS ---
Subjective Subjective Date of Service: 05/07/22 Reason For Visit: Prema Interim History: Patient with pressured speech and tangential, going on about irrelevant unrelated topics, unable to maintain attention on anyone topic long enough to have meaningful dialogue. Remains without insight. Intrusive, delusional. Patient asks senior technical writer why she is considered delusional but then dismisses all examples, including that she worried senior technical writer would slip a date rape drug into her medication. Patient talked about how a specific male staff member is trying to control her; says he is stealing things from her ?room in the middle of the night, trying to make [her] look like a crazy lady?? Doing unlawful searches and thefts.?? She names a specific patient on the unit and another specific staff member as also involved in this scheme both a part of this conspiracy. Mental Status Exam Mental Status Exam Narrative: Pt is alert and oriented; behavior remains manic, irritable, intrusive, disorganized; Overweight, Bilateral LE edema (improved); adequately groomed and dressed in casual attire;mood is described as good but affect remains labile and angry, expansive; eye contact is good; Speech is pressured and hyperverbal;; normal volume and prosody; psychomotor agitation present; thought process can be goal directed for a moment but still quickly becomes tangential, talking excessively about unrelated topics; Thought content is on discharge, angered at being in hospital; delusional thinking present; denies any SI/HI. ?Patients insight and judgment are impaired. She does not think she has bipolar. Diagnostics Vital Signs (24Hr): Vital Signs - 24 hr 05/06/22 18:53 05/07/22 06:00 05/07/22 08:10 Temperature 98.0 F Pulse Rate 91 95 95 Respiratory Rate 16 20 Blood Pressure 147/61 H 167/74 H 167/74 H Pulse Oximetry 98 98 Oxygen Delivery Method Room Air Room Air Medications Medications Current Medications Acetaminophen (Acetaminophen 325 Mg Tablet) 650 mg PO Q6H PRN PRN Reason: Pain, Mild (Pain Scale 1-3) Last Admin: 05/07/22 04:38 Dose: 650 mg Albuterol Sulfate (Albuterol Sulfate 90 Mcg 8 Gm Inhaler) 2 puff INHALE Q4H PRN PRN Reason: wheezing Last Admin: 05/03/22 08:25 Dose: 2 puff Carbamazepine (Carbamazepine Er 200 Mg Tab.Er.12h) 200 mg PO DAILY [facility] Last Admin: 05/07/22 08:13 Dose: 200 mg Carbamazepine (Carbamazepine Er 100 Mg Tab.Er.12h) 300 mg PO BEDTIME [facility] Last Admin: 05/06/22 18:33 Dose: 300 mg Cefuroxime Axetil (Cefuroxime Axetil 500 Mg Tablet) 500 mg PO BID [facility] Stop: 05/09/22 23:50 Last Admin: 05/07/22 08:12 Dose: 500 mg Ezetimibe (Ezetimibe 10 Mg Tablet) 10 mg PO BEDTIME@1999 [facility] Last Admin: 05/06/22 18:34 Dose: 10 mg Fenofibrate (Fenofibrate 160 Mg Tablet) 160 mg PO DAILY [facility] Last Admin: 05/07/22 08:13 Dose: 160 mg Fluticasone Propionate (Fluticasone Propionate Nasal 16 Gm [place]) 1 spray NOSTRIL-B DAILY [facility] Last Admin: 05/07/22 09:43 Dose: Not Given Furosemide (Furosemide 40 Mg Tablet) 40 mg PO DAILY [facility]; Protocol Last Admin: 05/07/22 08:13 Dose: 40 mg Ibuprofen (Ibuprofen 400 Mg Tablet) 400 mg PO Q6H PRN PRN Reason: Pain, Mild (Pain Scale 1-3) Last Admin: 05/07/22 04:39 Dose: 400 mg Ibuprofen (Ibuprofen 600 Mg Tablet) 600 mg PO QID [facility] Last Admin: 05/07/22 08:12 Dose: 600 mg Ketoconazole (Ketoconazole 2 % Shampoo 120 Ml Btl) 1 appl TOPICAL DAILY [facility]; Protocol Last Admin: 05/07/22 08:22 Dose: Not Given Labetalol HCl (Labetalol Hcl 200 Mg Tablet) 200 mg PO BID [facility]; Protocol Last Admin: 05/07/22 08:13 Dose: 200 mg Latanoprost (Latanoprost 0.005 % Ophth Noni 2.5 Ml Drops) 1 drop EYE-BOTH BEDTIME@1999 [facility] Last Admin: 05/06/22 20:02 Dose: Not Given Lisinopril (Lisinopril 20 Mg Tablet) 20 mg PO DAILY [facility]; Protocol Last Admin: 05/07/22 08:12 Dose: 20 mg Lorazepam (Lorazepam 1 Mg Tablet) 1 mg PO BEDTIME MRX1 [facility] Last Admin: 05/06/22 22:17 Dose: Not Given Olanzapine (Olanzapine 5 Mg Tablet) 5 mg PO BEDTIME PRN PRN Reason: Insomnia Olanzapine (Olanzapine 10 Mg Vial) 5 mg IM QID PRN PRN Reason: if refuse po Tegretol/geodon Omeprazole (Omeprazole 20 Mg Capsule.Dr) 20 mg PO BEDTIME [facility] Last Admin: 05/06/22 18:34 Dose: 20 mg Oxybutynin Chloride (Oxybutynin Chloride Er 5 Mg Tab.Er.24) 10 mg PO DAILY [facility] Last Admin: 05/07/22 08:13 Dose: 10 mg Ziprasidone (Ziprasidone 40 Mg Capsule) 40 mg PO DAILY [facility] Last Admin: 05/07/22 08:12 Dose: 40 mg Ziprasidone (Ziprasidone 60 Mg Capsule) 60 mg PO BEDTIME [facility] Last Admin: 05/06/22 18:34 Dose: 60 mg Allergies Allergies Allergy/AdvReac Type Severity Reaction Status Date / Time adhesive [Adhesive] Allergy Mild SKIN Verified 03/18/22 08:34 IRRITATION WITH BLISTERS codeine [Codeine] Allergy Mild UNKNOWN Verified 03/18/22 08:34 methylphenidate Allergy Mild UNKNOWN Verified 03/18/22 08:34 [From [facility]] simvastatin [Simvastatin] Allergy Mild UNKNOWN Verified 03/18/22 08:34 Assessment & Plan Assessment & Plan (1) Severe bipolar I disorder, recurrent manic episode, with psychotic behavior: Status: Inactive Code(s): F31.2 - Bipolar disorder, current episode manic severe with psychotic features Assessment and Plan: address sleep with medication- needs better sleep to help stabilize mood (2) HTN (hypertension): Status: Acute Code(s): I10 - Essential (primary) hypertension Assessment and Plan: continue to monitor and continue current treatment Plan Patient is a 61-year-old female with history of bipolar disorder who was involuntarily committed to inpatient psychiatric hospitalization for prema.? Patient remains manic however was transferred to hospital floor for treatment for urosepsis.? Patient has been medically cleared and returns to for continued treatment.? Patient is very angry and hostile towards senior technical writer.? She is angry she is not being discharged tomorrow says she has legal documents saying that her discharges post to be several days ago.? She shows senior technical writer these legal documents which clearly say that patient is committed for no more than 6 months.? Patient remains manic, without any insight, delusional and intrusive to others.? One of her peers said she is scared of this patient since the patient was coming into her room and verbally accosting her.? Habilitation Specialist reviewed medications that are court ordered and patient agreed to increasing Tegretol. 05/06 patient remains delusional, manic, intrusive and no insight; continues to abscond with people's belongings and supplies, touching people without permission, sexually inappropriate, touching male staff's buttocks. -will increase Tegretol; will give Geodon some more time and increased dose, however if not effective will go back to Zyprexa. 05/07 delusional, no insight; taking meds. Will consider adding Zyprexa or increasing either Tegretol or Geodon further. PLAN: sectinion 8 Court ruled for involuntary commitment and substituted judgment Q15 UTI: ceftin 500mg BID for 8 days (per [facility] hosptialist Vlad Medications: continue Geodon 40mg AM (COURT ORDERED) *give IM zyprexa 5mg if refuses dose Increase to geodon 60mg qhs (COURT ORDERED) *give IM zyprexa 5mg if refuses dose Continue Tegretol ER 200 mg in the morning (COURT ORDERED) *give IM zyprexa 5mg if refuses dose INCREASE to Tegretol ER to 300 mg q.h.s. Over the weekend patient started on Ativan q.h.s. for insomnia May restart Zyprexa qhs since pt not sleeping Will discontinue Zyprexa 5 mg q.h.s. for now to see if patient can be stabilized on only 1 antipsychotic; the 1 with the more favorable side effect profile Patient intermittently taking Lasix; senior technical writer discussed case with hospitalist who said that patient should remain on current dose for now and that this is appropriate dose and frequency. no script for Flovent other than one on 11/2021 (only one other script for this back in 03/2021) Substituted judgment medications include the following: Ziprasidone Zyprexa Tegretol Abilify/Maintena Risperidone/Consta Ativan I spent minutes with the patient and/or on the patient floor today, greater than?50% of which was spent counseling/coordinating care. Patient educated on: diagnosis Informed Consent: does not understand Reason for contiued inpatient stay Substantial Risk for: inability to function and rapid decompensation
[2022-05-07] MEDS: Ziprasidone 20 MG CAPSULE PO (16:57)
[2022-05-07] MEDS: carBAMazepine ER 100 MG TAB.ER.12H PO (16:57)
[2022-05-07 21:40] VITALS: BP 139/63; PULSE 82; TEMP 36.1; O2SAT 98
[2022-05-07] MEDS: Latanoprost 0.005 % Ophth Sol 2.5 ML DROPS 1 DROP EYE-BOTH (21:41)
[2022-05-07] MEDS: Omeprazole 20 MG CAPSULE.DR PO (21:42)
[2022-05-07] MEDS: carBAMazepine ER 100 MG TAB.ER.12H 300 MG PO (21:42)
[2022-05-07] MEDS: Ziprasidone 60 MG CAPSULE PO (21:42)
[2022-05-07] MEDS: LORazepam 1 MG TABLET PO (21:42)
[2022-05-07] MEDS: Ezetimibe 10 MG TABLET PO (22:08)
[2022-05-08 06:00] VITALS: BP 150/67; PULSE 83; RESP 16; TEMP 36.6; O2SAT 95
[2022-05-08] MEDS: Ibuprofen 600 MG TABLET PO ×2 (06:44→14:18)
[2022-05-08] MEDS: Acetaminophen 325 MG TABLET 650 MG PO ×2 (06:45→14:18)
[2022-05-08] MEDS: carBAMazepine ER 100 MG TAB.ER.12H 300 MG PO ×2 (09:05→20:47)
[2022-05-08] MEDS: Furosemide 40 MG TABLET PO (09:06)
[2022-05-08] MEDS: Labetalol HCL 200 MG TABLET PO ×2 (09:06→20:47)
[2022-05-08] MEDS: lisinopriL 20 MG TABLET PO (09:06)
[2022-05-08] MEDS: Fluticasone Propionate Nasal 16 GM SPRAY 1 SPRAY NOSTRIL-B (09:07)
[2022-05-08] MEDS: Ziprasidone 60 MG CAPSULE PO (09:07)
[2022-05-08] MEDS: Fenofibrate 160 MG TABLET PO (09:07)
[2022-05-08] MEDS: Albuterol Sulfate 90 MCG 8 GM INHALER 2 PUFF INHALE (09:15)
--- NOTE | 2022-05-08 14:37 | P.PNPSI_ITS ---
Subjective Subjective Date of Service: 05/08/22 Reason For Visit: Betty Interim History: Manic, intrusive, making derogatory sometimes sexual remarks about staff. Patient agrees however to change medications back to Zyprexa, in place of Geodon. Also agrees to Ativan at bedtime Mental Status Exam Mental Status Exam Narrative: Pt is alert and oriented; behavior remains manic, irritable, intrusive, disorganized; Overweight, Bilateral LE edema (improved); adequately groomed and dressed in casual attire;mood is described as good but affect remains labile and angry, expansive; eye contact is good; Speech is pressured and hyperverbal;; normal volume and prosody; psychomotor agitation present; thought process can be goal directed for a moment but still quickly becomes tangential, talking excessively about unrelated topics; Thought content is on discharge, angered at being in hospital; delusional thinking present; denies any SI/HI. ?Patients insight and judgment are impaired. She does not think she has bipolar. Diagnostics Vital Signs (24Hr): Vital Signs - 24 hr 05/07/22 21:40 05/08/22 06:00 Temperature 96.9 F 97.8 F Pulse Rate 82 83 Respiratory Rate 16 Blood Pressure 139/63 150/67 H Pulse Oximetry 98 95 Oxygen Delivery Method Room Air Room Air Medications Medications Current Medications Acetaminophen (Acetaminophen 325 Mg Tablet) 650 mg PO Q6H PRN PRN Reason: Pain, Mild (Pain Scale 1-3) Last Admin: 05/08/22 14:18 Dose: 650 mg Albuterol Sulfate (Albuterol Sulfate 90 Mcg 8 Gm Inhaler) 2 puff INHALE Q4H PRN PRN Reason: wheezing Last Admin: 05/08/22 09:15 Dose: 2 puff Carbamazepine (Carbamazepine Er 100 Mg Tab.Er.12h) 300 mg PO BEDTIME [facility] Last Admin: 05/07/22 21:42 Dose: 300 mg Carbamazepine (Carbamazepine Er 100 Mg Tab.Er.12h) 300 mg PO DAILY [facility] Last Admin: 05/08/22 09:05 Dose: 300 mg Cefuroxime Axetil (Cefuroxime Axetil 500 Mg Tablet) 500 mg PO BID [facility] Stop: 05/09/22 23:50 Last Admin: 05/08/22 09:07 Dose: 500 mg Ezetimibe (Ezetimibe 10 Mg Tablet) 10 mg PO BEDTIME@1999 [facility] Last Admin: 05/07/22 22:08 Dose: 10 mg Fenofibrate (Fenofibrate 160 Mg Tablet) 160 mg PO DAILY [facility] Last Admin: 05/08/22 09:07 Dose: 160 mg Fluticasone Propionate (Fluticasone Propionate Nasal 16 Gm [place]) 1 spray NOSTRIL-B DAILY [facility] Last Admin: 05/08/22 09:07 Dose: 1 spray Furosemide (Furosemide 40 Mg Tablet) 40 mg PO DAILY [facility]; Protocol Last Admin: 05/08/22 09:06 Dose: 40 mg Ibuprofen (Ibuprofen 600 Mg Tablet) 600 mg PO Q6H PRN PRN Reason: mild pain Last Admin: 05/08/22 14:18 Dose: 600 mg Ketoconazole (Ketoconazole 2 % Shampoo 120 Ml Btl) 1 appl TOPICAL DAILY [facility]; Protocol Last Admin: 05/08/22 09:11 Dose: Not Given Labetalol HCl (Labetalol Hcl 200 Mg Tablet) 200 mg PO BID [facility]; Protocol Last Admin: 05/08/22 09:06 Dose: 200 mg Latanoprost (Latanoprost 0.005 % Ophth Noni 2.5 Ml Drops) 1 drop EYE-BOTH BEDTIME@1999 [facility] Last Admin: 05/07/22 21:41 Dose: 1 drop Lisinopril (Lisinopril 20 Mg Tablet) 20 mg PO DAILY [facility]; Protocol Last Admin: 05/08/22 09:06 Dose: 20 mg Lorazepam (Lorazepam 1 Mg Tablet) 1 mg PO BEDTIME MRX1 [facility] Last Admin: 05/08/22 04:06 Dose: Not Given Olanzapine (Olanzapine 5 Mg Tablet) 5 mg PO BEDTIME PRN PRN Reason: Insomnia Olanzapine (Olanzapine 10 Mg Vial) 5 mg IM QID PRN PRN Reason: if refuse po Tegretol/geodon Omeprazole (Omeprazole 20 Mg Capsule.Dr) 20 mg PO BEDTIME [facility] Last Admin: 05/07/22 21:42 Dose: 20 mg Oxybutynin Chloride (Oxybutynin Chloride Er 5 Mg Tab.Er.24) 10 mg PO DAILY [facility] Last Admin: 05/08/22 09:06 Dose: 10 mg Ziprasidone (Ziprasidone 60 Mg Capsule) 60 mg PO BEDTIME [facility] Last Admin: 05/07/22 21:42 Dose: 60 mg Ziprasidone (Ziprasidone 60 Mg Capsule) 60 mg PO DAILY [facility] Last Admin: 05/08/22 09:07 Dose: 60 mg Allergies Allergies Allergy/AdvReac Type Severity Reaction Status Date / Time adhesive [Adhesive] Allergy Mild SKIN Verified 03/18/22 08:34 IRRITATION WITH BLISTERS codeine [Codeine] Allergy Mild UNKNOWN Verified 03/18/22 08:34 methylphenidate Allergy Mild UNKNOWN Verified 03/18/22 08:34 [From [facility]] simvastatin [Simvastatin] Allergy Mild UNKNOWN Verified 03/18/22 08:34 Assessment & Plan Assessment & Plan (1) Severe bipolar I disorder, recurrent manic episode, with psychotic behavior: Status: Inactive Code(s): F31.2 - Bipolar disorder, current episode manic severe with psychotic features Assessment and Plan: address sleep with medication- needs better sleep to help stabilize mood (2) HTN (hypertension): Status: Acute Code(s): I10 - Essential (primary) hypertension Assessment and Plan: continue to monitor and continue current treatment Plan Patient is a 61-year-old female with history of bipolar disorder who was involuntarily committed to inpatient psychiatric hospitalization for betty.? Patient remains manic however was transferred to hospital floor for treatment for urosepsis.? Patient has been medically cleared and returns to for continued treatment.? Patient is very angry and hostile towards senior copywriter.? She is angry she is not being discharged tomorrow says she has legal documents saying that her discharges post to be several days ago.? She shows senior copywriter these legal documents which clearly say that patient is committed for no more than 6 months.? Patient remains manic, without any insight, delusional and intrusive to others.? One of her peers said she is scared of this patient since the patient was coming into her room and verbally accosting her.? Vice President For Philanthropy reviewed medications that are court ordered and patient agreed to increasing Tegretol. 05/06 patient remains delusional, manic, intrusive and no insight; continues to abscond with people's belongings and supplies, touching people without permission, sexually inappropriate, touching male staff's buttocks. -will increase Tegretol; will give Geodon some more time and increased dose, however if not effective will go back to Zyprexa. 05/07 delusional, no insight; taking meds. Will consider adding Zyprexa or increasing either Tegretol or Geodon further. -BP's better with increased lisinopril PLAN: sectinion 8 Court ruled for involuntary commitment and substituted judgment Q15 UTI: ceftin 500mg BID for 8 days (per PA hosptialist Vlad Medications: DC Geodon (not that helpful) RESTART Zyprexa 5mg qhs (COURT ORDERED) *give IM zyprexa 5mg if refuses dose; patient in the past as needed 5 mg b.i.d. INCREASE to Tegretol ER to 300 mg BIDg (COURT ORDERED) *give IM zyprexa 5mg if refuses dose Ativan 1 mg q.h.s.; in the past patient has needed higher dose to break betty. Will start low and increase as needed Lisinopril 20 mg daily no script for Flovent other than one on 11/2021 (only one other script for this back in 03/2021) Substituted judgment medications include the following: Ziprasidone Zyprexa Tegretol Abilify/Maintena Risperidone/Consta Ativan I spent minutes with the patient and/or on the patient floor today, greater than?50% of which was spent counseling/coordinating care. Patient educated on: diagnosis, medication risk/benefits and medical condition Informed Consent: understands and does not understand Reason for contiued inpatient stay Substantial Risk for: inability to function
[2022-05-08 20:00] VITALS: BP 143/65; PULSE 82; RESP 18; TEMP 36.1; O2SAT 98
[2022-05-08] MEDS: OLANZapine 5 MG TABLET PO (20:46)
[2022-05-08] MEDS: Latanoprost 0.005 % Ophth Sol 2.5 ML DROPS 1 DROP EYE-BOTH (20:46)
[2022-05-08] MEDS: Ezetimibe 10 MG TABLET PO (20:46)
[2022-05-08] MEDS: Omeprazole 20 MG CAPSULE.DR PO (20:46)
[2022-05-08] MEDS: LORazepam 1 MG TABLET PO (20:46)
[2022-05-09 06:00] VITALS: BP 139/70; PULSE 80; RESP 16; TEMP 36.6; O2SAT 99
[2022-05-09] MEDS: Labetalol HCL 200 MG TABLET PO (08:12)
[2022-05-09] MEDS: Fenofibrate 160 MG TABLET PO (08:13)
[2022-05-09] MEDS: Furosemide 40 MG TABLET PO (08:13)
[2022-05-09] MEDS: carBAMazepine ER 100 MG TAB.ER.12H 300 MG PO ×2 (08:14→20:32)
[2022-05-09] MEDS: lisinopriL 20 MG TABLET PO (08:14)
[2022-05-09] MEDS: Fluticasone Propionate Nasal 16 GM SPRAY 1 SPRAY NOSTRIL-B (08:17)
--- NOTE | 2022-05-09 09:23 | P.PNPSI_ITS ---
Subjective Subjective Date of Service: 05/09/22 Reason For Visit: Betty Interim History: Disorganized in speech, going from 1 topic to the other, angry that she is not being discharged, asking a question but interrupting herself with a tangential thought, talking nonstop. Patient tearful at times. She said thank you however for increasing the Zyprexa and Ativan which she agree she needs. Asks for nystatin. Complains of headache and asks for Excedrin. Mental Status Exam Mental Status Exam Narrative: Pt is alert and oriented; behavior remains manic, irritable, intrusive, disorganized; Overweight, Bilateral LE edema (improved); adequately groomed and dressed in casual attire;mood is described as upset; affect remains labile and angry, expansive; eye contact is good; Speech is pressured and hyperverbal;; normal volume and prosody; psychomotor agitation present; thought process can be goal directed for a moment but still quickly becomes tangential, talking excessively about unrelated topics; Thought content is on discharge, angered at being in hospital; delusional thinking present; denies any SI/HI. ?Patients insight and judgment are impaired. She does not think she has bipolar. Diagnostics Vital Signs (24Hr): Vital Signs - 24 hr 05/08/22 20:00 05/09/22 06:00 Temperature 97 F 97.8 F Pulse Rate 82 80 Respiratory Rate 18 16 Blood Pressure 143/65 H 139/70 Pulse Oximetry 98 99 Oxygen Delivery Method Room Air Room Air Medications Medications Current Medications Acetaminophen (Acetaminophen 325 Mg Tablet) 650 mg PO Q6H PRN PRN Reason: Pain, Mild (Pain Scale 1-3) Last Admin: 05/08/22 14:18 Dose: 650 mg Albuterol Sulfate (Albuterol Sulfate 90 Mcg 8 Gm Inhaler) 2 puff INHALE Q4H PRN PRN Reason: wheezing Last Admin: 05/08/22 09:15 Dose: 2 puff Carbamazepine (Carbamazepine Er 100 Mg Tab.Er.12h) 300 mg PO BEDTIME [facility] Last Admin: 05/08/22 20:47 Dose: 300 mg Carbamazepine (Carbamazepine Er 100 Mg Tab.Er.12h) 300 mg PO DAILY [facility] Last Admin: 05/09/22 08:14 Dose: 300 mg Cefuroxime Axetil (Cefuroxime Axetil 500 Mg Tablet) 500 mg PO BID [facility] Stop: 05/09/22 23:50 Last Admin: 05/09/22 08:13 Dose: 500 mg Ezetimibe (Ezetimibe 10 Mg Tablet) 10 mg PO BEDTIME@1999 [facility] Last Admin: 05/08/22 20:46 Dose: 10 mg Fenofibrate (Fenofibrate 160 Mg Tablet) 160 mg PO DAILY [facility] Last Admin: 05/09/22 08:13 Dose: 160 mg Fluticasone Propionate (Fluticasone Propionate Nasal 16 Gm [place]) 1 spray NOSTRIL-B DAILY [facility] Last Admin: 05/09/22 08:17 Dose: 1 spray Furosemide (Furosemide 40 Mg Tablet) 40 mg PO DAILY [facility]; Protocol Last Admin: 05/09/22 08:13 Dose: 40 mg Ibuprofen (Ibuprofen 600 Mg Tablet) 600 mg PO Q6H PRN PRN Reason: mild pain Last Admin: 05/08/22 14:18 Dose: 600 mg Ketoconazole (Ketoconazole 2 % Shampoo 120 Ml Btl) 1 appl TOPICAL DAILY [facility]; Protocol Last Admin: 05/09/22 08:48 Dose: Not Given Labetalol HCl (Labetalol Hcl 200 Mg Tablet) 200 mg PO BID [facility]; Protocol Last Admin: 05/09/22 08:12 Dose: 200 mg Latanoprost (Latanoprost 0.005 % Ophth Noni 2.5 Ml Drops) 1 drop EYE-BOTH BEDTIME@1999 [facility] Last Admin: 05/08/22 20:46 Dose: 1 drop Lisinopril (Lisinopril 20 Mg Tablet) 20 mg PO DAILY [facility]; Protocol Last Admin: 05/09/22 08:14 Dose: 20 mg Lorazepam (Lorazepam 1 Mg Tablet) 1 mg PO BEDTIME MRX1 [facility] Last Admin: 05/09/22 05:14 Dose: Not Given Olanzapine (Olanzapine 10 Mg Vial) 5 mg IM QID PRN PRN Reason: if refuse po Tegretol/geodon Olanzapine (Olanzapine 5 Mg Tablet) 5 mg PO BEDTIME [facility] Last Admin: 05/08/22 20:46 Dose: 5 mg Omeprazole (Omeprazole 20 Mg Capsule.Dr) 20 mg PO BEDTIME [facility] Last Admin: 05/08/22 20:46 Dose: 20 mg Oxybutynin Chloride (Oxybutynin Chloride Er 5 Mg Tab.Er.24) 10 mg PO DAILY [facility] Last Admin: 05/09/22 08:13 Dose: 10 mg Allergies Allergies Allergy/AdvReac Type Severity Reaction Status Date / Time adhesive [Adhesive] Allergy Mild SKIN Verified 03/18/22 08:34 IRRITATION WITH BLISTERS codeine [Codeine] Allergy Mild UNKNOWN Verified 03/18/22 08:34 methylphenidate Allergy Mild UNKNOWN Verified 03/18/22 08:34 [From [facility]] simvastatin [Simvastatin] Allergy Mild UNKNOWN Verified 03/18/22 08:34 Assessment & Plan Assessment & Plan (1) Severe bipolar I disorder, recurrent manic episode, with psychotic behavior: Status: Acute Code(s): F31.2 - Bipolar disorder, current episode manic severe with psychotic features Assessment and Plan: address sleep with medication- needs better sleep to help stabilize mood (2) HTN (hypertension): Status: Acute Code(s): I10 - Essential (primary) hypertension Assessment and Plan: continue to monitor and continue current treatment Plan Patient is a 61-year-old female with history of bipolar disorder who was involuntarily committed to inpatient psychiatric hospitalization for betty.? Patient remains manic however was transferred to hospital floor for treatment for urosepsis.? Patient has been medically cleared and returns to for continued treatment.? Patient is very angry and hostile towards promotion writer.? She is angry she is not being discharged tomorrow says she has legal documents saying that her discharges post to be several days ago.? She shows promotion writer these legal documents which clearly say that patient is committed for no more than 6 months.? Patient remains manic, without any insight, delusional and intrusive to others.? One of her peers said she is scared of this patient since the patient was coming into her room and verbally accosting her.? Fusion Juncture Grinder reviewed medications that are court ordered and patient agreed to increasing Tegretol. 10 patient remains delusional, manic, intrusive and no insight; continues to abscond with people's belongings and supplies, touching people without permission, sexually inappropriate, touching male staff's buttocks. -will increase Tegretol; will give Geodon some more time and increased dose, however if not effective will go back to Zyprexa. 05/07 delusional, no insight; taking meds. Will consider adding Zyprexa or increasing either Tegretol or Geodon further. -BP's better with increased lisinopril 10/ Manic and disorganized without insight last night discontinued ziprasidone since does not appear to be helping that much and restarted Zyprexa which has typically been helpful during past manic episodes; patient has also typically received up to 5 mg of Ativan a day in the past for manic episodes; however promotion writer hesitates to give too much Ativan at bedtime, given her age and concerns for fall risk or over sedation. Instead will schedule 1 mg t.i.d. for now so she can be monitored. Hopefully patient will not need to remain on Ativan. Although Ativan is court ordered, promotion writer also hesitates to give IM Ativan/benzo if patient refuses given that there is a chance she could also end up getting Zyprexa IM (though she has been taking it without issue) which is preferably avoided. PLAN: sectinion 8 Court ruled for involuntary commitment and substituted judgment Q15 UTI: ceftin 500mg BID for 8 days (per PA hosptialist Vlad) last dose 05/09 at bedtime Medications: DC [place] (not that helpful) INCREASED TO Zyprexa 5mg BID (COURT ORDERED) *give IM zyprexa 5mg if refuses dose; patient in the past as needed 5 mg b.i.d. Continue Tegretol ER to 300 mg BID (COURT ORDERED) *give IM zyprexa 5mg if refuses dose Increased to Ativan 1 mg t.i.d.; in the past patient has needed higher dose to break betty. Will start low and increase as needed Lisinopril 20 mg daily no script for Flovent other than one on 11/2021 (only one other script for this back in 03/2021) Substituted judgment medications include the following: Ziprasidone Zyprexa Tegretol Abilify/Maintena Risperidone/Consta Ativan I spent minutes with the patient and/or on the patient floor today, greater than?50% of which was spent counseling/coordinating care. Patient educated on: diagnosis and medication risk/benefits Informed Consent: does not understand and further education needed Reason for contiued inpatient stay Substantial Risk for: inability to function
[2022-05-09] MEDS: OLANZapine 5 MG TABLET PO ×2 (11:13→20:32)
[2022-05-09] MEDS: LORazepam 1 MG TABLET PO ×3 (11:14→20:30)
[2022-05-09] MEDS: Ibuprofen 600 MG TABLET PO (12:32)
[2022-05-09] MEDS: Acetaminophen 325 MG TABLET 650 MG PO ×2 (12:32→15:55)
[2022-05-09] MEDS: Aspirin Enteric Coated 81 MG TABLET.DR PO (15:55)
[2022-05-09 18:00] VITALS: BP 138/77; PULSE 83; RESP 16; TEMP 36.3; O2SAT 97
[2022-05-09] MEDS: Omeprazole 20 MG CAPSULE.DR PO (20:31)
[2022-05-09] MEDS: Ezetimibe 10 MG TABLET PO (20:31)
[2022-05-10] MEDS: Ketoconazole 2 % Shampoo 120 ML BTL 1 APPL TOPICAL (03:34)
[2022-05-10] MEDS: Acetaminophen 325 MG TABLET 650 MG PO ×2 (04:21→23:35)
[2022-05-10] MEDS: Ibuprofen 600 MG TABLET PO ×2 (04:21→23:36)
[2022-05-10 08:00] VITALS: BP 138/77; PULSE 83; RESP 14; TEMP 36.4; O2SAT 97
[2022-05-10] MEDS: lisinopriL 20 MG TABLET PO (08:41)
[2022-05-10] MEDS: Furosemide 40 MG TABLET PO (08:41)
[2022-05-10] MEDS: OLANZapine 5 MG TABLET PO ×2 (08:41→21:06)
[2022-05-10] MEDS: LORazepam 1 MG TABLET PO ×3 (08:42→21:06)
[2022-05-10] MEDS: Fenofibrate 160 MG TABLET PO (08:42)
[2022-05-10] MEDS: carBAMazepine ER 100 MG TAB.ER.12H 300 MG PO ×2 (08:42→21:05)
[2022-05-10] MEDS: Fluticasone Propionate Nasal 16 GM SPRAY 1 SPRAY NOSTRIL-B (09:21)
[2022-05-10] MEDS: Albuterol Sulfate 90 MCG 8 GM INHALER 2 PUFF INHALE (09:21)
[2022-05-10] MEDS: Labetalol HCL 200 MG TABLET PO ×2 (11:19→21:05)
--- NOTE | 2022-05-10 11:33 | HO.PSYCHPN ---
Subjective Subjective Date of Service: 05/10/22 Reason For Visit: Betty Interim History: Patient angry and paranoid. Says she believes a specific staff member went into her room and stool single piece of paper, the June portion of a calendar, just to mess with my mind. Patient talking about staff members testicles and that if she sees him she will be swinging at balls. Patient continues to lack insight does not believe she has bipolar disorder. Patient complains of pain in left thigh; hospitalist present who examined and thought unremarkable but ordered soft tissue ultrasound. Mental Status Exam Mental Status Exam Narrative: Pt is alert and oriented; behavior remains manic, irritable, intrusive, disorganized; Overweight, Bilateral LE edema (improved); adequately groomed and dressed in casual attire;mood is described as upset; affect remains labile and angry, expansive; eye contact is good; Speech is pressured and hyperverbal;normal volume and prosody; psychomotor agitation present; thought process can be goal directed for a moment but still quickly becomes tangential, talking excessively about unrelated topics; Thought content is on discharge, angered at being in hospital; paranoid, delusional thinking present; denies any SI/HI. ?Patients insight and judgment are impaired. She does not think she has bipolar. Diagnostics Vital Signs (24Hr): Vital Signs - 24 hr 05/09/22 18:00 Temperature 97.3 F Pulse Rate 83 Respiratory Rate 16 Blood Pressure 138/77 Pulse Oximetry 97 Oxygen Delivery Method Room Air Labs Results: 05/11/22 07:03 Medications Medications Current Medications Acetaminophen (Acetaminophen 325 Mg Tablet) 650 mg PO Q6H PRN PRN Reason: Pain, Mild (Pain Scale 1-3) Last Admin: 05/10/22 04:21 Dose: 650 mg Albuterol Sulfate (Albuterol Sulfate 90 Mcg 8 Gm Inhaler) 2 puff INHALE Q4H PRN PRN Reason: wheezing Last Admin: 05/10/22 09:21 Dose: 2 puff Aspirin (Aspirin Enteric Coated 81 Mg Tablet.Dr) 81 mg PO ONCE PRN PRN Reason: headache; give w/ tylenol Last Admin: 05/09/22 15:55 Dose: 81 mg Carbamazepine (Carbamazepine Er 100 Mg Tab.Er.12h) 300 mg PO BEDTIME [facility] Last Admin: 05/09/22 20:32 Dose: 300 mg Carbamazepine (Carbamazepine Er 100 Mg Tab.Er.12h) 300 mg PO DAILY [facility] Last Admin: 05/10/22 08:42 Dose: 300 mg Ezetimibe (Ezetimibe 10 Mg Tablet) 10 mg PO BEDTIME@1999 [facility] Last Admin: 05/09/22 20:31 Dose: 10 mg Fenofibrate (Fenofibrate 160 Mg Tablet) 160 mg PO DAILY [facility] Last Admin: 05/10/22 08:42 Dose: 160 mg Fluticasone Propionate (Fluticasone Propionate Nasal 16 Gm [place]) 1 spray NOSTRIL-B DAILY [facility] Last Admin: 05/10/22 09:21 Dose: 1 spray Furosemide (Furosemide 40 Mg Tablet) 40 mg PO DAILY [facility]; Protocol Last Admin: 05/10/22 08:41 Dose: 40 mg Ibuprofen (Ibuprofen 600 Mg Tablet) 600 mg PO Q6H PRN PRN Reason: mild pain Last Admin: 05/10/22 04:21 Dose: 600 mg Ketoconazole (Ketoconazole 2 % Shampoo 120 Ml Btl) 1 appl TOPICAL DAILY [facility]; Protocol Last Admin: 05/10/22 03:34 Dose: 1 appl Labetalol HCl (Labetalol Hcl 200 Mg Tablet) 200 mg PO BID [facility]; Protocol Last Admin: 05/10/22 11:19 Dose: 200 mg Latanoprost (Latanoprost 0.005 % Ophth Noni 2.5 Ml Drops) 1 drop EYE-BOTH BEDTIME@1999 [facility] Last Admin: 05/09/22 20:28 Dose: Not Given Lisinopril (Lisinopril 20 Mg Tablet) 20 mg PO DAILY [facility]; Protocol Last Admin: 05/10/22 08:41 Dose: 20 mg Lorazepam (Lorazepam 1 Mg Tablet) 1 mg PO TID [facility] Last Admin: 05/10/22 08:42 Dose: 1 mg Nystatin (Nystatin Cream 15 Gm Tube) 1 appl TOPICAL BID [facility]; Protocol Stop: 05/23/22 23:00 Last Admin: 05/10/22 09:21 Dose: Not Given Olanzapine (Olanzapine 10 Mg Vial) 5 mg IM QID PRN PRN Reason: if refuse po Tegretol/Zyprexa Olanzapine (Olanzapine 5 Mg Tablet) 5 mg PO BID [facility] Last Admin: 05/10/22 08:41 Dose: 5 mg Omeprazole (Omeprazole 20 Mg Capsule.Dr) 20 mg PO BEDTIME [facility] Last Admin: 05/09/22 20:31 Dose: 20 mg Oxybutynin Chloride (Oxybutynin Chloride Er 5 Mg Tab.Er.24) 10 mg PO DAILY [facility] Last Admin: 05/10/22 08:41 Dose: 10 mg Allergies Allergies Allergy/AdvReac Type Severity Reaction Status Date / Time adhesive [Adhesive] Allergy Mild SKIN Verified 03/18/22 08:34 IRRITATION WITH BLISTERS codeine [Codeine] Allergy Mild UNKNOWN Verified 03/18/22 08:34 methylphenidate Allergy Mild UNKNOWN Verified 03/18/22 08:34 [From [facility]] simvastatin [Simvastatin] Allergy Mild UNKNOWN Verified 03/18/22 08:34 Assessment & Plan Assessment & Plan (1) Severe bipolar I disorder, recurrent manic episode, with psychotic behavior: Status: Acute Code(s): F31.2 - Bipolar disorder, current episode manic severe with psychotic features Assessment and Plan: address sleep with medication- needs better sleep to help stabilize mood (2) HTN (hypertension): Status: Acute Code(s): I10 - Essential (primary) hypertension Assessment and Plan: continue to monitor and continue current treatment Plan Patient is a 61-year-old female with history of bipolar disorder who was involuntarily committed to inpatient psychiatric hospitalization for betty.? Patient remains manic however was transferred to hospital floor for treatment for urosepsis.? Patient has been medically cleared and returns to for continued treatment.? Patient is very angry and hostile towards casualty underwriter.? She is angry she is not being discharged tomorrow says she has legal documents saying that her discharges post to be several days ago.? She shows casualty underwriter these legal documents which clearly say that patient is committed for no more than 6 months.? Patient remains manic, without any insight, delusional and intrusive to others.? One of her peers said she is scared of this patient since the patient was coming into her room and verbally accosting her.? Continuous Pickling Line Pickler reviewed medications that are court ordered and patient agreed to increasing Tegretol. 05/06 patient remains delusional, manic, intrusive and no insight; continues to abscond with people's belongings and supplies, touching people without permission, sexually inappropriate, touching male staff's buttocks. -will increase Tegretol; will give Geodon some more time and increased dose, however if not effective will go back to Zyprexa. 05/07 delusional, no insight; taking meds. Will consider adding Zyprexa or increasing either Tegretol or Geodon further. -BP's better with increased lisinopril 05/09 Manic and disorganized without insight last night discontinued ziprasidone since does not appear to be helping that much and restarted Zyprexa which has typically been helpful during past manic episodes; patient has also typically received up to 5 mg of Ativan a day in the past for manic episodes; however casualty underwriter hesitates to give too much Ativan at bedtime, given her age and concerns for fall risk or over sedation. Instead will schedule 1 mg t.i.d. for now so she can be monitored. Hopefully patient will not need to remain on Ativan. Although Ativan is court ordered, casualty underwriter also hesitates to give IM Ativan/benzo if patient refuses given that there is a chance she could also end up getting Zyprexa IM (though she has been taking it without issue) which is preferably avoided. 05/10 paranoid, delusional manic accusatory no insight; medications recently increased will give them a bit to take effect PLAN: sectinion 8 Court ruled for involuntary commitment and substituted judgment Q15 UTI: ceftin 500mg BID for 8 days (per [place] hosptialist Vlad) last dose 05/09 at bedtime Medications: DC Geodon (not that helpful) INCREASED TO Zyprexa 5mg BID (COURT ORDERED) *give IM zyprexa 5mg if refuses dose; patient in the past as needed 5 mg b.i.d. Continue Tegretol ER to 300 mg BID (COURT ORDERED) *give IM zyprexa 5mg if refuses dose Increased to Ativan 1 mg t.i.d.; in the past patient has needed higher dose to break betty. Will start low and increase as needed Lisinopril 20 mg daily no script for Flovent other than one on 11/2021 (only one other script for this back in 03/2021) Substituted judgment medications include the following: Ziprasidone Zyprexa Tegretol Abilify/Maintena Risperidone/Consta Ativan I spent minutes with the patient and/or on the patient floor today, greater than?50% of which was spent counseling/coordinating care. Patient educated on: diagnosis and medication risk/benefits Informed Consent: does not understand and further education needed Reason for contiued inpatient stay Substantial Risk for: inability to function and rapid decompensation
--- NOTE | 2022-05-10 12:46 | P.PNIM_ITS ---
Subjective Subjective Date of Service: 05/10/22 Interval History: asked to see patient for thigh pain pt seen and examined in her room. Dr. Gonzales bedside. Pt reports R groin/medial thigh pain, concerned that she has a cyst and it causing her severe pain unclear duration of symptoms Review of Systems negative except hPI Physical Exam Vital Signs: Vital Signs: Last Vital Signs Temp 97.3 F 05/09/22 18:00 Pulse 83 05/09/22 18:00 Resp 16 05/09/22 18:00 BP 138/77 05/09/22 18:00 Pulse Ox 97 05/09/22 18:00 O2 Del Method 05/09/22 18:00 Const: Other: R thigh / groin region with out any erythema or palpable mass; pt endorses pain to palpation b/l LE mild edema - 1+, symmetric Objective Data Active Medications Acetaminophen (Acetaminophen 325 Mg Tablet) 650 mg PO Q6H PRN PRN Reason: Pain, Mild (Pain Scale 1-3) Last Admin: 05/10/22 04:21 Dose: 650 mg Documented By: SUSAN Albuterol Sulfate (Albuterol Sulfate 90 Mcg 8 Gm Inhaler) 2 puff INHALE Q4H PRN PRN Reason: wheezing Last Admin: 05/10/22 09:21 Dose: 2 puff Documented By: AMMON Aspirin (Aspirin Enteric Coated 81 Mg Tablet.) 81 mg PO ONCE PRN PRN Reason: headache; give w/ tylenol Last Admin: 05/09/22 15:55 Dose: 81 mg Documented By: CATARINO Carbamazepine (Carbamazepine Er 100 Mg Tab.Er.12h) 300 mg PO BEDTIME [facility] Last Admin: 05/09/22 20:32 Dose: 300 mg Documented By: CATARINO Carbamazepine (Carbamazepine Er 100 Mg Tab.Er.12h) 300 mg PO DAILY [facility] Last Admin: 05/10/22 08:42 Dose: 300 mg Documented By: AMMON Ezetimibe (Ezetimibe 10 Mg Tablet) 10 mg PO BEDTIME@1999 [facility] Last Admin: 05/09/22 20:31 Dose: 10 mg Documented By: CATARINO Fenofibrate (Fenofibrate 160 Mg Tablet) 160 mg PO DAILY [facility] Last Admin: 05/10/22 08:42 Dose: 160 mg Documented By: AMMON Fluticasone Propionate (Fluticasone Propionate Nasal 16 Gm [place]) 1 spray NOSTRIL-B DAILY [facility] Last Admin: 05/10/22 09:21 Dose: 1 spray Documented By: AMMON Furosemide (Furosemide 40 Mg Tablet) 40 mg PO DAILY [facility]; Protocol Last Admin: 05/10/22 08:41 Dose: 40 mg Documented By: AMMON Ibuprofen (Ibuprofen 600 Mg Tablet) 600 mg PO Q6H PRN PRN Reason: mild pain Last Admin: 05/10/22 04:21 Dose: 600 mg Documented By: SUSAN Ketoconazole (Ketoconazole 2 % Shampoo 120 Ml Btl) 1 appl TOPICAL DAILY [facility]; Protocol Last Admin: 05/10/22 03:34 Dose: 1 appl Documented By: ULISSES Labetalol HCl (Labetalol Hcl 200 Mg Tablet) 200 mg PO BID [facility]; Protocol Last Admin: 05/10/22 11:19 Dose: 200 mg Documented By: AMMON Latanoprost (Latanoprost 0.005 % Ophth Noni 2.5 Ml Drops) 1 drop EYE-BOTH BEDTIME@1999 [facility] Last Admin: 05/09/22 20:28 Dose: Not Given Documented By: CATARINO Non-Admin Reason: Patient Refused Lisinopril (Lisinopril 20 Mg Tablet) 20 mg PO DAILY [facility]; Protocol Last Admin: 05/10/22 08:41 Dose: 20 mg Documented By: AMMON Lorazepam (Lorazepam 1 Mg Tablet) 1 mg PO TID [facility] Last Admin: 05/10/22 08:42 Dose: 1 mg Documented By: AMMON Nystatin (Nystatin Cream 15 Gm Tube) 1 appl TOPICAL BID [facility]; Protocol Stop: 05/23/22 23:00 Last Admin: 05/10/22 09:21 Dose: Not Given Documented By: AMMON Non-Admin Reason: Patient Refused Olanzapine (Olanzapine 10 Mg Vial) 5 mg IM QID PRN PRN Reason: if refuse po Tegretol/Zyprexa Olanzapine (Olanzapine 5 Mg Tablet) 5 mg PO BID [facility] Last Admin: 05/10/22 08:41 Dose: 5 mg Documented By: AMMON Omeprazole (Omeprazole 20 Mg Capsule.Dr) 20 mg PO BEDTIME [facility] Last Admin: 05/09/22 20:31 Dose: 20 mg Documented By: CATARINO Oxybutynin Chloride (Oxybutynin Chloride Er 5 Mg Tab.Er.24) 10 mg PO DAILY [facility] Last Admin: 05/10/22 08:41 Dose: 10 mg Documented By: AMMON Assessment and Plan (1) Thigh pain: Status: Acute Plan 61 yo F who is admitted to . Medical reconsult requested for evaluation of thigh / groin pain. Exam is not revealing, but the patient has on going perseveration relating the issue despite will check soft issue ultrasound pt reassured. will follow up with soft tissue u/s is abnormal; otherwise continue to reassure patient. thank you. Quality Stroke Does the patient have a stroke diagnosis?: No VTE Prior VTE?: No VTE Risk Level:: Medical - low VTE Device Contraindication: Treatment Not Indicated VTE Drug Contraindication: Treatment Not Indicated
[2022-05-10 21:03] VITALS: BP 146/65; PULSE 77
[2022-05-10] MEDS: Ezetimibe 10 MG TABLET PO (21:05)
[2022-05-10] MEDS: Omeprazole 20 MG CAPSULE.DR PO (21:05)
[2022-05-11 07:48] LABS: Alanine Aminotransferase 24 U/L (0-31); Albumin Level 4.4 g/dL (3.5-5.0); Alkaline Phosphatase 81 U/L (39-117); Anion Gap 17 (12-20); Aspartate Amino Transferase 18 U/L (5-31); Bilirubin Direct 0.2 mg/dL (0.0-0.5); Bilirubin Total 0.3 mg/dL (0.0-1.0); Carbon Dioxide 26 mmol/L (22-29); Chloride 102 mmol/L (96-108); Potassium 5.1 mmol/L (3.3-5.1); Sodium 140 mmol/L (135-145); Total Protein 7.4 g/dL (6.5-8.0)
[2022-05-11 08:55] LABS: Ammonia 23 umol/L (13-55)
[2022-05-11 09:00] VITALS: BP 134/63; PULSE 79; TEMP 36.6
[2022-05-11 09:11] LABS: Carbamazepine Tegretol 7.3 mcg/mL (5.0-12.0)
[2022-05-11] MEDS: Furosemide 40 MG TABLET PO (09:38)
[2022-05-11] MEDS: Labetalol HCL 200 MG TABLET PO ×2 (09:39→22:53)
[2022-05-11] MEDS: Fenofibrate 160 MG TABLET PO (09:39)
[2022-05-11] MEDS: OLANZapine 5 MG TABLET PO ×2 (09:39→22:50)
[2022-05-11] MEDS: carBAMazepine ER 100 MG TAB.ER.12H 300 MG PO ×2 (09:39→22:51)
[2022-05-11] MEDS: lisinopriL 20 MG TABLET PO (09:40)
[2022-05-11] MEDS: LORazepam 1 MG TABLET PO ×3 (09:40→22:57)
[2022-05-11] MEDS: Albuterol Sulfate 90 MCG 8 GM INHALER 2 PUFF INHALE (09:41)
[2022-05-11] MEDS: Fluticasone Propionate Nasal 16 GM SPRAY 1 SPRAY NOSTRIL-B (09:48)
[2022-05-11] MEDS: Nystatin Cream 15 GM TUBE 1 APPL TOPICAL (10:02)
[2022-05-11 22:00] VITALS: BP 134/85; PULSE 72; TEMP 36.4; O2SAT 97
--- NOTE | 2022-05-11 22:38 | P.PNPSI_ITS ---
Subjective Subjective Date of Service: 05/11/22 Reason For Visit: Betty Interim History: Little sleep last night; irritable and angry, demanding, no insight; discussed results, lab values and ultrasound Mental Status Exam Mental Status Exam Narrative: Pt is alert and oriented; behavior remains manic, irritable, intrusive, disorganized; Overweight, Bilateral LE edema (improved); adequately groomed and dressed in casual attire;mood is described as upset; affect remains labile and angry, expansive; eye contact is good; Speech is pressured and hyperverbal;normal volume and prosody; psychomotor agitation present; thought process can be goal directed for a moment but still quickly becomes tangential, talking excessively about unrelated topics; Thought content is on discharge, angered at being in hospital; paranoid, delusional thinking present; denies any SI/HI. ?Patients insight and judgment are impaired. She does not think she has bipolar. Diagnostics Vital Signs (24Hr): Vital Signs - 24 hr 05/11/22 09:00 Temperature 97.9 F Pulse Rate 79 Blood Pressure 134/63 Labs Results: 05/11/22 07:03 Labs: Laboratory Results - last 48 hr 05/11/22 05/11/22 07:03 08:38 Sodium 140 Potassium 5.1 D Chloride 102 Carbon Dioxide 26 Anion Gap 17 Total Bilirubin 0.3 Direct Bilirubin 0.2 AST 18 ALT 24 Alkaline Phosphatase 81 D Ammonia 23 Total Protein 7.4 Albumin 4.4 Carbamazepine 7.3 Imaging Radiology Impressions: ITS Impressions Extremity Ultrasound 05/10/22 18:27 IMPRESSION: No cyst or abscess. Bilateral inguinal lymphadenopathy, left greater than right. Some lymph nodes demonstrate areas of cortical thickening. Management should be determined on a clinical basis. Lymph nodes would be amenable to ultrasound-guided fine-needle aspiration/biopsy if clinically indicated. Medications Medications Current Medications Acetaminophen (Acetaminophen 325 Mg Tablet) 650 mg PO Q6H PRN PRN Reason: Pain, Mild (Pain Scale 1-3) Last Admin: 05/10/22 23:35 Dose: 650 mg Albuterol Sulfate (Albuterol Sulfate 90 Mcg 8 Gm Inhaler) 2 puff INHALE Q4H PRN PRN Reason: wheezing Last Admin: 05/11/22 09:41 Dose: 2 puff Aspirin (Aspirin Enteric Coated 81 Mg Tablet.Dr) 81 mg PO ONCE PRN PRN Reason: headache; give w/ tylenol Last Admin: 05/09/22 15:55 Dose: 81 mg Carbamazepine (Carbamazepine Er 100 Mg Tab.Er.12h) 300 mg PO BEDTIME [facility] Last Admin: 05/10/22 21:05 Dose: 300 mg Carbamazepine (Carbamazepine Er 100 Mg Tab.Er.12h) 300 mg PO DAILY [facility] Last Admin: 05/11/22 09:39 Dose: 300 mg Ezetimibe (Ezetimibe 10 Mg Tablet) 10 mg PO BEDTIME@1999 [facility] Last Admin: 05/10/22 21:05 Dose: 10 mg Fenofibrate (Fenofibrate 160 Mg Tablet) 160 mg PO DAILY [facility] Last Admin: 05/11/22 09:39 Dose: 160 mg Fluticasone Propionate (Fluticasone Propionate Nasal 16 Gm [place]) 1 spray NOSTRIL-B DAILY [facility] Last Admin: 05/11/22 09:48 Dose: 1 spray Furosemide (Furosemide 40 Mg Tablet) 40 mg PO DAILY [facility]; Protocol Last Admin: 05/11/22 09:38 Dose: 40 mg Ibuprofen (Ibuprofen 600 Mg Tablet) 600 mg PO Q6H PRN PRN Reason: mild pain Last Admin: 05/10/22 23:36 Dose: 600 mg Ketoconazole (Ketoconazole 2 % Shampoo 120 Ml Btl) 1 appl TOPICAL DAILY [facility]; Protocol Last Admin: 05/11/22 10:03 Dose: Not Given Labetalol HCl (Labetalol Hcl 200 Mg Tablet) 200 mg PO BID [facility]; Protocol Last Admin: 05/11/22 09:39 Dose: 200 mg Latanoprost (Latanoprost 0.005 % Ophth Noni 2.5 Ml Drops) 1 drop EYE-BOTH BEDTIME@1999 [facility] Last Admin: 05/10/22 21:05 Dose: Not Given Lisinopril (Lisinopril 20 Mg Tablet) 20 mg PO DAILY [facility]; Protocol Last Admin: 05/11/22 09:40 Dose: 20 mg Lorazepam (Lorazepam 1 Mg Tablet) 1 mg PO TID [facility] Last Admin: 05/11/22 14:44 Dose: 1 mg Nystatin (Nystatin Cream 15 Gm Tube) 1 appl TOPICAL BID [facility]; Protocol Stop: 05/23/22 23:00 Last Admin: 05/11/22 10:02 Dose: 1 appl Olanzapine (Olanzapine 10 Mg Vial) 5 mg IM QID PRN PRN Reason: if refuse po Tegretol/Zyprexa Olanzapine (Olanzapine 5 Mg Tablet) 5 mg PO BID [facility] Last Admin: 05/11/22 09:39 Dose: 5 mg Omeprazole (Omeprazole 20 Mg Capsule.Dr) 20 mg PO BEDTIME [facility] Last Admin: 05/10/22 21:05 Dose: 20 mg Oxybutynin Chloride (Oxybutynin Chloride Er 5 Mg Tab.Er.24) 10 mg PO DAILY [facility] Last Admin: 05/11/22 09:39 Dose: 10 mg Allergies Allergies Allergy/AdvReac Type Severity Reaction Status Date / Time adhesive [Adhesive] Allergy Mild SKIN Verified 03/18/22 08:34 IRRITATION WITH BLISTERS codeine [Codeine] Allergy Mild UNKNOWN Verified 03/18/22 08:34 methylphenidate Allergy Mild UNKNOWN Verified 03/18/22 08:34 [From [facility]] simvastatin [Simvastatin] Allergy Mild UNKNOWN Verified 03/18/22 08:34 Assessment & Plan Assessment & Plan (1) Severe bipolar I disorder, recurrent manic episode, with psychotic behavior: Status: Acute Code(s): F31.2 - Bipolar disorder, current episode manic severe with psychotic features (2) HTN (hypertension): Status: Acute Code(s): I10 - Essential (primary) hypertension Plan Patient is a 61-year-old female with history of bipolar disorder who was involuntarily committed to inpatient psychiatric hospitalization for betty.? Patient remains manic however was transferred to hospital floor for treatment for urosepsis.? Patient has been medically cleared and returns to for continued treatment.? Patient is very angry and hostile towards writer technical publications.? She is angry she is not being discharged tomorrow says she has legal documents saying that her discharges post to be several days ago.? She shows writer technical publications these legal documents which clearly say that patient is committed for no more than 6 months.? Patient remains manic, without any insight, delusional and intrusive to others.? One of her peers said she is scared of this patient since the patient was coming into her room and verbally accosting her.? Botany Teacher reviewed medications that are court ordered and patient agreed to increasing Tegretol. 05/06 patient remains delusional, manic, intrusive and no insight; continues to abscond with people's belongings and supplies, touching people without permission, sexually inappropriate, touching male staff's buttocks. -will increase Tegretol; will give Geodon some more time and increased dose, however if not effective will go back to Zyprexa. 05/07 delusional, no insight; taking meds.? Will consider adding Zyprexa or increasing either Tegretol or Geodon further. -BP's better with increased lisinopril 05/09 Manic and disorganized without insight last night discontinued ziprasidone since does not appear to be helping that much and restarted Zyprexa which has typically been helpful during past manic episodes; patient has also typically received up to 5 mg of Ativan a day in the past for manic episodes; however writer technical publications hesitates to give too much Ativan at bedtime, given her age and concerns for fall risk or over sedation.? Instead will schedule 1 mg t.i.d. for now so she can be monitored.? Hopefully patient will not need to remain on Ativan.? Although Ativan is court ordered, writer technical publications also hesitates to give IM Ativan/benzo if patient refuses given that there is a chance she could also end up getting Zyprexa IM (though she has been taking it without issue) which is preferably avoided. 05/10 paranoid, delusional manic accusatory no insight; medications recently increased will give them a bit to take effect 05/11 LFTs, ammonia, Tegretol level within normal limits; soft tissue ultrasound says no cyst/abcess (below) PLAN: sectinion 8 Court ruled for involuntary commitment and substituted judgment Q15 UTI: ceftin 500mg BID for 8 days (per PA hosptialist Vlad) last dose 05/09 at bedtime Medications: DC Geodon (not that helpful) INCREASED TO Zyprexa 5mg BID (COURT ORDERED) *give IM zyprexa 5mg if refuses dose; patient in the past as needed 5 mg b.i.d. Continue Tegretol ER to 300 mg BID? (COURT ORDERED) *give IM zyprexa 5mg if refuses dose Increased to Ativan 1 mg t.i.d.; in the past patient has needed higher dose to break betty.? Will start low and increase as needed Lisinopril 20 mg daily no script for Flovent other than one on 11/2021 (only one other script for this back in 03/2021) Substituted judgment medications include the following: Ziprasidone Zyprexa Tegretol Abilify/Maintena Risperidone/Consta Ativan 05/10 impresion: No cyst or abscess. Bilateral inguinal lymphadenopathy, left greater than right. Some lymph nodes demonstrate areas of cortical thickening. Management should be determined on a clinical basis. Lymph nodes would be amenable to ultrasound-guided fine-needle aspiration/biopsy if clinically indicated. I spent minutes with the patient and/or on the patient floor today, greater than?50% of which was spent counseling/coordinating care. Patient educated on: diagnosis, medication risk/benefits and medical condition Informed Consent: understands, does not understand and further education needed Reason for contiued inpatient stay Substantial Risk for: inability to function
[2022-05-11] MEDS: Latanoprost 0.005 % Ophth Sol 2.5 ML DROPS 1 DROP EYE-BOTH (22:50)
[2022-05-11] MEDS: Ezetimibe 10 MG TABLET PO (22:53)
[2022-05-11] MEDS: Acetaminophen 325 MG TABLET 650 MG PO (22:54)
[2022-05-11] MEDS: Ibuprofen 600 MG TABLET PO (22:54)
[2022-05-11] MEDS: Omeprazole 20 MG CAPSULE.DR PO (22:59)
[2022-05-12] MEDS: Ibuprofen 600 MG TABLET PO ×3 (04:48→18:35)
[2022-05-12] MEDS: Acetaminophen 325 MG TABLET 650 MG PO ×2 (04:49→18:34)
[2022-05-12 08:30] VITALS: BP 124/60; PULSE 81; TEMP 36.4; O2SAT 97
[2022-05-12] MEDS: Furosemide 40 MG TABLET PO (09:07)
[2022-05-12] MEDS: LORazepam 1 MG TABLET PO ×3 (09:07→20:51)
[2022-05-12] MEDS: Fenofibrate 160 MG TABLET PO (09:07)
[2022-05-12] MEDS: Labetalol HCL 200 MG TABLET PO ×2 (09:08→20:51)
[2022-05-12] MEDS: carBAMazepine ER 100 MG TAB.ER.12H 300 MG PO ×2 (09:10→20:49)
[2022-05-12] MEDS: lisinopriL 20 MG TABLET PO (09:10)
[2022-05-12] MEDS: Albuterol Sulfate 90 MCG 8 GM INHALER 2 PUFF INHALE (09:15)
[2022-05-12] MEDS: OLANZapine 5 MG TABLET PO ×2 (09:15→20:51)
[2022-05-12] MEDS: Fluticasone Propionate Nasal 16 GM SPRAY 1 SPRAY NOSTRIL-B (09:16)
[2022-05-12] MEDS: Nystatin Cream 15 GM TUBE 1 APPL TOPICAL (09:16)
[2022-05-12 20:40] VITALS: BP 121/57; PULSE 89; TEMP 36.3; O2SAT 95
[2022-05-12] MEDS: Ezetimibe 10 MG TABLET PO (20:50)
[2022-05-12] MEDS: Omeprazole 20 MG CAPSULE.DR PO (20:50)
--- NOTE | 2022-05-12 20:51 | HO.PSYCHPN ---
Subjective Subjective Date of Service: 05/12/22 Reason For Visit: Betty Interim History: Patient and fiction and nonfiction prose writer met and patient remains labile, sometimes very angry sometimes sad, sometimes joking; impaired insight remains though in a rare moment, patient said she would consider that maybe she has bipolar disorder. Patient jumping from 1 topic to the next; she will ask a question and before fiction and nonfiction prose writer can answer she is asking the next question and again before fiction and nonfiction prose writer can not answer she is talking about something else. Continues to struggle with paranoid delusional thinking regarding staff. Patient irritated that medications are slowing [her] down and does not understand this is the need given betty. Mental Status Exam Mental Status Exam Narrative: Pt is alert and oriented; behavior remains manic, irritable, intrusive, disorganized; Overweight, Bilateral LE edema (improved); adequately groomed and dressed in casual attire;mood is described as upset; affect remains labile and angry, expansive; eye contact is good; Speech is pressured and hyperverbal;normal volume and prosody; psychomotor agitation present; thought process can be goal directed for a moment but still quickly becomes tangential, talking excessively about unrelated topics; Thought content is on discharge, angered at being in hospital; paranoid, delusional thinking present; denies any SI/HI. ?Patients insight and judgment are impaired. She does not think she has bipolar. Diagnostics Vital Signs (24Hr): Vital Signs - 24 hr 05/11/22 22:00 05/12/22 08:30 05/12/22 20:40 Temperature 97.6 F 97.6 F 97.4 F Pulse Rate 72 81 89 Blood Pressure 134/85 124/60 121/57 L Pulse Oximetry 97 97 95 Oxygen Delivery Method Room Air Room Air Room Air Labs Results: 05/11/22 07:03 Labs: Laboratory Results - last 48 hr 05/11/22 05/11/22 07:03 08:38 Sodium 140 Potassium 5.1 D Chloride 102 Carbon Dioxide 26 Anion Gap 17 Total Bilirubin 0.3 Direct Bilirubin 0.2 AST 18 ALT 24 Alkaline Phosphatase 81 D Ammonia 23 Total Protein 7.4 Albumin 4.4 Carbamazepine 7.3 Imaging Radiology Impressions: ITS Impressions Extremity Ultrasound 05/10/22 18:27 IMPRESSION: No cyst or abscess. Bilateral inguinal lymphadenopathy, left greater than right. Some lymph nodes demonstrate areas of cortical thickening. Management should be determined on a clinical basis. Lymph nodes would be amenable to ultrasound-guided fine-needle aspiration/biopsy if clinically indicated. Medications Medications Current Medications Acetaminophen (Acetaminophen 325 Mg Tablet) 650 mg PO Q6H PRN PRN Reason: Pain, Mild (Pain Scale 1-3) Last Admin: 05/12/22 18:34 Dose: 650 mg Albuterol Sulfate (Albuterol Sulfate 90 Mcg 8 Gm Inhaler) 2 puff INHALE Q4H PRN PRN Reason: wheezing Last Admin: 05/12/22 09:15 Dose: 2 puff Aspirin (Aspirin Enteric Coated 81 Mg Tablet.Dr) 81 mg PO ONCE PRN PRN Reason: headache; give w/ tylenol Last Admin: 05/09/22 15:55 Dose: 81 mg Carbamazepine (Carbamazepine Er 100 Mg Tab.Er.12h) 300 mg PO BEDTIME [facility] Last Admin: 05/11/22 22:51 Dose: 300 mg Carbamazepine (Carbamazepine Er 100 Mg Tab.Er.12h) 300 mg PO DAILY [facility] Last Admin: 05/12/22 09:10 Dose: 300 mg Ezetimibe (Ezetimibe 10 Mg Tablet) 10 mg PO BEDTIME@1999 [facility] Last Admin: 05/11/22 22:53 Dose: 10 mg Fenofibrate (Fenofibrate 160 Mg Tablet) 160 mg PO DAILY [facility] Last Admin: 05/12/22 09:07 Dose: 160 mg Fluticasone Propionate (Fluticasone Propionate Nasal 16 Gm [place]) 1 spray NOSTRIL-B DAILY [facility] Last Admin: 05/12/22 09:16 Dose: 1 spray Furosemide (Furosemide 40 Mg Tablet) 40 mg PO DAILY [facility]; Protocol Last Admin: 05/12/22 09:07 Dose: 40 mg Ibuprofen (Ibuprofen 600 Mg Tablet) 600 mg PO Q6H PRN PRN Reason: mild pain Last Admin: 05/12/22 18:35 Dose: 600 mg Ketoconazole (Ketoconazole 2 % Shampoo 120 Ml Btl) 1 appl TOPICAL DAILY [facility]; Protocol Last Admin: 05/12/22 12:28 Dose: Not Given Labetalol HCl (Labetalol Hcl 200 Mg Tablet) 200 mg PO BID [facility]; Protocol Last Admin: 05/12/22 09:08 Dose: 200 mg Latanoprost (Latanoprost 0.005 % Ophth Noni 2.5 Ml Drops) 1 drop EYE-BOTH BEDTIME@1999 [facility] Last Admin: 05/11/22 22:50 Dose: 1 drop Lisinopril (Lisinopril 20 Mg Tablet) 20 mg PO DAILY [facility]; Protocol Last Admin: 05/12/22 09:10 Dose: 20 mg Lorazepam (Lorazepam 1 Mg Tablet) 1 mg PO TID [facility] Last Admin: 05/12/22 15:59 Dose: 1 mg Nystatin (Nystatin Cream 15 Gm Tube) 1 appl TOPICAL BID [facility]; Protocol Stop: 05/23/22 23:00 Last Admin: 05/12/22 09:16 Dose: 1 appl Olanzapine (Olanzapine 10 Mg Vial) 5 mg IM QID PRN PRN Reason: if refuse po Tegretol/Zyprexa Olanzapine (Olanzapine 5 Mg Tablet) 5 mg PO BID [facility] Last Admin: 05/12/22 09:15 Dose: 5 mg Omeprazole (Omeprazole 20 Mg Capsule.Dr) 20 mg PO BEDTIME [facility] Last Admin: 05/11/22 22:59 Dose: 20 mg Oxybutynin Chloride (Oxybutynin Chloride Er 5 Mg Tab.Er.24) 10 mg PO DAILY [facility] Last Admin: 05/12/22 09:07 Dose: 10 mg Allergies Allergies Allergy/AdvReac Type Severity Reaction Status Date / Time adhesive [Adhesive] Allergy Mild SKIN Verified 03/18/22 08:34 IRRITATION WITH BLISTERS codeine [Codeine] Allergy Mild UNKNOWN Verified 03/18/22 08:34 methylphenidate Allergy Mild UNKNOWN Verified 03/18/22 08:34 [From [facility]] simvastatin [Simvastatin] Allergy Mild UNKNOWN Verified 03/18/22 08:34 Assessment & Plan Assessment & Plan (1) Thigh pain: Status: Acute Code(s): M79.659 - Pain in unspecified thigh Plan Patient is a 61-year-old female with history of bipolar disorder who was involuntarily committed to inpatient psychiatric hospitalization for betty.? Patient remains manic however was transferred to hospital floor for treatment for urosepsis.? Patient has been medically cleared and returns to for continued treatment.? Patient is very angry and hostile towards fiction and nonfiction prose writer.? She is angry she is not being discharged tomorrow says she has legal documents saying that her discharges post to be several days ago.? She shows fiction and nonfiction prose writer these legal documents which clearly say that patient is committed for no more than 6 months.? Patient remains manic, without any insight, delusional and intrusive to others.? One of her peers said she is scared of this patient since the patient was coming into her room and verbally accosting her.? Barrel Waterer reviewed medications that are court ordered and patient agreed to increasing Tegretol. 05/06 patient remains delusional, manic, intrusive and no insight; continues to abscond with people's belongings and supplies, touching people without permission, sexually inappropriate, touching male staff's buttocks. -will increase Tegretol; will give Geodon some more time and increased dose, however if not effective will go back to Zyprexa. 05/07 delusional, no insight; taking meds.? Will consider adding Zyprexa or increasing either Tegretol or Geodon further. -BP's better with increased lisinopril 05/09 Manic and disorganized without insight last night discontinued ziprasidone since does not appear to be helping that much and restarted Zyprexa which has typically been helpful during past manic episodes; patient has also typically received up to 5 mg of Ativan a day in the past for manic episodes; however fiction and nonfiction prose writer hesitates to give too much Ativan at bedtime, given her age and concerns for fall risk or over sedation.? Instead will schedule 1 mg t.i.d. for now so she can be monitored.? Hopefully patient will not need to remain on Ativan.? Although Ativan is court ordered, fiction and nonfiction prose writer also hesitates to give IM Ativan/benzo if patient refuses given that there is a chance she could also end up getting Zyprexa IM (though she has been taking it without issue) which is preferably avoided. 05/10 paranoid, delusional manic accusatory no insight; medications recently increased will give them a bit to take effect 05/11 LFTs, ammonia, Tegretol level within normal limits; soft tissue ultrasound says no cyst/abcess (below) 05/12, patient remains disorganized, manic with pressured speech. She did have a moment of insight where she said she would consider that maybe she has bipolar disorder, however immediately patient tangentially switches topics to her irritation that she is on the unit, that she is not discharge, that medications make her tired or, on to other completely unrelated topics. While fiction and nonfiction prose writer is cautiously hopeful that this moment of insight could meghana a potential Turning Point, patient is far from ready for discharge; if she were to return home now, patient would remained combative, intrusive, with paranoid delusions, stop taking her medications and would be unsafe. Given her age and history of hypertension, obesity, will hold off increasing medications for now to limit risk of side effect and see if patient can continue to improve on current regimen. However if she does not make significant strides toward stability, will have to make adjustments PLAN: sectinion 8 Court ruled for involuntary commitment and substituted judgment Q15 UTI: ceftin 500mg BID for 8 days (per [place] hosptialist Vlad) last dose 05/09 at bedtime Medications: DC Geodon (not that helpful) INCREASED TO Zyprexa 5mg BID (COURT ORDERED) *give IM zyprexa 5mg if refuses dose; patient in the past as needed 5 mg b.i.d. Continue Tegretol ER to 300 mg BID? (COURT ORDERED) *give IM zyprexa 5mg if refuses dose Increased to Ativan 1 mg t.i.d.; in the past patient has needed higher dose to break betty.? Will start low and increase as needed Lisinopril 20 mg daily no script for Flovent other than one on 11/2021 (only one other script for this back in 03/2021) Substituted judgment medications include the following: Ziprasidone Zyprexa Tegretol Abilify/Maintena Risperidone/Consta Ativan 05/10 impresion: No cyst or abscess. Bilateral inguinal lymphadenopathy, left greater than right. Some lymph nodes demonstrate areas of cortical thickening. Management should be determined on a clinical basis. Lymph nodes would be amenable to ultrasound-guided fine-needle aspiration/biopsy if clinically indicated. I spent minutes with the patient and/or on the patient floor today, greater than?50% of which was spent counseling/coordinating care. Patient educated on: diagnosis and medication risk/benefits Informed Consent: understands, does not understand and further education needed Reason for contiued inpatient stay Substantial Risk for: inability to function
[2022-05-12] MEDS: Latanoprost 0.005 % Ophth Sol 2.5 ML DROPS 1 DROP EYE-BOTH (21:02)
[2022-05-12] MEDS: Trolamine Salicylate 10 % Cream 85 GM TUBE 1 APPL TOPICAL (21:25)
[2022-05-13] MEDS: Ketoconazole 2 % Shampoo 120 ML BTL 1 APPL TOPICAL ×2 (03:26→21:06)
[2022-05-13] MEDS: Trolamine Salicylate 10 % Cream 85 GM TUBE 1 APPL TOPICAL (03:27)
[2022-05-13] MEDS: Nystatin Cream 15 GM TUBE 1 APPL TOPICAL (03:27)
[2022-05-13] MEDS: Ibuprofen 600 MG TABLET PO ×2 (05:34→19:52)
[2022-05-13] MEDS: Acetaminophen 325 MG TABLET 650 MG PO ×2 (05:34→19:53)
[2022-05-13 06:00] VITALS: BP 138/61; PULSE 71; RESP 16; TEMP 36.4; O2SAT 95
[2022-05-13] MEDS: lisinopriL 20 MG TABLET PO (09:07)
[2022-05-13] MEDS: OLANZapine 5 MG TABLET PO ×2 (09:07→19:55)
[2022-05-13] MEDS: Fenofibrate 160 MG TABLET PO (09:07)
[2022-05-13] MEDS: carBAMazepine ER 100 MG TAB.ER.12H 300 MG PO ×2 (09:08→19:54)
[2022-05-13] MEDS: Furosemide 40 MG TABLET PO (09:08)
[2022-05-13] MEDS: LORazepam 1 MG TABLET PO ×3 (09:08→19:55)
[2022-05-13] MEDS: Labetalol HCL 200 MG TABLET PO ×2 (09:08→19:55)
[2022-05-13] MEDS: Albuterol Sulfate 90 MCG 8 GM INHALER 2 PUFF INHALE (09:10)
[2022-05-13] MEDS: Fluticasone Propionate Nasal 16 GM SPRAY 1 SPRAY NOSTRIL-B (09:12)
--- NOTE | 2022-05-13 10:47 | HO.PSYCHPN ---
Subjective Subjective Date of Service: 05/13/22 Reason For Visit: Betty Interim History: Patient angry. To this administrative underwriter, patient Accused a specific staff of lying to her and purposely giving her coffee when she wanted Tea in order to mess with her. Patient continued to accuse to other specific staff members of being jealous that she is and therefore creating lies about her to mislead her family. Patient refused to consider administrative underwriter's attempts at reality testing. Regarding medications patient agrees that they have helped her feel calmer however she does not think she has bipolar disorder. Patient continues to say that the legal paperwork says she was post to be released last week and that administrative underwriter is not following the court orders again does not tolerate any attempt at reality testing; patient continues to ask about the names of medications and what they are for, nearly every day. Mental Status Exam Mental Status Exam Narrative: Pt is alert and oriented; behavior remains manic, irritable, intrusive, disorganized; Overweight, Bilateral LE edema (more improved); adequately groomed and dressed in casual attire;mood is described as upset; affect remains labile and angry, expansive; eye contact is good; Speech is pressured and hyperverbal;normal volume and prosody; psychomotor agitation present; thought process can be goal directed for a moment but still quickly becomes tangential, talking excessively about unrelated topics; Thought content is on discharge, angered at being in hospital; paranoid, delusional thinking present; denies any SI/HI. ?Patients insight and judgment are impaired. She does not think she has bipolar. Diagnostics Vital Signs (24Hr): Vital Signs - 24 hr 05/12/22 20:40 05/13/22 06:00 Temperature 97.4 F 97.6 F Pulse Rate 89 71 Respiratory Rate 16 Blood Pressure 121/57 L 138/61 Pulse Oximetry 95 95 Oxygen Delivery Method Room Air Room Air Labs Results: 05/11/22 07:03 Imaging Radiology Impressions: ITS Impressions Extremity Ultrasound 05/10/22 18:27 IMPRESSION: No cyst or abscess. Bilateral inguinal lymphadenopathy, left greater than right. Some lymph nodes demonstrate areas of cortical thickening. Management should be determined on a clinical basis. Lymph nodes would be amenable to ultrasound-guided fine-needle aspiration/biopsy if clinically indicated. Medications Medications Current Medications Acetaminophen (Acetaminophen 325 Mg Tablet) 650 mg PO Q6H PRN PRN Reason: Pain, Mild (Pain Scale 1-3) Last Admin: 05/13/22 05:34 Dose: 650 mg Albuterol Sulfate (Albuterol Sulfate 90 Mcg 8 Gm Inhaler) 2 puff INHALE Q4H PRN PRN Reason: wheezing Last Admin: 05/13/22 09:10 Dose: 2 puff Aspirin (Aspirin Enteric Coated 81 Mg Tablet.Dr) 81 mg PO ONCE PRN PRN Reason: headache; give w/ tylenol Last Admin: 05/09/22 15:55 Dose: 81 mg Carbamazepine (Carbamazepine Er 100 Mg Tab.Er.12h) 300 mg PO BEDTIME [facility] Last Admin: 05/12/22 20:49 Dose: 300 mg Carbamazepine (Carbamazepine Er 100 Mg Tab.Er.12h) 300 mg PO DAILY [facility] Last Admin: 05/13/22 09:08 Dose: 300 mg Ezetimibe (Ezetimibe 10 Mg Tablet) 10 mg PO BEDTIME@1999 [facility] Last Admin: 05/12/22 20:50 Dose: 10 mg Fenofibrate (Fenofibrate 160 Mg Tablet) 160 mg PO DAILY [facility] Last Admin: 05/13/22 09:07 Dose: 160 mg Fluticasone Propionate (Fluticasone Propionate Nasal 16 Gm [place]) 1 spray NOSTRIL-B DAILY [facility] Last Admin: 05/13/22 09:12 Dose: 1 spray Furosemide (Furosemide 40 Mg Tablet) 40 mg PO DAILY [facility]; Protocol Last Admin: 05/13/22 09:08 Dose: 40 mg Ibuprofen (Ibuprofen 600 Mg Tablet) 600 mg PO Q6H PRN PRN Reason: mild pain Last Admin: 05/13/22 05:34 Dose: 600 mg Ketoconazole (Ketoconazole 2 % Shampoo 120 Ml Btl) 1 appl TOPICAL DAILY [facility]; Protocol Last Admin: 05/13/22 03:26 Dose: 1 appl Labetalol HCl (Labetalol Hcl 200 Mg Tablet) 200 mg PO BID [facility]; Protocol Last Admin: 05/13/22 09:08 Dose: 200 mg Latanoprost (Latanoprost 0.005 % Ophth Noni 2.5 Ml Drops) 1 drop EYE-BOTH BEDTIME@1999 [facility] Last Admin: 05/12/22 21:02 Dose: 1 drop Lisinopril (Lisinopril 20 Mg Tablet) 20 mg PO DAILY [facility]; Protocol Last Admin: 05/13/22 09:07 Dose: 20 mg Lorazepam (Lorazepam 1 Mg Tablet) 1 mg PO TID [facility] Last Admin: 05/13/22 09:08 Dose: 1 mg Nystatin (Nystatin Cream 15 Gm Tube) 1 appl TOPICAL BID [facility]; Protocol Stop: 05/23/22 23:00 Last Admin: 05/13/22 03:27 Dose: 1 appl Olanzapine (Olanzapine 10 Mg Vial) 5 mg IM QID PRN PRN Reason: if refuse po Tegretol/Zyprexa Olanzapine (Olanzapine 5 Mg Tablet) 5 mg PO BID [facility] Last Admin: 05/13/22 09:07 Dose: 5 mg Omeprazole (Omeprazole 20 Mg Capsule.Dr) 20 mg PO BEDTIME [facility] Last Admin: 05/12/22 20:50 Dose: 20 mg Oxybutynin Chloride (Oxybutynin Chloride Er 5 Mg Tab.Er.24) 10 mg PO DAILY [facility] Last Admin: 05/13/22 09:07 Dose: 10 mg Trolamine Salicylate (Trolamine Salicylate 10 % Cream 85 Gm Tube) 1 appl TOPICAL TID PRN; Protocol PRN Reason: Pain, Mild (Pain Scale 1-3) Last Admin: 05/13/22 03:27 Dose: 1 appl Allergies Allergies Allergy/AdvReac Type Severity Reaction Status Date / Time adhesive [Adhesive] Allergy Mild SKIN Verified 03/18/22 08:34 IRRITATION WITH BLISTERS codeine [Codeine] Allergy Mild UNKNOWN Verified 03/18/22 08:34 methylphenidate Allergy Mild UNKNOWN Verified 03/18/22 08:34 [From [facility]] simvastatin [Simvastatin] Allergy Mild UNKNOWN Verified 03/18/22 08:34 Assessment & Plan Assessment & Plan (1) Thigh pain: Status: Acute Code(s): M79.659 - Pain in unspecified thigh Plan Patient is a 61-year-old female with history of bipolar disorder who was involuntarily committed to inpatient psychiatric hospitalization for betty.? Patient remains manic however was transferred to hospital floor for treatment for urosepsis.? Patient has been medically cleared and returns to for continued treatment.? Patient is very angry and hostile towards administrative underwriter.? She is angry she is not being discharged tomorrow says she has legal documents saying that her discharges post to be several days ago.? She shows administrative underwriter these legal documents which clearly say that patient is committed for no more than 6 months.? Patient remains manic, without any insight, delusional and intrusive to others.? One of her peers said she is scared of this patient since the patient was coming into her room and verbally accosting her.? Die Hardener reviewed medications that are court ordered and patient agreed to increasing Tegretol. 05/06 patient remains delusional, manic, intrusive and no insight; continues to abscond with people's belongings and supplies, touching people without permission, sexually inappropriate, touching male staff's buttocks. -will increase Tegretol; will give Geodon some more time and increased dose, however if not effective will go back to Zyprexa. 05/07 delusional, no insight; taking meds.? Will consider adding Zyprexa or increasing either Tegretol or Geodon further. -BP's better with increased lisinopril 05/09 Manic and disorganized without insight last night discontinued ziprasidone since does not appear to be helping that much and restarted Zyprexa which has typically been helpful during past manic episodes; patient has also typically received up to 5 mg of Ativan a day in the past for manic episodes; however administrative underwriter hesitates to give too much Ativan at bedtime, given her age and concerns for fall risk or over sedation.? Instead will schedule 1 mg t.i.d. for now so she can be monitored.? Hopefully patient will not need to remain on Ativan.? Although Ativan is court ordered, administrative underwriter also hesitates to give IM Ativan/benzo if patient refuses given that there is a chance she could also end up getting Zyprexa IM (though she has been taking it without issue) which is preferably avoided. 05/10 paranoid, delusional manic accusatory no insight; medications recently increased will give them a bit to take effect 05/11 LFTs, ammonia, Tegretol level within normal limits; soft tissue ultrasound says no cyst/abcess (below) 05/12, patient remains disorganized, manic with pressured speech. She did have a moment of insight where she said she would consider that maybe she has bipolar disorder, however immediately patient tangentially switches topics to her irritation that she is on the unit, that she is not discharge, that medications make her tired or, on to other completely unrelated topics. While administrative underwriter is cautiously hopeful that this moment of insight could meghana a potential Turning Point, patient is far from ready for discharge; if she were to return home now, patient would remained combative, intrusive, with paranoid delusions, stop taking her medications and would be unsafe. Given her age and history of hypertension, obesity, will hold off increasing medications for now to limit risk of side effect and see if patient can continue to improve on current regimen. However if she does not make significant strides toward stability, will have to make adjustments 05/13 no changes PLAN: sectinion 8 Court ruled for involuntary commitment and substituted judgment Q15 UTI: ceftin 500mg BID for 8 days (per PA hosptialist Vlad) last dose 05/09 at bedtime Medications: HILARIA [place] (not that helpful) Zyprexa 5mg BID (COURT ORDERED) *give IM zyprexa 5mg if refuses dose; patient in the past as needed 5 mg b.i.d. Continue Tegretol ER to 300 mg BID? (COURT ORDERED) *give IM zyprexa 5mg if refuses dose Increased to Ativan 1 mg t.i.d.; in the past patient has needed higher dose to break betty.? Will start low and increase as needed Lisinopril 20 mg daily no script for Flovent other than one on 11/2021 (only one other script for this back in 03/2021) Substituted judgment medications include the following: Ziprasidone Zyprexa Tegretol Abilify/Maintena Risperidone/Consta Ativan 05/10 impresion: No cyst or abscess. Bilateral inguinal lymphadenopathy, left greater than right. Some lymph nodes demonstrate areas of cortical thickening. Management should be determined on a clinical basis. Lymph nodes would be amenable to ultrasound-guided fine-needle aspiration/biopsy if clinically indicated. I spent minutes with the patient and/or on the patient floor today, greater than?50% of which was spent counseling/coordinating care. Patient educated on: diagnosis and medication risk/benefits Informed Consent: understands and does not understand Reason for contiued inpatient stay Substantial Risk for: inability to function
[2022-05-13 18:00] VITALS: BP 143/64; PULSE 83; RESP 18; TEMP 36.1; O2SAT 99
[2022-05-13] MEDS: Ezetimibe 10 MG TABLET PO (19:54)
[2022-05-13] MEDS: Latanoprost 0.005 % Ophth Sol 2.5 ML DROPS 1 DROP EYE-BOTH (21:06)
[2022-05-13] MEDS: Omeprazole 20 MG CAPSULE.DR PO (21:46)
[2022-05-14] MEDS: Acetaminophen 325 MG TABLET 650 MG PO ×2 (05:39→18:44)
[2022-05-14] MEDS: Ibuprofen 600 MG TABLET PO ×2 (05:39→18:44)
[2022-05-14] MEDS: Aspirin Enteric Coated 81 MG TABLET.DR PO (05:40)
[2022-05-14 06:00] VITALS: BP 128/60; PULSE 70; RESP 18; O2SAT 100
[2022-05-14] MEDS: Albuterol Sulfate 90 MCG 8 GM INHALER 2 PUFF INHALE (08:55)
[2022-05-14] MEDS: Fluticasone Propionate Nasal 16 GM SPRAY 1 SPRAY NOSTRIL-B (08:55)
[2022-05-14] MEDS: carBAMazepine ER 100 MG TAB.ER.12H 300 MG PO ×2 (08:55→20:39)
[2022-05-14] MEDS: Furosemide 40 MG TABLET PO (08:56)
[2022-05-14] MEDS: Fenofibrate 160 MG TABLET PO (08:56)
[2022-05-14] MEDS: LORazepam 1 MG TABLET PO (08:56)
[2022-05-14] MEDS: OLANZapine 5 MG TABLET PO (08:56)
[2022-05-14] MEDS: lisinopriL 20 MG TABLET PO (08:56)
[2022-05-14] MEDS: Labetalol HCL 200 MG TABLET PO ×2 (08:56→20:39)
[2022-05-14] MEDS: Trolamine Salicylate 10 % Cream 85 GM TUBE 1 APPL TOPICAL (08:57)
[2022-05-14] MEDS: Nystatin Cream 15 GM TUBE 1 APPL TOPICAL ×2 (08:57→20:42)
--- NOTE | 2022-05-14 17:56 | HO.PSYCHPN ---
Subjective Subjective Date of Service: 05/14/22 Reason For Visit: Betty Interim History: Continues to sneak in hide materials in her room. Irritable, no insight, manic and tangential Mental Status Exam Mental Status Exam Narrative: Pt is alert and oriented; behavior remains manic, irritable, intrusive, disorganized; Overweight, Bilateral LE edema (more improved); adequately groomed and dressed in casual attire;mood is described as upset; affect remains labile and angry, expansive; eye contact is good; Speech is pressured and hyperverbal;normal volume and prosody; psychomotor agitation present; thought process can be goal directed for a moment but still quickly becomes tangential, talking excessively about unrelated topics; Thought content is on discharge, angered at being in hospital; paranoid, delusional thinking present; denies any SI/HI. ?Patients insight and judgment are impaired. She does not think she has bipolar. Diagnostics Vital Signs (24Hr): Vital Signs - 24 hr 05/13/22 18:00 05/14/22 06:00 Temperature 97 F Pulse Rate 83 70 Respiratory Rate 18 18 Blood Pressure 143/64 H 128/60 Pulse Oximetry 99 100 Oxygen Delivery Method Room Air Room Air Labs Results: 05/11/22 07:03 Imaging Radiology Impressions: ITS Impressions Extremity Ultrasound 05/10/22 18:27 IMPRESSION: No cyst or abscess. Bilateral inguinal lymphadenopathy, left greater than right. Some lymph nodes demonstrate areas of cortical thickening. Management should be determined on a clinical basis. Lymph nodes would be amenable to ultrasound-guided fine-needle aspiration/biopsy if clinically indicated. Medications Medications Current Medications Acetaminophen (Acetaminophen 325 Mg Tablet) 650 mg PO Q6H PRN PRN Reason: Pain, Mild (Pain Scale 1-3) Last Admin: 05/14/22 05:39 Dose: 650 mg Albuterol Sulfate (Albuterol Sulfate 90 Mcg 8 Gm Inhaler) 2 puff INHALE Q4H PRN PRN Reason: wheezing Last Admin: 05/14/22 08:55 Dose: 2 puff Aspirin (Aspirin Enteric Coated 81 Mg Tablet.Dr) 81 mg PO ONCE PRN PRN Reason: headache; give w/ tylenol Last Admin: 05/14/22 05:40 Dose: 81 mg Carbamazepine (Carbamazepine Er 100 Mg Tab.Er.12h) 300 mg PO BEDTIME VAL[facility]N Last Admin: 05/13/22 19:54 Dose: 300 mg Carbamazepine (Carbamazepine Er 100 Mg Tab.Er.12h) 300 mg PO DAILY [facility]N Last Admin: 05/14/22 08:55 Dose: 300 mg Ezetimibe (Ezetimibe 10 Mg Tablet) 10 mg PO BEDTIME@1999 [facility] Last Admin: 05/13/22 19:54 Dose: 10 mg Fenofibrate (Fenofibrate 160 Mg Tablet) 160 mg PO DAILY [facility] Last Admin: 05/14/22 08:56 Dose: 160 mg Fluticasone Propionate (Fluticasone Propionate Nasal 16 Gm Deputy) 1 spray NOSTRIL-B DAILY [facility]N Last Admin: 05/14/22 08:55 Dose: 1 spray Furosemide (Furosemide 40 Mg Tablet) 40 mg PO DAILY VALENTÍN; Protocol Last Admin: 05/14/22 08:56 Dose: 40 mg Ibuprofen (Ibuprofen 600 Mg Tablet) 600 mg PO Q6H PRN PRN Reason: mild pain Last Admin: 05/14/22 05:39 Dose: 600 mg Ketoconazole (Ketoconazole 2 % Shampoo 120 Ml Btl) 1 appl TOPICAL DAILY VALENT[facility]N; Protocol Last Admin: 05/13/22 21:06 Dose: 1 appl Labetalol HCl (Labetalol Hcl 200 Mg Tablet) 200 mg PO BID [facility]N; Protocol Last Admin: 05/14/22 08:56 Dose: 200 mg Latanoprost (Latanoprost 0.005 % Ophth Noni 2.5 Ml Drops) 1 drop EYE-BOTH BEDTIME@1999 [facility] Last Admin: 05/13/22 21:06 Dose: 1 drop Lisinopril (Lisinopril 20 Mg Tablet) 20 mg PO DAILY VALENTÍN; Protocol Last Admin: 05/14/22 08:56 Dose: 20 mg Nystatin (Nystatin Cream 15 Gm Tube) 1 appl TOPICAL BID VALENT[facility]N; Protocol Stop: 05/23/22 23:00 Last Admin: 05/14/22 08:57 Dose: 1 appl Olanzapine (Olanzapine 10 Mg Vial) 5 mg IM QID PRN PRN Reason: if refuse po Tegretol/Zyprexa Olanzapine (Olanzapine 5 Mg Tablet) 5 mg PO DAILY [facility] Olanzapine (Olanzapine 10 Mg Tablet) 10 mg PO BEDTIME [facility] Omeprazole (Omeprazole 20 Mg Capsule.Dr) 20 mg PO BEDTIME [facility] Last Admin: 05/13/22 21:46 Dose: 20 mg Oxybutynin Chloride (Oxybutynin Chloride Er 5 Mg Tab.Er.24) 10 mg PO DAILY [facility] Last Admin: 05/14/22 08:56 Dose: 10 mg Trolamine Salicylate (Trolamine Salicylate 10 % Cream 85 Gm Tube) 1 appl TOPICAL TID PRN; Protocol PRN Reason: Pain, Mild (Pain Scale 1-3) Last Admin: 05/14/22 08:57 Dose: 1 appl Allergies Allergies Allergy/AdvReac Type Severity Reaction Status Date / Time adhesive [Adhesive] Allergy Mild SKIN Verified 03/18/22 08:34 IRRITATION WITH BLISTERS codeine [Codeine] Allergy Mild UNKNOWN Verified 03/18/22 08:34 methylphenidate Allergy Mild UNKNOWN Verified 03/18/22 08:34 [From CONCERTA] simvastatin [Simvastatin] Allergy Mild UNKNOWN Verified 03/18/22 08:34 Assessment & Plan Assessment & Plan (1) Thigh pain: Status: Acute Code(s): M79.659 - Pain in unspecified thigh Plan Patient is a 61-year-old female with history of bipolar disorder who was involuntarily committed to inpatient psychiatric hospitalization for betty.? Patient remains manic however was transferred to hospital floor for treatment for urosepsis.? Patient has been medically cleared and returns to for continued treatment.? Patient is very angry and hostile towards communications writer.? She is angry she is not being discharged tomorrow says she has legal documents saying that her discharges post to be several days ago.? She shows communications writer these legal documents which clearly say that patient is committed for no more than 6 months.? Patient remains manic, without any insight, delusional and intrusive to others.? One of her peers said she is scared of this patient since the patient was coming into her room and verbally accosting her.? Senior Account Executive reviewed medications that are court ordered and patient agreed to increasing Tegretol. 05/06 patient remains delusional, manic, intrusive and no insight; continues to abscond with people's belongings and supplies, touching people without permission, sexually inappropriate, touching male staff's buttocks. -will increase Tegretol; will give Geodon some more time and increased dose, however if not effective will go back to Zyprexa. 05/07 delusional, no insight; taking meds.? Will consider adding Zyprexa or increasing either Tegretol or Geodon further. -BP's better with increased lisinopril 05/09 Manic and disorganized without insight last night discontinued ziprasidone since does not appear to be helping that much and restarted Zyprexa which has typically been helpful during past manic episodes; patient has also typically received up to 5 mg of Ativan a day in the past for manic episodes; however communications writer hesitates to give too much Ativan at bedtime, given her age and concerns for fall risk or over sedation.? Instead will schedule 1 mg t.i.d. for now so she can be monitored.? Hopefully patient will not need to remain on Ativan.? Although Ativan is court ordered, communications writer also hesitates to give IM Ativan/benzo if patient refuses given that there is a chance she could also end up getting Zyprexa IM (though she has been taking it without issue) which is preferably avoided. 05/10 paranoid, delusional manic accusatory no insight; medications recently increased will give them a bit to take effect 05/11 LFTs, ammonia, Tegretol level within normal limits; soft tissue ultrasound says no cyst/abcess (below) 05/12, patient remains disorganized, manic with pressured speech. She did have a moment of insight where she said she would consider that maybe she has bipolar disorder, however immediately patient tangentially switches topics to her irritation that she is on the unit, that she is not discharge, that medications make her tired or, on to other completely unrelated topics. While communications writer is cautiously hopeful that this moment of insight could meghana a potential Turning Point, patient is far from ready for discharge; if she were to return home now, patient would remained combative, intrusive, with paranoid delusions, stop taking her medications and would be unsafe. Given her age and history of hypertension, obesity, will hold off increasing medications for now to limit risk of side effect and see if patient can continue to improve on current regimen. However if she does not make significant strides toward stability, will have to make adjustments 05/13 no changes 05/14 patient has made little progress on current medication even though it is higher than past doses which have helped her stabilize; will increase Zyprexa by 5 mg PLAN: sectinion 8 Court ruled for involuntary commitment and substituted judgment Q15 UTI: ceftin 500mg BID for 8 days (per PA hosptialist Vlad) last dose 05/09 at bedtime Medications: HILARIA Camejo (not that helpful) Continue Zyprexa 5mg daily (COURT ORDERED) *give IM zyprexa 5mg if refuses dose; patient in the past as needed 5 mg b.i.d. Increase to Zyprexa 10 mg q.h.s. (COURT ORDERED) Continue Tegretol ER to 300 mg BID? (COURT ORDERED) *give IM zyprexa 5mg if refuses dose Increased to Ativan 1 mg t.i.d.; in the past patient has needed higher dose to break betty.? Will start low and increase as needed Lisinopril 20 mg daily no script for Flovent other than one on 11/2021 (only one other script for this back in 03/2021) Substituted judgment medications include the following: Ziprasidone Zyprexa Tegretol Abilify/Maintena Risperidone/Consta Ativan 05/10 impresion: No cyst or abscess. Bilateral inguinal lymphadenopathy, left greater than right. Some lymph nodes demonstrate areas of cortical thickening. Management should be determined on a clinical basis. Lymph nodes would be amenable to ultrasound-guided fine-needle aspiration/biopsy if clinically indicated. I spent minutes with the patient and/or on the patient floor today, greater than?50% of which was spent counseling/coordinating care. Patient educated on: diagnosis and medication risk/benefits Reason for contiued inpatient stay Substantial Risk for: inability to function
[2022-05-14 18:00] VITALS: BP 144/64; PULSE 78; RESP 18
[2022-05-14] MEDS: OLANZapine 10 MG TABLET PO (20:38)
[2022-05-14] MEDS: LORazepam 0.5 MG TABLET PO (20:38)
[2022-05-14] MEDS: Omeprazole 20 MG CAPSULE.DR PO (20:40)
[2022-05-14] MEDS: Latanoprost 0.005 % Ophth Sol 2.5 ML DROPS 1 DROP EYE-BOTH (20:40)
[2022-05-14] MEDS: Ezetimibe 10 MG TABLET PO (20:40)
[2022-05-15] MEDS: Ibuprofen 600 MG TABLET PO ×2 (03:10→22:07)
[2022-05-15] MEDS: Acetaminophen 325 MG TABLET 650 MG PO ×2 (03:10→22:08)
[2022-05-15 06:00] VITALS: BP 147/66; PULSE 71; RESP 17; TEMP 36; O2SAT 97
[2022-05-15] MEDS: Fluticasone Propionate Nasal 16 GM SPRAY 1 SPRAY NOSTRIL-B (08:07)
[2022-05-15] MEDS: Albuterol Sulfate 90 MCG 8 GM INHALER 2 PUFF INHALE (08:07)
[2022-05-15] MEDS: Trolamine Salicylate 10 % Cream 85 GM TUBE 1 APPL TOPICAL (08:08)
[2022-05-15] MEDS: Nystatin Cream 15 GM TUBE 1 APPL TOPICAL ×2 (08:08→22:38)
[2022-05-15] MEDS: carBAMazepine ER 100 MG TAB.ER.12H 300 MG PO ×2 (09:05→21:40)
[2022-05-15] MEDS: Furosemide 40 MG TABLET PO (09:06)
[2022-05-15] MEDS: Fenofibrate 160 MG TABLET PO (09:06)
[2022-05-15] MEDS: lisinopriL 20 MG TABLET PO (09:06)
[2022-05-15] MEDS: Labetalol HCL 200 MG TABLET PO ×2 (09:06→22:38)
[2022-05-15] MEDS: OLANZapine 5 MG TABLET PO (09:06)
--- NOTE | 2022-05-15 17:09 | HO.PSYCHPN ---
Subjective Subjective Date of Service: 05/15/22 Reason For Visit: Betty Interim History: Patient is disorganized and with paranoid delusional thinking about staff, thinking they are conspiring to malign her. She remains without insight, pressured speech, tangential thinking. Mental Status Exam Mental Status Exam Narrative: Pt is alert and oriented; behavior remains manic, irritable, intrusive, disorganized; Overweight, Bilateral LE edema (more improved); adequately groomed and dressed in casual attire;mood is described as upset; affect remains labile and angry, expansive; eye contact is good; Speech is pressured and hyperverbal;normal volume and prosody; psychomotor agitation present; thought process can be goal directed for a moment but still quickly becomes tangential, talking excessively about unrelated topics; Thought content is on discharge, angered at being in hospital; paranoid, delusional thinking present; denies any SI/HI. ?Patients insight and judgment are impaired. She does not think she has bipolar. Diagnostics Vital Signs (24Hr): Vital Signs - 24 hr 05/14/22 18:00 05/15/22 06:00 Temperature 96.8 F Pulse Rate 78 71 Respiratory Rate 18 17 Blood Pressure 144/64 H 147/66 H Pulse Oximetry 97 Labs Results: 05/11/22 07:03 Imaging Radiology Impressions: ITS Impressions Extremity Ultrasound 05/10/22 18:27 IMPRESSION: No cyst or abscess. Bilateral inguinal lymphadenopathy, left greater than right. Some lymph nodes demonstrate areas of cortical thickening. Management should be determined on a clinical basis. Lymph nodes would be amenable to ultrasound-guided fine-needle aspiration/biopsy if clinically indicated. Medications Medications Current Medications Acetaminophen (Acetaminophen 325 Mg Tablet) 650 mg PO Q6H PRN PRN Reason: Pain, Mild (Pain Scale 1-3) Last Admin: 05/15/22 03:10 Dose: 650 mg Albuterol Sulfate (Albuterol Sulfate 90 Mcg 8 Gm Inhaler) 2 puff INHALE Q4H PRN PRN Reason: wheezing Last Admin: 05/15/22 08:07 Dose: 2 puff Aspirin (Aspirin Enteric Coated 81 Mg Tablet.Dr) 81 mg PO ONCE PRN PRN Reason: headache; give w/ tylenol Last Admin: 05/14/22 05:40 Dose: 81 mg Carbamazepine (Carbamazepine Er 100 Mg Tab.Er.12h) 300 mg PO BEDTIME [facility]N Last Admin: 05/14/22 20:39 Dose: 300 mg Carbamazepine (Carbamazepine Er 100 Mg Tab.Er.12h) 300 mg PO DAILY [facility]N Last Admin: 05/15/22 09:05 Dose: 300 mg Ezetimibe (Ezetimibe 10 Mg Tablet) 10 mg PO BEDTIME@1999 [facility] Last Admin: 05/14/22 20:40 Dose: 10 mg Fenofibrate (Fenofibrate 160 Mg Tablet) 160 mg PO DAILY [facility]N Last Admin: 05/15/22 09:06 Dose: 160 mg Fluticasone Propionate (Fluticasone Propionate Nasal 16 Gm [place]) 1 spray NOSTRIL-B DAILY [facility]N Last Admin: 05/15/22 08:07 Dose: 1 spray Furosemide (Furosemide 40 Mg Tablet) 40 mg PO DAILY VALENTÍN; Protocol Last Admin: 05/15/22 09:06 Dose: 40 mg Ibuprofen (Ibuprofen 600 Mg Tablet) 600 mg PO Q6H PRN PRN Reason: mild pain Last Admin: 05/15/22 03:10 Dose: 600 mg Ketoconazole (Ketoconazole 2 % Shampoo 120 Ml Btl) 1 appl TOPICAL DAILY VAL[facility]N; Protocol Last Admin: 05/15/22 08:11 Dose: Not Given Labetalol HCl (Labetalol Hcl 200 Mg Tablet) 200 mg PO BID [facility]N; Protocol Last Admin: 05/15/22 09:06 Dose: 200 mg Latanoprost (Latanoprost 0.005 % Ophth Noni 2.5 Ml Drops) 1 drop EYE-BOTH BEDTIME@1999 [facility] Last Admin: 05/14/22 20:40 Dose: 1 drop Lisinopril (Lisinopril 20 Mg Tablet) 20 mg PO DAILY VALENTÍN; Protocol Last Admin: 05/15/22 09:06 Dose: 20 mg Nystatin (Nystatin Cream 15 Gm Tube) 1 appl TOPICAL BID VALENT[facility]N; Protocol Stop: 05/23/22 23:00 Last Admin: 05/15/22 08:08 Dose: 1 appl Olanzapine (Olanzapine 10 Mg Vial) 5 mg IM QID PRN PRN Reason: if refuse po Tegretol/Zyprexa Olanzapine (Olanzapine 10 Mg Tablet) 10 mg PO BID [facility] Omeprazole (Omeprazole 20 Mg Capsule.Dr) 20 mg PO BEDTIME [facility]N Last Admin: 05/14/22 20:40 Dose: 20 mg Oxybutynin Chloride (Oxybutynin Chloride Er 5 Mg Tab.Er.24) 10 mg PO DAILY [facility]N Last Admin: 05/15/22 09:05 Dose: 10 mg Trolamine Salicylate (Trolamine Salicylate 10 % Cream 85 Gm Tube) 1 appl TOPICAL TID PRN; Protocol PRN Reason: Pain, Mild (Pain Scale 1-3) Last Admin: 05/15/22 08:08 Dose: 1 appl Allergies Allergies Allergy/AdvReac Type Severity Reaction Status Date / Time adhesive [Adhesive] Allergy Mild SKIN Verified 03/18/22 08:34 IRRITATION WITH BLISTERS codeine [Codeine] Allergy Mild UNKNOWN Verified 03/18/22 08:34 methylphenidate Allergy Mild UNKNOWN Verified 03/18/22 08:34 [From CONCERTA] simvastatin [Simvastatin] Allergy Mild UNKNOWN Verified 03/18/22 08:34 Assessment & Plan Assessment & Plan (1) Thigh pain: Status: Acute Code(s): M79.659 - Pain in unspecified thigh Plan Patient is a 61-year-old female with history of bipolar disorder who was involuntarily committed to inpatient psychiatric hospitalization for betty.? Patient remains manic however was transferred to hospital floor for treatment for urosepsis.? Patient has been medically cleared and returns to for continued treatment.? Patient is very angry and hostile towards telegraphic typewriter repairer.? She is angry she is not being discharged tomorrow says she has legal documents saying that her discharges post to be several days ago.? She shows telegraphic typewriter repairer these legal documents which clearly say that patient is committed for no more than 6 months.? Patient remains manic, without any insight, delusional and intrusive to others.? One of her peers said she is scared of this patient since the patient was coming into her room and verbally accosting her.? Affiliate Marketing Coordinator reviewed medications that are court ordered and patient agreed to increasing Tegretol. 05/06 patient remains delusional, manic, intrusive and no insight; continues to abscond with people's belongings and supplies, touching people without permission, sexually inappropriate, touching male staff's buttocks. -will increase Tegretol; will give Geodon some more time and increased dose, however if not effective will go back to Zyprexa. 05/07 delusional, no insight; taking meds.? Will consider adding Zyprexa or increasing either Tegretol or Geodon further. -BP's better with increased lisinopril 05/09 Manic and disorganized without insight last night discontinued ziprasidone since does not appear to be helping that much and restarted Zyprexa which has typically been helpful during past manic episodes; patient has also typically received up to 5 mg of Ativan a day in the past for manic episodes; however telegraphic typewriter repairer hesitates to give too much Ativan at bedtime, given her age and concerns for fall risk or over sedation.? Instead will schedule 1 mg t.i.d. for now so she can be monitored.? Hopefully patient will not need to remain on Ativan.? Although Ativan is court ordered, telegraphic typewriter repairer also hesitates to give IM Ativan/benzo if patient refuses given that there is a chance she could also end up getting Zyprexa IM (though she has been taking it without issue) which is preferably avoided. 05/10 paranoid, delusional manic accusatory no insight; medications recently increased will give them a bit to take effect 05/11 LFTs, ammonia, Tegretol level within normal limits; soft tissue ultrasound says no cyst/abcess (below) 05/12, patient remains disorganized, manic with pressured speech. She did have a moment of insight where she said she would consider that maybe she has bipolar disorder, however immediately patient tangentially switches topics to her irritation that she is on the unit, that she is not discharge, that medications make her tired or, on to other completely unrelated topics. While telegraphic typewriter repairer is cautiously hopeful that this moment of insight could meghana a potential Turning Point, patient is far from ready for discharge; if she were to return home now, patient would remained combative, intrusive, with paranoid delusions, stop taking her medications and would be unsafe. Given her age and history of hypertension, obesity, will hold off increasing medications for now to limit risk of side effect and see if patient can continue to improve on current regimen. However if she does not make significant strides toward stability, will have to make adjustments 05/13 no changes 05/14 patient has made little progress on current medication even though it is higher than past doses which have helped her stabilize; will increase Zyprexa by 5 mg 05/15 remains paranoid; pt with delusions that staff is purposely trying to malign her; increasing Zyprexa to 10mg BID as she remains manic and disorganized PLAN: sectinion 8 Court ruled for involuntary commitment and substituted judgment Q15 Medications: HILARIA Rahmanchristie (not that helpful) INCREASED TO Zyprexa 10 BID (COURT ORDERED) *give IM zyprexa 5mg if refuses dose; patient in the past as needed 5 mg b.i.d. Continue Tegretol ER to 300 mg BID? (COURT ORDERED) *give IM zyprexa 5mg if refuses dose Increased to Ativan 1 mg t.i.d.; in the past patient has needed higher dose to break betty.? Will start low and increase as needed Lisinopril 20 mg daily no script for Flovent other than one on 11/2021 (only one other script for this back in 03/2021) Substituted judgment medications include the following: Ziprasidone Zyprexa Tegretol Abilify/Maintena Risperidone/Consta Ativan UTI:resolved ceftin 500mg BID for 8 days 05/10 impresion: No cyst or abscess. Bilateral inguinal lymphadenopathy, left greater than right. Some lymph nodes demonstrate areas of cortical thickening. Management should be determined on a clinical basis. Lymph nodes would be amenable to ultrasound-guided fine-needle aspiration/biopsy if clinically indicated. I spent minutes with the patient and/or on the patient floor today, greater than?50% of which was spent counseling/coordinating care. Patient educated on: diagnosis Informed Consent: does not understand Reason for contiued inpatient stay Substantial Risk for: inability to function
[2022-05-15 18:00] VITALS: BP 157/68; PULSE 81; TEMP 36.8; O2SAT 97
[2022-05-15] MEDS: Ezetimibe 10 MG TABLET PO (21:39)
[2022-05-15] MEDS: Latanoprost 0.005 % Ophth Sol 2.5 ML DROPS 1 DROP EYE-BOTH (21:39)
[2022-05-15] MEDS: Omeprazole 20 MG CAPSULE.DR PO (21:40)
[2022-05-15] MEDS: OLANZapine 10 MG TABLET PO (21:40)
[2022-05-16] MEDS: Ibuprofen 600 MG TABLET PO ×3 (05:29→22:16)
[2022-05-16] MEDS: Acetaminophen 325 MG TABLET 650 MG PO ×3 (05:30→22:15)
[2022-05-16 06:00] VITALS: BP 136/88; PULSE 88; RESP 16; TEMP 36.6; O2SAT 98
[2022-05-16] MEDS: Fenofibrate 160 MG TABLET PO (09:19)
[2022-05-16] MEDS: OLANZapine 10 MG TABLET PO ×2 (09:19→20:48)
[2022-05-16] MEDS: carBAMazepine ER 100 MG TAB.ER.12H 300 MG PO ×2 (09:19→20:47)
[2022-05-16] MEDS: Labetalol HCL 200 MG TABLET PO ×2 (09:19→20:48)
[2022-05-16] MEDS: Furosemide 40 MG TABLET PO (09:19)
[2022-05-16] MEDS: lisinopriL 20 MG TABLET PO (09:20)
[2022-05-16] MEDS: Fluticasone Propionate Nasal 16 GM SPRAY 1 SPRAY NOSTRIL-B (09:29)
[2022-05-16] MEDS: Albuterol Sulfate 90 MCG 8 GM INHALER 2 PUFF INHALE (09:29)
[2022-05-16] MEDS: LORazepam 0.5 MG TABLET PO (14:21)
--- NOTE | 2022-05-16 14:34 | P.PNPSI_ITS ---
Subjective Subjective Date of Service: 05/16/22 Reason For Visit: Betty Interim History: Discussed patient's diagnosis of bipolar disorder. Patient was able to listen to specification writer's questions and responded thoughtfully. She said that for the past 15 years she has been treated for bipolar disorder. She said in my heart I do not think I have it... but I am not stupid. I realize I've been treated for bipolar for 15 years and [trust] Aixa Ahn. She explains that this is the compromise she made with herself that even though she does not really think she has it, she respects her outpatient providers opinion and has consented to ongoing treatment. Patient says she will continue to take her current medications when she gets home and agrees that it is helping her feel more calm and that it is beneficial. Patient tearfully shares that her klmown-ma-ibf is in the emergency room and she would like to see her; also that her relative is flying in from out of state and does not want to miss his visit. She is hoping to be discharged next week Speech Language Pathologist looked at patient's lower legs bilaterally which continue to look improved; patient said that there nearly back to their regular size Mental Status Exam Mental Status Exam Narrative: Pt is alert and oriented; behavior remains manic but less intense, less intrusive; Overweight, Bilateral LE edema (much more improved); adequately groomed and dressed in casual attire;mood is described as ok. Affect remains labile but less so; less irritable; eye contact is good; Speech is pressured and hyperverbal but able to contain herself to listen to specification writer; normal volume and prosody; no psychomotor agitation present; thought process can be goal directed but is very circumstantial and can also become tangential; still talking excessi vely about unrelated topics; Thought content is on discharge; upset about being in the hospital; still some paranoid, delusional thinking present; denies any SI/HI. ?Patients insight and judgment are impaired but have improved some and she says she'll continue to take meds on discharge. Diagnostics Vital Signs (24Hr): Vital Signs - 24 hr 05/15/22 18:00 05/16/22 06:00 Temperature 98.2 F 97.8 F Pulse Rate 81 88 Respiratory Rate 16 Blood Pressure 157/68 H 136/88 Pulse Oximetry 97 98 Oxygen Delivery Method Room Air Room Air Labs Results: 05/11/22 07:03 Imaging Radiology Impressions: ITS Impressions Extremity Ultrasound 05/10/22 18:27 IMPRESSION: No cyst or abscess. Bilateral inguinal lymphadenopathy, left greater than right. Some lymph nodes demonstrate areas of cortical thickening. Management should be determined on a clinical basis. Lymph nodes would be amenable to ultrasound-guided fine-needle aspiration/biopsy if clinically indicated. Medications Medications Current Medications Acetaminophen (Acetaminophen 325 Mg Tablet) 650 mg PO Q6H PRN PRN Reason: Pain, Mild (Pain Scale 1-3) Last Admin: 05/16/22 14:26 Dose: 650 mg Albuterol Sulfate (Albuterol Sulfate 90 Mcg 8 Gm Inhaler) 2 puff INHALE Q4H PRN PRN Reason: wheezing Last Admin: 05/16/22 09:29 Dose: 2 puff Aspirin (Aspirin Enteric Coated 81 Mg Tablet.Dr) 81 mg PO ONCE PRN PRN Reason: headache; give w/ tylenol Carbamazepine (Carbamazepine Er 100 Mg Tab.Er.12h) 300 mg PO BEDTIME [facility] Last Admin: 05/15/22 21:40 Dose: 300 mg Carbamazepine (Carbamazepine Er 100 Mg Tab.Er.12h) 300 mg PO DAILY [facility] Last Admin: 05/16/22 09:19 Dose: 300 mg Ezetimibe (Ezetimibe 10 Mg Tablet) 10 mg PO BEDTIME@1999 [facility] Last Admin: 05/15/22 21:39 Dose: 10 mg Fenofibrate (Fenofibrate 160 Mg Tablet) 160 mg PO DAILY [facility] Last Admin: 05/16/22 09:19 Dose: 160 mg Fluticasone Propionate (Fluticasone Propionate Nasal 16 Gm [place]) 1 spray NOSTRIL-B DAILY [facility] Last Admin: 05/16/22 09:29 Dose: 1 spray Furosemide (Furosemide 40 Mg Tablet) 40 mg PO DAILY [facility]; Protocol Last Admin: 05/16/22 09:19 Dose: 40 mg Ibuprofen (Ibuprofen 600 Mg Tablet) 600 mg PO Q6H PRN PRN Reason: mild pain Last Admin: 05/16/22 14:25 Dose: 600 mg Ketoconazole (Ketoconazole 2 % Shampoo 120 Ml Btl) 1 appl TOPICAL DAILY [facility]; Protocol Last Admin: 05/16/22 11:21 Dose: Not Given Labetalol HCl (Labetalol Hcl 200 Mg Tablet) 200 mg PO BID [facility]; Protocol Last Admin: 05/16/22 09:19 Dose: 200 mg Latanoprost (Latanoprost 0.005 % Ophth Noni 2.5 Ml Drops) 1 drop EYE-BOTH BEDTIME@1999 [facility] Last Admin: 05/15/22 21:39 Dose: 1 drop Lidocaine (Lidocaine 4 % Patch Adh..Patch) 2 patch TRANSDERMA DAILY [facility]; Protocol Lisinopril (Lisinopril 20 Mg Tablet) 20 mg PO DAILY [facility]; Protocol Last Admin: 05/16/22 09:20 Dose: 20 mg Lorazepam (Lorazepam 1 Mg Tablet) 1 mg PO BEDTIME [facility] Lorazepam (Lorazepam 0.5 Mg Tablet) 0.5 mg PO BID@0900,1500 [facility] Last Admin: 05/16/22 14:21 Dose: 0.5 mg Nystatin (Nystatin Cream 15 Gm Tube) 1 appl TOPICAL BID [facility]; Protocol Stop: 05/23/22 23:00 Last Admin: 05/16/22 09:29 Dose: Not Given Olanzapine (Olanzapine 10 Mg Vial) 5 mg IM QID PRN PRN Reason: if refuse po Tegretol/Zyprexa Olanzapine (Olanzapine 10 Mg Tablet) 10 mg PO BID [facility] Last Admin: 05/16/22 09:19 Dose: 10 mg Omeprazole (Omeprazole 20 Mg Capsule.Dr) 20 mg PO BEDTIME [facility] Last Admin: 05/15/22 21:40 Dose: 20 mg Oxybutynin Chloride (Oxybutynin Chloride Er 5 Mg Tab.Er.24) 10 mg PO DAILY [facility] Last Admin: 05/16/22 09:20 Dose: 10 mg Trolamine Salicylate (Trolamine Salicylate 10 % Cream 85 Gm Tube) 1 appl TOPICAL TID PRN; Protocol PRN Reason: Pain, Mild (Pain Scale 1-3) Last Admin: 05/15/22 08:08 Dose: 1 appl Allergies Allergies Allergy/AdvReac Type Severity Reaction Status Date / Time adhesive [Adhesive] Allergy Mild SKIN Verified 03/18/22 08:34 IRRITATION WITH BLISTERS codeine [Codeine] Allergy Mild UNKNOWN Verified 03/18/22 08:34 methylphenidate Allergy Mild UNKNOWN Verified 03/18/22 08:34 [From [facility]] simvastatin [Simvastatin] Allergy Mild UNKNOWN Verified 03/18/22 08:34 Assessment & Plan Assessment & Plan (1) Thigh pain: Status: Acute Code(s): M79.659 - Pain in unspecified thigh Plan Patient is a 61-year-old female with history of bipolar disorder who was involuntarily committed to inpatient psychiatric hospitalization for betty.? Patient remains manic however was transferred to hospital floor for treatment for urosepsis.? Patient has been medically cleared and returns to for continued treatment.? Patient is very angry and hostile towards specification writer.? She is angry she is not being discharged tomorrow says she has legal documents saying that her discharges post to be several days ago.? She shows specification writer these legal documents which clearly say that patient is committed for no more than 6 doris hs.? Patient remains manic, without any insight, delusional and intrusive to others.? One of her peers said she is scared of this patient since the patient was coming into her room and verbally accosting her.? Speech Language Pathologist reviewed medications that are court ordered and patient agreed to increasing Tegretol. 05/06 patient remains delusional, manic, intrusive and no insight; continues to abscond with people's belongings and supplies, touching people without permission, sexually inappropriate, touching male staff's buttocks. -will increase Tegretol; will give Geodon some more time and increased dose, however if not effective will go back to Zyprexa. 10 delusional, no insight; taking meds.? Will consider adding Zyprexa or increasing either Tegretol or Geodon further. -BP's better with increased lisinopril 10 Manic and disorganized without insight last night discontinued ziprasidone since does not appear to be helping that much and restarted Zyprexa which has typically been helpful during past manic episodes; patient has also typically received up to 5 mg of Ativan a day in the past for manic episodes; however specification writer hesitates to give too much Ativan at bedtime, given her age and concerns for fall risk or over sedation.? Instead will schedule 1 mg t.i.d. for now so she can be monitored.? Hopefully patient will not need to remain on Ativan.? Although Ativan is court ordered, specification writer ayaan so hesitates to give IM Ativan/benzo if patient refuses given that there is a chance she could also end up getting Zyprexa IM (though she has been taking it without issue) which is preferably avoided. 05/10 paranoid, delusional manic accusatory no insight; medications recently increased will give them a bit to take effect 05/11 LFTs, ammonia, Tegretol level within normal limits; soft tissue ultrasound says no cyst/abcess (below) 05/12, patient remains disorganized, manic with pressured speech. She did have a moment of insight where she said she would consider that maybe she has bipolar disorder, however immediately patient tangentially switches topics to her irritation that she is on the unit, that she is not discharge, that medications make her tired or, on to other completely unrelated topics. While specification writer is cautiously hopeful that this moment of insight could meghana a potential Turning Point, patient is far from ready for discharge; if she were to return home now, patient would remained combative, intrusive, with paranoid delusions, stop taking her medications and would be unsafe. Given her age and history of hypertension, obesity, will hold off increasing medications for now to limit risk of side effect and see if patient can continue to improve on current regimen. However if she does not make significant strides toward stability, will have to make adjustments 05/13 no changes 05/14 patient has made little progress on current medication even though it is higher than past doses which have helped her stabilize; will increase Zyprexa by 5 mg 05/15 remains paranoid; pt with delusions that staff is purposely trying to malign her; increasing Zyprexa to 10mg BID as she remains manic and disorganized 05/16 patient says she will continue taking medications at home since they are helpful; she explains that while she does not believe in her heart that she has bipolar disorder but has also consented to being treated for bipolar disorder for the past 15 years. Speech Language Pathologist has tried to call her a few times to confer; waiting to hear back PLAN: sectinion 8 Court ruled for involuntary commitment and substituted judgment Q15 Medications: HILARIA Camejo (not that helpful) INCREASED TO Zyprexa 10 BID (COURT ORDERED) *give IM zyprexa 5mg if refuses dose; patient in the past as needed 5 mg b.i.d. Continue Tegretol ER to 300 mg BID? (COURT ORDERED) *give IM zyprexa 5mg if refuses dose Ativan fell off; will restarted however at lower dose with Ativan 0.5 mg morning and afternoon and 1 mg at bedtime; in the past patient has needed higher dose to break betty.? Lisinopril 20 mg daily no script for Flovent other than one on 11/2021 (only one other script for this back in 03/2021) Substituted judgment medications include the following: Ziprasidone Zyprexa Tegretol Abilify/Maintena Risperidone/Consta Ativan UTI:resolved ceftin 500mg BID for 8 days 05/10 impresion: No cyst or abscess. Bilateral inguinal lymphadenopathy, left greater than right. Some lymph nodes demonstrate areas of cortical thickening. Management should be determined on a clinical basis. Lymph nodes would be amenable to ultrasound-guided fine-needle aspiration/biopsy if clinically indicated. I spent minutes with the patient and/or on the patient floor today, greater than?50% of which was spent counseling/coordinating care. Patient educated on: diagnosis and medication risk/benefits Informed Consent: understands, does not understand and further education needed Reason for contiued inpatient stay Substantial Risk for: rapid decompensation
[2022-05-16 16:12] VITALS: BP 133/60; PULSE 86; RESP 16; TEMP 36.3; O2SAT 99
[2022-05-16] MEDS: Omeprazole 20 MG CAPSULE.DR PO (20:48)
[2022-05-16] MEDS: LORazepam 1 MG TABLET PO (20:48)
[2022-05-16] MEDS: Ezetimibe 10 MG TABLET PO (20:48)
[2022-05-16] MEDS: Nystatin Cream 15 GM TUBE 1 APPL TOPICAL (20:52)
[2022-05-16] MEDS: Latanoprost 0.005 % Ophth Sol 2.5 ML DROPS 1 DROP EYE-BOTH (20:52)
[2022-05-17 06:00] VITALS: BP 130/60; PULSE 83; RESP 16; TEMP 36.3; O2SAT 97
[2022-05-17] MEDS: Ibuprofen 600 MG TABLET PO ×2 (06:16→14:19)
[2022-05-17] MEDS: Acetaminophen 325 MG TABLET 650 MG PO ×2 (06:16→14:19)
[2022-05-17] MEDS: lisinopriL 20 MG TABLET PO (08:34)
[2022-05-17] MEDS: OLANZapine 10 MG TABLET PO ×2 (08:34→20:13)
[2022-05-17] MEDS: Furosemide 40 MG TABLET PO (08:34)
[2022-05-17] MEDS: Labetalol HCL 200 MG TABLET PO ×2 (08:34→20:13)
[2022-05-17] MEDS: carBAMazepine ER 100 MG TAB.ER.12H 300 MG PO ×2 (08:35→20:12)
[2022-05-17] MEDS: LORazepam 0.5 MG TABLET PO (08:35)
[2022-05-17] MEDS: Fenofibrate 160 MG TABLET PO (08:35)
[2022-05-17] MEDS: Fluticasone Propionate Nasal 16 GM SPRAY 1 SPRAY NOSTRIL-B (09:11)
[2022-05-17] MEDS: Nystatin Cream 15 GM TUBE 1 APPL TOPICAL (09:16)
--- NOTE | 2022-05-17 10:38 | P.PNPSI_ITS ---
Subjective Subjective Date of Service: 05/17/22 Reason For Visit: Betty Interim History: Last evening patient talked about punching a male staff member in the balls and then said maybe she would punch this screenplay writer in the balls. Staff whom patient said this to present as screenplay writer inquired; pt said she did not remember saying such a thing but seemed to accept that bipolar betty could cause her to say things she would not normally say and also to not remember. She says she'll keep taking her meds talked w/ patients who says she is not back to baseline but thinks she is doing better; he said she's able to be more focused and that her attitude is more agreeable; he thinks she maybe getting close to returning home. He said at baseline she accepts treatment for bipolar even if she does not always acknowledge she has it. Mental Status Exam Mental Status Exam Narrative: Pt is alert and oriented; behavior remains manic but less intense, less intrusive; Overweight, Bilateral LE edema (much more improved); adequately groomed and dressed in casual attire;mood is described as ok. Affect remains labile but less so; less irritable; eye contact is good; Speech is pressured and hyperverbal but able to contain herself to listen to screenplay writer; normal volume and prosody; no psychomotor agitation present; thought process can be goal directed but is very circumstantial and can also become tangential; still talking excessively about unrelated topics; Thought content is on discharge; upset about being in the hospital; still some paranoid, delusional thinking present; denies any SI/HI. ?Patients insight and judgment are impaired but have improved some and she says she'll continue to take meds on discharge. Diagnostics Vital Signs (24Hr): Vital Signs - 24 hr 05/16/22 16:12 05/17/22 06:00 Temperature 97.3 F 97.4 F Pulse Rate 86 83 Respiratory Rate 16 16 Blood Pressure 133/60 130/60 Pulse Oximetry 99 97 Oxygen Delivery Method Room Air Room Air Labs Results: 05/11/22 07:03 Imaging Radiology Impressions: ITS Impressions Extremity Ultrasound 05/10/22 18:27 IMPRESSION: No cyst or abscess. Bilateral inguinal lymphadenopathy, left greater than right. Some lymph nodes demonstrate areas of cortical thickening. Management should be determined on a clinical basis. Lymph nodes would be amenable to ultrasound-guided fine-needle aspiration/biopsy if clinically indicated. Medications Medications Current Medications Acetaminophen (Acetaminophen 325 Mg Tablet) 650 mg PO Q6H PRN PRN Reason: Pain, Mild (Pain Scale 1-3) Last Admin: 05/17/22 06:16 Dose: 650 mg Albuterol Sulfate (Albuterol Sulfate 90 Mcg 8 Gm Inhaler) 2 puff INHALE Q4H PRN PRN Reason: wheezing Last Admin: 05/16/22 09:29 Dose: 2 puff Aspirin (Aspirin Enteric Coated 81 Mg Tablet.Dr) 81 mg PO ONCE PRN PRN Reason: headache; give w/ tylenol Carbamazepine (Carbamazepine Er 100 Mg Tab.Er.12h) 300 mg PO BEDTIME [facility] Last Admin: 05/16/22 20:47 Dose: 300 mg Carbamazepine (Carbamazepine Er 100 Mg Tab.Er.12h) 300 mg PO DAILY [facility] Last Admin: 05/17/22 08:35 Dose: 300 mg Ezetimibe (Ezetimibe 10 Mg Tablet) 10 mg PO BEDTIME@1999 [facility] Last Admin: 05/16/22 20:48 Dose: 10 mg Fenofibrate (Fenofibrate 160 Mg Tablet) 160 mg PO DAILY [facility] Last Admin: 05/17/22 08:35 Dose: 160 mg Fluticasone Propionate (Fluticasone Propionate Nasal 16 Gm [place]) 1 spray NOSTRIL-B DAILY [facility] Last Admin: 05/17/22 09:11 Dose: 1 spray Furosemide (Furosemide 40 Mg Tablet) 40 mg PO DAILY [facility]; Protocol Last Admin: 05/17/22 08:34 Dose: 40 mg Ibuprofen (Ibuprofen 600 Mg Tablet) 600 mg PO Q6H PRN PRN Reason: mild pain Last Admin: 05/17/22 06:16 Dose: 600 mg Ketoconazole (Ketoconazole 2 % Shampoo 120 Ml Btl) 1 appl TOPICAL DAILY [facility]; Protocol Last Admin: 05/17/22 09:11 Dose: Not Given Labetalol HCl (Labetalol Hcl 200 Mg Tablet) 200 mg PO BID [facility]; Protocol Last Admin: 05/17/22 08:34 Dose: 200 mg Latanoprost (Latanoprost 0.005 % Ophth Noni 2.5 Ml Drops) 1 drop EYE-BOTH BEDTIME@1999 [facility] Last Admin: 05/16/22 20:52 Dose: 1 drop Lidocaine (Lidocaine 4 % Patch Adh..Patch) 2 patch TRANSDERMA DAILY [facility]; Protocol Lisinopril (Lisinopril 20 Mg Tablet) 20 mg PO DAILY [facility]; Protocol Last Admin: 05/17/22 08:34 Dose: 20 mg Lorazepam (Lorazepam 1 Mg Tablet) 1 mg PO BEDTIME [facility] Last Admin: 05/16/22 20:48 Dose: 1 mg Lorazepam (Lorazepam 0.5 Mg Tablet) 0.5 mg PO BID@0900,1500 [facility] Last Admin: 05/17/22 08:35 Dose: 0.5 mg Nystatin (Nystatin Cream 15 Gm Tube) 1 appl TOPICAL BID [facility]; Protocol Stop: 05/23/22 23:00 Last Admin: 05/17/22 09:16 Dose: 1 appl Olanzapine (Olanzapine 10 Mg Vial) 5 mg IM QID PRN PRN Reason: if refuse po Tegretol/Zyprexa Olanzapine (Olanzapine 10 Mg Tablet) 10 mg PO BID [facility] Last Admin: 05/17/22 08:34 Dose: 10 mg Omeprazole (Omeprazole 20 Mg Capsule.Dr) 20 mg PO BEDTIME [facility] Last Admin: 05/16/22 20:48 Dose: 20 mg Oxybutynin Chloride (Oxybutynin Chloride Er 5 Mg Tab.Er.24) 10 mg PO DAILY [facility] Last Admin: 05/17/22 08:34 Dose: 10 mg Trolamine Salicylate (Trolamine Salicylate 10 % Cream 85 Gm Tube) 1 appl TOPICAL TID PRN; Protocol PRN Reason: Pain, Mild (Pain Scale 1-3) Last Admin: 05/15/22 08:08 Dose: 1 appl Allergies Allergies Allergy/AdvReac Type Severity Reaction Status Date / Time adhesive [Adhesive] Allergy Mild SKIN Verified 03/18/22 08:34 IRRITATION WITH BLISTERS codeine [Codeine] Allergy Mild UNKNOWN Verified 03/18/22 08:34 methylphenidate Allergy Mild UNKNOWN Verified 03/18/22 08:34 [From [facility]] simvastatin [Simvastatin] Allergy Mild UNKNOWN Verified 03/18/22 08:34 Assessment & Plan Assessment & Plan (1) Thigh pain: Status: Acute Code(s): M79.659 - Pain in unspecified thigh Plan Patient is a 61-year-old female with history of bipolar disorder who was involuntarily committed to inpatient psychiatric hospitalization for betty.? Patient remains manic however was transferred to hospital floor for treatment for urosepsis.? Patient has been medically cleared and returns to for continued treatment.? Patient is very angry and hostile towards screenplay writer.? She is angry she is not being discharged tomorrow says she has legal documents saying that her discharges post to be several days ago.? She shows screenplay writer these legal documents which clearly say that patient is committed for no more than 6 months.? Patient remains manic, without any insight, delusional and intrusive to others.? One of her peers said she is scared of this patient since the patient was coming into her room and verbally accosting her.? Neurocritical Care Physician reviewed medications that are court ordered and patient agreed to increasing Tegretol. 05/06 patient remains delusional, manic, intrusive and no insight; continues to abscond with people's belongings and supplies, touching people without permission, sexually inappropriate, touching male staff's buttocks. -will increase Tegretol; will give Geodon some more time and increased dose, however if not effective will go back to Zyprexa. 05/07 delusional, no insight; taking meds.? Will consider adding Zyprexa or increasing either Tegretol or Geodon further. -BP's better with increased lisinopril 05/09 Manic and disorganized without insight last night discontinued ziprasidone since does not appear to be helping that much and restarted Zyprexa which has typically been helpful during past manic episodes; patient has also typically received up to 5 mg of Ativan a day in the past for manic episodes; however screenplay writer hesitates to give too much Ativan at bedtime, given her age and concerns for fall risk or over sedation.? Instead will schedule 1 mg t.i.d. for now so she can be monitored.? Hopefully patient will not need to remain on Ativan.? Although Ativan is court ordered, screenplay writer also hesitates to give IM Ativan/benzo if patient refuses given that there is a chance she could also end up getting Zyprexa IM (though she has been taking it without issue) which is preferably avoided. 05/10 paranoid, delusional manic accusatory no insight; medications recently increased will give them a bit to take effect 05/11 LFTs, ammonia, Tegretol level within normal limits; soft tissue ultrasound says no cyst/abcess (below) 05/12, patient remains disorganized, manic with pressured speech. She did have a moment of insight where she said she would consider that maybe she has bipolar disorder, however immediately patient tangentially switches topics to her irritation that she is on the unit, that she is not discharge, that medications make her tired or, on to other completely unrelated topics. While screenplay writer is cautiously hopeful that this moment of insight could meghana a potential Turning Point, patient is far from ready for discharge; if she were to return home now, patient would remained combative, intrusive, with paranoid delusions, stop taking her medications and would be unsafe. Given her age and history of hypertension, obesity, will hold off increasing medications for now to limit risk of side effect and see if patient can continue to improve on current regimen. However if she does not make significant strides toward stability, will have to make adjustments 05/13 no changes 05/14 patient has made little progress on current medication even though it is higher than past doses which have helped her stabilize; will increase Zyprexa by 5 mg 05/15 remains paranoid; pt with delusions that staff is purposely trying to malign her; increasing Zyprexa to 10mg BID as she remains manic and disorganized 05/16 patient says she will continue taking medications at home since they are helpful; she explains that while she does not believe in her heart that she has bipolar disorder but has also consented to being treated for bipolar disorder for the past 15 years. Neurocritical Care Physician has tried to call her a few times to confer; waiting to hear back 05/17 talked to pt's who thinks she's doing better; he agrees with having her on unit for a few more days to continue to stabilize since she's not yet at baseline, but thinks she can likely come home soon. U/A at pt request; no dysuria PLAN: sectinion 8 Court ruled for involuntary commitment and substituted judgment Q15 Medications: HILARIA Camejo (not that helpful) INCREASED TO Zyprexa 10 BID (COURT ORDERED) *give IM zyprexa 5mg if refuses dose; patient in the past as needed 5 mg b.i.d. Continue Tegretol ER to 300 mg BID? (COURT ORDERED) *give IM zyprexa 5mg if refuses dose Ativan fell off; will restarted however at lower dose with Ativan 0.5 mg morning and afternoon and 1 mg at bedtime; in the past patient has needed higher dose to break betty.? Lisinopril 20 mg daily no script for Flovent other than one on 11/2021 (only one other script for this back in 03/2021) Substituted judgment medications include the following: Ziprasidone Zyprexa Tegretol Abilify/Maintena Risperidone/Consta Ativan UTI:resolved ceftin 500mg BID for 8 days 05/10 impresion: No cyst or abscess. Bilateral inguinal lymphadenopathy, left greater than right. Some lymph nodes demonstrate areas of cortical thickening. Management should be determined on a clinical basis. Lymph nodes would be amenable to ultrasound-guided fine-needle aspiration/biopsy if clinically indicated. I spent minutes with the patient and/or on the patient floor today, greater than?50% of which was spent counseling/coordinating care. Patient educated on: diagnosis and medication risk/benefits Informed Consent: understands Reason for contiued inpatient stay Substantial Risk for: rapid decompensation
[2022-05-17] MEDS: Lidocaine 4 % Patch ADH..PATCH 2 PATCH TRANSDERMA (13:47)
[2022-05-17 17:32] LABS: Appearance Urine Cloudy; Color Urine Yellow; Glucose Urine UA Negative (Negative); Leukocyte Esterase Urine Large (3+) (Negative); Nitrite Urine Negative (Negative); PH 6.5 (5.0-9.0); Specific Gravity - Urine 1.015 (1.005-1.025); UMIC TRIGGER UACC YES; Urine Blood Trace (Negative); Urine Ketones Negative (Negative); Urine Protein Negative (Neg-Trace)
[2022-05-17 17:37] LABS: Bacteria Urine None Seen (None Seen); Hyaline Casts Urine 0-2 /LPF (0-2); RBC Urine 0-2 /HPF (0-2); Squamous Epithelial Cell Urine 0-2 /HPF (0-2); UACC Culture Trigger YES; WBC Urine >50 /HPF (0-5)
[2022-05-17 19:00] VITALS: BP 119/56; PULSE 84; RESP 16; TEMP 36.2; O2SAT 98
[2022-05-17 20:11] VITALS: BP 136/67
[2022-05-17] MEDS: Omeprazole 20 MG CAPSULE.DR PO (20:13)
[2022-05-17] MEDS: LORazepam 1 MG TABLET PO (20:13)
[2022-05-17] MEDS: Ezetimibe 10 MG TABLET PO (20:13)
[2022-05-17] MEDS: Latanoprost 0.005 % Ophth Sol 2.5 ML DROPS 1 DROP EYE-BOTH (20:13)
[2022-05-18 08:40] VITALS: BP 134/63; PULSE 72; RESP 20; TEMP 37.1; O2SAT 98
[2022-05-18] MEDS: Labetalol HCL 200 MG TABLET PO ×2 (09:05→20:09)
[2022-05-18] MEDS: OLANZapine 10 MG TABLET PO ×2 (09:06→20:09)
[2022-05-18] MEDS: LORazepam 0.5 MG TABLET PO (09:07)
[2022-05-18] MEDS: lisinopriL 20 MG TABLET PO (09:07)
[2022-05-18] MEDS: carBAMazepine ER 100 MG TAB.ER.12H 300 MG PO ×2 (09:07→20:08)
[2022-05-18] MEDS: Furosemide 40 MG TABLET PO (09:07)
[2022-05-18] MEDS: Fenofibrate 160 MG TABLET PO (09:07)
[2022-05-18] MEDS: Fluticasone Propionate Nasal 16 GM SPRAY 1 SPRAY NOSTRIL-B (09:08)
[2022-05-18] MEDS: Lidocaine 4 % Patch ADH..PATCH 2 PATCH TRANSDERMA (09:08)
[2022-05-18] MEDS: Albuterol Sulfate 90 MCG 8 GM INHALER 2 PUFF INHALE (09:08)
--- NOTE | 2022-05-18 11:10 | PC.NURSE ---
abnormal ua. dr. grant notified via tiger text. , dr. vale notified verbally. awaiting return text.
--- NOTE | 2022-05-18 11:13 | PM.EVENT ---
Event Note Date of Service: 05/18/22 Event Note: copmlaining of back pain (similar to previous uti), positive ua with GNR in urin, previous cultures were pansensitive ecoli, will start with cefuroxime 5 days, follow up urine culture and adjust as needed
--- NOTE | 2022-05-18 16:15 | HO.PSYCHPN ---
Subjective Subjective Date of Service: 05/18/22 Reason For Visit: Betty Subjective Notes: Section 8 Interim History: Record reviewed discussed with Nursing. Noted UA positive and restarted on antibiotics as per hospitalist direction. Overall reports feeling that things are improving. Sleeping better. Did little pressured. Difficult at times to follow and sought pattern. Denies feeling depressed. No overt psychosis. No medication concerns Medication Compliance: Yes Side effects from medications: No Attending Groups: Intermittent Review of Systems UA positive in restarted on antibiotics as per hospitalist direction Review of Systems Review of Systems UA positive in restarted on antibiotics as per hospitalist direction Mental Status Exam Mental Status Exam Narrative: Pleasant with manual writer. Appropriately dressed. Self-care poor. Pressured speech. Loosening in thought form. Some irritability. No SI. No HI. No overt psychosis. Insight and judgment does appear limited Diagnostics Vital Signs (24Hr): Vital Signs - 24 hr 05/17/22 19:00 05/17/22 20:11 05/18/22 08:40 Temperature 97.2 F 98.8 F Pulse Rate 84 72 Respiratory Rate 16 20 Blood Pressure 119/56 L 136/67 134/63 Pulse Oximetry 98 98 Oxygen Delivery Method Room Air Room Air Labs Results: 05/11/22 07:03 Labs: Laboratory Results - last 48 hr 05/17/22 17:00 Urine Color Yellow Urine Appearance Cloudy Urine pH 6.5 Ur Specific [place] 1.015 Urine Protein Negative Urine Glucose (UA) Negative Urine Ketones Negative Urine Blood Trace H Urine Nitrite Negative Ur Leukocyte Esterase Large (3+) H Urine RBC 0-2 Urine WBC >50 H Ur Squamous Epith Cells 0-2 Urine Bacteria None Seen Hyaline Casts 0-2 Imaging Radiology Impressions: ITS Impressions Extremity Ultrasound 05/10/22 18:27 IMPRESSION: No cyst or abscess. Bilateral inguinal lymphadenopathy, left greater than right. Some lymph nodes demonstrate areas of cortical thickening. Management should be determined on a clinical basis. Lymph nodes would be amenable to ultrasound-guided fine-needle aspiration/biopsy if clinically indicated. Medications Medications Current Medications Acetaminophen (Acetaminophen 325 Mg Tablet) 650 mg PO Q6H PRN PRN Reason: Pain, Mild (Pain Scale 1-3) Last Admin: 05/17/22 14:19 Dose: 650 mg Albuterol Sulfate (Albuterol Sulfate 90 Mcg 8 Gm Inhaler) 2 puff INHALE Q4H PRN PRN Reason: wheezing Last Admin: 05/18/22 09:08 Dose: 2 puff Aspirin (Aspirin Enteric Coated 81 Mg Tablet.Dr) 81 mg PO ONCE PRN PRN Reason: headache; give w/ tylenol Carbamazepine (Carbamazepine Er 100 Mg Tab.Er.12h) 300 mg PO BEDTIME [facility] Last Admin: 05/17/22 20:12 Dose: 300 mg Carbamazepine (Carbamazepine Er 100 Mg Tab.Er.12h) 300 mg PO DAILY [facility] Last Admin: 05/18/22 09:07 Dose: 300 mg Cefuroxime Axetil (Cefuroxime Axetil 500 Mg Tablet) 500 mg PO Q12H [facility] Stop: 05/22/22 21:01 Ezetimibe (Ezetimibe 10 Mg Tablet) 10 mg PO BEDTIME@1999 [facility] Last Admin: 05/17/22 20:13 Dose: 10 mg Fenofibrate (Fenofibrate 160 Mg Tablet) 160 mg PO DAILY [facility] Last Admin: 05/18/22 09:07 Dose: 160 mg Fluticasone Propionate (Fluticasone Propionate Nasal 16 Gm [place]) 1 spray NOSTRIL-B DAILY [facility] Last Admin: 05/18/22 09:08 Dose: 1 spray Furosemide (Furosemide 40 Mg Tablet) 40 mg PO DAILY [facility]; Protocol Last Admin: 05/18/22 09:07 Dose: 40 mg Ibuprofen (Ibuprofen 600 Mg Tablet) 600 mg PO Q6H PRN PRN Reason: mild pain Last Admin: 05/17/22 14:19 Dose: 600 mg Ketoconazole (Ketoconazole 2 % Shampoo 120 Ml Btl) 1 appl TOPICAL DAILY [facility]; Protocol Last Admin: 05/18/22 09:08 Dose: Not Given Labetalol HCl (Labetalol Hcl 200 Mg Tablet) 200 mg PO BID [facility]; Protocol Last Admin: 05/18/22 09:05 Dose: 200 mg Latanoprost (Latanoprost 0.005 % Ophth Noni 2.5 Ml Drops) 1 drop EYE-BOTH BEDTIME@1999 [facility] Last Admin: 05/17/22 20:13 Dose: 1 drop Lidocaine (Lidocaine 4 % Patch Adh..Patch) 2 patch TRANSDERMA DAILY [facility]; Protocol Last Admin: 05/18/22 09:08 Dose: 2 patch Lisinopril (Lisinopril 20 Mg Tablet) 20 mg PO DAILY [facility]; Protocol Last Admin: 05/18/22 09:07 Dose: 20 mg Lorazepam (Lorazepam 1 Mg Tablet) 1 mg PO BEDTIME [facility] Last Admin: 05/17/22 20:13 Dose: 1 mg Lorazepam (Lorazepam 0.5 Mg Tablet) 0.5 mg PO BID@0900,1500 [facility] Last Admin: 05/18/22 14:08 Dose: Not Given Nystatin (Nystatin Cream 15 Gm Tube) 1 appl TOPICAL BID [facility]; Protocol Stop: 05/23/22 23:00 Last Admin: 05/18/22 09:09 Dose: Not Given Olanzapine (Olanzapine 10 Mg Vial) 5 mg IM QID PRN PRN Reason: if refuse po Tegretol/Zyprexa Olanzapine (Olanzapine 10 Mg Tablet) 10 mg PO BID [facility] Last Admin: 05/18/22 09:06 Dose: 10 mg Omeprazole (Omeprazole 20 Mg Capsule.Dr) 20 mg PO BEDTIME [facility] Last Admin: 05/17/22 20:13 Dose: 20 mg Oxybutynin Chloride (Oxybutynin Chloride Er 5 Mg Tab.Er.24) 10 mg PO DAILY [facility] Last Admin: 05/18/22 09:08 Dose: 10 mg Trolamine Salicylate (Trolamine Salicylate 10 % Cream 85 Gm Tube) 1 appl TOPICAL TID PRN; Protocol PRN Reason: Pain, Mild (Pain Scale 1-3) Last Admin: 05/15/22 08:08 Dose: 1 appl Allergies Allergies Allergy/AdvReac Type Severity Reaction Status Date / Time adhesive [Adhesive] Allergy Mild SKIN Verified 03/18/22 08:34 IRRITATION WITH BLISTERS codeine [Codeine] Allergy Mild UNKNOWN Verified 03/18/22 08:34 methylphenidate Allergy Mild UNKNOWN Verified 03/18/22 08:34 [From [facility]] simvastatin [Simvastatin] Allergy Mild UNKNOWN Verified 03/18/22 08:34 Assessment & Plan Assessment & Plan (1) Thigh pain: Status: Acute Code(s): M79.659 - Pain in unspecified thigh Plan Patient is a 61-year-old female with history of bipolar disorder who was involuntarily committed to inpatient psychiatric hospitalization for betty.? Patient remains manic however was transferred to hospital floor for treatment for urosepsis.? Patient has been medically cleared and returns to for continued treatment.? Patient is very angry and hostile towards manual writer.? She is angry she is not being discharged tomorrow says she has legal documents saying that her discharges post to be several days ago.? She shows manual writer these legal documents which clearly say that patient is committed for no more than 6 months.? Patient remains manic, without any insight, delusional and intrusive to others.? One of her peers said she is scared of this patient since the patient was coming into her room and verbally accosting her.? Pole Tester reviewed medications that are court ordered and patient agreed to increasing Tegretol. 05/06 patient remains delusional, manic, intrusive and no insight; continues to abscond with people's belongings and supplies, touching people without permission, sexually inappropriate, touching male staff's buttocks. -will increase Tegretol; will give Geodon some more time and increased dose, however if not effective will go back to Zyprexa. 05/07 delusional, no insight; taking meds.? Will consider adding Zyprexa or increasing either Tegretol or Geodon further. -BP's better with increased lisinopril 05/09 Manic and disorganized without insight last night discontinued ziprasidone since does not appear to be helping that much and restarted Zyprexa which has typically been helpful during past manic episodes; patient has also typically received up to 5 mg of Ativan a day in the past for manic episodes; however manual writer hesitates to give too much Ativan at bedtime, given her age and concerns for fall risk or over sedation.? Instead will schedule 1 mg t.i.d. for now so she can be monitored.? Hopefully patient will not need to remain on Ativan.? Although Ativan is court ordered, manual writer also hesitates to give IM Ativan/benzo if patient refuses given that there is a chance she could also end up getting Zyprexa IM (though she has been taking it without issue) which is preferably avoided. 05/10 paranoid, delusional manic accusatory no insight; medications recently increased will give them a bit to take effect 05/11 LFTs, ammonia, Tegretol level within normal limits; soft tissue ultrasound says no cyst/abcess (below) 05/12, patient remains disorganized, manic with pressured speech. She did have a moment of insight where she said she would consider that maybe she has bipolar disorder, however immediately patient tangentially switches topics to her irritation that she is on the unit, that she is not discharge, that medications make her tired or, on to other completely unrelated topics. While manual writer is cautiously hopeful that this moment of insight could meghana a potential Turning Point, patient is far from ready for discharge; if she were to return home now, patient would remained combative, intrusive, with paranoid delusions, stop taking her medications and would be unsafe. Given her age and history of hypertension, obesity, will hold off increasing medications for now to limit risk of side effect and see if patient can continue to improve on current regimen. However if she does not make significant strides toward stability, will have to make adjustments 05/13 no changes 05/14 patient has made little progress on current medication even though it is higher than past doses which have helped her stabilize; will increase Zyprexa by 5 mg 05/15 remains paranoid; pt with delusions that staff is purposely trying to malign her; increasing Zyprexa to 10mg BID as she remains manic and disorganized 05/16 patient says she will continue taking medications at home since they are helpful; she explains that while she does not believe in her heart that she has bipolar disorder but has also consented to being treated for bipolar disorder for the past 15 years. Pole Tester has tried to call her a few times to confer; waiting to hear back 05/17 talked to pt's who thinks she's doing better; he agrees with having her on unit for a few more days to continue to stabilize since she's not yet at baseline, but thinks she can likely come home soon. U/A at pt request; no dysuria 05/18/2022: Restarted on antibiotics as per hospitalist for positive UA. PLAN: sectinion 8 Court ruled for involuntary commitment and substituted judgment Q15 Medications: HILARIA Camejo (not that helpful) INCREASED TO Zyprexa 10 BID (COURT ORDERED) *give IM zyprexa 5mg if refuses dose; patient in the past as needed 5 mg b.i.d. Continue Tegretol ER to 300 mg BID? (COURT ORDERED) *give IM zyprexa 5mg if refuses dose Ativan fell off; will restarted however at lower dose with Ativan 0.5 mg morning and afternoon and 1 mg at bedtime; in the past patient has needed higher dose to break betty.? Lisinopril 20 mg daily no script for Flovent other than one on 11/2021 (only one other script for this back in 03/2021) Substituted judgment medications include the following: Ziprasidone Zyprexa Tegretol Abilify/Maintena Risperidone/Consta Ativan UTI:resolved ceftin 500mg BID for 8 days 05/10 impresion: No cyst or abscess. Bilateral inguinal lymphadenopathy, left greater than right. Some lymph nodes demonstrate areas of cortical thickening. Management should be determined on a clinical basis. Lymph nodes would be amenable to ultrasound-guided fine-needle aspiration/biopsy if clinically indicated. I spent minutes with the patient and/or on the patient floor today, greater than?50% of which was spent counseling/coordinating care. Reason for contiued inpatient stay Substantial Risk for: rapid decompensation
[2022-05-18 20:00] VITALS: BP 158/65; PULSE 85; RESP 16; TEMP 36.6
[2022-05-18] MEDS: Acetaminophen 325 MG TABLET 650 MG PO (20:08)
[2022-05-18] MEDS: Ibuprofen 600 MG TABLET PO (20:08)
[2022-05-18] MEDS: Ezetimibe 10 MG TABLET PO (20:09)
[2022-05-18] MEDS: LORazepam 1 MG TABLET PO (20:09)
[2022-05-18] MEDS: Omeprazole 20 MG CAPSULE.DR PO (20:09)
[2022-05-18] MEDS: Latanoprost 0.005 % Ophth Sol 2.5 ML DROPS 1 DROP EYE-BOTH (20:10)
[2022-05-18] MEDS: Nystatin Cream 15 GM TUBE 1 APPL TOPICAL (21:19)
[2022-05-18] MEDS: Trolamine Salicylate 10 % Cream 85 GM TUBE 1 APPL TOPICAL (21:42)
[2022-05-19] MEDS: Acetaminophen 325 MG TABLET 650 MG PO ×3 (04:04→19:14)
[2022-05-19] MEDS: Ibuprofen 600 MG TABLET PO ×3 (04:05→19:14)
[2022-05-19 06:00] VITALS: BP 124/67; PULSE 70; RESP 16; TEMP 36.9; O2SAT 97
[2022-05-19] MEDS: carBAMazepine ER 100 MG TAB.ER.12H 300 MG PO ×2 (08:44→19:13)
[2022-05-19] MEDS: OLANZapine 10 MG TABLET PO ×2 (08:44→19:13)
[2022-05-19] MEDS: Fenofibrate 160 MG TABLET PO (08:45)
[2022-05-19] MEDS: Furosemide 40 MG TABLET PO (08:45)
[2022-05-19] MEDS: Albuterol Sulfate 90 MCG 8 GM INHALER 2 PUFF INHALE (08:45)
[2022-05-19] MEDS: Labetalol HCL 200 MG TABLET PO ×2 (08:45→19:15)
[2022-05-19] MEDS: LORazepam 0.5 MG TABLET PO (08:45)
[2022-05-19] MEDS: Fluticasone Propionate Nasal 16 GM SPRAY 1 SPRAY NOSTRIL-B (08:45)
[2022-05-19] MEDS: lisinopriL 20 MG TABLET PO (08:45)
[2022-05-19] MEDS: Lidocaine 4 % Patch ADH..PATCH 2 PATCH TRANSDERMA (08:55)
--- NOTE | 2022-05-19 13:08 | P.PNPSI_ITS ---
Subjective Subjective Date of Service: 05/19/22 Reason For Visit: Betty Subjective Notes: Section 8 Interim History: Record reviewed discussed with Nursing. Continues to overall feels that things are getting better. Behavior consistent with same. Still meds pressured speech with some flight of ideas, but slightly less. Is enjoying coloring group with others. Did report wanting less or no Ativan during the daytime as she is starting to feel tired. Reports nighttime Ativan is helpful for sleep. Denies feeling depressed. No overt psychosis. Medication Compliance: Yes Side effects from medications: No Attending Groups: Yes Review of Systems Acute medical concerns: No Review of Systems Review of Systems Nothing acute Mental Status Exam Mental Status Exam Narrative: Pleasant with sba underwriter. Appropriately dressed. Self-care fair. Slightly less pressured speech. Loosening in thought form. less irritability. No SI. No HI. No overt psychosis. Insight and judgment does appear limited Diagnostics Vital Signs (24Hr): Vital Signs - 24 hr 05/18/22 20:00 05/19/22 06:00 Temperature 98 F 98.4 F Pulse Rate 85 70 Respiratory Rate 16 16 Blood Pressure 158/65 H 124/67 Pulse Oximetry 97 Oxygen Delivery Method Room Air Labs Results: 05/11/22 07:03 Labs: Laboratory Results - last 48 hr 05/17/22 17:00 Urine Color Yellow Urine Appearance Cloudy Urine pH 6.5 Ur Specific [place] 1.015 Urine Protein Negative Urine Glucose (UA) Negative Urine Ketones Negative Urine Blood Trace H Urine Nitrite Negative Ur Leukocyte Esterase Large (3+) H Urine RBC 0-2 Urine WBC >50 H Ur Squamous Epith Cells 0-2 Urine Bacteria None Seen Hyaline Casts 0-2 Imaging Radiology Impressions: ITS Impressions Extremity Ultrasound 05/10/22 18:27 IMPRESSION: No cyst or abscess. Bilateral inguinal lymphadenopathy, left greater than right. Some lymph nodes demonstrate areas of cortical thickening. Management should be determined on a clinical basis. Lymph nodes would be amenable to ultrasound-guided fine-needle aspiration/biopsy if clinically indicated. Medications Medications Current Medications Acetaminophen (Acetaminophen 325 Mg Tablet) 650 mg PO Q6H PRN PRN Reason: Pain, Mild (Pain Scale 1-3) Last Admin: 05/19/22 10:47 Dose: 650 mg Albuterol Sulfate (Albuterol Sulfate 90 Mcg 8 Gm Inhaler) 2 puff INHALE Q4H PRN PRN Reason: wheezing Last Admin: 05/19/22 08:45 Dose: 2 puff Aspirin (Aspirin Enteric Coated 81 Mg Tablet.Dr) 81 mg PO ONCE PRN PRN Reason: headache; give w/ tylenol Carbamazepine (Carbamazepine Er 100 Mg Tab.Er.12h) 300 mg PO BEDTIME [facility] Last Admin: 05/18/22 20:08 Dose: 300 mg Carbamazepine (Carbamazepine Er 100 Mg Tab.Er.12h) 300 mg PO DAILY [facility] Last Admin: 05/19/22 08:44 Dose: 300 mg Cefuroxime Axetil (Cefuroxime Axetil 500 Mg Tablet) 500 mg PO Q12H [facility] Stop: 05/22/22 21:01 Last Admin: 05/19/22 08:44 Dose: 500 mg Ezetimibe (Ezetimibe 10 Mg Tablet) 10 mg PO BEDTIME@1999 [facility] Last Admin: 05/18/22 20:09 Dose: 10 mg Fenofibrate (Fenofibrate 160 Mg Tablet) 160 mg PO DAILY [facility] Last Admin: 05/19/22 08:45 Dose: 160 mg Fluticasone Propionate (Fluticasone Propionate Nasal 16 Gm [place]) 1 spray NOSTRIL-B DAILY [facility] Last Admin: 05/19/22 08:45 Dose: 1 spray Furosemide (Furosemide 40 Mg Tablet) 40 mg PO DAILY [facility]; Protocol Last Admin: 05/19/22 08:45 Dose: 40 mg Ibuprofen (Ibuprofen 600 Mg Tablet) 600 mg PO Q6H PRN PRN Reason: mild pain Last Admin: 05/19/22 10:47 Dose: 600 mg Ketoconazole (Ketoconazole 2 % Shampoo 120 Ml Btl) 1 appl TOPICAL DAILY [facility]; Protocol Last Admin: 05/19/22 09:04 Dose: Not Given Labetalol HCl (Labetalol Hcl 200 Mg Tablet) 200 mg PO BID [facility]; Protocol Last Admin: 05/19/22 08:45 Dose: 200 mg Latanoprost (Latanoprost 0.005 % Ophth Noni 2.5 Ml Drops) 1 drop EYE-BOTH BEDTIME@1999 [facility] Last Admin: 05/18/22 20:10 Dose: 1 drop Lidocaine (Lidocaine 4 % Patch Adh..Patch) 2 patch TRANSDERMA DAILY [facility]; Protocol Last Admin: 05/19/22 08:55 Dose: 2 patch Lisinopril (Lisinopril 20 Mg Tablet) 20 mg PO DAILY [facility]; Protocol Last Admin: 05/19/22 08:45 Dose: 20 mg Lorazepam (Lorazepam 1 Mg Tablet) 1 mg PO BEDTIME [facility] Last Admin: 05/18/22 20:09 Dose: 1 mg Lorazepam (Lorazepam 0.5 Mg Tablet) 0.5 mg PO BID@0900,1500 [facility] Last Admin: 05/19/22 08:45 Dose: 0.5 mg Nystatin (Nystatin Cream 15 Gm Tube) 1 appl TOPICAL BID [facility]; Protocol Stop: 05/23/22 23:00 Last Admin: 05/19/22 09:04 Dose: Not Given Olanzapine (Olanzapine 10 Mg Vial) 5 mg IM QID PRN PRN Reason: if refuse po Tegretol/Zyprexa Olanzapine (Olanzapine 10 Mg Tablet) 10 mg PO BID [facility] Last Admin: 05/19/22 08:44 Dose: 10 mg Omeprazole (Omeprazole 20 Mg Capsule.Dr) 20 mg PO BEDTIME [facility] Last Admin: 05/18/22 20:09 Dose: 20 mg Oxybutynin Chloride (Oxybutynin Chloride Er 5 Mg Tab.Er.24) 10 mg PO DAILY [facility] Last Admin: 05/19/22 08:44 Dose: 10 mg Trolamine Salicylate (Trolamine Salicylate 10 % Cream 85 Gm Tube) 1 appl TOPICAL TID PRN; Protocol PRN Reason: Pain, Mild (Pain Scale 1-3) Last Admin: 05/18/22 21:42 Dose: 1 appl Allergies Allergies Allergy/AdvReac Type Severity Reaction Status Date / Time adhesive [Adhesive] Allergy Mild SKIN Verified 03/18/22 08:34 IRRITATION WITH BLISTERS codeine [Codeine] Allergy Mild UNKNOWN Verified 03/18/22 08:34 methylphenidate Allergy Mild UNKNOWN Verified 03/18/22 08:34 [From [facility]] simvastatin [Simvastatin] Allergy Mild UNKNOWN Verified 03/18/22 08:34 Assessment & Plan Assessment & Plan (1) Thigh pain: Status: Acute Code(s): M79.659 - Pain in unspecified thigh Plan Patient is a 61-year-old female with history of bipolar disorder who was involuntarily committed to inpatient psychiatric hospitalization for betty.? Patient remains manic however was transferred to hospital floor for treatment for urosepsis.? Patient has been medically cleared and returns to for continued treatment.? Patient is very angry and hostile towards sba underwriter.? She is angry she is not being discharged tomorrow says she has legal documents saying that her discharges post to be several days ago.? She shows sba underwriter these legal documents which clearly say that patient is committed for no more than 6 months.? Patient remains manic, without any insight, delusional and intrusive to others.? One of her peers said she is scared of this patient since the patient was coming into her room and verbally accosting her.? Temper Mill Operator reviewed medications that are court ordered and patient agreed to increasing Tegretol. 05/06 patient remains delusional, manic, intrusive and no insight; continues to abscond with people's belongings and supplies, touching people without permission, sexually inappropriate, touching male staff's buttocks. -will increase Tegretol; will give Geodon some more time and increased dose, however if not effective will go back to Zyprexa. 05/07 delusional, no insight; taking meds.? Will consider adding Zyprexa or increasing either Tegretol or Geodon further. -BP's better with increased lisinopril 05/09 Manic and disorganized without insight last night discontinued ziprasidone since does not appear to be helping that much and restarted Zyprexa which has typically been helpful during past manic episodes; patient has also typically received up to 5 mg of Ativan a day in the past for manic episodes; however sba underwriter hesitates to give too much Ativan at bedtime, given her age and concerns for fall risk or over sedation.? Instead will schedule 1 mg t.i.d. for now so she can be monitored.? Hopefully patient will not need to remain on Ativan.? Although Ativan is court ordered, sba underwriter also hesitates to give IM Ativan/benzo if patient refuses given that there is a chance she could also end up getting Zyprexa IM (though she has been taking it without issue) which is preferably avoided. 05/10 paranoid, delusional manic accusatory no insight; medications recently increased will give them a bit to take effect 05/11 LFTs, ammonia, Tegretol level within normal limits; soft tissue ultrasound says no cyst/abcess (below) 10/9, patient remains disorganized, manic with pressured speech. She did have a moment of insight where she said she would consider that maybe she has bipolar disorder, however immediately patient tangentially switches topics to her irritation that she is on the unit, that she is not discharge, that medications make her tired or, on to other completely unrelated topics. While sba underwriter is cautiously hopeful that this moment of insight could meghana a potential Turning Point, patient is far from ready for discharge; if she were to return home now, patient would remained combative, intrusive, with paranoid delusions, stop taking her medications and would be unsafe. Given her age and history of hypertension, obesity, will hold off increasing medications for now to limit risk of side effect and see if patient can continue to improve on current regimen. However if she does not make significant strides toward stability, will have to make adjustments 05/13 no changes 05/14 patient has made little progress on current medication even though it is higher than past doses which have helped her stabilize; will increase Zyprexa by 5 mg 05/15 remains paranoid; pt with delusions that staff is purposely trying to malign her; increasing Zyprexa to 10mg BID as she remains manic and disorganized 05/16 patient says she will continue taking medications at home since they are helpful; she explains that while she does not believe in her heart that she has bipolar disorder but has also consented to being treated for bipolar disorder for the past 15 years. Temper Mill Operator has tried to call her a few times to confer; waiting to hear back 05/17 talked to pt's who thinks she's doing better; he agrees with having her on unit for a few more days to continue to stabilize since she's not yet at baseline, but thinks she can likely come home soon. U/A at pt request; no dysuria 05/18/2022: Restarted on antibiotics as per hospitalist for positive UA. 05/29: No changes. Will d/w primary team ref ativan- Did report wanting less or no Ativan during the daytime as she is starting to feel tired. Reports nighttime Ativan is helpful for sleep. PLAN: sectinion 8 Court ruled for involuntary commitment and substituted judgment Q15 Medications: HILARIA Camejo (not that helpful) INCREASED TO Zyprexa 10 BID (COURT ORDERED) *give IM zyprexa 5mg if refuses dose; patient in the past as needed 5 mg b.i.d. Continue Tegretol ER to 300 mg BID? (COURT ORDERED) *give IM zyprexa 5mg if refuses dose Ativan fell off; will restarted however at lower dose with Ativan 0.5 mg morning and afternoon and 1 mg at bedtime; in the past patient has needed higher dose to break betty.? Lisinopril 20 mg daily no script for Flovent other than one on 11/2021 (only one other script for this back in 03/2021) Substituted judgment medications include the following: Ziprasidone Zyprexa Tegretol Abilify/Maintena Risperidone/Consta Ativan UTI:resolved ceftin 500mg BID for 8 days 05/10 impresion: No cyst or abscess. Bilateral inguinal lymphadenopathy, left greater than right. Some lymph nodes demonstrate areas of cortical thickening. Management should be determined on a clinical basis. Lymph nodes would be amenable to ultrasound-guided fine-needle aspiration/biopsy if clinically indicated. I spent minutes with the patient and/or on the patient floor today, greater than?50% of which was spent counseling/coordinating care. Reason for contiued inpatient stay Substantial Risk for: rapid decompensation
[2022-05-19 18:33] VITALS: BP 142/63; PULSE 84
[2022-05-19] MEDS: Ezetimibe 10 MG TABLET PO (19:14)
[2022-05-19] MEDS: Omeprazole 20 MG CAPSULE.DR PO (19:14)
[2022-05-19] MEDS: LORazepam 1 MG TABLET PO (19:15)
[2022-05-19] MEDS: Trolamine Salicylate 10 % Cream 85 GM TUBE 1 APPL TOPICAL (21:29)
[2022-05-19] MEDS: Nystatin Cream 15 GM TUBE 1 APPL TOPICAL (21:29)
[2022-05-20] MEDS: Ibuprofen 600 MG TABLET PO ×3 (05:11→17:44)
[2022-05-20] MEDS: Acetaminophen 325 MG TABLET 650 MG PO ×3 (05:12→17:44)
[2022-05-20 06:00] VITALS: BP 141/65; PULSE 70; RESP 16; TEMP 36.6; O2SAT 99
[2022-05-20] MEDS: Lidocaine 4 % Patch ADH..PATCH 2 PATCH TRANSDERMA (08:45)
[2022-05-20] MEDS: carBAMazepine ER 100 MG TAB.ER.12H 300 MG PO ×2 (08:46→19:17)
[2022-05-20] MEDS: Fenofibrate 160 MG TABLET PO (08:46)
[2022-05-20] MEDS: Furosemide 40 MG TABLET PO (08:46)
[2022-05-20] MEDS: lisinopriL 20 MG TABLET PO (08:46)
[2022-05-20] MEDS: OLANZapine 10 MG TABLET PO ×2 (08:46→19:19)
[2022-05-20] MEDS: Labetalol HCL 200 MG TABLET PO ×2 (08:46→19:18)
[2022-05-20] MEDS: Albuterol Sulfate 90 MCG 8 GM INHALER 2 PUFF INHALE (08:49)
[2022-05-20] MEDS: Fluticasone Propionate Nasal 16 GM SPRAY 1 SPRAY NOSTRIL-B (08:49)
--- NOTE | 2022-05-20 10:58 | P.PNPSI_ITS ---
Subjective Subjective Date of Service: 05/20/22 Reason For Visit: Betty Interim History: Patient mildly hypomanic however more calm, more reasonable, more able to engage in back and forth dialogue, with mildly pressured speech but interruptible. Patient has improved behaviors; she has not been actually aggressive for weeks and over the weekend has not made any verbal references to aggressive thinking. Patient again had a logical and thoughtful discussion with radio news writer about her illness, saying that while she does not like labels and does not want to agree with her bipolar diagnosis, she wholeheartedly agrees that the medications she is on are very helpful to her; she finds them calming, helpful for clarity of thought and she plans to continue to taking them and will discuss medication regimen with her outpatient provider Aixa Ahn. Last Friday patient's felt that she was ready to come home; today social media marketing manager talked with her daughter who also lives with her parents and agrees patient is not quite back to baseline but also ready to come home. Customer Complaint Clerk discussed this with patient who is very happy and despite her near daily complaints of being forced to be on the unit, shared with radio news writer all the benefits she has experienced for being here and there was a need for it. No SI, no HI no AVH. Patient is sleeping consistently through most of the night. Discussed recurrent UTI and patient says she will continue with abx and follow-up with her urologist. Mental Status Exam Mental Status Exam Narrative: Pt is alert and oriented; behavior remains hypomanic but much less intense and no longer intrusive; Overweight, Bilateral LE edema (nearly at baseline per patient); adequately groomed and dressed in casual attire;mood is described as good. Affect remains congruent and appropriate; not labile; eye contact is good; Speech is mildly pressured and somewhat hyperverbal but much less so and she is able to realize it and contain herself; able to have give and take dialogue; normal volume and prosody; no psychomotor agitation present; thought process is goal directed; still quite circumstantial but she can catch herself and get back to the point; no longer tangential; Thought content is on discharge and post discharge follow up; no paranoid thinking expressed; denies any SI/HI. ?Patients insight and judgment are impaired but significantly improved and approaching baseline per family. Diagnostics Vital Signs (24Hr): Vital Signs - 24 hr 05/19/22 18:33 05/20/22 06:00 Temperature 97.8 F Pulse Rate 84 70 Respiratory Rate 16 Blood Pressure 142/63 H 141/65 H Pulse Oximetry 99 Oxygen Delivery Method Room Air Labs Results: 05/11/22 07:03 Imaging Radiology Impressions: ITS Impressions Extremity Ultrasound 05/10/22 18:27 IMPRESSION: No cyst or abscess. Bilateral inguinal lymphadenopathy, left greater than right. Some lymph nodes demonstrate areas of cortical thickening. Management should be determined on a clinical basis. Lymph nodes would be amenable to ultrasound-guided fine-needle aspiration/biopsy if clinically indicated. Medications Medications Current Medications Acetaminophen (Acetaminophen 325 Mg Tablet) 650 mg PO Q6H PRN PRN Reason: Pain, Mild (Pain Scale 1-3) Last Admin: 05/20/22 05:12 Dose: 650 mg Albuterol Sulfate (Albuterol Sulfate 90 Mcg 8 Gm Inhaler) 2 puff INHALE Q4H PRN PRN Reason: wheezing Last Admin: 05/20/22 08:49 Dose: 2 puff Aspirin (Aspirin Enteric Coated 81 Mg Tablet.Dr) 81 mg PO ONCE PRN PRN Reason: headache; give w/ tylenol Carbamazepine (Carbamazepine Er 100 Mg Tab.Er.12h) 300 mg PO BEDTIME [facility] Last Admin: 05/19/22 19:13 Dose: 300 mg Carbamazepine (Carbamazepine Er 100 Mg Tab.Er.12h) 300 mg PO DAILY [facility] Last Admin: 05/20/22 08:46 Dose: 300 mg Cefuroxime Axetil (Cefuroxime Axetil 500 Mg Tablet) 500 mg PO Q12H [facility] Stop: 05/22/22 21:01 Last Admin: 05/20/22 08:46 Dose: 500 mg Ezetimibe (Ezetimibe 10 Mg Tablet) 10 mg PO BEDTIME@1999 [facility] Last Admin: 05/19/22 19:14 Dose: 10 mg Fenofibrate (Fenofibrate 160 Mg Tablet) 160 mg PO DAILY [facility] Last Admin: 05/20/22 08:46 Dose: 160 mg Fluticasone Propionate (Fluticasone Propionate Nasal 16 Gm [place]) 1 spray NOSTRIL-B DAILY [facility] Last Admin: 05/20/22 08:49 Dose: 1 spray Furosemide (Furosemide 40 Mg Tablet) 40 mg PO DAILY [facility]; Protocol Last Admin: 05/20/22 08:46 Dose: 40 mg Ibuprofen (Ibuprofen 600 Mg Tablet) 600 mg PO Q6H PRN PRN Reason: mild pain Last Admin: 05/20/22 05:11 Dose: 600 mg Ketoconazole (Ketoconazole 2 % Shampoo 120 Ml Btl) 1 appl TOPICAL DAILY [facility]; Protocol Last Admin: 05/20/22 08:51 Dose: Not Given Labetalol HCl (Labetalol Hcl 200 Mg Tablet) 200 mg PO BID [facility]; Protocol Last Admin: 05/20/22 08:46 Dose: 200 mg Latanoprost (Latanoprost 0.005 % Ophth Noni 2.5 Ml Drops) 1 drop EYE-BOTH BEDTIME@1999 [facility] Last Admin: 05/19/22 19:14 Dose: Not Given Lidocaine (Lidocaine 4 % Patch Adh..Patch) 2 patch TRANSDERMA DAILY [facility]; Protocol Last Admin: 05/20/22 08:45 Dose: 2 patch Lisinopril (Lisinopril 20 Mg Tablet) 20 mg PO DAILY [facility]; Protocol Last Admin: 05/20/22 08:46 Dose: 20 mg Lorazepam (Lorazepam 1 Mg Tablet) 1 mg PO BEDTIME [facility] Last Admin: 05/19/22 19:15 Dose: 1 mg Lorazepam (Lorazepam 0.5 Mg Tablet) 0.5 mg PO BID@0900,1500 [facility] Last Admin: 05/20/22 08:50 Dose: Not Given Nystatin (Nystatin Cream 15 Gm Tube) 1 appl TOPICAL BID [facility]; Protocol Stop: 05/23/22 23:00 Last Admin: 05/20/22 08:50 Dose: Not Given Olanzapine (Olanzapine 10 Mg Vial) 5 mg IM QID PRN PRN Reason: if refuse po Tegretol/Zyprexa Olanzapine (Olanzapine 10 Mg Tablet) 10 mg PO BID [facility] Last Admin: 05/20/22 08:46 Dose: 10 mg Omeprazole (Omeprazole 20 Mg Capsule.Dr) 20 mg PO BEDTIME [facility] Last Admin: 05/19/22 19:14 Dose: 20 mg Oxybutynin Chloride (Oxybutynin Chloride Er 5 Mg Tab.Er.24) 10 mg PO DAILY [facility] Last Admin: 05/20/22 08:47 Dose: 10 mg Trolamine Salicylate (Trolamine Salicylate 10 % Cream 85 Gm Tube) 1 appl TOPICAL TID PRN; Protocol PRN Reason: Pain, Mild (Pain Scale 1-3) Last Admin: 05/19/22 21:29 Dose: 1 appl Allergies Allergies Allergy/AdvReac Type Severity Reaction Status Date / Time adhesive [Adhesive] Allergy Mild SKIN Verified 03/18/22 08:34 IRRITATION WITH BLISTERS codeine [Codeine] Allergy Mild UNKNOWN Verified 03/18/22 08:34 methylphenidate Allergy Mild UNKNOWN Verified 03/18/22 08:34 [From [facility]] simvastatin [Simvastatin] Allergy Mild UNKNOWN Verified 03/18/22 08:34 Assessment & Plan Assessment & Plan (1) Thigh pain: Status: Acute Code(s): M79.659 - Pain in unspecified thigh Plan Patient is a 61-year-old female with history of bipolar disorder who was involuntarily committed to inpatient psychiatric hospitalization for betty.? Patient remains manic however was transferred to hospital floor for treatment for urosepsis.? Patient has been medically cleared and returns to for continued treatment.? Patient is very angry and hostile towards radio news writer.? She is angry she is not being discharged tomorrow says she has legal documents saying that her discharges post to be several days ago.? She shows radio news writer these legal documents which clearly say that patient is committed for no more than 6 months.? Patient remains manic, without any insight, delusional and intrusive to others.? One of her peers said she is scared of this patient since the patient was coming into her room and verbally accosting her.? Customer Complaint Clerk reviewed medications that are court ordered and patient agreed to increasing Tegretol. 10 patient remains delusional, manic, intrusive and no insight; continues to abscond with people's belongings and supplies, touching people without permission, sexually inappropriate, touching male staff's buttocks. -will increase Tegretol; will give Geodon some more time and increased dose, however if not effective will go back to Zyprexa. 05/07 delusional, no insight; taking meds.? Will consider adding Zyprexa or increasing either Tegretol or Geodon further. -BP's better with increased lisinopril 05/09 Manic and disorganized without insight last night discontinued ziprasidone since does not appear to be helping that much and restarted Zyprexa which has typically been helpful during past manic episodes; patient has also typically received up to 5 mg of Ativan a day in the past for manic episodes; however radio news writer hesitates to give too much Ativan at bedtime, given her age and concerns for fall risk or over sedation.? Instead will schedule 1 mg t.i.d. for now so she can be monitored.? Hopefully patient wi ll not need to remain on Ativan.? Although Ativan is court ordered, radio news writer also hesitates to give IM Ativan/benzo if patient refuses given that there is a chance she could also end up getting Zyprexa IM (though she has been taking it without issue) which is preferably avoided. 05/10 paranoid, delusional manic accusatory no insight; medications recently increased will give them a bit to take effect 05/11 LFTs, ammonia, Tegretol level within normal limits; soft tissue ultrasound says no cyst/abcess (below) 05/12, patient remains disorganized, manic with pressured speech. She did have a moment of insight where she said she would consider that maybe she has bipolar disorder, however immediately patient tangentially switches topics to her irritation that she is on the unit, that she is not discharge, that medications make her tired or, on to other completely unrelated topics. While radio news writer is c autiously hopeful that this moment of insight could meghana a potential [place], patient is far from ready for discharge; if she were to return home now, patient would remained combative, intrusive, with paranoid delusions, stop taking her medications and would be unsafe. Given her age and history of hypertension, obesity, will hold off increasing medications for now to limit risk of side effect and see if patient can continue to improve on current regimen. However if she does not make significant strides toward stability, will have to make adjustments 05/13 no changes 05/14 patient has made little progress on current medication even though it is higher than past doses which have helped her stabilize; will increase Zyprexa by 5 mg 05/15 remains paranoid; pt with delusions that staff is purposely trying to malign her; increasing Zyprexa to 10mg BID as she remains manic and disorganized 05/16 patient says she will continue taking medications at home since they are helpful; she explains that while she does not believe in her heart that she has bipolar disorder but has also consented to being treated for bipolar disorder for the past 15 years. Customer Complaint Clerk has tried to call her a few times to confer; waiting to hear back 05/17 talked to pt's who thinks she's doing better; he agrees with having her on unit for a few more days to continue to stabilize since she's not yet at baseline, but thinks she can likely come home soon. U/A at pt request; no dysuria 05/18/2022: Restarted on antibiotics as per hospitalist for positive UA. 05/19: No changes. Will d/w primary team ref ativan- Did report wanting less or no Ativan during the daytime as she is starting to feel tired. Reports nighttime Ativan is helpful for sleep. 05/20 patient remains much improved; still hypomanic but in overall good behavioral and impulse control, no longer intrusive and not making any ag gressive comments. Patient's and daughter both feel that she is approaching baseline and ready to come home. Patient does not think she has bipolar disorder however strongly agrees that she needs medications to stay stable and that they are helpful to her and will continue taking them. Customer Complaint Clerk agrees that she is appropriate to continue treatment as an outpatient. Request for discharge honored. PLAN: sectinion [address] Court ruled for involuntary commitment and substituted judgment Q15 Medications: HILARIA Camejo (not that helpful) Zyprexa 10 BID (COURT ORDERED) *give IM zyprexa 5mg if refuses dose; patient in the past as needed 5 mg b.i.d. Continue Tegretol ER to 300 mg BID? (COURT ORDERED) *give IM zyprexa 5mg if refuses dose Ativan fell off; will restarted however at lower dose with Ativan 0.5 mg morning and afternoon and 1 mg at bedtime; in the past patient has needed higher dose to break betty.? Lisinopril 20 mg daily no script for Flovent other than one on 11/2021 (only one other script for this back in 03/2021) Substituted judgment medications include the following: Ziprasidone Zyprexa Tegretol Abilify/Maintena Risperidone/Consta Ativan UTI:resolved ceftin 500mg BID for 8 days 05/10 impresion: No cyst or abscess. Bilateral inguinal lymphadenopathy, left greater than right. Some lymph nodes demonstrate areas of cortical thickening. Management should be determined on a clinical basis. Lymph nodes would be amenable to ultrasound-guided fine-needle aspiration/biopsy if clinically indicated. I spent minutes with the patient and/or on the patient floor today, greater than?50% of which was spent counseling/coordinating care. Patient educated on: diagnosis, medication risk/benefits and medical condition Informed Consent: understands Reason for contiued inpatient stay Substantial Risk for: stable for discharge
[2022-05-20] MEDS: LORazepam 0.5 MG TABLET PO (17:41)
[2022-05-20 18:00] VITALS: BP 132/86; PULSE 66; RESP 16; TEMP 36.4; O2SAT 99
[2022-05-20] MEDS: Omeprazole 20 MG CAPSULE.DR PO (19:18)
[2022-05-20] MEDS: Ezetimibe 10 MG TABLET PO (19:18)
[2022-05-20] MEDS: LORazepam 1 MG TABLET PO (19:19)
--- NOTE | 2022-05-20 21:25 | PC.NURSE ---
Pt refused Ativan 0.5mg. undo attempt in the MAR is unsuccessful.
[2022-05-20] MEDS: Nystatin Cream 15 GM TUBE 1 APPL TOPICAL (21:29)
[2022-05-20] MEDS: Latanoprost 0.005 % Ophth Sol 2.5 ML DROPS 1 DROP EYE-BOTH (21:29)
[2022-05-21] MEDS: Ibuprofen 600 MG TABLET PO (04:06)
[2022-05-21] MEDS: Acetaminophen 325 MG TABLET 650 MG PO (04:06)
[2022-05-21 06:00] VITALS: BP 142/68; PULSE 74; RESP 16; TEMP 36.8; O2SAT 98
[2022-05-21] MEDS: Albuterol Sulfate 90 MCG 8 GM INHALER 2 PUFF INHALE (08:49)
[2022-05-21] MEDS: Fluticasone Propionate Nasal 16 GM SPRAY 1 SPRAY NOSTRIL-B (08:49)
[2022-05-21] MEDS: OLANZapine 10 MG TABLET PO (08:49)
[2022-05-21] MEDS: Furosemide 40 MG TABLET PO (08:50)
[2022-05-21] MEDS: carBAMazepine ER 100 MG TAB.ER.12H 300 MG PO (08:50)
[2022-05-21] MEDS: lisinopriL 20 MG TABLET PO (08:50)
[2022-05-21] MEDS: Fenofibrate 160 MG TABLET PO (08:50)
[2022-05-21] MEDS: Labetalol HCL 200 MG TABLET PO (08:50)
[2022-05-21] MEDS: Trolamine Salicylate 10 % Cream 85 GM TUBE 1 APPL TOPICAL (08:51)
[2022-05-21] MEDS: Lidocaine 4 % Patch ADH..PATCH 2 PATCH TRANSDERMA (09:00)
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
== END 2022-05-21 13:45 | disposition home or self-care (01) | DRG 753 ==
PROVIDERS: Admitting Provider Psychiatry & Neurology Psychiatry; PCP Nurse Practitioner Family; Visit Provider Psychiatry & Neurology Psychiatry
DX: F31.2 Bipolar disorder, current episode manic severe with psychotic features (principal); I10 Essential (primary) hypertension; M79.652 Pain in left thigh; M79.651 Pain in right thigh; E66.3 Overweight; I87.8 Other specified disorders of veins; N39.0 Urinary tract infection, site not specified; Z88.5 Allergy status to narcotic agent; Z88.8 Allergy status to other drugs, medicaments and biological substances; Z79.51 Long term (current) use of inhaled steroids; Z79.899 Other long term (current) drug therapy
CPT/HCPCS: 36415; 76882; 80051; 80076; 80156; 81001; 82140; 87086; 87088; 87186; 93005